=== PATIENT | male | born 1955 | race African-American/Black ===

== ENCOUNTER 2022-01-20 19:03 | Inpatient (IN) | payer MEDICARE, MEDICAID, SELFPAY ==
--- NOTE | 2022-01-20 19:07 | ED_ITS ---
HPI - Psych General Chief Complaint: Psychiatric Symptoms Stated Complaint: [id number] Time Seen by Provider: 01/20/22 19:06 Source: patient and EMS Mode of arrival: EMS History of Present Illness HPI Narrative: 66-year-old male with a past medical history of schizophrenia, HTN, presenting to ED via EMS on a Section 12 for inpatient bed search s/p community evaluation for visual hallucinations and delusions. Patient is noncompliant on m edications. Patient reports baptism delusions and visual hallucinations of horses. Patient reports occasional ETOH use, denies EtOH today. Denies illicit substance use, SI, HI, cough, abdominal pain, nausea/vomiting. History limited due to patient's acute mental status MD complaint: hallucinations Related Data Allergies Allergy/AdvReac Type Severity Reaction Status Date / Time No Known Allergies Allergy Unverified 01/15/20 16:15 [No Known Allergies*] Review of Systems Review of Systems: Constitutional: No Fever, No Chills, No Fatigue, No Malaise ENT/Mouth: No Ear Pain, No sore throat, No Swallowing Difficulty Eyes: No Eye Pain, No Swelling, No Redness Cardiovascular: No Chest Pain, No SOB, No Edema, No Palpitations Respiratory: No Cough, No Sputum, No Dyspnea Gastrointestinal: No Nausea, No Vomiting, No Abdominal pain Genitourinary: No Dysuria, No Urinary Flow Changes Musculoskeletal: No joint pain, No Myalgias, No Joint Swelling Skin: No Skin Lesions, No rash Neuro: No Weakness, No Numbness, No Dizziness, No Headache Psych: No Anxiety/Panic, No Depression, No SI/HI, +AH/VH, No Social Issues Yes all other systems are reviewed and are negative Constitutional: Constitutional: Reports as per HPI [facility] Past Medical History Attestation statement: The following information was validated with the patient. Physical Exam Vital Signs: Vital Signs: Last Vital Signs Temp 99.3 F 01/20/22 19:31 Pulse 73 01/20/22 19:31 Resp 18 01/20/22 19:31 BP 163/86 H 01/20/22 19:31 Pulse Ox 98 01/20/22 19:31 O2 Del Method 01/20/22 19:31 BMI result Body Mass Index 25.1 Const: General: cooperative and no acute distress Orientation/consciousness: patient oriented x3 Limitations: no limitations HEENT: Head: Yes normal to inspection and Yes atraumatic Ears: hearing grossly normal bilaterally General nose exam: Normal external nose present Face and sinus: Yes normal facial exam Eyes: General: appearance normal, both eyes and all related structures Pupils: Equal, round and reactive pupils present EOM: EOMs intact bilaterally Neck: Neck: Yes normal visual inspection and Yes no meningeal signs Resp: Effort & Inspection: normal respiratory effort and no respiratory distress Auscultation: clear to auscultation bilaterally, no crackles, no rales, no rhonchi and no wheezes Cardio: Rate: regular rate Heart sounds: S1 normal heart sound present and S2 normal heart sound present GI: Inspection: Yes normal to inspection Palpation (GI): Soft to palpation, nontender, no guarding and not rigid : General: Yes no CVA tenderness Back/Spine/Pelvis: Back: no CVA tenderness Skin: Rashes: no rashes Wounds: no wounds Neuro: General: patient oriented x3, tone normal, no meningeal signs and CN's II-XI intact bilaterally Cranial nerves: Yes Equal, round and reactive pupils present Gait exam (Neuro): Normal gait present Extrem: General: Yes normal to inspection Psych: Attitude: cooperative Thought process: Flight of ideas present Thought content: delusions and Hallucination(s) present visual Insight: Poor insight present (Psych) Judgement: Poor judgement present (Psych) Course Course Course Narrative: --no leukocytosis. H&H 9.9/31.2 (no available priors). Labs otherwise unremarkable. Valproic acid level WNL 2100--ED care transferred to Dr. Butler pending UA, urine drug screen and inpatient bed search MDM - Psych MDM Narrative Medical decision making narrative: 66-year-old male with a past medical history of schizophrenia, HTN, presenting to ED via EMS on a Section 12 for inpatient bed search s/p community evaluation for visual hallucinations and delusions. On exam vital signs stable, NAD, nontoxic appearing on the patient having active visual hallucinations/delusions during evaluation. Concern for organic causes/metabolic abnormalities or infectious etiology vs medication noncompliance/acute psychiatric illness Plan: EKG, labs, drug screen, tox, inpatient bed search Differential Diagnosis Differential diagnosis: Likely acute psychosis and drug-induced psychotic disorder Medical Records Attestation: I reviewed the patient's medical records. Lab Data Attestation: I reviewed the patient's lab results. Result diagrams: 01/20/22 19:31 01/20/22 19:32 Labs: Lab Results 01/20/22 01/20/22 01/20/22 Range/Units 19:31 19:31 19:31 WBC 5.2 (4.8-10.8) X10*3/uL RBC 3.54 L (4.60-5.80) X10*6/uL Hgb 9.9 L (14.0-18.0) g/dl Hct 31.2 L (42.0-52.0) % MCV 88.1 (80.0-98.0) fL MCH 28.0 (27.0-33.0) pg MCHC 31.7 (31.0-36.0) g/dl RDW 16.1 H (11.0-16.0) % Plt Count 184 (160-400) X10*3/uL MPV 7.9 L (9.4-12.4) fL Immature Gran % (Auto) 0.4 (0.0-0.4) % Neut % (Auto) 40.2 L (45-73) % Lymph % (Auto) 43.7 H (20-40) % [place] % (Auto) 13.4 H (2-11) % Eos % (Auto) 1.7 (0-4) % Baso % (Auto) 0.6 (0-2) % Lymph # (Auto) 2.3 (1.2-4.9) X10*3/uL [place] # (Auto) 0.7 (0.1-1.2) X10*3/uL Eos # (Auto) 0.1 (0.0-0.4) X10*3/uL Baso # (Auto) 0.0 (0.0-0.2) X10*3/uL Abs Immat Gran (auto) 0.02 (0.00-0.03) X10*3/uL Absolute Neuts (auto) 2.1 (2.0-8.3) x10*3/uL Absolute Nucleated RBC 0.000 (0.0-0.012) X10*3/uL Nucleated RBC % (auto) 0.0 (0.0-0.2) /100WBC Sodium (135-145) mmol/L Potassium (3.3-5.1) mmol/L Chloride (96-108) mmol/L Carbon Dioxide (22-29) mmol/L Anion Gap (12-20) BUN (9-16) mg/dL Creatinine (0.5-1.4) mg/dL Estim Creat Clear Calc Estimated GFR Random Glucose (60-115) mg/dL Calcium (8.4-10.2) mg/dL Total Bilirubin (0.0-1.0) mg/dL AST (5-37) U/L ALT (0-40) U/L Alkaline Phosphatase (39-117) U/L Total Protein (6.5-8.0) g/dL Albumin (3.5-5.0) g/dL TSH (0.32-4.0) uIU/mL Salicylates (15-30) mg/dL Acetaminophen (<30) mcg/mL Valproic Acid 72.6 (50.0-100.0) mcg/mL Ethyl Alcohol mg/dL COVID-19 ([facility]) Negative (Negative) COVID-19 Clin Com See Note 01/20/22 01/20/22 01/20/22 Range/Units 19:32 19:32 19:32 WBC (4.8-10.8) X10*3/uL RBC (4.60-5.80) X10*6/uL Hgb (14.0-18.0) g/dl Hct (42.0-52.0) % MCV (80.0-98.0) fL MCH (27.0-33.0) pg MCHC (31.0-36.0) g/dl RDW (11.0-16.0) % Plt Count (160-400) X10*3/uL MPV (9.4-12.4) fL Immature Gran % (Auto) (0.0-0.4) % Neut % (Auto) (45-73) % Lymph % (Auto) (20-40) % [place] % (Auto) (2-11) % Eos % (Auto) (0-4) % Baso % (Auto) (0-2) % Lymph # (Auto) (1.2-4.9) X10*3/uL [place] # (Auto) (0.1-1.2) X10*3/uL Eos # (Auto) (0.0-0.4) X10*3/uL Baso # (Auto) (0.0-0.2) X10*3/uL Abs Immat Gran (auto) (0.00-0.03) X10*3/uL Absolute Neuts (auto) (2.0-8.3) x10*3/uL Absolute Nucleated RBC (0.0-0.012) X10*3/uL Nucleated RBC % (auto) (0.0-0.2) /100WBC Sodium 145 (135-145) mmol/L Potassium 3.8 (3.3-5.1) mmol/L Chloride 105 (96-108) mmol/L Carbon Dioxide 28 (22-29) mmol/L Anion Gap 16 (12-20) BUN 13 (9-16) mg/dL Creatinine 0.90 (0.5-1.4) mg/dL Estim Creat Clear Calc 80.7 Estimated GFR > 60 Random Glucose 88 (60-115) mg/dL Calcium 9.1 (8.4-10.2) mg/dL Total Bilirubin 0.4 (0.0-1.0) mg/dL AST 12 (5-37) U/L ALT 7 (0-40) U/L Alkaline Phosphatase 49 (39-117) U/L Total Protein 7.5 (6.5-8.0) g/dL Albumin 4.0 (3.5-5.0) g/dL TSH 0.68 (0.32-4.0) uIU/mL Salicylates < 5.0 L (15-30) mg/dL Acetaminophen < 1 (<30) mcg/mL Valproic Acid (50.0-100.0) mcg/mL Ethyl Alcohol < 10 mg/dL COVID-19 ([facility]) (Negative) COVID-19 Clin Com Discharge Plan Discharge Clinical Impression: Acute psychosis, Hallucinations, Delusions Patient Disposition: Still a Patient
[2022-01-20 19:13] VITALS: BMI 25.1
[2022-01-20 19:31] VITALS: BP 163/86; PULSE 73; RESP 18; TEMP 37.4; O2SAT 98
[2022-01-20 19:38] LABS: MANUAL DIFF FLAG NO
[2022-01-20 19:40] LABS: Basophils Percent Auto 0.6 % (0-2); Eosinophils Absolute Auto 0.1 X10*3/uL (0.0-0.4); Eosinophils Percent Auto 1.7 % (0-4); Hematocrit 31.2 % (42.0-52.0); Hemoglobin 9.9 g/dl (14.0-18.0); Imm Gran Abs Auto 0.02 X10*3/uL (0.00-0.03); Imm Gran Pct Auto 0.4 % (0.0-0.4); Lymphocytes Absolute Auto 2.3 X10*3/uL (1.2-4.9); Lymphocytes Percent Auto 43.7 % (20-40); Mean Corpuscular HGB Conc 31.7 g/dl (31.0-36.0); Mean Corpuscular Volume 88.1 fL (80.0-98.0); Mean Platelet Volume 7.9 fL (9.4-12.4); Monocytes Absolute Auto 0.7 X10*3/uL (0.1-1.2); Monocytes Percent Auto 13.4 % (2-11); Neutrophils Absolute Auto 2.1 x10*3/uL (2.0-8.3); Neutrophils Percent Auto 40.2 % (45-73); Platelet Count 184 X10*3/uL (160-400); Red Blood Count 3.54 X10*6/uL (4.60-5.80); Red Cell Distribution Width 16.1 % (11.0-16.0); White Blood Count 5.2 X10*3/uL (4.8-10.8)
[2022-01-20 19:54] LABS: Ethanol < 10 mg/dL
[2022-01-20 19:54] LABS: COVID-19 Test Negative (Negative)
[2022-01-20 19:56] LABS: Acetaminophen LAB < 1 mcg/mL (<30); Salicylate < 5.0 mg/dL (15-30)
[2022-01-20 19:57] LABS: Alanine Aminotransferase 7 U/L (0-40); Alkaline Phosphatase 49 U/L (39-117); Anion Gap 16 (12-20); Aspartate Amino Transferase 12 U/L (5-37); Bilirubin Total 0.4 mg/dL (0.0-1.0); Blood Urea Nitrogen 13 mg/dL (9-16); Calcium 9.1 mg/dL (8.4-10.2); Carbon Dioxide 28 mmol/L (22-29); Chloride 105 mmol/L (96-108); Creatinine Clr Calc Pharmacy 80.7; Estimated Glomerular Filt Rate > 60; Glucose Random 88 mg/dL (60-115); Potassium 3.8 mmol/L (3.3-5.1); Sodium 145 mmol/L (135-145); Total Protein 7.5 g/dL (6.5-8.0)
[2022-01-20 20:14] LABS: Valproate 72.6 mcg/mL (50.0-100.0)
[2022-01-20 20:17] LABS: TSH reflex Free T4 0.68 uIU/mL (0.32-4.0)
[2022-01-21 06:26] VITALS: BP 150/81; PULSE 65; RESP 16; O2SAT 97
--- NOTE | 2022-01-21 06:26 | PC.NURSE ---
Patient slept through the night, no distress observed/reported, behavior non concerning, medication rec completed/MAR updated, disposition per [facility] is section 12 inpatient bed search, gait independent, elimination intact, refused to provide urine sample, VS unremarkable,, will continue to monitor.
--- NOTE | 2022-01-21 07:37 | PC.NURSE ---
patient appears to remain asleep at present respirations are even and unlabored patient appears in no distress
[2022-01-21] MEDS: OLANZapine 5 MG TABLET PO (08:01)
[2022-01-21] MEDS: Labetalol HCL 100 MG TABLET 300 MG PO ×2 (08:02→21:00)
--- NOTE | 2022-01-21 12:16 | PC.NURSE ---
gave client personal bible per his request. searched for safety
[2022-01-21] MEDS: Divalproex Sodium 500 MG TABLET.DR 1000 MG PO (21:00)
[2022-01-21] MEDS: lisinopriL 20 MG TABLET PO (21:00)
[2022-01-21] MEDS: OLANZapine 7.5 MG TABLET 15 MG PO (21:00)
[2022-01-21] MEDS: Tamsulosin HCL 0.4 MG CAPSULE PO (21:00)
[2022-01-21 23:20] VITALS: BP 127/79; PULSE 76; RESP 16; O2SAT 95
--- NOTE | 2022-01-22 06:36 | PC.NURSE ---
Patient slept through the night, no distress observed/reported, behavior non concerning, medication compliant, disposition per [facility] is section 12 inpatient bed search, no update on bed search, gait independent, elimination intact, continue refusing to provide urine sample, VS unremarkable,,will continue to monitor.
[2022-01-22] MEDS: Acetaminophen 325 MG TABLET 650 MG PO (08:45)
[2022-01-22] MEDS: Labetalol HCL 100 MG TABLET 300 MG PO (08:45)
[2022-01-22] MEDS: OLANZapine 5 MG TABLET PO (08:45)
--- NOTE | 2022-01-22 18:12 | PC.NURSE ---
clt politely declined ekg a second time i do not like the stickers on my body
[2022-01-22 20:36] VITALS: BP 134/74; PULSE 79; RESP 16; TEMP 35.7; O2SAT 97
--- NOTE | 2022-01-22 22:08 | PC.ADMIT ---
Pt is a 66years old -Bul[place] male admitted on 12B for paranoid, delusion and disorganized thoughts. Pt was found to be severely delusional, accusatory, increased hallucination, medication non-compliant, ignoring his ADL's. Pt is alert and oriented X3, paranoid, VSS, Covid negative, Tox screen is negative. Pt presents as disheveled, speech is hard to understand owing to pt loosing some of his teeth. Eye contact is intense, Pt refuses to comply with assessment, and also refused to sign legals. Pt denies taking drugs and smoking. Pt neither refuses/denies drinking. Pt denies SI/HI/depression/anxiety. Pt was paranoid about loosing his 's ID card and kept asking staff for it. Admission orders obtained.
[2022-01-23 06:00] VITALS: BP 138/82; PULSE 75; RESP 16; TEMP 35.9; O2SAT 98
[2022-01-23] MEDS: Labetalol HCL 100 MG TABLET 300 MG PO (08:00)
[2022-01-23] MEDS: OLANZapine 5 MG TABLET PO (08:00)
[2022-01-23 08:25] LABS: Estimated Average Glucose 103 mg/dL; Hemoglobin A1c % 5.2 %
[2022-01-23 08:28] LABS: Cholesterol 146 mg/dL; HDL Cholesterol 39 mg/dL; LDL Cholesterol Calculated 86 mg/dl; Triglycerides 108 mg/dL
[2022-01-23 08:57] LABS: Vitamin B12 546 pg/mL (200-900)
--- NOTE | 2022-01-23 13:10 | PC.NURSE ---
Pt refused to provide urine for toxicology screen
--- NOTE | 2022-01-23 13:37 | PC.NURSE ---
pt requested a three day notice however he is on a sect. 12.
--- NOTE | 2022-01-23 16:08 | ECG_ITS ---
Test Reason : qtc check Blood Pressure : / mmHG Vent. Rate : 061 BPM Atrial Rate : 061 BPM P-R Int : 164 ms QRS Dur : 106 ms QT Int : 414 ms P-R-T Axes : 078 049 058 degrees QTc Int : 416 ms Normal sinus rhythm Minimal voltage criteria for LVH, may be normal variant ( Sokolow-Andersen ) Borderline ECG When compared with ECG of 18-AUG-2013 12:33, No significant change was found Referred By: Joey Green Electronically Signed By:JF PATTERSON
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
[2022-01-23 18:00] VITALS: BP 139/67; PULSE 88; O2SAT 98
[2022-01-24 06:00] VITALS: BP 154/71; PULSE 68; RESP 16; O2SAT 97
[2022-01-24] MEDS: Labetalol HCL 100 MG TABLET 300 MG PO ×2 (08:56→21:26)
[2022-01-24] MEDS: OLANZapine 5 MG TABLET PO (08:57)
[2022-01-24 09:28] LABS: Iron 90 mcg/dL (45-160); Percent Iron Saturation 36 % (15-50); Total Iron Binding Capacity 250 mcg/dL (228-428); Unsaturated Iron Binding 160 ug/dL
--- NOTE | 2022-01-24 16:50 | P.PNPSI_ITS ---
Subjective Subjective Date of Service: 01/24/22 Reason For Visit: disorganized/psychotic Subjective Notes: Section 12B Healthcare Proxy: No Guardianship: Yes Medical Problems Affecting Mental Status: No Interim History: Zeke remains isolative, spending much time in his room, in bed. Today, he is reading the bible. He appears calmer than 01/23. Speech is slower, still difficult to understand at times, with a normal volume and with more clarity, less pressure. He reports he is well. Denies pain, sleep, appetite disturbance. Acknowledges voices, but denies fear or concern for his safety. Reports he is comfortable. Brief discussion of Section 12B and pt reports no, that is not needed . Began discussion of Section 7/8 and signing himself in for voluntary care-asked pt to consider this before 01/25. Some spontaneous laughter when asked about safety, stating this place is nice, I am not afraid, thank you. Refusing meds (Valproate, Olanzapine), discussed that we are getting a copy of Mono's guardianship to review with him. Medication Compliance: No Side effects from medications: No Attending Groups: No Review of Systems Acute medical concerns: No Medical Review of Systems: unchanged Mental Status Exam Mental Status Exam Patient Appearance: Fatigued Patient Orientation: Person and Place Level of Consciousness: Alert Patient Behavior: Talkative, Cooperative, Fatigued, Distractible, Isolative, Good Eye Contact and Impulsive Mood Description: Flat Affect Description: Flat Patient Cognition Impaired: Yes Ability to Follow Directions: Fair Speech Pattern: Garbled, Spontaneous Speech, Rambling, Soft-Spoken and Poor Articulation Memory Description: Remote Impaired and Episodic Impaired Hallucinations: Auditory and Visual Delusions: Paranoid Ideation and Present Thought Process: Distracted Thought Content: positive for Circumstantial, positive for Loose Associations, positive for Thought Blocking, positive for Tangential, positive for Disorganized, positive for Suicidal Ideation (denies) and positive for Homicidal Ideation (denies) Depressive Symptoms: Diff. Making Decisions, Increased Fatigue and Difficulty Concentrating Abnormal Motor Activity Signs and Symptoms: Restlessness Judgement: Poor Diagnostics Vital Signs (24Hr): Vital Signs - 24 hr 01/23/22 18:00 01/24/22 06:00 Pulse Rate 88 68 Respiratory Rate 16 Blood Pressure 139/67 154/71 H Pulse Oximetry 98 97 Oxygen Delivery Method Room Air BMI result Body Mass Index 25.1 Labs Results: 01/20/22 19:31 01/20/22 19:32 Labs: Laboratory Results - last 48 hr 01/23/22 01/23/22 01/23/22 07:57 07:57 07:57 Estimat Average Glucose 103 Hemoglobin A1c % 5.2 Iron TIBC % Saturation Unsat Iron Binding Triglycerides 108 Cholesterol 146 LDL Cholesterol, Calc 86 HDL Cholesterol 39 Vitamin B12 546 01/24/22 08:22 Estimat Average Glucose Hemoglobin A1c % Iron 90 TIBC 250 % Saturation 36 Unsat Iron Binding 160 Triglycerides Cholesterol LDL Cholesterol, Calc HDL Cholesterol Vitamin B12 Medications Medications Current Medications Acetaminophen (Acetaminophen 325 Mg Tablet) 650 mg PO Q6H PRN PRN Reason: Headache/Pain Mild Scale (1-3) Al Hydroxide/Mg Hydroxide (Magnesium Hydrox/Alum Hydrox 30 Ml Oral.Susp) 30 ml PO Q6H PRN PRN Reason: Heartburn/Nausea Diphenhydramine HCl (Diphenhydramine Hcl 25 Mg Tablet) 50 mg PO Q4H PRN PRN Reason: agitation Divalproex Sodium (Divalproex Sodium 500 Mg Tablet.Dr) 1,000 mg PO BEDTIME [facility] Last Admin: 01/23/22 20:57 Dose: Not Given Haloperidol (Haloperidol 5 Mg Tablet) 5 mg PO Q4H PRN PRN Reason: agitation Hydroxyzine HCl (Hydroxyzine Hcl 25 Mg Tablet) 25 mg PO Q6H PRN PRN Reason: Anxiety Labetalol HCl (Labetalol Hcl 100 Mg Tablet) 300 mg PO BID [facility] Last Admin: 01/24/22 08:56 Dose: 300 mg Lisinopril (Lisinopril 20 Mg Tablet) 20 mg PO BEDTIME [facility]; Protocol Last Admin: 01/23/22 20:57 Dose: Not Given Lorazepam (Lorazepam 1 Mg Tablet) 2 mg PO Q4H PRN PRN Reason: agitation Magnesium Hydroxide (Milk Of Magnesia 30 Ml Oral.Susp) 30 ml PO DAILY PRN PRN Reason: Constipation Nicotine Polacrilex (Nicotine Polacrilex 2 Mg Gum) 4 mg BUCCAL Q2H PRN PRN Reason: Nicotine Cravings Olanzapine (Olanzapine 5 Mg Tablet) 5 mg PO DAILY [facility] Last Admin: 01/24/22 08:57 Dose: 5 mg Olanzapine (Olanzapine 7.5 Mg Tablet) 15 mg PO BEDTIME JOHN Last Admin: 01/23/22 20:58 Dose: Not Given Tamsulosin HCl (Tamsulosin Hcl 0.4 Mg Capsule) 0.4 mg PO BEDTIME JOHN Last Admin: 01/23/22 20:58 Dose: Not Given Trazodone HCl (Trazodone Hcl 50 Mg Tablet) 50 mg PO BEDTIME PRN PRN Reason: Insomnia Allergies Allergies Allergy/AdvReac Type Severity Reaction Status Date / Time No Known Allergies Allergy Unverified 01/15/20 16:15 [No Known Allergies*] Assessment & Plan Assessment & Plan (1) Schizophrenia: Status: Acute Code(s): F20.9 - Schizophrenia, unspecified Assessment and Plan: 66 yo male, hx of schizophrenia, living in an [facility] senior living presents with medication noncompliance and decompensation as evidenced by eloping from his senior living, inability of provide self-care, aggressive sx, visual and auditory perceptual alterations, mental status alterations, shinto preoccupation. Plan: Re-establish regime Collateral contacts Diagnostics to rule out medical etiology. 01/24/22-Pt refusing medications. Will obtain copy of Mono's order to review with pt. I spent minutes with the patient and/or on the patient floor today, greater than?50% of which was spent counseling/coordinating care. Patient educated on: therapeutic strategies Informed Consent: does not understand and further education needed Reason for contiued inpatient stay Substantial Risk for: harm to self, harm to others, inability to function and rapid decompensation
[2022-01-24 21:20] VITALS: BP 181/88; PULSE 70
[2022-01-24] MEDS: lisinopriL 20 MG TABLET PO (21:27)
[2022-01-25 06:00] VITALS: BP 150/70; PULSE 61; RESP 18; TEMP 36.7; O2SAT 97
[2022-01-25] MEDS: Labetalol HCL 100 MG TABLET 300 MG PO ×2 (08:20→19:15)
[2022-01-25] MEDS: OLANZapine 5 MG TABLET PO (08:20)
--- NOTE | 2022-01-25 16:16 | P.PNPSI_ITS ---
Subjective Subjective Date of Service: 01/25/22 Reason For Visit: disorganized/psychotic Subjective Notes: Section 7 Guardianship: Yes Interim History: Section VII filed with the court. Court 01/31/22. Pt remains isolative, however, more visable in milieu this evening-did begin to attend a group. Asks for discharge, explained Section VII-unclear if he understood this as he is still active with symptoms. Medication Compliance: Yes Side effects from medications: No Attending Groups: Intermittent Review of Systems Acute medical concerns: No Medical Review of Systems: unchanged Mental Status Exam Mental Status Exam Patient Appearance: Fatigued Patient Orientation: Person and Place Level of Consciousness: Alert Patient Behavior: Talkative, Cooperative, Fatigued, Distractible, Isolative, Good Eye Contact and Impulsive Mood Description: Flat Affect Description: Flat Patient Cognition Impaired: Yes Ability to Follow Directions: Fair Speech Pattern: Garbled, Spontaneous Speech, Rambling, Soft-Spoken and Poor Art iculation Memory Description: Remote Impaired and Episodic Impaired Hallucinations: Auditory and Visual Delusions: Paranoid Ideation and Present Thought Process: Distracted Thought Content: positive for Circumstantial, positive for Loose Associations, positive for Thought Blocking, positive for Tangential, positive for Disorganized, positive for Suicidal Ideation (denies) and positive for Homicidal Ideation (denies) Depressive Symptoms: Diff. Making Decisions, Increased Fatigue and Difficulty Concentrating Abnormal Motor Activity Signs and Symptoms: Restlessness Judgement: Poor Diagnostics Vital Signs (24Hr): Vital Signs - 24 hr 01/24/22 21:20 01/25/22 06:00 Temperature 98.0 F Pulse Rate 70 61 Respiratory Rate 18 Blood Pressure 181/88 H 150/70 H Pulse Oximetry 97 Oxygen Delivery Method Room Air BMI result Body Mass Index 25.1 Labs Results: 01/20/22 19:31 01/20/22 19:32 Labs: Laboratory Results - last 48 hr 01/24/22 08:22 Iron 90 TIBC 250 % Saturation 36 Unsat Iron Binding 160 Medications Medications Current Medications Acetaminophen (Acetaminophen 325 Mg Tablet) 650 mg PO Q6H PRN PRN Reason: Headache/Pain Mild Scale (1-3) Al Hydroxide/Mg Hydroxide (Magnesium Hydrox/Alum Hydrox 30 Ml Oral.Susp) 30 ml PO Q6H PRN PRN Reason: Heartburn/Nausea Diphenhydramine HCl (Diphenhydramine Hcl 25 Mg Tablet) 50 mg PO Q4H PRN PRN Reason: agitation Divalproex Sodium (Divalproex Sodium 500 Mg Tablet.) 1,000 mg PO BEDTIME [facility] Last Admin: 01/24/22 21:30 Dose: Not Given Haloperidol (Haloperidol 5 Mg Tablet) 5 mg PO Q4H PRN PRN Reason: agitation Hydroxyzine HCl (Hydroxyzine Hcl 25 Mg Tablet) 25 mg PO Q6H PRN PRN Reason: Anxiety Labetalol HCl (Labetalol Hcl 100 Mg Tablet) 300 mg PO BID [facility] Last Admin: 01/25/22 08:20 Dose: 300 mg Lisinopril (Lisinopril 20 Mg Tablet) 20 mg PO BEDTIME [facility]; Protocol Last Admin: 01/24/22 21:27 Dose: 20 mg Lorazepam (Lorazepam 1 Mg Tablet) 2 mg PO Q4H PRN PRN Reason: agitation Magnesium Hydroxide (Milk Of Magnesia 30 Ml Oral.Susp) 30 ml PO DAILY PRN PRN Reason: Constipation Nicotine Polacrilex (Nicotine Polacrilex 2 Mg Gum) 4 mg BUCCAL Q2H PRN PRN Reason: Nicotine Cravings Olanzapine (Olanzapine 5 Mg Tablet) 5 mg PO DAILY [facility] Last Admin: 01/25/22 08:20 Dose: 5 mg Olanzapine (Olanzapine 7.5 Mg Tablet) 15 mg PO BEDTIME [facility] Last Admin: 01/24/22 21:31 Dose: Not Given Tamsulosin HCl (Tamsulosin Hcl 0.4 Mg Capsule) 0.4 mg PO BEDTIME [facility] Last Admin: 01/24/22 21:31 Dose: Not Given Trazodone HCl (Trazodone Hcl 50 Mg Tablet) 50 mg PO BEDTIME PRN PRN Reason: Insomnia Allergies Allergies Allergy/AdvReac Type Severity Reaction Status Date / Time No Known Allergies Allergy Unverified 01/15/20 16:15 [No Known Allergies*] Assessment & Plan Assessment & Plan (1) Schizophrenia: Status: Acute Code(s): F20.9 - Schizophrenia, unspecified Assessment and Plan: 66 yo male, hx of schizophrenia, living in an [facility] prison presents with medication noncompliance and decompensation as evidenced by eloping from his prison, inability of provide self-care, aggressive sx, visual and auditory perceptual alterations, mental status alterations, roman catholic preoccupation. Plan: Re-establish regime Collateral contacts Diagnostics to rule out medical etiology. 01/24/22-Pt refusing medications. Will obtain copy of Mono's order to review with pt. 01/25/22- Section VII filed. I spent minutes with the patient and/or on the patient floor today, greater than?50% of which was spent counseling/coordinating care. Informed Consent: further education needed Reason for contiued inpatient stay Substantial Risk for: harm to self, harm to others, inability to function and rapid decompensation
[2022-01-25 17:18] VITALS: BP 136/69; PULSE 75; RESP 16; TEMP 37.2; O2SAT 99
[2022-01-25 18:00] VITALS: BP 122/68; PULSE 86; RESP 16; TEMP 36.5; O2SAT 98
[2022-01-25] MEDS: Divalproex Sodium 500 MG TABLET.DR 1000 MG PO (19:16)
[2022-01-25] MEDS: lisinopriL 20 MG TABLET PO (19:16)
[2022-01-25] MEDS: OLANZapine 7.5 MG TABLET 15 MG PO (19:16)
[2022-01-25] MEDS: Tamsulosin HCL 0.4 MG CAPSULE PO (19:17)
[2022-01-26 06:00] VITALS: BP 154/75; PULSE 61; RESP 14; TEMP 36.7; O2SAT 96
[2022-01-26] MEDS: Labetalol HCL 100 MG TABLET 300 MG PO ×2 (08:58→19:02)
[2022-01-26] MEDS: OLANZapine 5 MG TABLET PO (08:59)
--- NOTE | 2022-01-26 09:30 | P.PNPSI_ITS ---
Subjective Subjective Date of Service: 01/26/22 Reason For Visit: disorganized/psychotic Subjective Notes: Section 7 Healthcare Proxy: No Guardianship: Yes Medical Problems Affecting Mental Status: No Interim History: Zeke asks to return home to his shelter. Discussed concerns about medications, compliance, safety, thus the Section 7. Pt states he does not need to attend court, he understands what needs to be done. He reports feeling well, physically, mentally, emotionally, spiritually. He presents with difficulty in organization, appears to respond to internal stimuli, paranoia along with anergia and amotivation. He spends much time in bed during the day, is up and about more in the evening with some group attendance. He reports he prefers nights to days when at home Medication Compliance: Yes Side effects from medications: No Attending Groups: Intermittent Review of Systems Acute medical concerns: No Medical Review of Systems: unchanged Mental Status Exam Mental Status Exam Patient Appearance: Fatigued Patient Orientation: Person and Place Level of Consciousness: Alert Patient Behavior: Talkative, Cooperative, Fatigued, Distractible, Isolative, Good Eye Contact and Impulsive Mood Description: Flat Affect Description: Flat Patient Cognition Impaired: Yes Ability to Follow Directions: Fair Speech Pattern: Garbled, Spontaneous Speech, Rambling, Soft-Spoken and Poor Articulation Memory Description: Remote Impaired and Episodic Impaired Hallucinations: Auditory and Visual Delusions: Paranoid Ideation and Present Thought Process: Distracted Thought Content: positive for Circumstantial, positive for Loose Associations, positive for Thought Blocking, positive for Tangential, positive for Disorganized, positive for Suicidal Ideation (denies) and positive for Homicidal Ideation (denies) Depressive Symptoms: Diff. Making Decisions, Increased Fatigue and Difficulty Concentrating Abnormal Motor Activity Signs and Symptoms: Restlessness Judgement: Poor Diagnostics Vital Signs (24Hr): Vital Signs - 24 hr 01/25/22 17:18 01/25/22 18:00 01/26/22 06:00 Temperature 99 F 97.7 F 98.1 F Pulse Rate 75 86 61 Respiratory Rate 16 16 14 Blood Pressure 136/69 122/68 154/75 H Pulse Oximetry 99 98 96 Oxygen Delivery Method Room Air Room Air Room Air BMI result Body Mass Index 25.1 Labs Results: 01/20/22 19:31 01/20/22 19:32 Medications Medications Current Medications Acetaminophen (Acetaminophen 325 Mg Tablet) 650 mg PO Q6H PRN PRN Reason: Headache/Pain Mild Scale (1-3) Al Hydroxide/Mg Hydroxide (Magnesium Hydrox/Alum Hydrox 30 Ml Oral.Susp) 30 ml PO Q6H PRN PRN Reason: Heartburn/Nausea Diphenhydramine HCl (Diphenhydramine Hcl 25 Mg Tablet) 50 mg PO Q4H PRN PRN Reason: agitation Divalproex Sodium (Divalproex Sodium 500 Mg Tablet.Dr) 1,000 mg PO BEDTIME [facility] Last Admin: 01/25/22 19:16 Dose: 1,000 mg Haloperidol (Haloperidol 5 Mg Tablet) 5 mg PO Q4H PRN PRN Reason: agitation Hydroxyzine HCl (Hydroxyzine Hcl 25 Mg Tablet) 25 mg PO Q6H PRN PRN Reason: Anxiety Labetalol HCl (Labetalol Hcl 100 Mg Tablet) 300 mg PO BID [facility] Last Admin: 01/26/22 08:58 Dose: 300 mg Lisinopril (Lisinopril 20 Mg Tablet) 20 mg PO BEDTIME [facility]; Protocol Last Admin: 01/25/22 19:16 Dose: 20 mg Lorazepam (Lorazepam 1 Mg Tablet) 2 mg PO Q4H PRN PRN Reason: agitation Magnesium Hydroxide (Milk Of Magnesia 30 Ml Oral.Susp) 30 ml PO DAILY PRN PRN Reason: Constipation Nicotine Polacrilex (Nicotine Polacrilex 2 Mg Gum) 4 mg BUCCAL Q2H PRN PRN Reason: Nicotine Cravings Olanzapine (Olanzapine 5 Mg Tablet) 5 mg PO DAILY [facility] Last Admin: 01/26/22 08:59 Dose: 5 mg Olanzapine (Olanzapine 7.5 Mg Tablet) 15 mg PO BEDTIME [facility] Last Admin: 01/25/22 19:16 Dose: 15 mg Olanzapine (Olanzapine 10 Mg Vial) 5 mg IM DAILY PRN PRN Reason: if pt refuses PO per Alexi Olanzapine (Olanzapine 10 Mg Vial) 15 mg IM BEDTIME PRN PRN Reason: if pt refuses po per Alexi Tamsulosin HCl (Tamsulosin Hcl 0.4 Mg Capsule) 0.4 mg PO BEDTIME [facility] Last Admin: 01/25/22 19:17 Dose: 0.4 mg Trazodone HCl (Trazodone Hcl 50 Mg Tablet) 50 mg PO BEDTIME PRN PRN Reason: Insomnia Allergies Allergies Allergy/AdvReac Type Severity Reaction Status Date / Time No Known Allergies Allergy Unverified 01/15/20 16:15 [No Known Allergies*] Assessment & Plan Assessment & Plan (1) Schizophrenia: Status: Acute Code(s): F20.9 - Schizophrenia, unspecified Assessment and Plan: 66 yo male, hx of schizophrenia, living in an [facility] shelter presents with medication noncompliance and decompensation as evidenced by eloping from his shelter, inability of provide self-care, aggressive sx, visual and auditory perceptual alterations, mental status alterations, faith preoccupation. Plan: Re-establish regime Collateral contacts Diagnostics to rule out medical etiology. 01/24/22-Pt refusing medications. Will obtain copy of Mono's order to review with pt. 01/26/22- Continue current regime. I spent minutes with the patient and/or on the patient floor today, greater than?50% of which was spent counseling/coordinating care. Patient educated on: medication risk/benefits and therapeutic strategies Informed Consent: does not understand Reason for contiued inpatient stay Substantial Risk for: harm to self, inability to function and rapid decompensation
[2022-01-26 16:30] VITALS: BP 144/68; PULSE 69
[2022-01-26] MEDS: OLANZapine 7.5 MG TABLET 15 MG PO (19:02)
[2022-01-26] MEDS: Divalproex Sodium 500 MG TABLET.DR 1000 MG PO (19:03)
[2022-01-27 06:00] VITALS: BP 131/68; PULSE 60; RESP 14; O2SAT 98
[2022-01-27] MEDS: Labetalol HCL 100 MG TABLET 300 MG PO ×2 (08:35→20:38)
[2022-01-27] MEDS: OLANZapine 5 MG TABLET PO (08:35)
--- NOTE | 2022-01-27 13:24 | P.PNPSI_ITS ---
Subjective Subjective Date of Service: 01/27/22 Reason For Visit: disorganized/psychotic Subjective Notes: Section 7 Healthcare Proxy: No Guardianship: Yes Medical Problems Affecting Mental Status: No Interim History: Zeke continues to request to return to his program. We discussed medication non compliance, his guardianship in community and the residential team's concerns for his safety. Pt reports he believes that he is not on the appropriate regime. He denies side effects, and is unable to give specific information regarding his concerns. We reviewed his regime and he agreed with all listed and had no specific issues with any medication. We discussed his improved clarity of speech with compliance with medications. He reports he does not feel overmedicated. Discussed low hemoglobin, hematocrit, RBC with normal iron profile and B12 levels. He agrees to allow us to work on this. Court date will be 02/14/22. Pt reports that his intake is adequate-he then asks for assist with his menu. Medication compliance on Mono's continues intermittent-Depakote is often refused. Pt unable to identify a specific reason, except to say once, at the residence he fell on the floor as he was overmedicated. Pt has had a visit 01/26 with his [facility] care team. He tells team people are tricking him-when asked he does not recall making that statement and states he does not believe that we are doing this. Medication Compliance: Yes Side effects from medications: No Attending Groups: Intermittent (mostly in the evening.) Review of Systems Acute medical concerns: No Medical Review of Systems: unchanged Mental Status Exam Mental Status Exam Patient Appearance: Fatigued Patient Orientation: Person and Place Level of Consciousness: Alert Patient Behavior: Talkative, Cooperative, Fatigued, Distractible, Isolative, Good Eye Contact and Impulsive Mood Description: Flat Affect Description: Flat Patient Cognition Impaired: Yes Ability to Follow Directions: Fair Speech Pattern: Garbled, Spontaneous Speech, Rambling, Soft-Spoken and Poor Articulation Memory Description: Remote Impaired and Episodic Impaired Hallucinations: Auditory and Visual Delusions: Paranoid Ideation and Present Thought Process: Distracted Thought Content: positive for Circumstantial, positive for Loose Associations, positive for Thought Blocking, positive for Tangential, positive for Disorganized, positive for Suicidal Ideation (denies) and positive for Homicidal Ideation (denies) Depressive Symptoms: Diff. Making Decisions, Increased Fatigue and Difficulty Concentrating Abnormal Motor Activity Signs and Symptoms: Restlessness Judgement: Poor Diagnostics Vital Signs (24Hr): Vital Signs - 24 hr 01/26/22 16:30 01/27/22 06:00 Pulse Rate 69 60 Respiratory Rate 14 Blood Pressure 144/68 H 131/68 Pulse Oximetry 98 Oxygen Delivery Method Room Air BMI result Body Mass Index 25.1 Labs Results: 01/20/22 19:31 01/20/22 19:32 Medications Medications Current Medications Acetaminophen (Acetaminophen 325 Mg Tablet) 650 mg PO Q6H PRN PRN Reason: Headache/Pain Mild Scale (1-3) Al Hydroxide/Mg Hydroxide (Magnesium Hydrox/Alum Hydrox 30 Ml Oral.Susp) 30 ml PO Q6H PRN PRN Reason: Heartburn/Nausea Diphenhydramine HCl (Diphenhydramine Hcl 25 Mg Tablet) 50 mg PO Q4H PRN PRN Reason: agitation Divalproex Sodium (Divalproex Sodium 500 Mg Tablet.) 1,000 mg PO BEDTIME [facility] Last Admin: 01/26/22 19:03 Dose: 1,000 mg Haloperidol (Haloperidol 5 Mg Tablet) 5 mg PO Q4H PRN PRN Reason: agitation Hydroxyzine HCl (Hydroxyzine Hcl 25 Mg Tablet) 25 mg PO Q6H PRN PRN Reason: Anxiety Labetalol HCl (Labetalol Hcl 100 Mg Tablet) 300 mg PO BID [facility] Last Admin: 01/27/22 08:35 Dose: 300 mg Lisinopril (Lisinopril 20 Mg Tablet) 20 mg PO BEDTIME [facility]; Protocol Last Admin: 01/26/22 19:10 Dose: Not Given Lorazepam (Lorazepam 1 Mg Tablet) 2 mg PO Q4H PRN PRN Reason: agitation Magnesium Hydroxide (Milk Of Magnesia 30 Ml Oral.Susp) 30 ml PO DAILY PRN PRN Reason: Constipation Nicotine Polacrilex (Nicotine Polacrilex 2 Mg Gum) 4 mg BUCCAL Q2H PRN PRN Reason: Nicotine Cravings Olanzapine (Olanzapine 5 Mg Tablet) 5 mg PO DAILY [facility] Last Admin: 01/27/22 08:35 Dose: 5 mg Olanzapine (Olanzapine 7.5 Mg Tablet) 15 mg PO BEDTIME [facility] Last Admin: 01/26/22 19:02 Dose: 15 mg Olanzapine (Olanzapine 10 Mg Vial) 5 mg IM DAILY PRN PRN Reason: if pt refuses PO per Alexi Olanzapine (Olanzapine 10 Mg Vial) 15 mg IM BEDTIME PRN PRN Reason: if pt refuses po per Alexi Tamsulosin HCl (Tamsulosin Hcl 0.4 Mg Capsule) 0.4 mg PO BEDTIME [facility] Last Admin: 01/26/22 19:09 Dose: Not Given Trazodone HCl (Trazodone Hcl 50 Mg Tablet) 50 mg PO BEDTIME PRN PRN Reason: Insomnia Allergies Allergies Allergy/AdvReac Type Severity Reaction Status Date / Time No Known Allergies Allergy Unverified 01/15/20 16:15 [No Known Allergies*] Assessment & Plan Assessment & Plan (1) Schizophrenia: Status: Acute Code(s): F20.9 - Schizophrenia, unspecified Assessment and Plan: 66 yo male, hx of schizophrenia, living in an [facility] assisted presents with medication noncompliance and decompensation as evidenced by eloping from his assisted, inability of provide self-care, aggressive sx, visual and auditory perceptual alterations, mental status alterations, gnosticist preoccupation. Plan: Re-establish regime Collateral contacts Diagnostics to rule out medical etiology. 01/24/22-Pt refusing medications. Will obtain copy of Mono's order to review with pt. 01/25/22- Section VII filed. 01/27/22- Court 02/14 for Section VII hearing I spent minutes with the patient and/or on the patient floor today, greater than?50% of which was spent counseling/coordinating care. Patient educated on: medication risk/benefits and therapeutic strategies Informed Consent: further education needed Reason for contiued inpatient stay Substantial Risk for: harm to self, inability to function and rapid decompensation
[2022-01-27 18:00] VITALS: BP 161/88; PULSE 80; TEMP 36.4
[2022-01-27] MEDS: OLANZapine 7.5 MG TABLET 15 MG PO (20:40)
[2022-01-28 06:00] VITALS: BP 143/68; PULSE 76; RESP 16; O2SAT 97
[2022-01-28] MEDS: Labetalol HCL 100 MG TABLET 300 MG PO ×2 (08:09→20:02)
[2022-01-28] MEDS: OLANZapine 5 MG TABLET PO (08:09)
--- NOTE | 2022-01-28 15:51 | HO.PSYCHPN ---
Subjective Subjective Date of Service: 01/28/22 Reason For Visit: disorganized/psychotic Subjective Notes: Section 7 Healthcare Proxy: No Guardianship: No Medical Problems Affecting Mental Status: No Interim History: Pt says he is fine and wants to be dced- reading bible- denies problems from medication some thought blocking not answering some questions clearly has TD movements of mouth and hand- pt doesn't notice when asked Medication Compliance: Yes Side effects from medications: Yes (TD mouth movements ) Attending Groups: No Review of Systems Acute medical concerns: No Mental Status Exam Mental Status Exam Patient Appearance: Disheveled and Unkempt Patient Orientation: Person, Place and Situation Level of Consciousness: Awake Patient Behavior: Guarded Mood Description: Calm Affect Description: Apathetic and Flat Ability to Follow Directions: Fair Speech Pattern: Mumbled and Delayed Hallucinations: Auditory Delusions: Paranoid Ideation Thought Process: Distracted Thought Content: positive for [place] and positive for Poverty of Content (or just keeps to himself , ? oriental orthodox preoccupation) Judgement: Poor Diagnostics Vital Signs (24Hr): Vital Signs - 24 hr 01/27/22 18:00 01/28/22 06:00 Temperature 97.6 F Pulse Rate 80 76 Respiratory Rate 16 Blood Pressure 161/88 H 143/68 H Pulse Oximetry 97 Oxygen Delivery Method Room Air BMI result Body Mass Index 25.1 Labs Results: 01/20/22 19:31 01/20/22 19:32 Medications Medications Current Medications Acetaminophen (Acetaminophen 325 Mg Tablet) 650 mg PO Q6H PRN PRN Reason: Headache/Pain Mild Scale (1-3) Al Hydroxide/Mg Hydroxide (Magnesium Hydrox/Alum Hydrox 30 Ml Oral.Susp) 30 ml PO Q6H PRN PRN Reason: Heartburn/Nausea Diphenhydramine HCl (Diphenhydramine Hcl 25 Mg Tablet) 50 mg PO Q4H PRN PRN Reason: agitation Divalproex Sodium (Divalproex Sodium 500 Mg Tablet.Dr) 1,000 mg PO BEDTIME [facility] Last Admin: 01/27/22 20:43 Dose: Not Given Haloperidol (Haloperidol 5 Mg Tablet) 5 mg PO Q4H PRN PRN Reason: agitation Hydroxyzine HCl (Hydroxyzine Hcl 25 Mg Tablet) 25 mg PO Q6H PRN PRN Reason: Anxiety Labetalol HCl (Labetalol Hcl 100 Mg Tablet) 300 mg PO BID [facility] Last Admin: 01/28/22 08:09 Dose: 300 mg Lisinopril (Lisinopril 20 Mg Tablet) 20 mg PO BEDTIME [facility]; Protocol Last Admin: 01/27/22 20:44 Dose: Not Given Magnesium Hydroxide (Milk Of Magnesia 30 Ml Oral.Susp) 30 ml PO DAILY PRN PRN Reason: Constipation Nicotine Polacrilex (Nicotine Polacrilex 2 Mg Gum) 4 mg BUCCAL Q2H PRN PRN Reason: Nicotine Cravings Olanzapine (Olanzapine 5 Mg Tablet) 5 mg PO DAILY [facility] Last Admin: 01/28/22 08:09 Dose: 5 mg Olanzapine (Olanzapine 7.5 Mg Tablet) 15 mg PO BEDTIME [facility] Last Admin: 01/27/22 20:40 Dose: 15 mg Olanzapine (Olanzapine 10 Mg Vial) 5 mg IM DAILY PRN PRN Reason: if pt refuses PO per Alexi Olanzapine (Olanzapine 10 Mg Vial) 15 mg IM BEDTIME PRN PRN Reason: if pt refuses po per Alexi Tamsulosin HCl (Tamsulosin Hcl 0.4 Mg Capsule) 0.4 mg PO BEDTIME [facility] Last Admin: 01/27/22 20:44 Dose: Not Given Trazodone HCl (Trazodone Hcl 50 Mg Tablet) 50 mg PO BEDTIME PRN PRN Reason: Insomnia Allergies Allergies Allergy/AdvReac Type Severity Reaction Status Date / Time No Known Allergies Allergy Unverified 01/15/20 16:15 [No Known Allergies*] Assessment & Plan Assessment & Plan (1) Schizophrenia: Status: Acute Code(s): F20.9 - Schizophrenia, unspecified Assessment and Plan: 66 yo male, hx of schizophrenia, living in an [facility] presents with medication noncompliance and decompensation as evidenced by eloping from his fpc, inability of provide self-care, aggressive sx, visual and auditory perceptual alterations, mental status alterations, oriental orthodox preoccupation. Plan: Re-establish regime Collateral contacts Diagnostics to rule out medical etiology. 01/24/22-Pt refusing medications. Will obtain copy of Mono's order to review with pt. 01/25/22- Section VII filed. 01/27/22- Court 02/14 for Section VII hearing Plan Pt started taking medications still fairly preoccupied with no insight I spent minutes with the patient and/or on the patient floor today, greater than?50% of which was spent counseling/coordinating care. Patient educated on: medication risk/benefits Informed Consent: further education needed Reason for contiued inpatient stay Substantial Risk for: harm to self, harm to others, inability to function and med/psych decompensation
[2022-01-28 18:22] VITALS: BP 144/76; PULSE 80; RESP 18; TEMP 37; O2SAT 98
[2022-01-28 20:00] VITALS: BP 165/92
[2022-01-28] MEDS: Tamsulosin HCL 0.4 MG CAPSULE PO (20:02)
[2022-01-28] MEDS: lisinopriL 20 MG TABLET PO (20:02)
[2022-01-28] MEDS: OLANZapine 7.5 MG TABLET 15 MG PO (20:02)
[2022-01-29 06:00] VITALS: BP 125/70; PULSE 65; RESP 14; TEMP 36.6; O2SAT 97
[2022-01-29] MEDS: OLANZapine 5 MG TABLET PO (08:40)
[2022-01-29] MEDS: Labetalol HCL 100 MG TABLET 300 MG PO ×2 (08:40→20:06)
--- NOTE | 2022-01-29 11:56 | HO.PSYCHPN ---
Subjective Subjective Date of Service: 01/29/22 Reason For Visit: disorganized/psychotic Subjective Notes: Section 8 Medical Problems Affecting Mental Status: No Interim History: Patient asked provider to repeat God Moniey I give you my soul Was difficult to understand what patient was saying to repeat-He seemed to feel he had saved provider in someway- was not aggressive, though mildly intrussive- clearly religiously preoccupied. Told me earlier he didn't need any medication- there was nothing wrong with him, he had not mental illness. Nursing reports pt staying in bed and refusing showers Medication Compliance: Yes Side effects from medications: Yes (TD- pt not complaining) Attending Groups: No (though was out of room and eating with people in kitchen,) Review of Systems Acute medical concerns: No Mental Status Exam Mental Status Exam Narrative: more attempt at grooming, wore clothing and combed hair Patient Orientation: Person and Place Level of Consciousness: Awake and Alert Patient Behavior: Guarded, Suspicious and Invasion - Personal Space Behavior Comments: preaching to provider Mood Description: Calm Affect Description: Flat Ability to Follow Directions: Fair Speech Pattern: Mumbled Delusions: Grandiose (hyperreligious) Thought Process: Rumination Thought Content: positive for Preoccupation Abnormal Motor Activity Signs and Symptoms: Tic (mouth and arm) Judgement: Poor Judgement and Insight: has not insight said not mental illness, no need for medications Diagnostics Vital Signs (24Hr): Vital Signs - 24 hr 01/28/22 18:22 01/28/22 20:00 01/29/22 06:00 Temperature 98.6 F 97.9 F Pulse Rate 80 65 Respiratory Rate 18 14 Blood Pressure 144/76 H 165/92 H 125/70 Pulse Oximetry 98 97 Oxygen Delivery Method Room Air Room Air BMI result Body Mass Index 25.1 Labs Results: 01/20/22 19:31 01/20/22 19:32 Medications Medications Current Medications Acetaminophen (Acetaminophen 325 Mg Tablet) 650 mg PO Q6H PRN PRN Reason: Headache/Pain Mild Scale (1-3) Al Hydroxide/Mg Hydroxide (Magnesium Hydrox/Alum Hydrox 30 Ml Oral.Susp) 30 ml PO Q6H PRN PRN Reason: Heartburn/Nausea Diphenhydramine HCl (Diphenhydramine Hcl 25 Mg Tablet) 50 mg PO Q4H PRN PRN Reason: agitation Divalproex Sodium (Divalproex Sodium 500 Mg Tablet.) 1,000 mg PO BEDTIME [facility] Last Admin: 01/28/22 20:18 Dose: Not Given Haloperidol (Haloperidol 5 Mg Tablet) 5 mg PO Q4H PRN PRN Reason: agitation Hydroxyzine HCl (Hydroxyzine Hcl 25 Mg Tablet) 25 mg PO Q6H PRN PRN Reason: Anxiety Labetalol HCl (Labetalol Hcl 100 Mg Tablet) 300 mg PO BID [facility] Last Admin: 01/29/22 08:40 Dose: 300 mg Lisinopril (Lisinopril 20 Mg Tablet) 20 mg PO BEDTIME [facility]; Protocol Last Admin: 01/28/22 20:02 Dose: 20 mg Magnesium Hydroxide (Milk Of Magnesia 30 Ml Oral.Susp) 30 ml PO DAILY PRN PRN Reason: Constipation Nicotine Polacrilex (Nicotine Polacrilex 2 Mg Gum) 4 mg BUCCAL Q2H PRN PRN Reason: Nicotine Cravings Olanzapine (Olanzapine 5 Mg Tablet) 5 mg PO DAILY [facility] Last Admin: 01/29/22 08:40 Dose: 5 mg Olanzapine (Olanzapine 7.5 Mg Tablet) 15 mg PO BEDTIME [facility] Last Admin: 01/28/22 20:02 Dose: 15 mg Olanzapine (Olanzapine 10 Mg Vial) 5 mg IM DAILY PRN PRN Reason: if pt refuses PO per Alexi Olanzapine (Olanzapine 10 Mg Vial) 15 mg IM BEDTIME PRN PRN Reason: if pt refuses po per Alexi Tamsulosin HCl (Tamsulosin Hcl 0.4 Mg Capsule) 0.4 mg PO BEDTIME [facility] Last Admin: 01/28/22 20:02 Dose: 0.4 mg Trazodone HCl (Trazodone Hcl 50 Mg Tablet) 50 mg PO BEDTIME PRN PRN Reason: Insomnia Allergies Allergies Allergy/AdvReac Type Severity Reaction Status Date / Time No Known Allergies Allergy Unverified 01/15/20 16:15 [No Known Allergies*] Assessment & Plan Assessment & Plan (1) Schizophrenia: Status: Acute Code(s): F20.9 - Schizophrenia, unspecified Assessment and Plan: 66 yo male, hx of schizophrenia, living in an A/[facility] prison presents with medication noncompliance and decompensation as evidenced by eloping from his prison, inability of provide self-care, aggressive sx, visual and auditory perceptual alterations, mental status alterations, faith preoccupation. Plan: Re-establish regime Collateral contacts Diagnostics to rule out medical etiology. 01/24/22-Pt refusing medications. Will obtain copy of Mono's order to review with pt. 01/25/22- Section VII filed. 01/27/22- Court 02/14 for Section VII hearing Plan Pt started taking medications still fairly preoccupied with no insight I spent minutes with the patient and/or on the patient floor today, greater than?50% of which was spent counseling/coordinating care. Patient educated on: diagnosis and medication risk/benefits Informed Consent: further education needed Reason for contiued inpatient stay Substantial Risk for: inability to function and rapid decompensation
[2022-01-29 20:03] VITALS: BP 183/94; PULSE 80; RESP 16; TEMP 36.9
[2022-01-29] MEDS: lisinopriL 20 MG TABLET PO (20:05)
--- NOTE | 2022-01-29 21:32 | PC.NURSE ---
PT hypertensive @ 183/95 bedtime VS check. Labatelol given, pt refused recheck of vitals, laying in bed in no apparent distress, respirations even and unlabored.
[2022-01-30 06:00] VITALS: BP 150/81; PULSE 65; RESP 16; O2SAT 100
[2022-01-30] MEDS: OLANZapine 5 MG TABLET PO (08:20)
[2022-01-30] MEDS: Labetalol HCL 100 MG TABLET 300 MG PO ×2 (08:20→19:22)
[2022-01-30 16:25] VITALS: BP 119/77; PULSE 89; RESP 16; TEMP 37.1; O2SAT 100
--- NOTE | 2022-01-30 16:50 | P.PNPSI_ITS ---
Subjective Subjective Date of Service: 01/30/22 Reason For Visit: disorganized/psychotic Subjective Notes: Section 7 Healthcare Proxy: No Guardianship: No Medical Problems Affecting Mental Status: No Interim History: More visable in milieu, interactive with peers. Quiet, pleasant. Continues to deny having illness, need for medication, just needing to go home. Thought content, process, speech difficult to understand at times Denies any TD sx, denies need for treatment, attempted to discuss [place], [place] as we have before, however pt declines citing no need for this treatment. Team reports scientology preoccupation over the weekend. Refusing ADL care/showering. Team questions MCI/Dementia sx. Court 02/14. Medication Compliance: Intermittent (Refuses Depakote most of the time) Side effects from medications: No Attending Groups: Intermittent Review of Systems Acute medical concerns: No Medical Review of Systems: unchanged Mental Status Exam Mental Status Exam Patient Appearance: Appropriate Patient Orientation: Person, Place and Situation Level of Consciousness: Alert Patient Behavior: Guarded, Talkative, Cooperative, Suspicious, Anxious, Fearful, Avoidant, Distractible, Isolative and Good Eye Contact Mood Description: Constricted Affect Description: Constricted Patient Cognition Impaired: Yes Ability to Follow Directions: Good Speech Pattern: Garbled, Spontaneous Speech, Rambling, Soft-Spoken and Mumbled Memory Description: Remote Impaired and Episodic Impaired Hallucinations: Auditory Delusions: Paranoid Ideation and Present Perceptual Disturbances: Derealization and Hallucinations Thought Process: Illogical, Distracted and Evasive Thought Content: positive for [place], positive for Preoccupation (focused on scientology content), positive for Tangential, positive for Evasive and positive for Suicidal Ideation (denies) Depressive Symptoms: Hopelessness, Unhappiness, Thoughts of /Suicide (denies) and Difficulty Concentrating Judgement: Poor Diagnostics Vital Signs (24Hr): Vital Signs - 24 hr 01/29/22 20:03 01/30/22 06:00 01/30/22 16:25 Temperature 98.4 F 98.7 F Pulse Rate 80 65 89 Respiratory Rate 16 16 16 Blood Pressure 183/94 H 150/81 H 119/77 Pulse Oximetry 100 100 Oxygen Delivery Method Room Air Room Air BMI result Body Mass Index 25.1 Labs Results: 01/20/22 19:31 01/20/22 19:32 Medications Medications Current Medications Acetaminophen (Acetaminophen 325 Mg Tablet) 650 mg PO Q6H PRN PRN Reason: Headache/Pain Mild Scale (1-3) Al Hydroxide/Mg Hydroxide (Magnesium Hydrox/Alum Hydrox 30 Ml Oral.Susp) 30 ml PO Q6H PRN PRN Reason: Heartburn/Nausea Diphenhydramine HCl (Diphenhydramine Hcl 25 Mg Tablet) 50 mg PO Q4H PRN PRN Reason: agitation Divalproex Sodium (Divalproex Sodium 500 Mg Tablet.Dr) 1,000 mg PO BEDTIME [facility] Last Admin: 01/29/22 20:10 Dose: Not Given Haloperidol (Haloperidol 5 Mg Tablet) 5 mg PO Q4H PRN PRN Reason: agitation Hydroxyzine HCl (Hydroxyzine Hcl 25 Mg Tablet) 25 mg PO Q6H PRN PRN Reason: Anxiety Labetalol HCl (Labetalol Hcl 100 Mg Tablet) 300 mg PO BID [facility] Last Admin: 01/30/22 08:20 Dose: 300 mg Lisinopril (Lisinopril 20 Mg Tablet) 20 mg PO BEDTIME [facility]; Protocol Last Admin: 01/29/22 20:05 Dose: 20 mg Magnesium Hydroxide (Milk Of Magnesia 30 Ml Oral.Susp) 30 ml PO DAILY PRN PRN Reason: Constipation Nicotine Polacrilex (Nicotine Polacrilex 2 Mg Gum) 4 mg BUCCAL Q2H PRN PRN Reason: Nicotine Cravings Olanzapine (Olanzapine 5 Mg Tablet) 5 mg PO DAILY [facility] Last Admin: 01/30/22 08:20 Dose: 5 mg Olanzapine (Olanzapine 7.5 Mg Tablet) 15 mg PO BEDTIME [facility] Last Admin: 01/29/22 20:11 Dose: Not Given Olanzapine (Olanzapine 10 Mg Vial) 5 mg IM DAILY PRN PRN Reason: if pt refuses PO per Alexi Olanzapine (Olanzapine 10 Mg Vial) 15 mg IM BEDTIME PRN PRN Reason: if pt refuses po per Alexi Tamsulosin HCl (Tamsulosin Hcl 0.4 Mg Capsule) 0.4 mg PO BEDTIME [facility] Last Admin: 01/29/22 20:10 Dose: Not Given Trazodone HCl (Trazodone Hcl 50 Mg Tablet) 50 mg PO BEDTIME PRN PRN Reason: Insomnia Allergies Allergies Allergy/AdvReac Type Severity Reaction Status Date / Time No Known Allergies Allergy Unverified 01/15/20 16:15 [No Known Allergies*] Assessment & Plan Assessment & Plan (1) Schizophrenia: Status: Acute Code(s): F20.9 - Schizophrenia, unspecified Assessment and Plan: 66 yo male, hx of schizophrenia, living in an [facility] long-term presents with medication noncompliance and decompensation as evidenced by eloping from his long-term, inability of provide self-care, aggressive sx, visual and auditory perceptual alterations, mental status alterations, scientology preoccupation. Plan: Re-establish regime Collateral contacts Diagnostics to rule out medical etiology. 01/24/22-Pt refusing medications. Will obtain copy of Mono's order to review with pt. 01/25/22- Section VII filed. 01/27/22- Court 02/14 for Section VII hearing 01/30/33- Pt focusing on scientology content. Less isolative in milieu, with increased interaction with peers. Folate, ESR, CRP, RPR, HIV Team talking with pt about their observations of TD. Pt denies, declines Rx. Medication compliance except for Depakote. Plan Pt started taking medications still fairly preoccupied with no insight I spent minutes with the patient and/or on the patient floor today, greater than?50% of which was spent counseling/coordinating care. Patient educated on: medication risk/benefits and therapeutic strategies Informed Consent: does not understand Reason for contiued inpatient stay Substantial Risk for: rapid decompensation
[2022-01-30] MEDS: lisinopriL 20 MG TABLET PO (19:21)
[2022-01-30] MEDS: Divalproex Sodium 500 MG TABLET.DR 1000 MG PO (19:21)
[2022-01-30] MEDS: Tamsulosin HCL 0.4 MG CAPSULE PO (19:21)
[2022-01-30] MEDS: OLANZapine 7.5 MG TABLET 15 MG PO (19:22)
[2022-01-31 06:00] VITALS: BP 131/70; PULSE 84; RESP 16; TEMP 36.2; O2SAT 100
[2022-01-31] MEDS: OLANZapine 5 MG TABLET PO (08:41)
[2022-01-31] MEDS: Labetalol HCL 100 MG TABLET 300 MG PO ×2 (08:41→19:45)
[2022-01-31 09:58] LABS: C Reactive Protein 0.57 mg/dL (< or = 0.50)
[2022-01-31 10:20] LABS: HIV AB/AG Nonreactive (Nonreactive); HIV Num 1 0.07 S/CO (0.00-0.99)
[2022-01-31 10:36] LABS: Erythrocyte Sedimentation Rate 29 MM/HR (0-15)
--- NOTE | 2022-01-31 15:08 | P.PNPSI_ITS ---
Subjective Subjective Date of Service: 01/31/22 Reason For Visit: disorganized/psychotic Subjective Notes: Section 7 Healthcare Proxy: No Guardianship: No Medical Problems Affecting Mental Status: No Interim History: Gurarded, irritable, refused MOCA, refused ADL care, isolative. I want to go home . Discussed rationale for MOCA. You will use it against me . Discussed in team. Will arrange a meeting with pt's residence and out pt providers to discuss return to his home. Medication Compliance: Intermittent Side effects from medications: Yes (chronic TD, pt refuses treatment and denies this as a sx) Attending Groups: Intermittent Review of Systems Acute medical concerns: No Medical Review of Systems: unchanged Mental Status Exam Mental Status Exam Patient Appearance: Appropriate Patient Orientation: Person, Place and Situation Level of Consciousness: Alert Patient Behavior: Guarded, Talkative, Cooperative, Suspicious, Anxious, Fearful, Avoidant, Distractible, Isolative and Good Eye Contact Mood Description: Constricted Affect Description: Constricted Patient Cognition Impaired: Yes Ability to Follow Directions: Good Speech Pattern: Garbled, Spontaneous Speech, Rambling, Soft-Spoken and Mumbled Memory Description: Remote Impaired and Episodic Impaired Hallucinations: Auditory Delusions: Paranoid Ideation and Present Perceptual Disturbances: Derealization and Hallucinations Thought Process: Illogical, Distracted and Evasive Thought Content: positive for [place], positive for Preoccupation (focused on r eligious content), positive for Tangential, positive for Evasive and positive for Suicidal Ideation (denies) Depressive Symptoms: Hopelessness, Unhappiness, Thoughts of /Suicide (denies) and Difficulty Concentrating Judgement: Poor Diagnostics Vital Signs (24Hr): Vital Signs - 24 hr 01/30/22 16:25 01/31/22 06:00 Temperature 98.7 F 97.1 F Pulse Rate 89 84 Respiratory Rate 16 16 Blood Pressure 119/77 131/70 Pulse Oximetry 100 100 Oxygen Delivery Method Room Air Room Air BMI result Body Mass Index 25.1 Labs Results: 01/20/22 19:31 01/20/22 19:32 Labs: Laboratory Results - last 48 hr 01/31/22 01/31/22 01/31/22 09:35 09:35 09:35 ESR 29 H C-Reactive Protein 0.57 H Folate 12.0 HIV 1&2 Ab/P24 Ag 4thGn 01/31/22 09:35 ESR C-Reactive Protein Folate HIV 1&2 Ab/P24 Ag 4thGn Nonreactive Medications Medications Current Medications Acetaminophen (Acetaminophen 325 Mg Tablet) 650 mg PO Q6H PRN PRN Reason: Headache/Pain Mild Scale (1-3) Al Hydroxide/Mg Hydroxide (Magnesium Hydrox/Alum Hydrox 30 Ml Oral.Susp) 30 ml PO Q6H PRN PRN Reason: Heartburn/Nausea Diphenhydramine HCl (Diphenhydramine Hcl 25 Mg Tablet) 50 mg PO Q4H PRN PRN Reason: agitation Divalproex Sodium (Divalproex Sodium 500 Mg Tablet.Dr) 1,000 mg PO BEDTIME [facility] Last Admin: 01/30/22 19:21 Dose: 1,000 mg Haloperidol (Haloperidol 5 Mg Tablet) 5 mg PO Q4H PRN PRN Reason: agitation Hydroxyzine HCl (Hydroxyzine Hcl 25 Mg Tablet) 25 mg PO Q6H PRN PRN Reason: Anxiety Labetalol HCl (Labetalol Hcl 100 Mg Tablet) 300 mg PO BID [facility] Last Admin: 01/31/22 08:41 Dose: 300 mg Lisinopril (Lisinopril 20 Mg Tablet) 20 mg PO BEDTIME [facility]; Protocol Last Admin: 01/30/22 19:21 Dose: 20 mg Magnesium Hydroxide (Milk Of Magnesia 30 Ml Oral.Susp) 30 ml PO DAILY PRN PRN Reason: Constipation Nicotine Polacrilex (Nicotine Polacrilex 2 Mg Gum) 4 mg BUCCAL Q2H PRN PRN Reason: Nicotine Cravings Olanzapine (Olanzapine 5 Mg Tablet) 5 mg PO DAILY [facility] Last Admin: 01/31/22 08:41 Dose: 5 mg Olanzapine (Olanzapine 7.5 Mg Tablet) 15 mg PO BEDTIME [facility] Last Admin: 01/30/22 19:22 Dose: 15 mg Olanzapine (Olanzapine 10 Mg Vial) 5 mg IM DAILY PRN PRN Reason: if pt refuses PO per Alexi Olanzapine (Olanzapine 10 Mg Vial) 15 mg IM BEDTIME PRN PRN Reason: if pt refuses po per Alexi Tamsulosin HCl (Tamsulosin Hcl 0.4 Mg Capsule) 0.4 mg PO BEDTIME [facility] Last Admin: 01/30/22 19:21 Dose: 0.4 mg Trazodone HCl (Trazodone Hcl 50 Mg Tablet) 50 mg PO BEDTIME PRN PRN Reason: Insomnia Allergies Allergies Allergy/AdvReac Type Severity Reaction Status Date / Time No Known Allergies Allergy Unverified 01/15/20 16:15 [No Known Allergies*] Assessment & Plan Assessment & Plan (1) Schizophrenia: Status: Acute Code(s): F20.9 - Schizophrenia, unspecified Assessment and Plan: 66 yo male, hx of schizophrenia, living in an [facility] retirement presents with medication noncompliance and decompensation as evidenced by eloping from his retirement, inability of provide self-care, aggressive sx, visual and auditory perceptual alterations, mental status alterations, protestant preoccupation. Plan: Re-establish regime Collateral contacts Diagnostics to rule out medical etiology. 01/24/22-Pt refusing medications. Will obtain copy of Mono's order to review with pt. 01/25/22- Section VII filed. 01/27/22- Court 02/14 for Section VII hearing 01/30/22- Pt focusing on protestant content. Less isolative in milieu, with increased interaction with peers. Folate, ESR, CRP, RPR, HIV Team talking with pt about their observations of TD. Pt denies, declines Rx. Medication compliance except for Depakote. 01/31/22- Meeting with OP team to discuss discharge planning. I spent minutes with the patient and/or on the patient floor today, greater than?50% of which was spent counseling/coordinating care. Patient educated on: therapeutic strategies Informed Consent: does not understand Reason for contiued inpatient stay Substantial Risk for: rapid decompensation
--- NOTE | 2022-01-31 16:02 | PC.NURSE ---
Pt declined to participate in [facility] screen on this date x 3. Nurse and REJECTOR aware
[2022-01-31 18:00] VITALS: BP 143/70; PULSE 78; RESP 16; TEMP 36.8; O2SAT 99
--- NOTE | 2022-01-31 18:48 | P.PNPSI_ITS ---
Subjective Subjective Reason For Visit: disorganized/psychotic Diagnostics Vital Signs (24Hr): Vital Signs - 24 hr 01/31/22 06:00 Temperature 97.1 F Pulse Rate 84 Respiratory Rate 16 Blood Pressure 131/70 Pulse Oximetry 100 Oxygen Delivery Method Room Air BMI result Body Mass Index 25.1 Labs Results: 01/20/22 19:31 01/20/22 19:32 Labs: Laboratory Results - last 48 hr 01/31/22 01/31/22 01/31/22 09:35 09:35 09:35 ESR 29 H C-Reactive Protein 0.57 H Folate 12.0 HIV 1&2 Ab/P24 Ag 4thGn 01/31/22 09:35 ESR C-Reactive Protein Folate HIV 1&2 Ab/P24 Ag 4thGn Nonreactive Medications Medications Current Medications Acetaminophen (Acetaminophen 325 Mg Tablet) 650 mg PO Q6H PRN PRN Reason: Headache/Pain Mild Scale (1-3) Al Hydroxide/Mg Hydroxide (Magnesium Hydrox/Alum Hydrox 30 Ml Oral.Susp) 30 ml PO Q6H PRN PRN Reason: Heartburn/Nausea Diphenhydramine HCl (Diphenhydramine Hcl 25 Mg Tablet) 50 mg PO Q4H PRN PRN Reason: agitation Divalproex Sodium (Divalproex Sodium 500 Mg Tablet.Dr) 1,000 mg PO BEDTIME [facility] Last Admin: 01/30/22 19:21 Dose: 1,000 mg Haloperidol (Haloperidol 5 Mg Tablet) 5 mg PO Q4H PRN PRN Reason: agitation Hydroxyzine HCl (Hydroxyzine Hcl 25 Mg Tablet) 25 mg PO Q6H PRN PRN Reason: Anxiety Labetalol HCl (Labetalol Hcl 100 Mg Tablet) 300 mg PO BID [facility] Last Admin: 01/31/22 08:41 Dose: 300 mg Lisinopril (Lisinopril 20 Mg Tablet) 20 mg PO BEDTIME [facility]; Protocol Last Admin: 01/30/22 19:21 Dose: 20 mg Magnesium Hydroxide (Milk Of Magnesia 30 Ml Oral.Susp) 30 ml PO DAILY PRN PRN Reason: Constipation Nicotine Polacrilex (Nicotine Polacrilex 2 Mg Gum) 4 mg BUCCAL Q2H PRN PRN Reason: Nicotine Cravings Olanzapine (Olanzapine 5 Mg Tablet) 5 mg PO DAILY [facility] Last Admin: 01/31/22 08:41 Dose: 5 mg Olanzapine (Olanzapine 7.5 Mg Tablet) 15 mg PO BEDTIME [facility] Last Admin: 01/30/22 19:22 Dose: 15 mg Olanzapine (Olanzapine 10 Mg Vial) 5 mg IM DAILY PRN PRN Reason: if pt refuses PO per Alexi Olanzapine (Olanzapine 10 Mg Vial) 15 mg IM BEDTIME PRN PRN Reason: if pt refuses po per Alexi Tamsulosin HCl (Tamsulosin Hcl 0.4 Mg Capsule) 0.4 mg PO BEDTIME [facility] Last Admin: 01/30/22 19:21 Dose: 0.4 mg Trazodone HCl (Trazodone Hcl 50 Mg Tablet) 50 mg PO BEDTIME PRN PRN Reason: Insomnia Allergies Allergies Allergy/AdvReac Type Severity Reaction Status Date / Time No Known Allergies Allergy Unverified 01/15/20 16:15 [No Known Allergies*] Assessment & Plan Assessment & Plan (1) Schizophrenia: Status: Acute Code(s): F20.9 - Schizophrenia, unspecified Assessment and Plan: 66 yo male, hx of schizophrenia, living in an A/[facility] penitentiary presents with medication noncompliance and decompensation as evidenced by eloping from his penitentiary, inability of provide self-care, aggressive sx, visual and auditory perceptual alterations, mental status alterations, yazidi preoccupation. Plan: Re-establish regime Collateral contacts Diagnostics to rule out medical etiology. 01/24/22-Pt refusing medications. Will obtain copy of Mono's order to review with pt. 01/25/22- Section VII filed. 01/27/22- Court 02/14 for Section VII hearing 01/30/33- Pt focusing on yazidi content. Less isolative in milieu, with increased interaction with peers. Folate, ESR, CRP, RPR, HIV Team talking with pt about their observations of TD. Pt denies, declines Rx. Medication compliance except for Depakote. Plan Pt started taking medications still fairly preoccupied with no insight I spent minutes with the patient and/or on the patient floor today, greater than?50% of which was spent counseling/coordinating care.
[2022-01-31] MEDS: Divalproex Sodium 500 MG TABLET.DR 1000 MG PO (19:44)
[2022-01-31] MEDS: OLANZapine 7.5 MG TABLET 15 MG PO (19:44)
[2022-01-31] MEDS: Tamsulosin HCL 0.4 MG CAPSULE PO (19:44)
[2022-01-31] MEDS: lisinopriL 20 MG TABLET PO (19:45)
[2022-02-01 06:00] VITALS: BP 131/63; PULSE 64; RESP 16; TEMP 36.6; O2SAT 95
[2022-02-01 07:26] LABS: Syphilis Screen Nonreactive (Nonreactive)
[2022-02-01] MEDS: OLANZapine 5 MG TABLET PO (08:49)
[2022-02-01] MEDS: Labetalol HCL 100 MG TABLET 300 MG PO ×2 (08:49→21:57)
[2022-02-01 16:28] VITALS: BP 144/71; PULSE 97; RESP 14; TEMP 36.7; O2SAT 94
--- NOTE | 2022-02-01 18:37 | HO.PSYCHPN ---
Subjective Subjective Date of Service: 02/01/22 Reason For Visit: disorganized/psychotic Subjective Notes: Section 7 Healthcare Proxy: No Guardianship: No Medical Problems Affecting Mental Status: No Interim History: Pt reports he would prefer his own apartment to a correction. Discussed what help he would need, he replied full staffing , just living by myself with full staffing. Reports feeling well, aware of meeting scheduled for 02/03 and you can tell me about it after, I don't have anything to say. Interactive with team and peers, more time spent in the common area with others and observed interacting with peers. This seems to be more in the afternoon and evening times. Haldol Dec and Invega Sustenna confirmed with [facility] for dosage and timing. Both were given 01/05/22 Medication Compliance: Yes Side effects from medications: No Attending Groups: Intermittent Review of Systems Acute medical concerns: No Medical Review of Systems: unchanged Mental Status Exam Mental Status Exam Patient Appearance: Appropriate Patient Orientation: Person, Place and Situation Level of Consciousness: Alert Patient Behavior: Guarded, Talkative, Cooperative, Suspicious, Anxious, Fearful, Distractible, Isolative and Good Eye Contact Mood Description: Constricted Affect Description: Constricted Patient Cognition Impaired: Yes Ability to Follow Directions: Good Speech Pattern: Spontaneous Speech, Soft-Spoken and Mumbled (at times) Memory Description: Remote Impaired and Episodic Impaired Hallucinations: Auditory Delusions: Paranoid Ideation and Present Perceptual Disturbances: Derealization and Hallucinations Thought Process: Illogical, Distracted and Evasive Thought Content: positive for [place], positive for Tangential and positive for Suicidal Ideation (denies) Depressive Symptoms: Thoughts of /Suicide (denies) Judgement: Fair Diagnostics Vital Signs (24Hr): Vital Signs - 24 hr 02/01/22 06:00 02/01/22 16:28 Temperature 97.9 F 98.0 F Pulse Rate 64 97 Respiratory Rate 16 14 Blood Pressure 131/63 144/71 H Pulse Oximetry 95 94 Oxygen Delivery Method Room Air Room Air BMI result Body Mass Index 25.1 Labs Results: 01/20/22 19:31 01/20/22 19:32 Labs: Laboratory Results - last 48 hr 01/31/22 01/31/22 01/31/22 09:35 09:35 09:35 ESR 29 H C-Reactive Protein 0.57 H Folate 12.0 T.pallidum Ab (EIA) HIV 1&2 Ab/P24 Ag 4thGn 01/31/22 01/31/22 09:35 09:35 ESR C-Reactive Protein Folate T.pallidum Ab (EIA) Nonreactive HIV 1&2 Ab/P24 Ag 4thGn Nonreactive Medications Medications Current Medications Acetaminophen (Acetaminophen 325 Mg Tablet) 650 mg PO Q6H PRN PRN Reason: Headache/Pain Mild Scale (1-3) Al Hydroxide/Mg Hydroxide (Magnesium Hydrox/Alum Hydrox 30 Ml Oral.Susp) 30 ml PO Q6H PRN PRN Reason: Heartburn/Nausea Diphenhydramine HCl (Diphenhydramine Hcl 25 Mg Tablet) 50 mg PO Q4H PRN PRN Reason: agitation Divalproex Sodium (Divalproex Sodium 500 Mg Tablet.Dr) 1,000 mg PO BEDTIME JOHN Last Admin: 01/31/22 19:44 Dose: 1,000 mg Haloperidol (Haloperidol 5 Mg Tablet) 5 mg PO Q4H PRN PRN Reason: agitation Hydroxyzine HCl (Hydroxyzine Hcl 25 Mg Tablet) 25 mg PO Q6H PRN PRN Reason: Anxiety Labetalol HCl (Labetalol Hcl 100 Mg Tablet) 300 mg PO BID [facility] Last Admin: 02/01/22 08:49 Dose: 300 mg Lisinopril (Lisinopril 20 Mg Tablet) 20 mg PO BEDTIME JOHN; Protocol Last Admin: 01/31/22 19:45 Dose: 20 mg Magnesium Hydroxide (Milk Of Magnesia 30 Ml Oral.Susp) 30 ml PO DAILY PRN PRN Reason: Constipation Nicotine Polacrilex (Nicotine Polacrilex 2 Mg Gum) 4 mg BUCCAL Q2H PRN PRN Reason: Nicotine Cravings Olanzapine (Olanzapine 5 Mg Tablet) 5 mg PO DAILY JOHN Last Admin: 02/01/22 08:49 Dose: 5 mg Olanzapine (Olanzapine 7.5 Mg Tablet) 15 mg PO BEDTIME JOHN Last Admin: 01/31/22 19:44 Dose: 15 mg Olanzapine (Olanzapine 10 Mg Vial) 5 mg IM DAILY PRN PRN Reason: if pt refuses PO per Alexi Olanzapine (Olanzapine 10 Mg Vial) 15 mg IM BEDTIME PRN PRN Reason: if pt refuses po per Alexi Tamsulosin HCl (Tamsulosin Hcl 0.4 Mg Capsule) 0.4 mg PO BEDTIME JOHN Last Admin: 01/31/22 19:44 Dose: 0.4 mg Trazodone HCl (Trazodone Hcl 50 Mg Tablet) 50 mg PO BEDTIME PRN PRN Reason: Insomnia Allergies Allergies Allergy/AdvReac Type Severity Reaction Status Date / Time No Known Allergies Allergy Unverified 01/15/20 16:15 [No Known Allergies*] Assessment & Plan Assessment & Plan (1) Schizophrenia: Status: Acute Code(s): F20.9 - Schizophrenia, unspecified Assessment and Plan: 66 yo male, hx of schizophrenia, living in an [facility] correction presents with medication noncompliance and decompensation as evidenced by eloping from his correction, inability of provide self-care, aggressive sx, visual and auditory perceptual alterations, mental status alterations, sabianism preoccupation. Plan: Re-establish regime Collateral contacts Diagnostics to rule out medical etiology. 01/24/22-Pt refusing medications. Will obtain copy of Mono's order to review with pt. 01/25/22- Section VII filed. 01/27/22- Court 02/14 for Section VII hearing 01/30/22- Pt focusing on sabianism content. Less isolative in milieu, with increased interaction with peers. Folate, ESR, CRP, RPR, HIV Team talking with pt about their observations of TD. Pt denies, declines Rx. Medication compliance except for Depakote. 01/31/22- Meeting with OP team to discuss discharge planning. 02/01/22- Continue current regime. Haldol/Invega injections due this week. I spent minutes with the patient and/or on the patient floor today, greater than?50% of which was spent counseling/coordinating care. Patient educated on: therapeutic strategies Informed Consent: further education needed Reason for contiued inpatient stay Substantial Risk for: rapid decompensation
[2022-02-01] MEDS: Divalproex Sodium 500 MG TABLET.DR 1000 MG PO (21:57)
[2022-02-01] MEDS: Tamsulosin HCL 0.4 MG CAPSULE PO (21:57)
[2022-02-01] MEDS: OLANZapine 7.5 MG TABLET 15 MG PO (21:57)
[2022-02-01] MEDS: lisinopriL 20 MG TABLET PO (21:58)
[2022-02-02 06:00] VITALS: BP 131/66; PULSE 67; RESP 16; TEMP 36.2; O2SAT 95
[2022-02-02] MEDS: Labetalol HCL 100 MG TABLET 300 MG PO (08:46)
[2022-02-02] MEDS: OLANZapine 5 MG TABLET PO (08:46)
--- NOTE | 2022-02-02 16:33 | P.PNPSI_ITS ---
Subjective Subjective Date of Service: 02/02/22 Reason For Visit: disorganized/psychotic Subjective Notes: Section 7 Interim History: Pt approached technical publications writer to talk today. Engaged, states he recalls we will meet with his team on 02/03 and I hope they will take me home. Interactive in milieu but less talkative today it appears with peers. ADL's are poor, declines wanting to shower, change. Court 02/14. Meeting with [facility] and Jail team 02/03. Pt is due for Haldol Dec and Invega Sustenna 02/04. He is aware and aware that this is a court order. Medication Compliance: Yes Side effects from medications: No Attending Groups: Intermittent Review of Systems Acute medical concerns: No Medical Review of Systems: unchanged Mental Status Exam Mental Status Exam Patient Appearance: Unkempt Patient Orientation: Person, Place and Situation Level of Consciousness: Alert Patient Behavior: Guarded, Talkative, Cooperative, Suspicious, Anxious, Fearful, Distractible, Isolative and Good Eye Contact Mood Description: Constricted Affect Description: Constricted Patient Cognition Impaired: Yes Ability to Follow Directions: Good Speech Pattern: Spontaneous Speech, Soft-Spoken and Mumbled (at times) Memory Description: Remote Impaired and Episodic Impaired Hallucinations: Auditory Delusions: Paranoid Ideation and Present Perceptual Disturbances: Derealization and Hallucinations Thought Process: Illogical, Distracted and Evasive Thought Content: positive for [place], positive for Tangential and positive for Suicidal Ideation (denies) Depressive Symptoms: Thoughts of /Suicide (denies) Judgement: Fair Diagnostics Vital Signs (24Hr): Vital Signs - 24 hr 02/02/22 06:00 Temperature 97.1 F Pulse Rate 67 Respiratory Rate 16 Blood Pressure 131/66 Pulse Oximetry 95 Oxygen Delivery Method Room Air BMI result Body Mass Index 25.1 Labs Results: 01/20/22 19:31 01/20/22 19:32 Labs: Laboratory Results - last 48 hr 01/31/22 09:35 T.pallidum Ab (EIA) Nonreactive Medications Medications Current Medications Acetaminophen (Acetaminophen 325 Mg Tablet) 650 mg PO Q6H PRN PRN Reason: Headache/Pain Mild Scale (1-3) Al Hydroxide/Mg Hydroxide (Magnesium Hydrox/Alum Hydrox 30 Ml Oral.Susp) 30 ml PO Q6H PRN PRN Reason: Heartburn/Nausea Diphenhydramine HCl (Diphenhydramine Hcl 25 Mg Tablet) 50 mg PO Q4H PRN PRN Reason: agitation Divalproex Sodium (Divalproex Sodium 500 Mg Tablet.Dr) 1,000 mg PO BEDTIME REPLACED [facility] Last Admin: 02/01/22 21:57 Dose: 1,000 mg Haloperidol (Haloperidol 5 Mg Tablet) 5 mg PO Q4H PRN PRN Reason: agitation Haloperidol Decanoate (Haloperidol Decanoate 50 Mg/Ml Ampul) 300 mg IM Q30D REPLACED BY [facility] Hydroxyzine HCl (Hydroxyzine Hcl 25 Mg Tablet) 25 mg PO Q6H PRN PRN Reason: Anxiety Labetalol HCl (Labetalol Hcl 100 Mg Tablet) 300 mg PO BID REPLACED [facility] Last Admin: 02/02/22 08:46 Dose: 300 mg Lisinopril (Lisinopril 20 Mg Tablet) 20 mg PO BEDTIME [facility]PLAC[facility]; Protocol Last Admin: 02/01/22 21:58 Dose: 20 mg Magnesium Hydroxide (Milk Of Magnesia 30 Ml Oral.Susp) 30 ml PO DAILY PRN PRN Reason: Constipation Nicotine Polacrilex (Nicotine Polacrilex 2 Mg Gum) 4 mg BUCCAL Q2H PRN PRN Reason: Nicotine Cravings Olanzapine (Olanzapine 5 Mg Tablet) 5 mg PO DAILY [facility] Last Admin: 02/02/22 08:46 Dose: 5 mg Olanzapine (Olanzapine 7.5 Mg Tablet) 15 mg PO BEDTIME [facility] Last Admin: 02/01/22 21:57 Dose: 15 mg Olanzapine (Olanzapine 10 Mg Vial) 5 mg IM DAILY PRN PRN Reason: if pt refuses PO per Alexi Olanzapine (Olanzapine 10 Mg Vial) 15 mg IM BEDTIME PRN PRN Reason: if pt refuses po per Alexi Paliperidone Palmitate (Paliperidone Palmitate 234 Mg/1.5 Ml Syringe) 234 mg IM Q30D REPLACED BY [facility] Tamsulosin HCl (Tamsulosin Hcl 0.4 Mg Capsule) 0.4 mg PO BEDTIME REPLACED BY [facility] Last Admin: 02/01/22 21:57 Dose: 0.4 mg Trazodone HCl (Trazodone Hcl 50 Mg Tablet) 50 mg PO BEDTIME PRN PRN Reason: Insomnia Allergies Allergies Allergy/AdvReac Type Severity Reaction Status Date / Time No Known Allergies Allergy Unverified 01/15/20 16:15 [No Known Allergies*] Assessment & Plan Assessment & Plan (1) Schizophrenia: Status: Acute Code(s): F20.9 - Schizophrenia, unspecified Assessment and Plan: 66 yo male, hx of schizophrenia, living in an [facility] presents with medication noncompliance and decompensation as evidenced by eloping from his fci, inability of provide self-care, aggressive sx, visual and auditory perceptual alterations, mental status alterations, hinduism preoccupation. Plan: Re-establish regime Collateral contacts Diagnostics to rule out medical etiology. 01/24/22-Pt refusing medications. Will obtain copy of Mono's order to review with pt. 01/25/22- Section VII filed. 01/27/22- Court 02/14 for Section VII hearing 01/30/22- Pt focusing on hinduism content. Less isolative in milieu, with inc reased interaction with peers. Folate, ESR, CRP, RPR, HIV Team talking with pt about their observations of TD. Pt denies, declines Rx. Medication compliance except for Depakote. 01/31/22- Meeting with OP team to discuss discharge planning. 02/02/22- Court 02/14, Meeting with OP team 02/03 I spent minutes with the patient and/or on the patient floor today, greater than?50% of which was spent counseling/coordinating care. Patient educated on: therapeutic strategies Informed Consent: does not understand Reason for contiued inpatient stay Substantial Risk for: rapid decompensation
[2022-02-02] MEDS: diphenhydrAMINE HCL 25 MG TABLET 50 MG PO (16:42)
[2022-02-02 18:00] VITALS: BP 152/84; PULSE 86; RESP 16; TEMP 36.6; O2SAT 99
[2022-02-03 06:00] VITALS: BP 143/87; PULSE 97; RESP 16; O2SAT 97
[2022-02-03] MEDS: Labetalol HCL 100 MG TABLET 300 MG PO ×2 (08:17→20:13)
[2022-02-03] MEDS: OLANZapine 5 MG TABLET PO (08:17)
--- NOTE | 2022-02-03 16:48 | HO.PSYCHPN ---
Subjective Subjective Date of Service: 02/03/22 Reason For Visit: disorganized/psychotic Subjective Notes: Section 7 Interim History: Pt in milieu today. Increase in verbalization, singing holiday songs, approached junior copywriter several times with questions, mostly about a return to home, having his own apartment and his own group of staff and his reports of feeling well enough to discharge. Continues with some delusional content, tangential presentation and appears to be responding to internal stimuli at times. Talking with peers as well and spending time in the common areas with peers and team. Medication Compliance: Yes Side effects from medications: Yes (TD) Attending Groups: Intermittent Review of Systems Acute medical concerns: No Medical Review of Systems: unchanged Mental Status Exam Mental Status Exam Patient Appearance: Disheveled Patient Orientation: Person, Place and Situation Level of Consciousness: Alert Patient Behavior: Talkative, Cooperative, Distractible and Good Eye Contact Mood Description: Constricted and Expansive Affect Description: Constricted and Expansive Patient Cognition Impaired: Yes Ability to Follow Directions: Good Speech Pattern: Spontaneous Speech and Loud (singing holiday songs) Memory Description: Remote Impaired and Episodic Impaired Hallucinations: Auditory Delusions: Present Perceptual Disturbances: Derealization and Hallucinations Thought Process: Distracted Thought Content: positive for [place], positive for Tangential and positive for Suicidal Ideation (denies) Depressive Symptoms: Thoughts of /Suicide (denies) Abnormal Motor Activity Signs and Symptoms: Restlessness Judgement: Fair Diagnostics Vital Signs (24Hr): Vital Signs - 24 hr 02/02/22 18:00 02/03/22 06:00 Temperature 98 F Pulse Rate 86 97 Respiratory Rate 16 16 Blood Pressure 152/84 H 143/87 H Pulse Oximetry 99 97 Oxygen Delivery Method Room Air Room Air BMI result Body Mass Index 25.1 Labs Results: 01/20/22 19:31 01/20/22 19:32 Medications Medications Current Medications Acetaminophen (Acetaminophen 325 Mg Tablet) 650 mg PO Q6H PRN PRN Reason: Headache/Pain Mild Scale (1-3) Al Hydroxide/Mg Hydroxide (Magnesium Hydrox/Alum Hydrox 30 Ml Oral.Susp) 30 ml PO Q6H PRN PRN Reason: Heartburn/Nausea Diphenhydramine HCl (Diphenhydramine Hcl 25 Mg Tablet) 50 mg PO Q4H PRN PRN Reason: agitation Last Admin: 02/02/22 16:42 Dose: 50 mg Divalproex Sodium (Divalproex Sodium 500 Mg Tablet.Dr) 1,000 mg PO BEDTIME [facility] Last Admin: 02/02/22 20:29 Dose: Not Given Haloperidol (Haloperidol 5 Mg Tablet) 5 mg PO Q4H PRN PRN Reason: agitation Haloperidol Decanoate (Haloperidol Decanoate 50 Mg/Ml Ampul) 300 mg IM Q30D [facility] Last Admin: 02/02/22 19:24 Dose: 300 mg Hydroxyzine HCl (Hydroxyzine Hcl 25 Mg Tablet) 25 mg PO Q6H PRN PRN Reason: Anxiety Labetalol HCl (Labetalol Hcl 100 Mg Tablet) 300 mg PO BID [facility] Last Admin: 02/03/22 08:17 Dose: 300 mg Lisinopril (Lisinopril 20 Mg Tablet) 20 mg PO BEDTIME [facility]; Protocol Last Admin: 02/02/22 20:29 Dose: Not Given Magnesium Hydroxide (Milk Of Magnesia 30 Ml Oral.Susp) 30 ml PO DAILY PRN PRN Reason: Constipation Nicotine Polacrilex (Nicotine Polacrilex 2 Mg Gum) 4 mg BUCCAL Q2H PRN PRN Reason: Nicotine Cravings Olanzapine (Olanzapine 5 Mg Tablet) 5 mg PO DAILY [facility] Last Admin: 02/03/22 08:17 Dose: 5 mg Olanzapine (Olanzapine 7.5 Mg Tablet) 15 mg PO BEDTIME [facility] Last Admin: 02/02/22 20:29 Dose: Not Given Olanzapine (Olanzapine 10 Mg Vial) 5 mg IM DAILY PRN PRN Reason: if pt refuses PO per Alexi Olanzapine (Olanzapine 10 Mg Vial) 15 mg IM BEDTIME PRN PRN Reason: if pt refuses po per Alexi Paliperidone Palmitate (Paliperidone Palmitate 234 Mg/1.5 Ml Syringe) 234 mg IM Q30D [facility] Tamsulosin HCl (Tamsulosin Hcl 0.4 Mg Capsule) 0.4 mg PO BEDTIME [facility] Last Admin: 02/02/22 20:29 Dose: Not Given Trazodone HCl (Trazodone Hcl 50 Mg Tablet) 50 mg PO BEDTIME PRN PRN Reason: Insomnia Allergies Allergies Allergy/AdvReac Type Severity Reaction Status Date / Time No Known Allergies Allergy Unverified 01/15/20 16:15 [No Known Allergies*] Assessment & Plan Assessment & Plan (1) Schizophrenia: Status: Acute Code(s): F20.9 - Schizophrenia, unspecified Assessment and Plan: 66 yo male, hx of schizophrenia, living in an [facility] presents with medication noncompliance and decompensation as evidenced by eloping from his usp, inability of provide self-care, aggressive sx, visual and auditory perceptual alterations, mental status alterations, moravian preoccupation. Plan: Re-establish regime Collateral contacts Diagnostics to rule out medical etiology. 01/24/22-Pt refusing medications. Will obtain copy of Mono's order to review with pt. 01/25/22- Section VII filed. 01/27/22- Court 02/14 for Section VII hearing 01/30/22- Pt focusing on moravian content. Less isolative in milieu, with increased interaction with peers. Folate, ESR, CRP, RPR, HIV Team talking with pt about their observations of TD. Pt denies, declines Rx. Medication compliance except for Depakote. 01/31/22- Meeting with OP team to discuss discharge planning. 02/02/22- Court 02/14, Meeting with OP team 02/0302/03/22- Pt reports a good day. Team meeting with OP care providers completed with our team I spent minutes with the patient and/or on the patient floor today, greater than?50% of which was spent counseling/coordinating care. Patient educated on: therapeutic strategies Informed Consent: further education needed Reason for contiued inpatient stay Substantial Risk for: rapid decompensation
[2022-02-03 19:45] VITALS: BP 158/72; PULSE 83; TEMP 36.6
[2022-02-03] MEDS: lisinopriL 20 MG TABLET PO (20:13)
[2022-02-03] MEDS: OLANZapine 7.5 MG TABLET 15 MG PO (20:13)
[2022-02-03] MEDS: Tamsulosin HCL 0.4 MG CAPSULE PO (20:14)
[2022-02-03] MEDS: Divalproex Sodium 500 MG TABLET.DR 1000 MG PO (20:14)
[2022-02-04] MEDS: Labetalol HCL 100 MG TABLET 300 MG PO ×2 (08:29→20:03)
[2022-02-04] MEDS: OLANZapine 5 MG TABLET PO (08:29)
[2022-02-04 08:31] VITALS: BP 140/80; PULSE 75; RESP 16; TEMP 36; O2SAT 98
[2022-02-04] MEDS: Paliperidone Palmitate 234 MG/1.5 ML SYRINGE IM (13:46)
[2022-02-04 18:00] VITALS: BP 153/84; PULSE 104; RESP 16; TEMP 36.6; O2SAT 98
[2022-02-04] MEDS: lisinopriL 20 MG TABLET PO (20:00)
[2022-02-04] MEDS: Tamsulosin HCL 0.4 MG CAPSULE PO (20:03)
[2022-02-04] MEDS: Divalproex Sodium 500 MG TABLET.DR 1000 MG PO (20:03)
[2022-02-04] MEDS: OLANZapine 7.5 MG TABLET 15 MG PO (20:03)
[2022-02-05 08:29] VITALS: BP 144/83; PULSE 80; RESP 18; O2SAT 100
[2022-02-05] MEDS: OLANZapine 5 MG TABLET PO (08:30)
[2022-02-05] MEDS: Labetalol HCL 100 MG TABLET 300 MG PO ×2 (08:30→19:10)
--- NOTE | 2022-02-05 15:23 | HO.PSYCHPN ---
Subjective Subjective Date of Service: 02/04/22 Reason For Visit: disorganized/psychotic Subjective Notes: Section 7 Healthcare Proxy: No Guardianship: Yes Medical Problems Affecting Mental Status: No Interim History: Accepted court ordered Invarlyn Armenta. Initially had refused, then agreed. Continues to discuss wanting to go home. Discussed concerns that were conveyed-medication refusal (as he has done here with meds that are not on the Mono's) and leaving the program for long periods placing himself at risk. He acknowledges both, stating that he would agree to make changes if he could go home. States he enjoys going out on his own and has different places he enjoys going to visit certain areas and others. Medication Compliance: Yes Side effects from medications: Yes (TD) Attending Groups: Intermittent Review of Systems Acute medical concerns: No Medical Review of Systems: unchanged Mental Status Exam Mental Status Exam Patient Appearance: Disheveled Patient Orientation: Person, Place and Situation Level of Consciousness: Alert Patient Behavior: Talkative, Cooperative, Distractible and Good Eye Contact Mood Description: Constricted and Expansive Affect Description: Constricted and Expansive Patient Cognition Impaired: Yes Ability to Follow Directions: Good Speech Pattern: Spontaneous Speech and Loud (singing holiday songs) Memory Description: Remote Impaired and Episodic Impaired Hallucinations: Auditory Delusions: Present Perceptual Disturbances: Derealization and Hallucinations Thought Process: Distracted Thought Content: positive for [place], positive for Tangential and positive for Suicidal Ideation (denies) Depressive Symptoms: Thoughts of /Suicide (denies) Abnormal Motor Activity Signs and Symptoms: Restlessness Judgement: Fair Diagnostics Vital Signs (24Hr): Vital Signs - 24 hr 02/04/22 18:00 02/05/22 08:29 Temperature 98 F Pulse Rate 104 H 80 Respiratory Rate 16 18 Blood Pressure 153/84 H 144/83 H Pulse Oximetry 98 100 Oxygen Delivery Method Room Air Room Air BMI result Body Mass Index 25.1 Labs Results: 01/20/22 19:31 01/20/22 19:32 Medications Medications Current Medications Acetaminophen (Acetaminophen 325 Mg Tablet) 650 mg PO Q6H PRN PRN Reason: Headache/Pain Mild Scale (1-3) Al Hydroxide/Mg Hydroxide (Magnesium Hydrox/Alum Hydrox 30 Ml Oral.Susp) 30 ml PO Q6H PRN PRN Reason: Heartburn/Nausea Diphenhydramine HCl (Diphenhydramine Hcl 25 Mg Tablet) 50 mg PO Q4H PRN PRN Reason: agitation Last Admin: 02/02/22 16:42 Dose: 50 mg Divalproex Sodium (Divalproex Sodium 500 Mg Tablet.Dr) 1,000 mg PO BEDTIME [facility] Last Admin: 02/04/22 20:03 Dose: 1,000 mg Haloperidol (Haloperidol 5 Mg Tablet) 5 mg PO Q4H PRN PRN Reason: agitation Haloperidol Decanoate (Haloperidol Decanoate 50 Mg/Ml Ampul) 300 mg IM Q30D [facility] Last Admin: 02/02/22 19:24 Dose: 300 mg Hydroxyzine HCl (Hydroxyzine Hcl 25 Mg Tablet) 25 mg PO Q6H PRN PRN Reason: Anxiety Labetalol HCl (Labetalol Hcl 100 Mg Tablet) 300 mg PO BID [facility] Last Admin: 02/05/22 08:30 Dose: 300 mg Lisinopril (Lisinopril 20 Mg Tablet) 20 mg PO BEDTIME [facility]; Protocol Last Admin: 02/04/22 20:00 Dose: 20 mg Magnesium Hydroxide (Milk Of Magnesia 30 Ml Oral.Susp) 30 ml PO DAILY PRN PRN Reason: Constipation Nicotine Polacrilex (Nicotine Polacrilex 2 Mg Gum) 4 mg BUCCAL Q2H PRN PRN Reason: Nicotine Cravings Olanzapine (Olanzapine 5 Mg Tablet) 5 mg PO DAILY [facility] Last Admin: 02/05/22 08:30 Dose: 5 mg Olanzapine (Olanzapine 7.5 Mg Tablet) 15 mg PO BEDTIME [facility] Last Admin: 02/04/22 20:03 Dose: 15 mg Olanzapine (Olanzapine 10 Mg Vial) 5 mg IM DAILY PRN PRN Reason: if pt refuses PO per Alexi Olanzapine (Olanzapine 10 Mg Vial) 15 mg IM BEDTIME PRN PRN Reason: if pt refuses po per Alexi Paliperidone Palmitate (Paliperidone Palmitate 234 Mg/1.5 Ml Syringe) 234 mg IM Q30D [facility] Last Admin: 02/04/22 13:46 Dose: 234 mg Tamsulosin HCl (Tamsulosin Hcl 0.4 Mg Capsule) 0.4 mg PO BEDTIME [facility] Last Admin: 02/04/22 20:03 Dose: 0.4 mg Trazodone HCl (Trazodone Hcl 50 Mg Tablet) 50 mg PO BEDTIME PRN PRN Reason: Insomnia Allergies Allergies Allergy/AdvReac Type Severity Reaction Status Date / Time No Known Allergies Allergy Unverified 01/15/20 16:15 [No Known Allergies*] Assessment & Plan Assessment & Plan (1) Schizophrenia: Status: Acute Code(s): F20.9 - Schizophrenia, unspecified Assessment and Plan: 66 yo male, hx of schizophrenia, living in an [facility] presents with medication noncompliance and decompensation as evidenced by eloping from his usp, inability of provide self-care, aggressive sx, visual and auditory perceptual alterations, mental status alterations, pentecostal preoccupation. Plan: Re-establish regime Collateral contacts Diagnostics to rule out medical etiology. 01/24/22-Pt refusing medications. Will obtain copy of Mono's order to review with pt. 01/25/22- Section VII filed. 01/27/22- Court 02/14 for Section VII hearing 01/30/22- Pt focusing on pentecostal content. Less isolative in milieu, with increased interaction with peers. Folate, ESR, CRP, RPR, HIV Team talking with pt about their observations of TD. Pt denies, declines Rx. Medication compliance except for Depakote. 01/31/22- Meeting with OP team to discuss discharge planning. 02/02/22- Court 02/14, Meeting with OP team 02/0302/03/22- Pt reports a good day. Team meeting with OP care providers completed with our team 02/04/22- Continue current regime I spent minutes with the patient and/or on the patient floor today, greater than?50% of which was spent counseling/coordinating care. Patient educated on: therapeutic strategies and other Informed Consent: further education needed Reason for contiued inpatient stay Substantial Risk for: rapid decompensation
--- NOTE | 2022-02-05 16:43 | HO.PSYCHPN ---
Subjective Subjective Date of Service: 02/05/22 Reason For Visit: disorganized/psychotic Subjective Notes: Section 7 Interim History: Discussed with Zeke the concerns his residential program has in his returning. Pt does not want to return to [facility]. Answered questions, encouraged pt to talk with his team as they have a long relationship. Medication Compliance: Intermittent Side effects from medications: Yes (TD. Pt is considering allowing treatment with one of the newer medications) Attending Groups: Intermittent Review of Systems Acute medical concerns: No Medical Review of Systems: unchanged Mental Status Exam Mental Status Exam Patient Appearance: Disheveled Patient Orientation: Person, Place and Situation Level of Consciousness: Alert Patient Behavior: Talkative, Cooperative, Distractible and Good Eye Contact Mood Description: Constricted and Expansive Affect Description: Constricted and Expansive Patient Cognition Impaired: Yes Ability to Follow Directions: Good Speech Pattern: Spontaneous Speech and Loud (singing holiday songs) Memory Description: Remote Impaired and Episodic Impaired Hallucinations: Auditory Delusions: Present Perceptual Disturbances: Derealization and Hallucinations Thought Process: Distracted Thought Content: positive for [place], positive for Tangential and positive for Suicidal Ideation (denies) Depressive Symptoms: Thoughts of /Suicide (denies) Abnormal Motor Activity Signs and Symptoms: Restlessness Judgement: Fair Diagnostics Vital Signs (24Hr): Vital Signs - 24 hr 02/04/22 18:00 02/05/22 08:29 Temperature 98 F Pulse Rate 104 H 80 Respiratory Rate 16 18 Blood Pressure 153/84 H 144/83 H Pulse Oximetry 98 100 Oxygen Delivery Method Room Air Room Air BMI result Body Mass Index 25.1 Labs Results: 01/20/22 19:31 01/20/22 19:32 Medications Medications Current Medications Acetaminophen (Acetaminophen 325 Mg Tablet) 650 mg PO Q6H PRN PRN Reason: Headache/Pain Mild Scale (1-3) Al Hydroxide/Mg Hydroxide (Magnesium Hydrox/Alum Hydrox 30 Ml Oral.Susp) 30 ml PO Q6H PRN PRN Reason: Heartburn/Nausea Diphenhydramine HCl (Diphenhydramine Hcl 25 Mg Tablet) 50 mg PO Q4H PRN PRN Reason: agitation Last Admin: 02/02/22 16:42 Dose: 50 mg Divalproex Sodium (Divalproex Sodium 500 Mg Tablet.Dr) 1,000 mg PO BEDTIME JOHN Last Admin: 02/04/22 20:03 Dose: 1,000 mg Haloperidol (Haloperidol 5 Mg Tablet) 5 mg PO Q4H PRN PRN Reason: agitation Haloperidol Decanoate (Haloperidol Decanoate 50 Mg/Ml Ampul) 300 mg IM Q30D [facility] Last Admin: 02/02/22 19:24 Dose: 300 mg Hydroxyzine HCl (Hydroxyzine Hcl 25 Mg Tablet) 25 mg PO Q6H PRN PRN Reason: Anxiety Labetalol HCl (Labetalol Hcl 100 Mg Tablet) 300 mg PO BID [facility] Last Admin: 02/05/22 08:30 Dose: 300 mg Lisinopril (Lisinopril 20 Mg Tablet) 20 mg PO BEDTIME [facility]; Protocol Last Admin: 02/04/22 20:00 Dose: 20 mg Magnesium Hydroxide (Milk Of Magnesia 30 Ml Oral.Susp) 30 ml PO DAILY PRN PRN Reason: Constipation Nicotine Polacrilex (Nicotine Polacrilex 2 Mg Gum) 4 mg BUCCAL Q2H PRN PRN Reason: Nicotine Cravings Olanzapine (Olanzapine 5 Mg Tablet) 5 mg PO DAILY [facility] Last Admin: 02/05/22 08:30 Dose: 5 mg Olanzapine (Olanzapine 7.5 Mg Tablet) 15 mg PO BEDTIME [facility] Last Admin: 02/04/22 20:03 Dose: 15 mg Olanzapine (Olanzapine 10 Mg Vial) 5 mg IM DAILY PRN PRN Reason: if pt refuses PO per Alexi Olanzapine (Olanzapine 10 Mg Vial) 15 mg IM BEDTIME PRN PRN Reason: if pt refuses po per Alexi Paliperidone Palmitate (Paliperidone Palmitate 234 Mg/1.5 Ml Syringe) 234 mg IM Q30D [facility] Last Admin: 02/04/22 13:46 Dose: 234 mg Tamsulosin HCl (Tamsulosin Hcl 0.4 Mg Capsule) 0.4 mg PO BEDTIME [facility] Last Admin: 02/04/22 20:03 Dose: 0.4 mg Trazodone HCl (Trazodone Hcl 50 Mg Tablet) 50 mg PO BEDTIME PRN PRN Reason: Insomnia Allergies Allergies Allergy/AdvReac Type Severity Reaction Status Date / Time No Known Allergies Allergy Unverified 01/15/20 16:15 [No Known Allergies*] Assessment & Plan Assessment & Plan (1) Schizophrenia: Status: Acute Code(s): F20.9 - Schizophrenia, unspecified Assessment and Plan: 66 yo male, hx of schizophrenia, living in an [facility] [place] [facility] presents with medication noncompliance and decompensation as evidenced [place], inability of provide self-care, aggressive sx, visual and auditory perceptual alterations, mental status alterations, rastafarian preoccupation. Plan: Re-establish regime Collateral contacts Diagnostics to rule out medical etiology. 01/24/22-Pt refusing medications. Will obtain copy of Mono's order to review with pt. 01/25/22- Section VII filed. 01/27/22- Court 02/14 for Section VII hearing 01/30/22- Pt focusing on rastafarian content. Less isolative in milieu, with increased interaction with peers. Folate, ESR, CRP, RPR, HIV Team talking with pt about their observations of TD. Pt denies, declines Rx. Medication compliance except for Depakote. 01/31/22- Meeting with OP team to discuss discharge planning. 02/02/22- Court 02/14, Meeting with OP team 02/0302/03/22- Pt reports a good day. Team meeting with OP care providers completed with our team 02/04/22- Continue current regime 02/05/22-Considering TD treatment I spent minutes with the patient and/or on the patient floor today, greater than?50% of which was spent counseling/coordinating care. Reason for contiued inpatient stay Substantial Risk for: inability to function and rapid decompensation
[2022-02-05 16:58] VITALS: BP 167/68; PULSE 77; RESP 16; TEMP 36.5; O2SAT 96
[2022-02-05] MEDS: Tamsulosin HCL 0.4 MG CAPSULE PO (19:09)
[2022-02-05] MEDS: Divalproex Sodium 500 MG TABLET.DR 1000 MG PO (19:09)
[2022-02-05] MEDS: OLANZapine 7.5 MG TABLET 15 MG PO (19:10)
[2022-02-05] MEDS: lisinopriL 20 MG TABLET PO (19:12)
[2022-02-06 06:00] VITALS: BP 157/81; PULSE 71; RESP 16; TEMP 36.4; O2SAT 94
[2022-02-06] MEDS: OLANZapine 5 MG TABLET PO (09:15)
[2022-02-06] MEDS: Labetalol HCL 100 MG TABLET 300 MG PO ×2 (09:15→19:28)
[2022-02-06 18:00] VITALS: BP 183/81; PULSE 108; RESP 20; TEMP 36.6; O2SAT 100
--- NOTE | 2022-02-06 18:52 | P.PNPSI_ITS ---
Subjective Subjective Date of Service: 02/06/22 Reason For Visit: disorganized/psychotic Subjective Notes: Section 7 Healthcare Proxy: No Guardianship: Yes Medical Problems Affecting Mental Status: Yes (HTN) Interim History: Zeke with no questions or concerns today in our meeting. In bed, alert, calm. Maybe I will just stay here. Medication Compliance: Intermittent Side effects from medications: Yes (TD) Attending Groups: Intermittent Review of Systems HTN Mental Status Exam Mental Status Exam Patient Appearance: Disheveled Patient Orientation: Person, Place and Situation Level of Consciousness: Alert Patient Behavior: Talkative, Cooperative, Distractible and Good Eye Contact Mood Description: Constricted and Expansive Affect Description: Constricted and Expansive Patient Cognition Impaired: Yes Ability to Follow Directions: Good Speech Pattern: Spontaneous Speech and Loud (singing holiday songs) Memory Description: Remote Impaired and Episodic Impaired Hallucinations: Auditory Delusions: Present Perceptual Disturbances: Derealization and Hallucinations Thought Process: Distracted Thought Content: positive for [place], positive for Tangential and positive for Suicidal Ideation (denies) Depressive Symptoms: Thoughts of /Suicide (denies) Abnormal Motor Activity Signs and Symptoms: Restlessness Judgement: Fair Diagnostics Vital Signs (24Hr): Vital Signs - 24 hr 02/06/22 06:00 02/06/22 18:00 Temperature 97.6 F 98 F Pulse Rate 71 108 H Respiratory Rate 16 20 Blood Pressure 157/81 H 183/81 H Pulse Oximetry 94 100 Oxygen Delivery Method Room Air Mechanical Ventilation Room Air BMI result Body Mass Index 25.1 Labs Results: 01/20/22 19:31 01/20/22 19:32 Medications Medications Current Medications Acetaminophen (Acetaminophen 325 Mg Tablet) 650 mg PO Q6H PRN PRN Reason: Headache/Pain Mild Scale (1-3) Al Hydroxide/Mg Hydroxide (Magnesium Hydrox/Alum Hydrox 30 Ml Oral.Susp) 30 ml PO Q6H PRN PRN Reason: Heartburn/Nausea Diphenhydramine HCl (Diphenhydramine Hcl 25 Mg Tablet) 50 mg PO Q4H PRN PRN Reason: agitation Last Admin: 02/02/22 16:42 Dose: 50 mg Divalproex Sodium (Divalproex Sodium 500 Mg Tablet.Dr) 1,000 mg PO BEDTIME JOHN Last Admin: 02/05/22 19:09 Dose: 1,000 mg Haloperidol (Haloperidol 5 Mg Tablet) 5 mg PO Q4H PRN PRN Reason: agitation Haloperidol Decanoate (Haloperidol Decanoate 50 Mg/Ml Ampul) 300 mg IM Q30D [facility]S INCLUDE 234 BEDS AT THE [facility] Last Admin: 02/02/22 19:24 Dose: 300 mg Hydroxyzine HCl (Hydroxyzine Hcl 25 Mg Tablet) 25 mg PO Q6H PRN PRN Reason: Anxiety Labetalol HCl (Labetalol Hcl 100 Mg Tablet) 300 mg PO BID [facility]S [facility]CLUDE 234 BEDS AT [facility] Last Admin: 02/06/22 09:15 Dose: 300 mg Lisinopril (Lisinopril 20 Mg Tablet) 20 mg PO BEDTIME COUNTS INCLUDE 234 BEDS AT THE [facility]; Protocol Last Admin: 02/05/22 19:12 Dose: 20 mg Magnesium Hydroxide (Milk Of Magnesia 30 Ml Oral.Susp) 30 ml PO DAILY PRN PRN Reason: Constipation Nicotine Polacrilex (Nicotine Polacrilex 2 Mg Gum) 4 mg BUCCAL Q2H PRN PRN Reason: Nicotine Cravings Olanzapine (Olanzapine 5 Mg Tablet) 5 mg PO DAILY COUNTS INCLUDE 234 BEDS AT [facility] Last Admin: 02/06/22 09:15 Dose: 5 mg Olanzapine (Olanzapine 7.5 Mg Tablet) 15 mg PO BEDTIME COUNTS INCLUDE 234 BEDS AT [facility] Last Admin: 02/05/22 19:10 Dose: 15 mg Olanzapine (Olanzapine 10 Mg Vial) 5 mg IM DAILY PRN PRN Reason: if pt refuses PO per Alexi Olanzapine (Olanzapine 10 Mg Vial) 15 mg IM BEDTIME PRN PRN Reason: if pt refuses po per Alexi Paliperidone Palmitate (Paliperidone Palmitate 234 Mg/1.5 Ml Syringe) 234 mg IM Q30D COUNTS INCLUDE 234 BEDS AT [facility] Last Admin: 02/04/22 13:46 Dose: 234 mg Tamsulosin HCl (Tamsulosin Hcl 0.4 Mg Capsule) 0.4 mg PO BEDTIME COUNTS INCLUDE 234 BEDS AT [facility] Last Admin: 02/05/22 19:09 Dose: 0.4 mg Trazodone HCl (Trazodone Hcl 50 Mg Tablet) 50 mg PO BEDTIME PRN PRN Reason: Insomnia Allergies Allergies Allergy/AdvReac Type Severity Reaction Status Date / Time No Known Allergies Allergy Unverified 01/15/20 16:15 [No Known Allergies*] Assessment & Plan Assessment & Plan (1) Schizophrenia: Status: Acute Code(s): F20.9 - Schizophrenia, unspecified Assessment and Plan: 66 yo male, hx of schizophrenia, living in an [facility] long term presents with medication noncompliance and decompensation as evidenced by eloping from his long term, inability of provide self-care, aggressive sx, visual and auditory perceptual alterations, mental status alterations, hindu preoccupation. Plan: Re-establish regime Collateral contacts Diagnostics to rule out medical etiology. 01/24/22-Pt refusing medications. Will obtain copy of Mono's order to review with pt. 01/25/22- Section VII filed. 01/27/22- Court 02/14 for Section VII hearing 01/30/22- Pt focusing on hindu content. Less isolative in milieu, with increased interaction with peers. Folate, ESR, CRP, RPR, HIV Team talking with pt about their observations of TD. Pt denies, declines Rx. Medication compliance except for Depakote. 01/31/22- Meeting with OP team to discuss discharge planning. 02/02/22- Court 02/14, Meeting with OP team 02/0302/03/22- Pt reports a good day. Team meeting with OP care providers completed with our team 02/04/22- Continue current regime 02/06/22-Continue current plan. I spent minutes with the patient and/or on the patient floor today, greater than?50% of which was spent counseling/coordinating care. Reason for contiued inpatient stay Substantial Risk for: harm to self, inability to function and rapid decompensation
[2022-02-06] MEDS: Tamsulosin HCL 0.4 MG CAPSULE PO (19:27)
[2022-02-06] MEDS: OLANZapine 7.5 MG TABLET 15 MG PO (19:27)
[2022-02-06] MEDS: lisinopriL 20 MG TABLET PO (19:28)
[2022-02-06] MEDS: Divalproex Sodium 500 MG TABLET.DR 1000 MG PO (19:28)
[2022-02-07 06:00] VITALS: BP 136/81; PULSE 73; RESP 14; O2SAT 98
[2022-02-07] MEDS: Labetalol HCL 100 MG TABLET 300 MG PO ×2 (08:43→19:39)
[2022-02-07] MEDS: OLANZapine 5 MG TABLET PO (08:43)
--- NOTE | 2022-02-07 18:00 | P.PNPSI_ITS ---
Subjective Subjective Date of Service: 02/07/22 Reason For Visit: disorganized/psychotic Interim History: Lying in bed, awake and alert on approach. Patient smiles and his friendly. Fat Purification Worker inquires and patient says he is fine but then says he has a lot of problems. Fat Purification Worker inquired further and patient just repeated he has a lot of problems. Fat Purification Worker shared that he is not alone, other people have problems too and patient said really and that he thought he was only one. However further engagement was difficult. Mental Status Exam Mental Status Exam Patient Appearance: Disheveled Patient Orientation: Person, Place and Situation Level of Consciousness: Alert Patient Behavior: Cooperative, Distractible and Good Eye Contact Mood Description: Anxious Affect Description: Constricted and Expansive Patient Cognition Impaired: Yes Ability to Follow Directions: Good Speech Pattern: Spontaneous Speech and Loud (singing holiday songs) Memory Description: Remote Impaired and Episodic Impaired Hallucinations: Auditory Delusions: Present Perceptual Disturbances: Derealization and Hallucinations Thought Process: Distracted Thought Content: positive for [place], positive for Tangential, positive for Suicidal Ideation (denies) and positive for Homicidal Ideation Depressive Symptoms: Thoughts of /Suicide (denies) Abnormal Motor Activity Signs and Symptoms: Restlessness Judgement: Fair Diagnostics Vital Signs (24Hr): Vital Signs - 24 hr 02/07/22 06:00 Pulse Rate 73 Respiratory Rate 14 Blood Pressure 136/81 Pulse Oximetry 98 Oxygen Delivery Method Room Air BMI result Body Mass Index 25.1 Labs Results: 01/20/22 19:31 01/20/22 19:32 Medications Medications Current Medications Acetaminophen (Acetaminophen 325 Mg Tablet) 650 mg PO Q6H PRN PRN Reason: Headache/Pain Mild Scale (1-3) Al Hydroxide/Mg Hydroxide (Magnesium Hydrox/Alum Hydrox 30 Ml Oral.Susp) 30 ml PO Q6H PRN PRN Reason: Heartburn/Nausea Diphenhydramine HCl (Diphenhydramine Hcl 25 Mg Tablet) 50 mg PO Q4H PRN PRN Reason: agitation Last Admin: 02/02/22 16:42 Dose: 50 mg Divalproex Sodium (Divalproex Sodium 500 Mg Tablet.Dr) 1,000 mg PO BEDTIME JOHN Last Admin: 02/06/22 19:28 Dose: 1,000 mg Haloperidol (Haloperidol 5 Mg Tablet) 5 mg PO Q4H PRN PRN Reason: agitation Haloperidol Decanoate (Haloperidol Decanoate 50 Mg/Ml Ampul) 300 mg IM Q30D [facility] Last Admin: 02/02/22 19:24 Dose: 300 mg Hydroxyzine HCl (Hydroxyzine Hcl 25 Mg Tablet) 25 mg PO Q6H PRN PRN Reason: Anxiety Labetalol HCl (Labetalol Hcl 100 Mg Tablet) 300 mg PO BID [facility] Last Admin: 02/07/22 08:43 Dose: 300 mg Lisinopril (Lisinopril 20 Mg Tablet) 20 mg PO BEDTIME [facility]; Protocol Last Admin: 02/06/22 19:28 Dose: 20 mg Magnesium Hydroxide (Milk Of Magnesia 30 Ml Oral.Susp) 30 ml PO DAILY PRN PRN Reason: Constipation Nicotine Polacrilex (Nicotine Polacrilex 2 Mg Gum) 4 mg BUCCAL Q2H PRN PRN Reason: Nicotine Cravings Olanzapine (Olanzapine 5 Mg Tablet) 5 mg PO DAILY [facility] Last Admin: 02/07/22 08:43 Dose: 5 mg Olanzapine (Olanzapine 7.5 Mg Tablet) 15 mg PO BEDTIME [facility] Last Admin: 02/06/22 19:27 Dose: 15 mg Olanzapine (Olanzapine 10 Mg Vial) 5 mg IM DAILY PRN PRN Reason: if pt refuses PO per Alexi Olanzapine (Olanzapine 10 Mg Vial) 15 mg IM BEDTIME PRN PRN Reason: if pt refuses po per Alexi Paliperidone Palmitate (Paliperidone Palmitate 234 Mg/1.5 Ml Syringe) 234 mg IM Q30D [facility] Last Admin: 02/04/22 13:46 Dose: 234 mg Tamsulosin HCl (Tamsulosin Hcl 0.4 Mg Capsule) 0.4 mg PO BEDTIME [facility] Last Admin: 02/06/22 19:27 Dose: 0.4 mg Trazodone HCl (Trazodone Hcl 50 Mg Tablet) 50 mg PO BEDTIME PRN PRN Reason: Insomnia Allergies Allergies Allergy/AdvReac Type Severity Reaction Status Date / Time No Known Allergies Allergy Unverified 01/15/20 16:15 [No Known Allergies*] Assessment & Plan Assessment & Plan (1) Schizophrenia: Status: Acute Code(s): F20.9 - Schizophrenia, unspecified Assessment and Plan: 66 yo male, hx of schizophrenia, living in an [facility] presents with medication noncompliance and decompensation as evidenced by eloping from his [place], inability of provide self-care, aggressive sx, visual and auditory perceptual alterations, mental status alterations, oriental orthodox preoccupation. Plan: Re-establish regime Collateral contacts Diagnostics to rule out medical etiology. 01/24/22-Pt refusing medications. Will obtain copy of Mono's order to review with pt. 01/25/22- Section VII filed. 01/27/22- Court 02/14 for Section VII hearing 01/30/22- Pt focusing on oriental orthodox content. Less isolative in milieu, with increased interaction with peers. Folate, ESR, CRP, RPR, HIV Team talking with pt about their observations of TD. Pt denies, declines Rx. Medication compliance except for Depakote. 01/31/22- Meeting with OP team to discuss discharge planning. 02/02/22- Court 02/14, Meeting with OP team 02/0302/03/22- Pt reports a good day. Team meeting with OP care providers completed with our team 02/04/22- Continue current regime 02/06/22-Continue current plan. 02/07 continue current treatment plan I spent minutes with the patient and/or on the patient floor today, greater than?50% of which was spent counseling/coordinating care. Patient educated on: diagnosis Informed Consent: further education needed Reason for contiued inpatient stay Substantial Risk for: inability to function
[2022-02-07] MEDS: lisinopriL 20 MG TABLET PO (19:39)
[2022-02-07] MEDS: Divalproex Sodium 500 MG TABLET.DR 1000 MG PO (19:39)
[2022-02-07] MEDS: OLANZapine 7.5 MG TABLET 15 MG PO (19:39)
[2022-02-07] MEDS: Tamsulosin HCL 0.4 MG CAPSULE PO (19:39)
[2022-02-08] MEDS: Labetalol HCL 100 MG TABLET 300 MG PO ×2 (08:19→21:39)
[2022-02-08] MEDS: OLANZapine 5 MG TABLET PO (08:19)
[2022-02-08 08:51] VITALS: BP 135/82; PULSE 73; RESP 17; O2SAT 97
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
[2022-02-08 18:00] VITALS: BP 184/94; PULSE 81; RESP 18; TEMP 36.6; O2SAT 96
[2022-02-08] MEDS: Divalproex Sodium 500 MG TABLET.DR 1000 MG PO (21:38)
[2022-02-08] MEDS: Tamsulosin HCL 0.4 MG CAPSULE PO (21:38)
[2022-02-08] MEDS: OLANZapine 7.5 MG TABLET 15 MG PO (21:38)
[2022-02-08] MEDS: lisinopriL 20 MG TABLET PO (21:39)
[2022-02-09 06:00] VITALS: BP 128/73; PULSE 78; RESP 14; O2SAT 99
[2022-02-09] MEDS: Labetalol HCL 100 MG TABLET 300 MG PO ×2 (08:29→19:01)
[2022-02-09] MEDS: OLANZapine 5 MG TABLET PO (08:29)
--- NOTE | 2022-02-09 13:53 | P.PNPSI_ITS ---
Subjective Subjective Date of Service: 02/09/22 Reason For Visit: disorganized/psychotic Subjective Notes: Section 7 Healthcare Proxy: No Guardianship: No Medical Problems Affecting Mental Status: No Interim History: I know my house worries about me, but I want to go home. Recalls the two main concerns expressed by residential team in having pt return to his home. No suggestions from pt on a plan to resolve these, however encouraged him to continue to give this thought and make suggestions about changes in his behaviors which could have a positive outcome. Discussed with pt a more active, participatory role in his care and problem solving. Medication Compliance: Yes Side effects from medications: No Attending Groups: Intermittent Review of Systems Acute medical concerns: No Medical Review of Systems: unchanged Mental Status Exam Mental Status Exam Patient Appearance: Appropriate Patient Orientation: Person, Place, Time and Situation Level of Consciousness: Alert Patient Behavior: Cooperative, Distractible and Good Eye Contact Mood Description: Anxious Affect Description: Constricted and Expansive Patient Cognition Impaired: Yes Ability to Follow Directions: Good Speech Pattern: Spontaneous Speech and Soft-Spoken Memory Description: Remote Impaired and Episodic Impaired Hallucinations: Auditory Delusions: Present Perceptual Disturbances: Derealization and Hallucinations Thought Process: Distracted Thought Content: positive for [place], positive for Tangential, positive for Suicidal Ideation (denies) and positive for Homicidal Ideation Depressive Symptoms: Thoughts of /Suicide (denies) Judgement: Fair Diagnostics Vital Signs (24Hr): Vital Signs - 24 hr 02/08/22 18:00 02/09/22 06:00 Temperature 98 F Pulse Rate 81 78 Respiratory Rate 18 14 Blood Pressure 184/94 H 128/73 Pulse Oximetry 96 99 Oxygen Delivery Method Room Air Room Air BMI result Body Mass Index 25.1 Labs Results: 01/20/22 19:31 01/20/22 19:32 Medications Medications Current Medications Acetaminophen (Acetaminophen 325 Mg Tablet) 650 mg PO Q6H PRN PRN Reason: Headache/Pain Mild Scale (1-3) Al Hydroxide/Mg Hydroxide (Magnesium Hydrox/Alum Hydrox 30 Ml Oral.Susp) 30 ml PO Q6H PRN PRN Reason: Heartburn/Nausea Diphenhydramine HCl (Diphenhydramine Hcl 25 Mg Tablet) 50 mg PO Q4H PRN PRN Reason: agitation Last Admin: 02/02/22 16:42 Dose: 50 mg Divalproex Sodium (Divalproex Sodium 500 Mg Tablet.) 1,000 mg PO BEDTIME [facility] Last Admin: 02/08/22 21:38 Dose: 1,000 mg Haloperidol (Haloperidol 5 Mg Tablet) 5 mg PO Q4H PRN PRN Reason: agitation Haloperidol Decanoate (Haloperidol Decanoate 50 Mg/Ml Ampul) 300 mg IM Q30D [facility] Last Admin: 02/02/22 19:24 Dose: 300 mg Hydroxyzine HCl (Hydroxyzine Hcl 25 Mg Tablet) 25 mg PO Q6H PRN PRN Reason: Anxiety Labetalol HCl (Labetalol Hcl 100 Mg Tablet) 300 mg PO BID [facility] Last Admin: 02/09/22 08:29 Dose: 300 mg Lisinopril (Lisinopril 20 Mg Tablet) 20 mg PO BEDTIME [facility]; Protocol Last Admin: 02/08/22 21:39 Dose: 20 mg Magnesium Hydroxide (Milk Of Magnesia 30 Ml Oral.Susp) 30 ml PO DAILY PRN PRN Reason: Constipation Nicotine Polacrilex (Nicotine Polacrilex 2 Mg Gum) 4 mg BUCCAL Q2H PRN PRN Reason: Nicotine Cravings Olanzapine (Olanzapine 5 Mg Tablet) 5 mg PO DAILY [facility] Last Admin: 02/09/22 08:29 Dose: 5 mg Olanzapine (Olanzapine 7.5 Mg Tablet) 15 mg PO BEDTIME [facility] Last Admin: 02/08/22 21:38 Dose: 15 mg Olanzapine (Olanzapine 10 Mg Vial) 5 mg IM DAILY PRN PRN Reason: if pt refuses PO per Alexi Olanzapine (Olanzapine 10 Mg Vial) 15 mg IM BEDTIME PRN PRN Reason: if pt refuses po per Alexi Paliperidone Palmitate (Paliperidone Palmitate 234 Mg/1.5 Ml Syringe) 234 mg IM Q30D [facility] Last Admin: 02/04/22 13:46 Dose: 234 mg Tamsulosin HCl (Tamsulosin Hcl 0.4 Mg Capsule) 0.4 mg PO BEDTIME [facility] Last Admin: 02/08/22 21:38 Dose: 0.4 mg Trazodone HCl (Trazodone Hcl 50 Mg Tablet) 50 mg PO BEDTIME PRN PRN Reason: Insomnia Allergies Allergies Allergy/AdvReac Type Severity Reaction Status Date / Time No Known Allergies Allergy Unverified 01/15/20 16:15 [No Known Allergies*] Assessment & Plan Assessment & Plan (1) Schizophrenia: Status: Acute Code(s): F20.9 - Schizophrenia, unspecified Assessment and Plan: 66 yo male, hx of schizophrenia, living in an [facility] halfway presents with medication noncompliance and decompensation as evidenced by eloping from his halfway, inability of provide self-care, aggressive sx, visual and auditory perceptual alterations, mental status alterations, denominational preoccupation. Plan: Re-establish regime Collateral contacts Diagnostics to rule out medical etiology. 01/24/22-Pt refusing medications. Will obtain copy of Mono's order to review with pt. 01/25/22- Section VII filed. 01/27/22- Court 02/14 for Section VII hearing 01/30/22- Pt focusing on denominational content. Less isolative in milieu, with increased interaction with peers. Folate, ESR, CRP, RPR, HIV Team talking with pt about their observations of TD. Pt denies, declines Rx. Medication compliance except for Depakote. 01/31/22- Meeting with OP team to discuss discharge planning. 02/02/22- Court 02/14, Meeting with OP team 02/0302/03/22- Pt reports a good day. Team meeting with OP care providers completed with our team 02/04/22- Continue current regime 02/06/22-Continue current plan. 02/07 continue current treatment plan 02/08/22- Pt thinking about where a safe place to live would be. Continue current regime. 02/09/22- Team is working with pt's residence on a plan to address medicine noncompliance and pt wandering from the home and placing himself at risk. These issues are presented to pt for his input in resolution. He recalls them and is considering some possible solutions. I spent minutes with the patient and/or on the patient floor today, [address] than?50% of which was spent counseling/coordinating care. Patient educated on: therapeutic strategies Informed Consent: does not understand Reason for contiued inpatient stay Substantial Risk for: harm to self, inability to function and rapid decompensation
[2022-02-09 18:00] VITALS: BP 148/72; PULSE 85
[2022-02-09] MEDS: OLANZapine 7.5 MG TABLET 15 MG PO (19:00)
[2022-02-09] MEDS: Divalproex Sodium 500 MG TABLET.DR 1000 MG PO (19:01)
[2022-02-09] MEDS: lisinopriL 20 MG TABLET PO (19:01)
[2022-02-09] MEDS: Tamsulosin HCL 0.4 MG CAPSULE PO (19:01)
[2022-02-10] MEDS: OLANZapine 5 MG TABLET PO (08:42)
[2022-02-10] MEDS: Labetalol HCL 100 MG TABLET 300 MG PO ×2 (08:42→18:53)
[2022-02-10 08:56] VITALS: BP 154/76; PULSE 74; RESP 16; TEMP 36.5; O2SAT 96
--- NOTE | 2022-02-10 14:40 | P.PNPSI_ITS ---
Subjective Subjective Date of Service: 02/10/22 Reason For Visit: disorganized/psychotic Subjective Notes: Section 7 Healthcare Proxy: No Guardianship: Yes Medical Problems Affecting Mental Status: No Interim History: Quieter today, resting in bed-awake alert. Denies questions or concerns- just to go home, I know I would need to take medicines and not leave for a long time. Medication Compliance: Yes Side effects from medications: No Attending Groups: Intermittent Review of Systems Acute medical concerns: No Medical Review of Systems: unchanged Mental Status Exam Mental Status Exam Patient Appearance: Appropriate Patient Orientation: Person, Place, Time and Situation Level of Consciousness: Alert Patient Behavior: Cooperative, Distractible and Good Eye Contact Mood Description: Anxious Affect Description: Constricted and Expansive Patient Cognition Impaired: Yes Ability to Follow Directions: Good Speech Pattern: Spontaneous Speech and Soft-Spoken Memory Description: Remote Impaired and Episodic Impaired Hallucinations: Auditory Delusions: Present Perceptual Disturbances: Derealization and Hallucinations Thought Process: Distracted Thought Content: positive for [place], positive for Tangential, positive for Suicidal Ideation (denies) and positive for Homicidal Ideation Depressive Symptoms: Thoughts of /Suicide (denies) Judgement: Fair Diagnostics Vital Signs (24Hr): Vital Signs - 24 hr 02/09/22 18:00 02/10/22 08:56 Temperature 97.7 F Pulse Rate 85 74 Respiratory Rate 16 Blood Pressure 148/72 H 154/76 H Pulse Oximetry 96 Oxygen Delivery Method Room Air BMI result Body Mass Index 25.1 Labs Results: 01/20/22 19:31 01/20/22 19:32 Medications Medications Current Medications Acetaminophen (Acetaminophen 325 Mg Tablet) 650 mg PO Q6H PRN PRN Reason: Headache/Pain Mild Scale (1-3) Al Hydroxide/Mg Hydroxide (Magnesium Hydrox/Alum Hydrox 30 Ml Oral.Susp) 30 ml PO Q6H PRN PRN Reason: Heartburn/Nausea Diphenhydramine HCl (Diphenhydramine Hcl 25 Mg Tablet) 50 mg PO Q4H PRN PRN Reason: agitation Last Admin: 02/02/22 16:42 Dose: 50 mg Divalproex Sodium (Divalproex Sodium 500 Mg Tablet.) 1,000 mg PO BEDTIME [facility] Last Admin: 02/09/22 19:01 Dose: 1,000 mg Haloperidol (Haloperidol 5 Mg Tablet) 5 mg PO Q4H PRN PRN Reason: agitation Haloperidol Decanoate (Haloperidol Decanoate 50 Mg/Ml Ampul) 300 mg IM Q30D [facility] Last Admin: 02/02/22 19:24 Dose: 300 mg Hydroxyzine HCl (Hydroxyzine Hcl 25 Mg Tablet) 25 mg PO Q6H PRN PRN Reason: Anxiety Labetalol HCl (Labetalol Hcl 100 Mg Tablet) 300 mg PO BID [facility] Last Admin: 02/10/22 08:42 Dose: 300 mg Lisinopril (Lisinopril 20 Mg Tablet) 20 mg PO BEDTIME [facility]; Protocol Last Admin: 02/09/22 19:01 Dose: 20 mg Magnesium Hydroxide (Milk Of Magnesia 30 Ml Oral.Susp) 30 ml PO DAILY PRN PRN Reason: Constipation Nicotine Polacrilex (Nicotine Polacrilex 2 Mg Gum) 4 mg BUCCAL Q2H PRN PRN Reason: Nicotine Cravings Olanzapine (Olanzapine 5 Mg Tablet) 5 mg PO DAILY [facility] Last Admin: 02/10/22 08:42 Dose: 5 mg Olanzapine (Olanzapine 7.5 Mg Tablet) 15 mg PO BEDTIME [facility] Last Admin: 02/09/22 19:00 Dose: 15 mg Olanzapine (Olanzapine 10 Mg Vial) 5 mg IM DAILY PRN PRN Reason: if pt refuses PO per Alexi Olanzapine (Olanzapine 10 Mg Vial) 15 mg IM BEDTIME PRN PRN Reason: if pt refuses po per Alexi Paliperidone Palmitate (Paliperidone Palmitate 234 Mg/1.5 Ml Syringe) 234 mg IM Q30D [facility] Last Admin: 02/04/22 13:46 Dose: 234 mg Tamsulosin HCl (Tamsulosin Hcl 0.4 Mg Capsule) 0.4 mg PO BEDTIME [facility] Last Admin: 02/09/22 19:01 Dose: 0.4 mg Trazodone HCl (Trazodone Hcl 50 Mg Tablet) 50 mg PO BEDTIME PRN PRN Reason: Insomnia Allergies Allergies Allergy/AdvReac Type Severity Reaction Status Date / Time No Known Allergies Allergy Unverified 01/15/20 16:15 [No Known Allergies*] Assessment & Plan Assessment & Plan (1) Schizophrenia: Status: Acute Code(s): F20.9 - Schizophrenia, unspecified Assessment and Plan: 66 yo male, hx of schizophrenia, living in an [facility] presents with medication noncompliance and decompensation as evidenced by eloping from his [facility], inability of provide self-care, aggressive sx, visual and auditory perceptual alterations, mental status alterations, roman catholic preoccupation. Plan: Re-establish regime Collateral contacts Diagnostics to rule out medical etiology. 01/24/22-Pt refusing medications. Will obtain copy of Mono's order to review with pt. 01/25/22- Section VII filed. 01/27/22- Court 02/14 for Section VII hearing 01/30/22- Pt focusing on roman catholic content. Less isolative in milieu, with increased interaction with peers. Folate, ESR, CRP, RPR, HIV Team talking with pt about their observations of TD. Pt denies, declines Rx. Medication compliance except for Depakote. 01/31/22- Meeting with OP team to discuss discharge planning. 02/02/22- Court 02/14, Meeting with OP team 02/0302/03/22- Pt reports a good day. Team meeting with OP care providers completed with our team 02/04/22- Continue current regime 02/06/22-Continue current plan. 02/07 continue current treatment plan 02/08/22- Pt thinking about where a safe place to live would be. Continue current regime. 02/10/22- Continue current plan. I spent minutes with the patient and/or on the patient floor today, greater than?50% of which was spent counseling/coordinating care. Informed Consent: further education needed Reason for contiued inpatient stay Substantial Risk for: harm to self, inability to function, rapid decompensation and med/psych decompensation
[2022-02-10 18:00] VITALS: BP 172/82; PULSE 77
[2022-02-10] MEDS: Tamsulosin HCL 0.4 MG CAPSULE PO (18:53)
[2022-02-10] MEDS: OLANZapine 7.5 MG TABLET 15 MG PO (18:53)
[2022-02-10] MEDS: lisinopriL 20 MG TABLET PO (18:53)
[2022-02-10] MEDS: Divalproex Sodium 500 MG TABLET.DR 1000 MG PO (18:53)
[2022-02-11] MEDS: Labetalol HCL 100 MG TABLET 300 MG PO ×2 (08:35→19:07)
[2022-02-11] MEDS: OLANZapine 5 MG TABLET PO (08:35)
[2022-02-11 09:11] VITALS: BP 140/73; PULSE 66; RESP 18; TEMP 37.1; O2SAT 96
--- NOTE | 2022-02-11 15:24 | HO.PSYCHPN ---
Subjective Subjective Date of Service: 02/11/22 Reason For Visit: disorganized/psychotic Subjective Notes: Section 7 Interim History: Record reviewed. Discussed with Nursing. Overall no acute issues. Adherent as per Truong medications. Largely isolative in room. Reports being eager for discharge and wanting to go about his business. Is pleasant. Denies feeling depressed or paranoid. Denies medication concerns. Medication Compliance: Yes Side effects from medications: No Attending Groups: No Review of Systems Acute medical concerns: No Review of Systems Review of Systems Unremarkable Mental Status Exam Mental Status Exam Narrative: Pleasant. In room. Appropriately dressed. Self-care is limited however. TD evident. Affect restricted. Denies depression SI HI. Denied overt psychosis. Insight and judgment limited Diagnostics Vital Signs (24Hr): Vital Signs - 24 hr 02/10/22 18:00 02/11/22 09:11 Temperature 98.8 F Pulse Rate 77 66 Respiratory Rate 18 Blood Pressure 172/82 H 140/73 H Pulse Oximetry 96 Oxygen Delivery Method Room Air BMI result Body Mass Index 25.1 Labs Results: 01/20/22 19:31 01/20/22 19:32 Medications Medications Current Medications Acetaminophen (Acetaminophen 325 Mg Tablet) 650 mg PO Q6H PRN PRN Reason: Headache/Pain Mild Scale (1-3) Al Hydroxide/Mg Hydroxide (Magnesium Hydrox/Alum Hydrox 30 Ml Oral.Susp) 30 ml PO Q6H PRN PRN Reason: Heartburn/Nausea Diphenhydramine HCl (Diphenhydramine Hcl 25 Mg Tablet) 50 mg PO Q4H PRN PRN Reason: agitation Last Admin: 02/02/22 16:42 Dose: 50 mg Divalproex Sodium (Divalproex Sodium 500 Mg Tablet.) 1,000 mg PO BEDTIME [facility] Last Admin: 02/10/22 18:53 Dose: 1,000 mg Haloperidol (Haloperidol 5 Mg Tablet) 5 mg PO Q4H PRN PRN Reason: agitation Haloperidol Decanoate (Haloperidol Decanoate 50 Mg/Ml Ampul) 300 mg IM Q30D [facility] Last Admin: 02/02/22 19:24 Dose: 300 mg Hydroxyzine HCl (Hydroxyzine Hcl 25 Mg Tablet) 25 mg PO Q6H PRN PRN Reason: Anxiety Labetalol HCl (Labetalol Hcl 100 Mg Tablet) 300 mg PO BID [facility] Last Admin: 02/11/22 08:35 Dose: 300 mg Lisinopril (Lisinopril 20 Mg Tablet) 20 mg PO BEDTIME [facility]; Protocol Last Admin: 02/10/22 18:53 Dose: 20 mg Magnesium Hydroxide (Milk Of Magnesia 30 Ml Oral.Susp) 30 ml PO DAILY PRN PRN Reason: Constipation Nicotine Polacrilex (Nicotine Polacrilex 2 Mg Gum) 4 mg BUCCAL Q2H PRN PRN Reason: Nicotine Cravings Olanzapine (Olanzapine 5 Mg Tablet) 5 mg PO DAILY [facility] Last Admin: 02/11/22 08:35 Dose: 5 mg Olanzapine (Olanzapine 7.5 Mg Tablet) 15 mg PO BEDTIME [facility] Last Admin: 02/10/22 18:53 Dose: 15 mg Olanzapine (Olanzapine 10 Mg Vial) 5 mg IM DAILY PRN PRN Reason: if pt refuses PO per Alexi Olanzapine (Olanzapine 10 Mg Vial) 15 mg IM BEDTIME PRN PRN Reason: if pt refuses po per Alexi Paliperidone Palmitate (Paliperidone Palmitate 234 Mg/1.5 Ml Syringe) 234 mg IM Q30D [facility] Last Admin: 02/04/22 13:46 Dose: 234 mg Tamsulosin HCl (Tamsulosin Hcl 0.4 Mg Capsule) 0.4 mg PO BEDTIME [facility] Last Admin: 02/10/22 18:53 Dose: 0.4 mg Trazodone HCl (Trazodone Hcl 50 Mg Tablet) 50 mg PO BEDTIME PRN PRN Reason: Insomnia Allergies Allergies Allergy/AdvReac Type Severity Reaction Status Date / Time No Known Allergies Allergy Unverified 01/15/20 16:15 [No Known Allergies*] Assessment & Plan Assessment & Plan (1) Schizophrenia: Status: Acute Code(s): F20.9 - Schizophrenia, unspecified Assessment and Plan: 66 yo male, hx of schizophrenia, living in an [facility] senior living presents with medication noncompliance and decompensation as evidenced by eloping from his senior living, inability of provide self-care, aggressive sx, visual and auditory perceptual alterations, mental status alterations, amish preoccupation. Plan: Re-establish regime Collateral contacts Diagnostics to rule out medical etiology. 01/24/22-Pt refusing medications. Will obtain copy of Mono's order to review with pt. 01/25/22- Section VII filed. 01/27/22- Court 02/14 for Section VII hearing 01/30/22- Pt focusing on amish content. Less isolative in milieu, with increased interaction with peers. Folate, ESR, CRP, RPR, HIV Team talking with pt about their observations of TD. Pt denies, declines Rx. Medication compliance except for Depakote. 01/31/22- Meeting with OP team to discuss discharge planning. 02/02/22- Court 02/14, Meeting with OP team 02/0302/03/22- Pt reports a good day. Team meeting with OP care providers completed with our team 02/04/22- Continue current regime 02/06/22-Continue current plan. 02/07 continue current treatment plan 02/08/22- Pt thinking about where a safe place to live would be. Continue current regime. 02/10/22- Continue current plan. 02/11/2022: No changes I spent minutes with the patient and/or on the patient floor today, greater than?50% of which was spent counseling/coordinating care. Reason for contiued inpatient stay Substantial Risk for: inability to function
[2022-02-11 18:00] VITALS: BP 178/82; PULSE 83
[2022-02-11] MEDS: lisinopriL 20 MG TABLET PO (19:06)
[2022-02-11] MEDS: OLANZapine 7.5 MG TABLET 15 MG PO (19:06)
[2022-02-11] MEDS: Divalproex Sodium 500 MG TABLET.DR 1000 MG PO (19:06)
[2022-02-11] MEDS: Tamsulosin HCL 0.4 MG CAPSULE PO (19:07)
[2022-02-12 06:00] VITALS: BP 149/72; PULSE 77; RESP 16; TEMP 36.7; O2SAT 95
[2022-02-12] MEDS: Labetalol HCL 100 MG TABLET 300 MG PO ×2 (08:25→19:58)
[2022-02-12] MEDS: OLANZapine 5 MG TABLET PO (08:25)
--- NOTE | 2022-02-12 12:18 | HO.PSYCHPN ---
Subjective Subjective Date of Service: 02/12/22 Reason For Visit: disorganized/psychotic Subjective Notes: Section 7 Interim History: Discussed with Nursing. Overall no acute issues. Adherent as per Truong medications. Largely isolative in room. Remains eager for discharge am I leaving tomorrow? . Appears a little guarded. Denies feeling depressed. Denies medication concerns. Medication Compliance: Yes Side effects from medications: No Attending Groups: No Review of Systems Acute medical concerns: No Review of Systems Review of Systems Unremarkable Mental Status Exam Mental Status Exam Narrative: Guarded. In room. Appropriately dressed. Self-care is limited however. TD evident. Affect restricted. Denies depression SI HI. Denied overt psychosis. Insight and judgment limited Diagnostics Vital Signs (24Hr): Vital Signs - 24 hr 02/11/22 18:00 02/12/22 06:00 Temperature 98.1 F Pulse Rate 83 77 Respiratory Rate 16 Blood Pressure 178/82 H 149/72 H Pulse Oximetry 95 Oxygen Delivery Method Room Air BMI result Body Mass Index 25.1 Labs Results: 01/20/22 19:31 01/20/22 19:32 Medications Medications Current Medications Acetaminophen (Acetaminophen 325 Mg Tablet) 650 mg PO Q6H PRN PRN Reason: Headache/Pain Mild Scale (1-3) Al Hydroxide/Mg Hydroxide (Magnesium Hydrox/Alum Hydrox 30 Ml Oral.Susp) 30 ml PO Q6H PRN PRN Reason: Heartburn/Nausea Diphenhydramine HCl (Diphenhydramine Hcl 25 Mg Tablet) 50 mg PO Q4H PRN PRN Reason: agitation Last Admin: 02/02/22 16:42 Dose: 50 mg Divalproex Sodium (Divalproex Sodium 500 Mg Tablet.) 1,000 mg PO BEDTIME [facility] Last Admin: 02/11/22 19:06 Dose: 1,000 mg Haloperidol (Haloperidol 5 Mg Tablet) 5 mg PO Q4H PRN PRN Reason: agitation Haloperidol Decanoate (Haloperidol Decanoate 50 Mg/Ml Ampul) 300 mg IM Q30D [facility] Last Admin: 02/02/22 19:24 Dose: 300 mg Hydroxyzine HCl (Hydroxyzine Hcl 25 Mg Tablet) 25 mg PO Q6H PRN PRN Reason: Anxiety Labetalol HCl (Labetalol Hcl 100 Mg Tablet) 300 mg PO BID [facility] Last Admin: 10/16/22 08:25 Dose: 300 mg Lisinopril (Lisinopril 20 Mg Tablet) 20 mg PO BEDTIME [facility]; Protocol Last Admin: 02/11/22 19:06 Dose: 20 mg Magnesium Hydroxide (Milk Of Magnesia 30 Ml Oral.Susp) 30 ml PO DAILY PRN PRN Reason: Constipation Nicotine Polacrilex (Nicotine Polacrilex 2 Mg Gum) 4 mg BUCCAL Q2H PRN PRN Reason: Nicotine Cravings Olanzapine (Olanzapine 5 Mg Tablet) 5 mg PO DAILY [facility] Last Admin: 02/12/22 08:25 Dose: 5 mg Olanzapine (Olanzapine 7.5 Mg Tablet) 15 mg PO BEDTIME [facility] Last Admin: 02/11/22 19:06 Dose: 15 mg Olanzapine (Olanzapine 10 Mg Vial) 5 mg IM DAILY PRN PRN Reason: if pt refuses PO per Alexi Olanzapine (Olanzapine 10 Mg Vial) 15 mg IM BEDTIME PRN PRN Reason: if pt refuses po per Alexi Paliperidone Palmitate (Paliperidone Palmitate 234 Mg/1.5 Ml Syringe) 234 mg IM Q30D [facility] Last Admin: 02/04/22 13:46 Dose: 234 mg Tamsulosin HCl (Tamsulosin Hcl 0.4 Mg Capsule) 0.4 mg PO BEDTIME [facility] Last Admin: 02/11/22 19:07 Dose: 0.4 mg Trazodone HCl (Trazodone Hcl 50 Mg Tablet) 50 mg PO BEDTIME PRN PRN Reason: Insomnia Allergies Allergies Allergy/AdvReac Type Severity Reaction Status Date / Time No Known Allergies Allergy Unverified 01/15/20 16:15 [No Known Allergies*] Assessment & Plan Assessment & Plan (1) Schizophrenia: Status: Acute Code(s): F20.9 - Schizophrenia, unspecified Assessment and Plan: 66 yo male, hx of schizophrenia, living in an [facility] retirement presents with medication noncompliance and decompensation as evidenced by eloping from his retirement, inability of provide self-care, aggressive sx, visual and auditory perceptual alterations, mental status alterations, caodaism preoccupation. Plan: Re-establish regime Collateral contacts Diagnostics to rule out medical etiology. 01/24/22-Pt refusing medications. Will obtain copy of Mono's order to review with pt. 01/25/22- Section VII filed. 01/27/22- Court 02/14 for Section VII hearing 01/30/22- Pt focusing on caodaism content. Less isolative in milieu, with increased interaction with peers. Folate, ESR, CRP, RPR, HIV Team talking with pt about their observations of TD. Pt denies, declines Rx. Medication compliance except for Depakote. 01/31/22- Meeting with OP team to discuss discharge planning. 02/02/22- Court 02/14, Meeting with OP team 02/0302/03/22- Pt reports a good day. Team meeting with OP care providers completed with our team 02/04/22- Continue current regime 02/06/22-Continue current plan. 02/07 continue current treatment plan 02/08/22- Pt thinking about where a safe place to live would be. Continue current regime. 02/10/22- Continue current plan. 02/12/2022: No changes I spent minutes with the patient and/or on the patient floor today, greater than?50% of which was spent counseling/coordinating care. Reason for contiued inpatient stay Substantial Risk for: harm to others and inability to function
[2022-02-12 16:02] VITALS: BP 152/67; PULSE 87
[2022-02-12 19:51] VITALS: BP 154/77; PULSE 77
[2022-02-12] MEDS: Tamsulosin HCL 0.4 MG CAPSULE PO (19:58)
[2022-02-12] MEDS: Divalproex Sodium 500 MG TABLET.DR 1000 MG PO (19:58)
[2022-02-12] MEDS: OLANZapine 7.5 MG TABLET 15 MG PO (19:59)
[2022-02-12] MEDS: lisinopriL 20 MG TABLET PO (20:01)
[2022-02-13 06:00] VITALS: BP 157/78; PULSE 77; RESP 14; O2SAT 97
[2022-02-13] MEDS: Labetalol HCL 100 MG TABLET 300 MG PO ×2 (08:14→18:43)
[2022-02-13] MEDS: OLANZapine 5 MG TABLET PO (08:14)
--- NOTE | 2022-02-13 12:57 | HO.PSYCHPN ---
Subjective Subjective Date of Service: 02/13/22 Reason For Visit: disorganized/psychotic Subjective Notes: Section 7 Healthcare Proxy: No Guardianship: Yes Medical Problems Affecting Mental Status: No Interim History: Zeke reports feeling well. Consistently asks about going home. I don't belong in the hospital. Quoting scripture and requesting others read scripture he has chosen. Repeat after me, God loves all. Visable this afternoon, voice is positive, loud, with some singing. OP/Residential team will come to see pt this week. We are encouraging them to allow pt to return to his residence as he has spent so much time in hospital over the past months. Pt is aware that two main issues of concern are his medication compliance and his leaving the residence and placing himself at risk. We talk of this daily. He is challenged to talk of these concerns with team and offer some resolutions to decrease the problematic issues they create. I can try . Medication Compliance: Yes Side effects from medications: No Attending Groups: Intermittent Review of Systems Acute medical concerns: No Medical Review of Systems: unchanged Mental Status Exam Mental Status Exam Patient Appearance: Appropriate Patient Orientation: Person, Place, Time and Situation Level of Consciousness: Alert Patient Behavior: Talkative, Cooperative and Good Eye Contact Mood Description: Happy Affect Description: Apprehensive Patient Cognition Impaired: Yes Ability to Follow Directions: Good Speech Pattern: Garbled (at times), Spontaneous Speech, Loud and Poor Articulation (at times) Memory Description: Remote Impaired Hallucinations: None (denies) Delusions: Present Thought Process: Distracted Thought Content: positive for Tangential, positive for Suicidal Ideation (denies) and positive for Homicidal Ideation (denies) Depressive Symptoms: Increased Anxiety Abnormal Motor Activity Signs and Symptoms: Restlessness Judgement: Poor Diagnostics Vital Signs (24Hr): Vital Signs - 24 hr 02/12/22 16:02 02/12/22 19:51 02/12/22 19:51 Pulse Rate 87 77 77 Respiratory Rate Blood Pressure 152/67 H 154/77 H 154/77 H Pulse Oximetry Oxygen Delivery Method 02/13/22 06:00 Pulse Rate 77 Respiratory Rate 14 Blood Pressure 157/78 H Pulse Oximetry 97 Oxygen Delivery Method Room Air BMI result Body Mass Index 25.1 Labs Results: 01/20/22 19:31 01/20/22 19:32 Medications Medications Current Medications Acetaminophen (Acetaminophen 325 Mg Tablet) 650 mg PO Q6H PRN PRN Reason: Headache/Pain Mild Scale (1-3) Al Hydroxide/Mg Hydroxide (Magnesium Hydrox/Alum Hydrox 30 Ml Oral.Susp) 30 ml PO Q6H PRN PRN Reason: Heartburn/Nausea Diphenhydramine HCl (Diphenhydramine Hcl 25 Mg Capsule) 50 mg PO Q4H PRN PRN Reason: agitation Divalproex Sodium (Divalproex Sodium 500 Mg Tablet.Dr) 1,000 mg PO BEDTIME [facility] Last Admin: 02/12/22 19:58 Dose: 1,000 mg Haloperidol (Haloperidol 5 Mg Tablet) 5 mg PO Q4H PRN PRN Reason: agitation Haloperidol Decanoate (Haloperidol Decanoate 50 Mg/Ml Ampul) 300 mg IM Q30D [facility] [place] Last Admin: 02/02/22 19:24 Dose: 300 mg Hydroxyzine HCl (Hydroxyzine Hcl 25 Mg Tablet) 25 mg PO Q6H PRN PRN Reason: Anxiety Labetalol HCl (Labetalol Hcl 100 Mg Tablet) 300 mg PO BID [facility] [place] Last Admin: 02/13/22 08:14 Dose: 300 mg Lisinopril (Lisinopril 20 Mg Tablet) 20 mg PO BEDTIME [facility]; Protocol Last Admin: 02/12/22 20:01 Dose: 20 mg Magnesium Hydroxide (Milk Of Magnesia 30 Ml Oral.Susp) 30 ml PO DAILY PRN PRN Reason: Constipation Nicotine Polacrilex (Nicotine Polacrilex 2 Mg Gum) 4 mg BUCCAL Q2H PRN PRN Reason: Nicotine Cravings Olanzapine (Olanzapine 5 Mg Tablet) 5 mg PO DAILY [facility] Last Admin: 02/13/22 08:14 Dose: 5 mg Olanzapine (Olanzapine 7.5 Mg Tablet) 15 mg PO BEDTIME [facility] [place] Last Admin: 02/12/22 19:59 Dose: 15 mg Olanzapine (Olanzapine 10 Mg Vial) 5 mg IM DAILY PRN PRN Reason: if pt refuses PO per Alexi Olanzapine (Olanzapine 10 Mg Vial) 15 mg IM BEDTIME PRN PRN Reason: if pt refuses po per Alexi Paliperidone Palmitate (Paliperidone Palmitate 234 Mg/1.5 Ml Syringe) 234 mg IM Q30D [facility] [place] Last Admin: 02/04/22 13:46 Dose: 234 mg Tamsulosin HCl (Tamsulosin Hcl 0.4 Mg Capsule) 0.4 mg PO BEDTIME [facility] [place] Last Admin: 02/12/22 19:58 Dose: 0.4 mg Trazodone HCl (Trazodone Hcl 50 Mg Tablet) 50 mg PO BEDTIME PRN PRN Reason: Insomnia Allergies Allergies Allergy/AdvReac Type Severity Reaction Status Date / Time No Known Allergies Allergy Unverified 01/15/20 16:15 [No Known Allergies*] Assessment & Plan Assessment & Plan (1) Schizophrenia: Status: Acute Code(s): F20.9 - Schizophrenia, unspecified Assessment and Plan: 02/14/22- Continue current plan. OP/Residential team will meet with pt this week to review for return to his residence. I spent minutes with the patient and/or on the patient floor today, greater than?50% of which was spent counseling/coordinating care. Patient educated on: therapeutic strategies Informed Consent: further education needed Reason for contiued inpatient stay Substantial Risk for: harm to self, inability to function and rapid decompensation
[2022-02-13 18:42] VITALS: BP 198/90; PULSE 100
[2022-02-13] MEDS: lisinopriL 20 MG TABLET PO (18:43)
[2022-02-13 19:19] VITALS: BP 168/92; PULSE 80
[2022-02-13] MEDS: Divalproex Sodium 500 MG TABLET.DR 1000 MG PO (19:33)
[2022-02-13] MEDS: OLANZapine 7.5 MG TABLET 15 MG PO (19:33)
[2022-02-13] MEDS: Tamsulosin HCL 0.4 MG CAPSULE PO (19:33)
[2022-02-14 06:00] VITALS: BP 146/70; PULSE 67; RESP 16; TEMP 36.7; O2SAT 97
[2022-02-14] MEDS: Labetalol HCL 100 MG TABLET 300 MG PO ×2 (08:57→20:13)
[2022-02-14] MEDS: OLANZapine 5 MG TABLET PO (08:57)
--- NOTE | 2022-02-14 14:53 | HO.PSYCHPN ---
Subjective Subjective Date of Service: 02/14/22 Reason For Visit: disorganized/psychotic Subjective Notes: Section 7 Healthcare Proxy: No Guardianship: No Medical Problems Affecting Mental Status: No Interim History: Reports feeling well, and another good day. Visable, spontaneous smile. Avoidant of ADL's however. Asking about leaving. Medication Compliance: Yes Side effects from medications: No Attending Groups: Intermittent Review of Systems Acute medical concerns: No Medical Review of Systems: unchanged Mental Status Exam Mental Status Exam Patient Appearance: Appropriate Patient Orientation: Person, Place, Time and Situation Level of Consciousness: Alert Patient Behavior: Talkative, Cooperative and Good Eye Contact Mood Description: Happy Affect Description: Apprehensive Patient Cognition Impaired: Yes Ability to Follow Directions: Good Speech Pattern: Garbled (at times), Spontaneous Speech, Loud and Poor Articulation (at times) Memory Description: Remote Impaired Hallucinations: None (denies) Delusions: Present Thought Process: Distracted Thought Content: positive for Tangential, positive for Suicidal Ideation (denies) and positive for Homicidal Ideation (denies) Depressive Symptoms: Increased Anxiety Abnormal Motor Activity Signs and Symptoms: Restlessness Judgement: Poor Diagnostics Vital Signs (24Hr): Vital Signs - 24 hr 02/13/22 18:42 02/13/22 19:19 02/14/22 06:00 Temperature 98.1 F Pulse Rate 100 80 67 Respiratory Rate 16 Blood Pressure 198/90 H 168/92 H 146/70 H Pulse Oximetry 97 Oxygen Delivery Method Room Air Room Air BMI result Body Mass Index 25.1 Labs Results: 01/20/22 19:31 01/20/22 19:32 Medications Medications Current Medications Acetaminophen (Acetaminophen 325 Mg Tablet) 650 mg PO Q6H PRN PRN Reason: Headache/Pain Mild Scale (1-3) Al Hydroxide/Mg Hydroxide (Magnesium Hydrox/Alum Hydrox 30 Ml Oral.Susp) 30 ml PO Q6H PRN PRN Reason: Heartburn/Nausea Diphenhydramine HCl (Diphenhydramine Hcl 25 Mg Capsule) 50 mg PO Q4H PRN PRN Reason: agitation Divalproex Sodium (Divalproex Sodium 500 Mg Tablet.Dr) 1,000 mg PO BEDTIME [facility] Last Admin: 02/13/22 19:33 Dose: 1,000 mg Haloperidol (Haloperidol 5 Mg Tablet) 5 mg PO Q4H PRN PRN Reason: agitation Haloperidol Decanoate (Haloperidol Decanoate 50 Mg/Ml Ampul) 300 mg IM Q30D [facility] Last Admin: 02/02/22 19:24 Dose: 300 mg Hydroxyzine HCl (Hydroxyzine Hcl 25 Mg Tablet) 25 mg PO Q6H PRN PRN Reason: Anxiety Labetalol HCl (Labetalol Hcl 100 Mg Tablet) 300 mg PO BID [facility] Last Admin: 02/14/22 08:57 Dose: 300 mg Lisinopril (Lisinopril 20 Mg Tablet) 20 mg PO BEDTIME [facility]; Protocol Last Admin: 02/13/22 18:43 Dose: 20 mg Magnesium Hydroxide (Milk Of Magnesia 30 Ml Oral.Susp) 30 ml PO DAILY PRN PRN Reason: Constipation Nicotine Polacrilex (Nicotine Polacrilex 2 Mg Gum) 4 mg BUCCAL Q2H PRN PRN Reason: Nicotine Cravings Olanzapine (Olanzapine 5 Mg Tablet) 5 mg PO DAILY [facility] Last Admin: 02/14/22 08:57 Dose: 5 mg Olanzapine (Olanzapine 7.5 Mg Tablet) 15 mg PO BEDTIME [facility] Last Admin: 02/13/22 19:33 Dose: 15 mg Olanzapine (Olanzapine 10 Mg Vial) 5 mg IM DAILY PRN PRN Reason: if pt refuses PO per Truong Olanzapine (Olanzapine 10 Mg Vial) 15 mg IM BEDTIME PRN PRN Reason: if pt refuses po per [place]ong Paliperidone Palmitate (Paliperidone Palmitate 234 Mg/1.5 Ml Syringe) 234 mg IM Q30D [facility] Last Admin: 02/04/22 13:46 Dose: 234 mg Tamsulosin HCl (Tamsulosin Hcl 0.4 Mg Capsule) 0.4 mg PO BEDTIME [facility] Last Admin: 02/13/22 19:33 Dose: 0.4 mg Trazodone HCl (Trazodone Hcl 50 Mg Tablet) 50 mg PO BEDTIME PRN PRN Reason: Insomnia Allergies Allergies Allergy/AdvReac Type Severity Reaction Status Date / Time No Known Allergies Allergy Unverified 01/15/20 16:15 [No Known Allergies*] Assessment & Plan Assessment & Plan (1) Schizophrenia: Status: Acute Code(s): F20.9 - Schizophrenia, unspecified Plan 02/14/22- Continue current regime. Pt will have eval by OP/Residential team this week. Will then prepare for discharge. I spent minutes with the patient and/or on the patient floor today, greater than?50% of which was spent counseling/coordinating care. Informed Consent: does not understand Reason for contiued inpatient stay Substantial Risk for: harm to self, inability to function and rapid decompensation
[2022-02-14] MEDS: Acetaminophen 325 MG TABLET 650 MG PO (16:48)
[2022-02-14 18:00] VITALS: BP 165/82; PULSE 82; RESP 16; TEMP 36.6; O2SAT 97
[2022-02-14] MEDS: lisinopriL 20 MG TABLET PO (20:13)
[2022-02-14] MEDS: Tamsulosin HCL 0.4 MG CAPSULE PO (20:13)
[2022-02-14] MEDS: Divalproex Sodium 500 MG TABLET.DR 1000 MG PO (20:13)
[2022-02-14] MEDS: OLANZapine 7.5 MG TABLET 15 MG PO (20:13)
[2022-02-15 09:07] VITALS: BP 150/71; PULSE 75; RESP 19; O2SAT 95
[2022-02-15] MEDS: OLANZapine 5 MG TABLET PO (09:11)
[2022-02-15] MEDS: Labetalol HCL 100 MG TABLET 300 MG PO ×2 (09:11→20:10)
--- NOTE | 2022-02-15 15:06 | HO.PSYCHPN ---
Subjective Subjective Date of Service: 02/15/22 Reason For Visit: disorganized/psychotic Subjective Notes: Section 7 Healthcare Proxy: No Guardianship: Yes Medical Problems Affecting Mental Status: No Interim History: Team reports pt has taken a shower. [facility] scheduled to visit today. Met with pt. He reports he hopes to leave today. Discussed this will most likely not be the plan. Asked pt to prepare to discuss his residential teams concerns about his medication compliance and his leaving the [place] [facility] and being away for long periods of time. Medication Compliance: Yes Side effects from medications: No Attending Groups: Intermittent Review of Systems Acute medical concerns: No Medical Review of Systems: unchanged Mental Status Exam Mental Status Exam Patient Appearance: Appropriate Patient Orientation: Person, Place, Time and Situation Level of Consciousness: Alert Patient Behavior: Talkative, Cooperative and Good Eye Contact Mood Description: Happy Affect Description: Apprehensive Patient Cognition Impaired: Yes Ability to Follow Directions: Good Speech Pattern: Garbled (at times), Spontaneous Speech, Loud and Poor Articulation (at times) Memory Description: Remote Impaired Hallucinations: None (denies) Delusions: Present Thought Process: Distracted Thought Content: positive for Tangential, positive for Suicidal Ideation (denies) and positive for Homicidal Ideation (denies) Depressive Symptoms: Increased Anxiety Abnormal Motor Activity Signs and Symptoms: Restlessness Judgement: Poor Diagnostics Vital Signs (24Hr): Vital Signs - 24 hr 02/14/22 18:00 02/15/22 09:07 Temperature 97.8 F Pulse Rate 82 75 Respiratory Rate 16 19 Blood Pressure 165/82 H 150/71 H Pulse Oximetry 97 95 Oxygen Delivery Method Room Air Room Air BMI result Body Mass Index 25.1 Labs Results: 01/20/22 19:31 01/20/22 19:32 Medications Medications Current Medications Acetaminophen (Acetaminophen 325 Mg Tablet) 650 mg PO Q6H PRN PRN Reason: Headache/Pain Mild Scale (1-3) Last Admin: 02/14/22 16:48 Dose: 650 mg Al Hydroxide/Mg Hydroxide (Magnesium Hydrox/Alum Hydrox 30 Ml Oral.Susp) 30 ml PO Q6H PRN PRN Reason: Heartburn/Nausea Diphenhydramine HCl (Diphenhydramine Hcl 25 Mg Capsule) 50 mg PO Q4H PRN PRN Reason: agitation Divalproex Sodium (Divalproex Sodium 500 Mg Tablet.) 1,000 mg PO BEDTIME [facility] Last Admin: 02/14/22 20:13 Dose: 1,000 mg Haloperidol (Haloperidol 5 Mg Tablet) 5 mg PO Q4H PRN PRN Reason: agitation Haloperidol Decanoate (Haloperidol Decanoate 50 Mg/Ml Ampul) 300 mg IM Q30D [facility] Last Admin: 02/02/22 19:24 Dose: 300 mg Hydroxyzine HCl (Hydroxyzine Hcl 25 Mg Tablet) 25 mg PO Q6H PRN PRN Reason: Anxiety Labetalol HCl (Labetalol Hcl 100 Mg Tablet) 300 mg PO BID [facility] Last Admin: 02/15/22 09:11 Dose: 300 mg Lisinopril (Lisinopril 20 Mg Tablet) 20 mg PO BEDTIME [facility]; Protocol Last Admin: 02/14/22 20:13 Dose: 20 mg Magnesium Hydroxide (Milk Of Magnesia 30 Ml Oral.Susp) 30 ml PO DAILY PRN PRN Reason: Constipation Nicotine Polacrilex (Nicotine Polacrilex 2 Mg Gum) 4 mg BUCCAL Q2H PRN PRN Reason: Nicotine Cravings Olanzapine (Olanzapine 5 Mg Tablet) 5 mg PO DAILY [facility] Last Admin: 02/15/22 09:11 Dose: 5 mg Olanzapine (Olanzapine 7.5 Mg Tablet) 15 mg PO BEDTIME [facility] Last Admin: 02/14/22 20:13 Dose: 15 mg Olanzapine (Olanzapine 10 Mg Vial) 5 mg IM DAILY PRN PRN Reason: if pt refuses PO per Alexi Olanzapine (Olanzapine 10 Mg Vial) 15 mg IM BEDTIME PRN PRN Reason: if pt refuses po per Alexi Paliperidone Palmitate (Paliperidone Palmitate 234 Mg/1.5 Ml Syringe) 234 mg IM Q30D [facility] Last Admin: 02/04/22 13:46 Dose: 234 mg Tamsulosin HCl (Tamsulosin Hcl 0.4 Mg Capsule) 0.4 mg PO BEDTIME [facility] Last Admin: 02/14/22 20:13 Dose: 0.4 mg Trazodone HCl (Trazodone Hcl 50 Mg Tablet) 50 mg PO BEDTIME PRN PRN Reason: Insomnia Allergies Allergies Allergy/AdvReac Type Severity Reaction Status Date / Time No Known Allergies Allergy Unverified 01/15/20 16:15 [No Known Allergies*] Assessment & Plan Assessment & Plan (1) Schizophrenia: Status: Acute Code(s): F20.9 - Schizophrenia, unspecified Plan 02/14/22- Continue current regime. Pt will have eval by OP/Residential team this week. Will then prepare for discharge. 02/15/22- Continue current regime. Await residential team's assessment of pt status to provide for further planning. I spent minutes with the patient and/or on the patient floor today, greater than?50% of which was spent counseling/coordinating care. Patient educated on: therapeutic strategies Informed Consent: further education needed Reason for contiued inpatient stay Substantial Risk for: harm to self and rapid decompensation
[2022-02-15 17:57] VITALS: BP 148/82; PULSE 80; RESP 18; O2SAT 95
[2022-02-15] MEDS: Divalproex Sodium 500 MG TABLET.DR 1000 MG PO (20:10)
[2022-02-15] MEDS: lisinopriL 20 MG TABLET PO (20:11)
[2022-02-15] MEDS: Tamsulosin HCL 0.4 MG CAPSULE PO (20:11)
[2022-02-15] MEDS: OLANZapine 7.5 MG TABLET 15 MG PO (20:11)
[2022-02-16 06:00] VITALS: BP 162/77; PULSE 107; RESP 16; O2SAT 98
[2022-02-16] MEDS: Labetalol HCL 100 MG TABLET 300 MG PO ×2 (08:55→20:01)
[2022-02-16] MEDS: OLANZapine 5 MG TABLET PO (08:55)
[2022-02-16] MEDS: LORazepam 1 MG TABLET PO (13:59)
[2022-02-16] MEDS: HaloperidoL 5 MG TABLET PO (13:59)
[2022-02-16] MEDS: Acetaminophen 325 MG TABLET 650 MG PO (14:57)
[2022-02-16 17:16] VITALS: BP 147/70; PULSE 83; RESP 16; TEMP 36.6; O2SAT 98
[2022-02-16] MEDS: Divalproex Sodium 500 MG TABLET.DR 1000 MG PO (19:59)
[2022-02-16] MEDS: Tamsulosin HCL 0.4 MG CAPSULE PO (20:00)
[2022-02-16] MEDS: OLANZapine 7.5 MG TABLET 15 MG PO (20:00)
[2022-02-16] MEDS: lisinopriL 20 MG TABLET PO (20:01)
[2022-02-17 06:00] VITALS: BP 165/78; PULSE 80; RESP 16; O2SAT 97
[2022-02-17] MEDS: Labetalol HCL 100 MG TABLET 300 MG PO ×2 (09:36→19:21)
[2022-02-17] MEDS: OLANZapine 5 MG TABLET PO (09:36)
[2022-02-17 10:32] LABS: COVID-19 Test Negative (Negative); IDNOW Serial# 16C4AD1C
--- NOTE | 2022-02-17 15:00 | HO.PSYCHPN ---
Subjective Subjective Date of Service: 02/16/22 Reason For Visit: disorganized/psychotic Subjective Notes: Section 7 Healthcare Proxy: No Guardianship: Yes Medical Problems Affecting Mental Status: No Interim History: Residential team reports pt is not at baseline. Pt is reported to have been agitated in the meeting with significant delusional content. Team questions dementia sx and asks for intermediate placement. Pt, later in the afternoon was loud, agitated, requiring prn medication which he responded to along with team support, art work and music intervention. He talked about owning the intermediate with tw and wanting to collect the money owed to him (millions) by [facility] and other agencies. Interventions to help to decrease agitation and delusions were a success. Pt observing a peer card game and enjoying this earlier in the evening. Medication Compliance: Yes Side effects from medications: No (TD has decreased) Attending Groups: Intermittent Review of Systems Acute medical concerns: No Medical Review of Systems: unchanged Mental Status Exam Mental Status Exam Patient Appearance: Appropriate Patient Orientation: Person, Place, Time and Situation Level of Consciousness: Alert Patient Behavior: Talkative, Cooperative and Good Eye Contact Mood Description: Happy Affect Description: Apprehensive Patient Cognition Impaired: Yes Ability to Follow Directions: Good Speech Pattern: Garbled (at times), Spontaneous Speech, Loud and Poor Articulation (at times) Memory Description: Remote Impaired Hallucinations: None (denies) Delusions: Present Thought Process: Distracted Thought Content: positive for Tangential, positive for Suicidal Ideation (denies) and positive for Homicidal Ideation (denies) Depressive Symptoms: Increased Anxiety Abnormal Motor Activity Signs and Symptoms: Restlessness Judgement: Poor Diagnostics Vital Signs (24Hr): Vital Signs - 24 hr 02/16/22 17:16 02/17/22 06:00 Temperature 97.8 F Pulse Rate 83 80 Respiratory Rate 16 16 Blood Pressure 147/70 H 165/78 H Pulse Oximetry 98 97 Oxygen Delivery Method Room Air Room Air BMI result Body Mass Index 25.1 Labs Results: 01/20/22 19:31 01/20/22 19:32 Labs: Laboratory Results - last 48 hr 02/17/22 10:05 COVID-19 ([facility]) Negative COVID-19 Clin Com See Note Medications Medications Current Medications Acetaminophen (Acetaminophen 325 Mg Tablet) 650 mg PO Q6H PRN PRN Reason: Headache/Pain Mild Scale (1-3) Last Admin: 02/16/22 14:57 Dose: 650 mg Al Hydroxide/Mg Hydroxide (Magnesium Hydrox/Alum Hydrox 30 Ml Oral.Susp) 30 ml PO Q6H PRN PRN Reason: Heartburn/Nausea Divalproex Sodium (Divalproex Sodium 500 Mg Tablet.Dr) 1,000 mg PO BEDTIME [facility] Last Admin: 02/16/22 19:59 Dose: 1,000 mg Haloperidol (Haloperidol 5 Mg Tablet) 5 mg PO Q4H PRN PRN Reason: agitation Last Admin: 02/16/22 13:59 Dose: 5 mg Haloperidol Decanoate (Haloperidol Decanoate 50 Mg/Ml Ampul) 300 mg IM Q30D [facility] Last Admin: 02/02/22 19:24 Dose: 300 mg Hydroxyzine HCl (Hydroxyzine Hcl 25 Mg Tablet) 25 mg PO Q6H PRN PRN Reason: Anxiety Labetalol HCl (Labetalol Hcl 100 Mg Tablet) 300 mg PO BID [facility] Last Admin: 02/17/22 09:36 Dose: 300 mg Lisinopril (Lisinopril 20 Mg Tablet) 20 mg PO BEDTIME [facility]; Protocol Last Admin: 02/16/22 20:01 Dose: 20 mg Lorazepam (Lorazepam 1 Mg Tablet) 1 mg PO Q4H PRN PRN Reason: agitation, anxiety Last Admin: 02/16/22 13:59 Dose: 1 mg Magnesium Hydroxide (Milk Of Magnesia 30 Ml Oral.Susp) 30 ml PO DAILY PRN PRN Reason: Constipation Nicotine Polacrilex (Nicotine Polacrilex 2 Mg Gum) 4 mg BUCCAL Q2H PRN PRN Reason: Nicotine Cravings Olanzapine (Olanzapine 5 Mg Tablet) 5 mg PO DAILY [facility] Last Admin: 02/17/22 09:36 Dose: 5 mg Olanzapine (Olanzapine 7.5 Mg Tablet) 15 mg PO BEDTIME [facility] Last Admin: 02/16/22 20:00 Dose: 15 mg Olanzapine (Olanzapine 10 Mg Vial) 5 mg IM DAILY PRN PRN Reason: if pt refuses PO per Alexi Olanzapine (Olanzapine 10 Mg Vial) 15 mg IM BEDTIME PRN PRN Reason: if pt refuses po per Alexi Paliperidone Palmitate (Paliperidone Palmitate 234 Mg/1.5 Ml Syringe) 234 mg IM Q30D [facility] Last Admin: 02/04/22 13:46 Dose: 234 mg Tamsulosin HCl (Tamsulosin Hcl 0.4 Mg Capsule) 0.4 mg PO BEDTIME [facility] Last Admin: 02/16/22 20:00 Dose: 0.4 mg Trazodone HCl (Trazodone Hcl 50 Mg Tablet) 50 mg PO BEDTIME PRN PRN Reason: Insomnia Allergies Allergies Allergy/AdvReac Type Severity Reaction Status Date / Time No Known Allergies Allergy Unverified 01/15/20 16:15 [No Known Allergies*] Assessment & Plan Assessment & Plan (1) Schizophrenia: Status: Acute Code(s): F20.9 - Schizophrenia, unspecified Plan 02/16/22: Episode of agitation with good response to support and prn medication. Residential team believes this to be dementia and would like a intermediate placement. Will discuss with team. Continue current regime. I spent minutes with the patient and/or on the patient floor today, greater than?50% of which was spent counseling/coordinating care. Patient educated on: other Informed Consent: does not understand Reason for contiued inpatient stay Substantial Risk for: harm to self and rapid decompensation
--- NOTE | 2022-02-17 15:00 | HO.PSYCHPN ---
Subjective Subjective Date of Service: 02/17/22 Reason For Visit: disorganized/psychotic Subjective Notes: Section 7 Healthcare Proxy: No Guardianship: Yes Medical Problems Affecting Mental Status: No Interim History: Delusional, paranoid, telling team that a man wants to harm him. Denies this when we met. Discussed further testing per residential recommendation for dementia evaluation. I am wiser than they are, God has given me this gift. Reviewed anatomy of the brain handout he asked for yesterday. Will begin to order demential eval testing for next week with plan to hopefully discharge. Pt declines EEG and MRI, will do labs he states Medication Compliance: Yes Side effects from medications: No Attending Groups: Intermittent Review of Systems Acute medical concerns: No Medical Review of Systems: unchanged Mental Status Exam Mental Status Exam Patient Appearance: Appropriate Patient Orientation: Person, Place, Time and Situation Level of Consciousness: Alert Patient Behavior: Talkative, Cooperative and Good Eye Contact Mood Description: Happy Affect Description: Apprehensive Patient Cognition Impaired: Yes Ability to Follow Directions: Good Speech Pattern: Garbled (at times), Spontaneous Speech, Loud and Poor Articulation (at times) Memory Description: Remote Impaired Hallucinations: None (denies) Delusions: Present Thought Process: Distracted Thought Content: positive for Tangential, positive for Suicidal Ideation (denies) and positive for Homicidal Ideation (denies) Depressive Symptoms: Increased Anxiety Abnormal Motor Activity Signs and Symptoms: Restlessness Judgement: Poor Diagnostics Vital Signs (24Hr): Vital Signs - 24 hr 02/16/22 17:16 02/17/22 06:00 Temperature 97.8 F Pulse Rate 83 80 Respiratory Rate 16 16 Blood Pressure 147/70 H 165/78 H Pulse Oximetry 98 97 Oxygen Delivery Method Room Air Room Air BMI result Body Mass Index 25.1 Labs Results: 01/20/22 19:31 01/20/22 19:32 Labs: Laboratory Results - last 48 hr 02/17/22 10:05 COVID-19 ([facility]) Negative COVID-19 Clin Com See Note Medications Medications Current Medications Acetaminophen (Acetaminophen 325 Mg Tablet) 650 mg PO Q6H PRN PRN Reason: Headache/Pain Mild Scale (1-3) Last Admin: 02/16/22 14:57 Dose: 650 mg Al Hydroxide/Mg Hydroxide (Magnesium Hydrox/Alum Hydrox 30 Ml Oral.Susp) 30 ml PO Q6H PRN PRN Reason: Heartburn/Nausea Divalproex Sodium (Divalproex Sodium 500 Mg Tablet.Dr) 1,000 mg PO BEDTIME [facility] Last Admin: 02/16/22 19:59 Dose: 1,000 mg Haloperidol (Haloperidol 5 Mg Tablet) 5 mg PO Q4H PRN PRN Reason: agitation Last Admin: 02/16/22 13:59 Dose: 5 mg Haloperidol Decanoate (Haloperidol Decanoate 50 Mg/Ml Ampul) 300 mg IM Q30D [facility] Last Admin: 02/02/22 19:24 Dose: 300 mg Hydroxyzine HCl (Hydroxyzine Hcl 25 Mg Tablet) 25 mg PO Q6H PRN PRN Reason: Anxiety Labetalol HCl (Labetalol Hcl 100 Mg Tablet) 300 mg PO BID [facility] Last Admin: 02/17/22 09:36 Dose: 300 mg Lisinopril (Lisinopril 20 Mg Tablet) 20 mg PO BEDTIME [facility]; Protocol Last Admin: 02/16/22 20:01 Dose: 20 mg Lorazepam (Lorazepam 1 Mg Tablet) 1 mg PO Q4H PRN PRN Reason: agitation, anxiety Last Admin: 02/16/22 13:59 Dose: 1 mg Magnesium Hydroxide (Milk Of Magnesia 30 Ml Oral.Susp) 30 ml PO DAILY PRN PRN Reason: Constipation Nicotine Polacrilex (Nicotine Polacrilex 2 Mg Gum) 4 mg BUCCAL Q2H PRN PRN Reason: Nicotine Cravings Olanzapine (Olanzapine 5 Mg Tablet) 5 mg PO DAILY [facility] Last Admin: 02/17/22 09:36 Dose: 5 mg Olanzapine (Olanzapine 7.5 Mg Tablet) 15 mg PO BEDTIME [facility] Last Admin: 02/16/22 20:00 Dose: 15 mg Olanzapine (Olanzapine 10 Mg Vial) 5 mg IM DAILY PRN PRN Reason: if pt refuses PO per Alexi Olanzapine (Olanzapine 10 Mg Vial) 15 mg IM BEDTIME PRN PRN Reason: if pt refuses po per Alexi Paliperidone Palmitate (Paliperidone Palmitate 234 Mg/1.5 Ml Syringe) 234 mg IM Q30D [facility] Last Admin: 02/04/22 13:46 Dose: 234 mg Tamsulosin HCl (Tamsulosin Hcl 0.4 Mg Capsule) 0.4 mg PO BEDTIME [facility] Last Admin: 02/16/22 20:00 Dose: 0.4 mg Trazodone HCl (Trazodone Hcl 50 Mg Tablet) 50 mg PO BEDTIME PRN PRN Reason: Insomnia Allergies Allergies Allergy/AdvReac Type Severity Reaction Status Date / Time No Known Allergies Allergy Unverified 01/15/20 16:15 [No Known Allergies*] Assessment & Plan Assessment & Plan (1) Schizophrenia: Status: Acute Code(s): F20.9 - Schizophrenia, unspecified Plan 02/07/22: Dementia eval. Pt declines MRI, EEG, EKG at this time. Agrees to labs. CBCD, CMP, Mg, B12,Folate, ESR, TSH, HIV, Rheumatoid Factor, Lipid Panel, RPR, UA, Heavy Metal Screen, Valproate- Last results 01/20. I spent minutes with the patient and/or on the patient floor today, greater than?50% of which was spent counseling/coordinating care. Patient educated on: other Informed Consent: further education needed Reason for contiued inpatient stay Substantial Risk for: harm to self and rapid decompensation
[2022-02-17 18:00] VITALS: BP 180/70; PULSE 90
[2022-02-17] MEDS: OLANZapine 7.5 MG TABLET 15 MG PO (19:20)
[2022-02-17] MEDS: Divalproex Sodium 500 MG TABLET.DR 1000 MG PO (19:20)
[2022-02-17] MEDS: Tamsulosin HCL 0.4 MG CAPSULE PO (19:21)
[2022-02-17] MEDS: lisinopriL 20 MG TABLET PO (19:21)
[2022-02-18 06:00] VITALS: BP 128/60; PULSE 73; RESP 18; O2SAT 97
[2022-02-18] MEDS: Labetalol HCL 100 MG TABLET 300 MG PO ×2 (09:05→19:47)
[2022-02-18] MEDS: OLANZapine 5 MG TABLET PO (09:05)
--- NOTE | 2022-02-18 09:45 | P.PNPSI_ITS ---
Subjective Subjective Date of Service: 02/17/22 Reason For Visit: disorganized/psychotic Subjective Notes: Pedersen Warning and Conditional Voluntary Healthcare Proxy: No Guardianship: No Medical Problems Affecting Mental Status: No Interim History: I spoke with pt's team. No updates. Met with pt. He reports he is fine. Sitting down in his bed, calm. Sleep is okay. When asked about questions or concerns, pt says I wanna leave this place and I dont like all the drugs they're giving me. Denies AH. Affect is flat, internally preoccupied. Medication Compliance: Yes Side effects from medications: No Attending Groups: No Review of Systems Acute medical concerns: No Medical Review of Systems: unchanged Mental Status Exam Mental Status Exam Narrative: Patient Appearance: Appropriate Patient Orientation: Person, Place, Time and Situation Level of Consciousness: Alert Patient Behavior: Talkative, Cooperative and Good Eye Contact Mood Description: Happy Affect Description: Apprehensive Patient Cognition Impaired: Yes Ability to Follow Directions: Good Speech Pattern: Garbled (at times), Spontaneous Speech, Loud and Poor Articulation (at times) Memory Description: Remote Impaired Hallucinations: None (denies) Delusions: Present Thought Process: Distracted Thought Content: positive for Tangential, positive for Suicidal Ideation (denies ) and positive for Homicidal Ideation (denies) Depressive Symptoms: Increased Anxiety Abnormal Motor Activity Signs and Symptoms: Restlessness Judgement: Poor Diagnostics Vital Signs (24Hr): Vital Signs - 24 hr 02/17/22 18:00 02/18/22 06:00 Pulse Rate 90 73 Respiratory Rate 18 Blood Pressure 180/70 H 128/60 Pulse Oximetry 97 Oxygen Delivery Method Room Air BMI result Body Mass Index 25.1 Labs Results: 01/20/22 19:31 01/20/22 19:32 Labs: Laboratory Results - last 48 hr 02/17/22 10:05 COVID-19 ([facility]) Negative COVID-19 Clin Com See Note Medications Medications Current Medications Acetaminophen (Acetaminophen 325 Mg Tablet) 650 mg PO Q6H PRN PRN Reason: Headache/Pain Mild Scale (1-3) Last Admin: 02/16/22 14:57 Dose: 650 mg Al Hydroxide/Mg Hydroxide (Magnesium Hydrox/Alum Hydrox 30 Ml Oral.Susp) 30 ml PO Q6H PRN PRN Reason: Heartburn/Nausea Divalproex Sodium (Divalproex Sodium 500 Mg Tablet.Dr) 1,000 mg PO BEDTIME [facility] Last Admin: 02/17/22 19:20 Dose: 1,000 mg Haloperidol (Haloperidol 5 Mg Tablet) 5 mg PO Q4H PRN PRN Reason: agitation Last Admin: 02/16/22 13:59 Dose: 5 mg Haloperidol Decanoate (Haloperidol Decanoate 50 Mg/Ml Ampul) 300 mg IM Q30D [facility] Last Admin: 02/02/22 19:24 Dose: 300 mg Hydroxyzine HCl (Hydroxyzine Hcl 25 Mg Tablet) 25 mg PO Q6H PRN PRN Reason: Anxiety Labetalol HCl (Labetalol Hcl 100 Mg Tablet) 300 mg PO BID [facility] Last Admin: 02/18/22 09:05 Dose: 300 mg Lisinopril (Lisinopril 20 Mg Tablet) 20 mg PO BEDTIME [facility]; Protocol Last Admin: 02/17/22 19:21 Dose: 20 mg Lorazepam (Lorazepam 1 Mg Tablet) 1 mg PO Q4H PRN PRN Reason: agitation, anxiety Last Admin: 02/16/22 13:59 Dose: 1 mg Magnesium Hydroxide (Milk Of Magnesia 30 Ml Oral.Susp) 30 ml PO DAILY PRN PRN Reason: Constipation Nicotine Polacrilex (Nicotine Polacrilex 2 Mg Gum) 4 mg BUCCAL Q2H PRN PRN Reason: Nicotine Cravings Olanzapine (Olanzapine 5 Mg Tablet) 5 mg PO DAILY [facility] Last Admin: 02/18/22 09:05 Dose: 5 mg Olanzapine (Olanzapine 7.5 Mg Tablet) 15 mg PO BEDTIME [facility] Last Admin: 02/17/22 19:20 Dose: 15 mg Olanzapine (Olanzapine 10 Mg Vial) 5 mg IM DAILY PRN PRN Reason: if pt refuses PO per Alexi Olanzapine (Olanzapine 10 Mg Vial) 15 mg IM BEDTIME PRN PRN Reason: if pt refuses po per Alexi Paliperidone Palmitate (Paliperidone Palmitate 234 Mg/1.5 Ml Syringe) 234 mg IM Q30D [facility] Last Admin: 02/04/22 13:46 Dose: 234 mg Tamsulosin HCl (Tamsulosin Hcl 0.4 Mg Capsule) 0.4 mg PO BEDTIME [facility] Last Admin: 02/17/22 19:21 Dose: 0.4 mg Trazodone HCl (Trazodone Hcl 50 Mg Tablet) 50 mg PO BEDTIME PRN PRN Reason: Insomnia Allergies Allergies Allergy/AdvReac Type Severity Reaction Status Date / Time No Known Allergies Allergy Unverified 01/15/20 16:15 [No Known Allergies*] Assessment & Plan Assessment & Plan (1) Schizophrenia: Status: Acute Code(s): F20.9 - Schizophrenia, unspecified Plan 02/14/22- Continue current regime. Pt will have eval by OP/Residential team this week. Will then prepare for discharge. 02/18/22- No medication changes, pt is calm, no behavioral issues I spent minutes with the patient and/or on the patient floor today, greater than?50% of which was spent counseling/coordinating care. Patient educated on: medication risk/benefits Reason for contiued inpatient stay Substantial Risk for: inability to function, rapid decompensation and med/psych decompensation
[2022-02-18 17:35] VITALS: BP 143/67; PULSE 83; RESP 16; TEMP 36.4; O2SAT 98
[2022-02-18] MEDS: Tamsulosin HCL 0.4 MG CAPSULE PO (19:47)
[2022-02-18] MEDS: OLANZapine 7.5 MG TABLET 15 MG PO (19:47)
[2022-02-18] MEDS: Divalproex Sodium 500 MG TABLET.DR 1000 MG PO (19:47)
[2022-02-18] MEDS: lisinopriL 20 MG TABLET PO (19:47)
[2022-02-19 06:00] VITALS: BP 131/65; PULSE 69; RESP 18; O2SAT 97
[2022-02-19] MEDS: Labetalol HCL 100 MG TABLET 300 MG PO ×2 (08:59→20:12)
[2022-02-19] MEDS: OLANZapine 5 MG TABLET PO (08:59)
--- NOTE | 2022-02-19 12:59 | HO.PSYCHPN ---
Subjective Subjective Date of Service: 02/19/22 Reason For Visit: disorganized/psychotic Subjective Notes: Pedersen Warning Interim History: Met with pt's team. Spoke with pt. Says his sleep is okay and his mood is okay. When asked about questions or concerns, pt says I just want to leave. Denies AH. Denies anxiety. Asks Am i a real gabby? Medication Compliance: Yes Side effects from medications: No Attending Groups: No Review of Systems Acute medical concerns: No Medical Review of Systems: unchanged Mental Status Exam Mental Status Exam Narrative: Patient Appearance: Appropriate Patient Orientation: Person, Place, Time and Situation Level of Consciousness: Alert Patient Behavior: Talkative, Cooperative and Good Eye Contact Mood Description: Happy Affect Description: Apprehensive Patient Cognition Impaired: Yes Ability to Follow Directions: Good Speech Pattern: Garbled (at times), Spontaneous Speech, Loud and Poor Articulation (at times) Memory Description: Remote Impaired Hallucinations: None (denies) Delusions: Present Thought Process: Distracted Thought Content: positive for Tangential, positive for Suicidal Ideation (denies) and positive for Homicidal Ideation (denies) Depressive Symptoms: Increased Anxiety Abnormal Motor Activity Signs and Symptoms: Restlessness Judgement: Poor Diagnostics Vital Signs (24Hr): Vital Signs - 24 hr 02/18/22 17:35 02/19/22 06:00 Temperature 97.6 F Pulse Rate 83 69 Respiratory Rate 16 18 Blood Pressure 143/67 H 131/65 Pulse Oximetry 98 97 Oxygen Delivery Method Room Air Room Air BMI result Body Mass Index 25.1 Labs Results: 01/20/22 19:31 01/20/22 19:32 Medications Medications Current Medications Acetaminophen (Acetaminophen 325 Mg Tablet) 650 mg PO Q6H PRN PRN Reason: Headache/Pain Mild Scale (1-3) Last Admin: 02/16/22 14:57 Dose: 650 mg Al Hydroxide/Mg Hydroxide (Magnesium Hydrox/Alum Hydrox 30 Ml Oral.Susp) 30 ml PO Q6H PRN PRN Reason: Heartburn/Nausea Divalproex Sodium (Divalproex Sodium 500 Mg Tablet.Dr) 1,000 mg PO BEDTIME [facility] Last Admin: 02/18/22 19:47 Dose: 1,000 mg Haloperidol (Haloperidol 5 Mg Tablet) 5 mg PO Q4H PRN PRN Reason: agitation Last Admin: 02/16/22 13:59 Dose: 5 mg Haloperidol Decanoate (Haloperidol Decanoate 50 Mg/Ml Ampul) 300 mg IM Q30D [facility] [place] Last Admin: 02/02/22 19:24 Dose: 300 mg Hydroxyzine HCl (Hydroxyzine Hcl 25 Mg Tablet) 25 mg PO Q6H PRN PRN Reason: Anxiety Labetalol HCl (Labetalol Hcl 100 Mg Tablet) 300 mg PO BID [facility] [place] Last Admin: 02/19/22 08:59 Dose: 300 mg Lisinopril (Lisinopril 20 Mg Tablet) 20 mg PO BEDTIME [facility]; Protocol Last Admin: 02/18/22 19:47 Dose: 20 mg Lorazepam (Lorazepam 1 Mg Tablet) 1 mg PO Q4H PRN PRN Reason: agitation, anxiety Last Admin: 02/16/22 13:59 Dose: 1 mg Magnesium Hydroxide (Milk Of Magnesia 30 Ml Oral.Susp) 30 ml PO DAILY PRN PRN Reason: Constipation Nicotine Polacrilex (Nicotine Polacrilex 2 Mg Gum) 4 mg BUCCAL Q2H PRN PRN Reason: Nicotine Cravings Olanzapine (Olanzapine 5 Mg Tablet) 5 mg PO DAILY [facility] [place] Last Admin: 02/19/22 08:59 Dose: 5 mg Olanzapine (Olanzapine 7.5 Mg Tablet) 15 mg PO BEDTIME [facility] Last Admin: 02/18/22 19:47 Dose: 15 mg Olanzapine (Olanzapine 10 Mg Vial) 5 mg IM DAILY PRN PRN Reason: if pt refuses PO per Alexi Olanzapine (Olanzapine 10 Mg Vial) 15 mg IM BEDTIME PRN PRN Reason: if pt refuses po per Alexi Paliperidone Palmitate (Paliperidone Palmitate 234 Mg/1.5 Ml Syringe) 234 mg IM Q30D [facility] Last Admin: 02/04/22 13:46 Dose: 234 mg Tamsulosin HCl (Tamsulosin Hcl 0.4 Mg Capsule) 0.4 mg PO BEDTIME [facility] Last Admin: 02/18/22 19:47 Dose: 0.4 mg Trazodone HCl (Trazodone Hcl 50 Mg Tablet) 50 mg PO BEDTIME PRN PRN Reason: Insomnia Allergies Allergies Allergy/AdvReac Type Severity Reaction Status Date / Time No Known Allergies Allergy Unverified 01/15/20 16:15 [No Known Allergies*] Assessment & Plan Assessment & Plan (1) Schizophrenia: Status: Acute Code(s): F20.9 - Schizophrenia, unspecified Plan 02/14/22- Continue current regime. Pt will have eval by OP/Residential team this week. Will then prepare for discharge. 02/18/22- No medication changes, pt is calm, no behavioral issues 02/19/22- No medication changes at this time I spent minutes with the patient and/or on the patient floor today, greater than?50% of which was spent counseling/coordinating care. Patient educated on: other Reason for contiued inpatient stay Substantial Risk for: inability to function, rapid decompensation and med/psych decompensation
[2022-02-19 18:00] VITALS: BP 153/83; PULSE 75; RESP 16; TEMP 36.5; O2SAT 98
[2022-02-19] MEDS: Divalproex Sodium 500 MG TABLET.DR 1000 MG PO (20:12)
[2022-02-19] MEDS: Tamsulosin HCL 0.4 MG CAPSULE PO (20:12)
[2022-02-19] MEDS: lisinopriL 20 MG TABLET PO (20:12)
[2022-02-19] MEDS: OLANZapine 7.5 MG TABLET 15 MG PO (20:13)
--- NOTE | 2022-02-20 06:51 | PM.EVENT ---
Event Note Date of Service: 02/20/22 Event Note: Patient complaining of bilateral ear blocked. Reports that he is unable to hear to well from his ears and the sounds are muffled. Of the scope revealed and the ear canal that is blocked by wax. Recommended starting Debrox ear drops, I also attempted to rinse out the wax with normal saline, which was somewhat effective on the left ear but not significantly effective on the right. Continue Debrox ear drops
[2022-02-20 08:43] VITALS: BP 139/70; PULSE 74; RESP 16; O2SAT 96
[2022-02-20] MEDS: Labetalol HCL 100 MG TABLET 300 MG PO ×2 (09:18→20:16)
[2022-02-20] MEDS: OLANZapine 5 MG TABLET PO (09:18)
--- NOTE | 2022-02-20 09:54 | P.PNPSI_ITS ---
Subjective Subjective Date of Service: 02/20/22 Reason For Visit: disorganized/psychotic Interim History: No change. 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 Says he wants discharge. Mental Status Exam Mental Status Exam Narrative: Patient Appearance: Appropriate Patient Orientation: Person, Place, Time Level of Consciousness: Alert Patient Behavior: calm, friendly, Cooperative and Good Eye Contact Mood Description: I'll survive Affect Description: Apprehensive Patient Cognition Impaired: Yes Ability to Follow Directions: Good Speech Pattern: Garbled (at times), Spontaneous Speech, Loud and Poor Articulation (at times) Memory Description: Remote Impaired Hallucinations: denies Delusions: Present Thought Process: can be goal oriented; also Distracted, tangential Thought Content: no SI/HI; wants discharge Abnormal Motor Activity Signs and Symptoms: intermittent Restlessness Judgment/insight: impaired Diagnostics Vital Signs (24Hr): Vital Signs - 24 hr 02/19/22 18:00 02/20/22 08:43 Temperature 97.7 F Pulse Rate 75 74 Respiratory Rate 16 16 Blood Pressure 153/83 H 139/70 Pulse Oximetry 98 96 Oxygen Delivery Method Room Air Room Air BMI result Body Mass Index 25.1 Labs Results: 02/20/22 09:43 02/20/22 09:43 Medications Medications Current Medications Acetaminophen (Acetaminophen 325 Mg Tablet) 650 mg PO Q6H PRN PRN Reason: Headache/Pain Mild Scale (1-3) Last Admin: 02/16/22 14:57 Dose: 650 mg Al Hydroxide/Mg Hydroxide (Magnesium Hydrox/Alum Hydrox 30 Ml Oral.Susp) 30 ml PO Q6H PRN PRN Reason: Heartburn/Nausea Divalproex Sodium (Divalproex Sodium 500 Mg Tablet.Dr) 1,000 mg PO BEDTIME [facility] Last Admin: 02/19/22 20:12 Dose: 1,000 mg Haloperidol (Haloperidol 5 Mg Tablet) 5 mg PO Q4H PRN PRN Reason: agitation Last Admin: 02/16/22 13:59 Dose: 5 mg Haloperidol Decanoate (Haloperidol Decanoate 50 Mg/Ml Ampul) 300 mg IM Q30D [facility] Last Admin: 02/02/22 19:24 Dose: 300 mg Hydroxyzine HCl (Hydroxyzine Hcl 25 Mg Tablet) 25 mg PO Q6H PRN PRN Reason: Anxiety Labetalol HCl (Labetalol Hcl 100 Mg Tablet) 300 mg PO BID [facility] Last Admin: 02/20/22 09:18 Dose: 300 mg Lisinopril (Lisinopril 20 Mg Tablet) 20 mg PO BEDTIME [facility]; Protocol Last Admin: 02/19/22 20:12 Dose: 20 mg Lorazepam (Lorazepam 1 Mg Tablet) 1 mg PO Q4H PRN PRN Reason: agitation, anxiety Last Admin: 02/16/22 13:59 Dose: 1 mg Magnesium Hydroxide (Milk Of Magnesia 30 Ml Oral.Susp) 30 ml PO DAILY PRN PRN Reason: Constipation Nicotine Polacrilex (Nicotine Polacrilex 2 Mg Gum) 4 mg BUCCAL Q2H PRN PRN Reason: Nicotine Cravings Olanzapine (Olanzapine 5 Mg Tablet) 5 mg PO DAILY [facility] Last Admin: 02/20/22 09:18 Dose: 5 mg Olanzapine (Olanzapine 7.5 Mg Tablet) 15 mg PO BEDTIME [facility] Last Admin: 02/19/22 20:13 Dose: 15 mg Olanzapine (Olanzapine 10 Mg Vial) 5 mg IM DAILY PRN PRN Reason: if pt refuses PO per Alexi Olanzapine (Olanzapine 10 Mg Vial) 15 mg IM BEDTIME PRN PRN Reason: if pt refuses po per Alexi Paliperidone Palmitate (Paliperidone Palmitate 234 Mg/1.5 Ml Syringe) 234 mg IM Q30D [facility] Last Admin: 02/04/22 13:46 Dose: 234 mg Tamsulosin HCl (Tamsulosin Hcl 0.4 Mg Capsule) 0.4 mg PO BEDTIME [facility] Last Admin: 02/19/22 20:12 Dose: 0.4 mg Trazodone HCl (Trazodone Hcl 50 Mg Tablet) 50 mg PO BEDTIME PRN PRN Reason: Insomnia Allergies Allergies Allergy/AdvReac Type Severity Reaction Status Date / Time No Known Allergies Allergy Unverified 01/15/20 16:15 [No Known Allergies*] Assessment & Plan Assessment & Plan (1) Schizophrenia: Status: Acute Code(s): F20.9 - Schizophrenia, unspecified Plan 02/14/22- Continue current regime. Pt will have eval by OP/Residential team this week. Will then prepare for discharge. 02/18/22- No medication changes, pt is calm, no behavioral issues 02/19/22- No medication changes at this time 02/20 no change in presentation; continue current treatment plan I spent minutes with the patient and/or on the patient floor today, greater than?50% of which was spent counseling/coordinating care. Patient educated on: diagnosis Informed Consent: further education needed Reason for contiued inpatient stay Substantial Risk for: med/psych decompensation
[2022-02-20 09:56] LABS: MANUAL DIFF FLAG NO
[2022-02-20 09:58] LABS: Basophils Percent Auto 0.6 % (0-2); Eosinophils Absolute Auto 0.2 X10*3/uL (0.0-0.4); Eosinophils Percent Auto 2.9 % (0-4); Hematocrit 36.8 % (42.0-52.0); Hemoglobin 12.1 g/dl (14.0-18.0); Imm Gran Abs Auto 0.05 X10*3/uL (0.00-0.03); Lymphocytes Absolute Auto 2.2 X10*3/uL (1.2-4.9); Lymphocytes Percent Auto 42.3 % (20-40); Mean Corpuscular HGB Conc 32.9 g/dl (31.0-36.0); Mean Corpuscular Hemoglobin 29.4 pg (27.0-33.0); Mean Corpuscular Volume 89.3 fL (80.0-98.0); Mean Platelet Volume 8.6 fL (9.4-12.4); Monocytes Absolute Auto 0.4 X10*3/uL (0.1-1.2); Monocytes Percent Auto 8.5 % (2-11); Neutrophils Absolute Auto 2.3 x10*3/uL (2.0-8.3); Neutrophils Percent Auto 44.7 % (45-73); Platelet Count 225 X10*3/uL (160-400); Red Blood Count 4.12 X10*6/uL (4.60-5.80); Red Cell Distribution Width 14.3 % (11.0-16.0); White Blood Count 5.2 X10*3/uL (4.8-10.8)
[2022-02-20 10:18] LABS: Alanine Aminotransferase 6 U/L (0-40); Alkaline Phosphatase 56 U/L (39-117); Anion Gap 17 (12-20); Aspartate Amino Transferase 10 U/L (5-37); Bilirubin Total 0.5 mg/dL (0.0-1.0); Blood Urea Nitrogen 9 mg/dL (9-16); Calcium 9.6 mg/dL (8.4-10.2); Carbon Dioxide 30 mmol/L (22-29); Chloride 103 mmol/L (96-108); Cholesterol 207 mg/dL; Creatinine Clr Calc Pharmacy 87.5; Estimated Glomerular Filt Rate > 60; Glucose Random 109 mg/dL (60-115); HDL Cholesterol 49 mg/dL; LDL Cholesterol Calculated 134 mg/dl; Magnesium 1.7 mg/dL (1.6-2.6); Potassium 3.5 mmol/L (3.3-5.1); Rheumatoid Factor < 15.0 IU/mL (<15.0); Sodium 146 mmol/L (135-145); Total Protein 7.7 g/dL (6.5-8.0); Triglycerides 124 mg/dL
[2022-02-20 10:36] LABS: HIV AB/AG Nonreactive (Nonreactive); HIV Num 1 0.14 S/CO (0.00-0.99)
[2022-02-20 10:43] LABS: Erythrocyte Sedimentation Rate 38 MM/HR (0-15)
[2022-02-20 11:09] LABS: Valproate 63.3 mcg/mL (50.0-100.0)
[2022-02-20 11:15] LABS: Syphilis Screen Nonreactive (Nonreactive)
[2022-02-20 11:27] LABS: Folate 14.8 ng/mL (> or = 4.0); Vitamin B12 413 pg/mL (200-900)
[2022-02-20 18:00] VITALS: BP 192/100; PULSE 85; O2SAT 94
[2022-02-20] MEDS: Tamsulosin HCL 0.4 MG CAPSULE PO (20:16)
[2022-02-20] MEDS: Divalproex Sodium 500 MG TABLET.DR 1000 MG PO (20:16)
[2022-02-20] MEDS: OLANZapine 7.5 MG TABLET 15 MG PO (20:16)
[2022-02-20] MEDS: lisinopriL 20 MG TABLET PO (20:16)
[2022-02-21 08:01] VITALS: BP 165/77; PULSE 79; RESP 16; O2SAT 94
[2022-02-21] MEDS: OLANZapine 5 MG TABLET PO (08:38)
[2022-02-21] MEDS: Labetalol HCL 100 MG TABLET 300 MG PO ×2 (08:39→19:00)
--- NOTE | 2022-02-21 16:08 | HO.PSYCHPN ---
Subjective Subjective Date of Service: 02/21/22 Reason For Visit: disorganized/psychotic Interim History: No change. Patient lying in bed says i'll survive. No other complaints or requests other than he wants to discharge Mental Status Exam Mental Status Exam Narrative: Patient Appearance: Appropriate Patient Orientation: Person, Place, Time Level of Consciousness: Alert Patient Behavior: calm, friendly, Cooperative and Good Eye Contact Mood Description: I'll survive Affect Description: Apprehensive Patient Cognition Impaired: Yes Ability to Follow Directions: Good Speech Pattern: Garbled (at times), Spontaneous Speech, Loud and Poor Articulation (at times) Memory Description: Remote Impaired Hallucinations: denies Delusions: Present Thought Process: can be goal oriented; also Distracted, tangential Thought Content: no SI/HI; wants discharge Abnormal Motor Activity Signs and Symptoms: intermittent Restlessness Judgment/insight: impaired Diagnostics Vital Signs (24Hr): Vital Signs - 24 hr 02/20/22 18:00 02/21/22 08:01 Pulse Rate 85 79 Respiratory Rate 16 Blood Pressure 192/100 H 165/77 H Pulse Oximetry 94 94 Oxygen Delivery Method Room Air Room Air BMI result Body Mass Index 25.1 Labs Results: 02/20/22 09:43 02/20/22 09:43 Labs: Laboratory Results - last 48 hr 02/20/22 02/20/22 02/20/22 09:43 09:43 09:43 WBC 5.2 RBC 4.12 L Hgb 12.1 L D Hct 36.8 L MCV 89.3 MCH 29.4 MCHC 32.9 RDW 14.3 Plt Count 225 MPV 8.6 L Immature Gran % (Auto) 1.0 H Neut % (Auto) 44.7 L Lymph % (Auto) 42.3 H [place] % (Auto) 8.5 Eos % (Auto) 2.9 Baso % (Auto) 0.6 Lymph # (Auto) 2.2 [place] # (Auto) 0.4 Eos # (Auto) 0.2 Baso # (Auto) 0.0 Abs Immat Gran (auto) 0.05 H Absolute Neuts (auto) 2.3 Absolute Nucleated RBC 0.000 Nucleated RBC % (auto) 0.0 ESR 38 H Sodium 146 H Potassium 3.5 Chloride 103 Carbon Dioxide 30 H Anion Gap 17 BUN 9 Creatinine 0.83 Estim Creat Clear Calc 87.5 Estimated GFR > 60 Random Glucose 109 Calcium 9.6 Magnesium 1.7 Total Bilirubin 0.5 AST 10 ALT 6 Alkaline Phosphatase 56 Total Protein 7.7 Albumin 4.0 Triglycerides 124 Cholesterol 207 D LDL Cholesterol, Calc 134 HDL Cholesterol 49 D Vitamin B12 Folate TSH 0.70 Valproic Acid 63.3 Rheumatoid Factor < 15.0 T.pallidum Ab (EIA) HIV 1&2 Ab/P24 Ag 4thGn 02/20/22 02/20/22 02/20/22 09:43 09:43 09:43 WBC RBC Hgb Hct MCV MCH MCHC RDW Plt Count MPV Immature Gran % (Auto) Neut % (Auto) Lymph % (Auto) [place] % (Auto) Eos % (Auto) Baso % (Auto) Lymph # (Auto) [place] # (Auto) Eos # (Auto) Baso # (Auto) Abs Immat Gran (auto) Absolute Neuts (auto) Absolute Nucleated RBC Nucleated RBC % (auto) ESR Sodium Potassium Chloride Carbon Dioxide Anion Gap BUN Creatinine Estim Creat Clear Calc Estimated GFR Random Glucose Calcium Magnesium Total Bilirubin AST ALT Alkaline Phosphatase Total Protein Albumin Triglycerides Cholesterol LDL Cholesterol, Calc HDL Cholesterol Vitamin B12 413 Folate 14.8 TSH Valproic Acid Rheumatoid Factor T.pallidum Ab (EIA) Nonreactive HIV 1&2 Ab/P24 Ag 4thGn Nonreactive Medications Medications Current Medications Acetaminophen (Acetaminophen 325 Mg Tablet) 650 mg PO Q6H PRN PRN Reason: Headache/Pain Mild Scale (1-3) Last Admin: 02/16/22 14:57 Dose: 650 mg Al Hydroxide/Mg Hydroxide (Magnesium Hydrox/Alum Hydrox 30 Ml Oral.Susp) 30 ml PO Q6H PRN PRN Reason: Heartburn/Nausea Divalproex Sodium (Divalproex Sodium 500 Mg Tablet.Dr) 1,000 mg PO BEDTIME [facility] Last Admin: 02/20/22 20:16 Dose: 1,000 mg Haloperidol (Haloperidol 5 Mg Tablet) 5 mg PO Q4H PRN PRN Reason: agitation Last Admin: 02/16/22 13:59 Dose: 5 mg Haloperidol Decanoate (Haloperidol Decanoate 50 Mg/Ml Ampul) 300 mg IM Q30D [facility] Last Admin: 02/02/22 19:24 Dose: 300 mg Hydroxyzine HCl (Hydroxyzine Hcl 25 Mg Tablet) 25 mg PO Q6H PRN PRN Reason: Anxiety Labetalol HCl (Labetalol Hcl 100 Mg Tablet) 300 mg PO BID [facility] Last Admin: 02/21/22 08:39 Dose: 300 mg Lisinopril (Lisinopril 20 Mg Tablet) 20 mg PO BEDTIME [facility]; Protocol Last Admin: 02/20/22 20:16 Dose: 20 mg Magnesium Hydroxide (Milk Of Magnesia 30 Ml Oral.Susp) 30 ml PO DAILY PRN PRN Reason: Constipation Nicotine Polacrilex (Nicotine Polacrilex 2 Mg Gum) 4 mg BUCCAL Q2H PRN PRN Reason: Nicotine Cravings Olanzapine (Olanzapine 5 Mg Tablet) 5 mg PO DAILY [facility] Last Admin: 02/21/22 08:38 Dose: 5 mg Olanzapine (Olanzapine 7.5 Mg Tablet) 15 mg PO BEDTIME [facility] Last Admin: 02/20/22 20:16 Dose: 15 mg Olanzapine (Olanzapine 10 Mg Vial) 5 mg IM DAILY PRN PRN Reason: if pt refuses PO per Alexi Olanzapine (Olanzapine 10 Mg Vial) 15 mg IM BEDTIME PRN PRN Reason: if pt refuses po per Alexi Paliperidone Palmitate (Paliperidone Palmitate 234 Mg/1.5 Ml Syringe) 234 mg IM Q30D [facility] Last Admin: 02/04/22 13:46 Dose: 234 mg Tamsulosin HCl (Tamsulosin Hcl 0.4 Mg Capsule) 0.4 mg PO BEDTIME [facility] Last Admin: 02/20/22 20:16 Dose: 0.4 mg Trazodone HCl (Trazodone Hcl 50 Mg Tablet) 50 mg PO BEDTIME PRN PRN Reason: Insomnia Allergies Allergies Allergy/AdvReac Type Severity Reaction Status Date / Time No Known Allergies Allergy Unverified 01/15/20 16:15 [No Known Allergies*] Assessment & Plan Assessment & Plan (1) Schizophrenia: Status: Acute Code(s): F20.9 - Schizophrenia, unspecified Plan 02/14/22- Continue current regime. Pt will have eval by OP/Residential team this week. Will then prepare for discharge. 02/18/22- No medication changes, pt is calm, no behavioral issues 02/19/22- No medication changes at this time 02/20 no change in presentation; continue current treatment plan 02/21 no change in presentation; continue current treatment plan I spent minutes with the patient and/or on the patient floor today, greater than?50% of which was spent counseling/coordinating care. Patient educated on: diagnosis Informed Consent: further education needed Reason for contiued inpatient stay Substantial Risk for: med/psych decompensation
[2022-02-21 18:54] VITALS: BP 138/84; PULSE 82
[2022-02-21] MEDS: OLANZapine 7.5 MG TABLET 15 MG PO (18:59)
[2022-02-21] MEDS: lisinopriL 20 MG TABLET PO (18:59)
[2022-02-21] MEDS: Divalproex Sodium 500 MG TABLET.DR 1000 MG PO (19:00)
[2022-02-21] MEDS: Tamsulosin HCL 0.4 MG CAPSULE PO (19:00)
[2022-02-22 08:01] VITALS: BP 163/72; PULSE 81; RESP 16; O2SAT 95
[2022-02-22] MEDS: Labetalol HCL 100 MG TABLET 300 MG PO ×2 (08:47→19:27)
[2022-02-22] MEDS: OLANZapine 5 MG TABLET PO (08:47)
--- NOTE | 2022-02-22 16:58 | HO.PSYCHPN ---
Subjective Subjective Date of Service: 02/22/22 Reason For Visit: disorganized/psychotic Subjective Notes: Section 7 Healthcare Proxy: No Guardianship: Yes Medical Problems Affecting Mental Status: No Interim History: Review of labs with Zeke. Continues to decline MRI, EEG, EKG. Asks about discharge on Sunday, 02/24 as if his results will interfere with this plan. Looking forward to going to his home. I own the home, I have lived there all of my adult life. I love my home. Medication Compliance: Yes Side effects from medications: No (TD improved) Attending Groups: Intermittent Review of Systems Acute medical concerns: No Medical Review of Systems: unchanged Mental Status Exam Mental Status Exam Patient Appearance: Appropriate Patient Orientation: Person, Place and Situation Level of Consciousness: Alert Patient Behavior: Talkative, Cooperative, Anxious, Distractible and Good Eye Contact Mood Description: Apprehensive Affect Description: Apprehensive Patient Cognition Impaired: Yes Ability to Follow Directions: Good Speech Pattern: Spontaneous Speech, Soft-Spoken, Mumbled, Loud and Poor Articulation Memory Description: Episodic Impaired Hallucinations: None (denies) Perceptual Disturbances: Derealization Thought Process: Distracted Thought Content: positive for Circumstantial and positive for Tangential Depressive Symptoms: Increased Anxiety Abnormal Motor Activity Signs and Symptoms: Restlessness Judgement: Fair Diagnostics Vital Signs (24Hr): Vital Signs - 24 hr 02/21/22 18:54 02/22/22 08:01 Pulse Rate 82 81 Respiratory Rate 16 Blood Pressure 138/84 163/72 H Pulse Oximetry 95 Oxygen Delivery Method Room Air BMI result Body Mass Index 25.1 Labs Results: 02/20/22 09:43 02/20/22 09:43 Medications Medications Current Medications Acetaminophen (Acetaminophen 325 Mg Tablet) 650 mg PO Q6H PRN PRN Reason: Headache/Pain Mild Scale (1-3) Last Admin: 02/16/22 14:57 Dose: 650 mg Al Hydroxide/Mg Hydroxide (Magnesium Hydrox/Alum Hydrox 30 Ml Oral.Susp) 30 ml PO Q6H PRN PRN Reason: Heartburn/Nausea Divalproex Sodium (Divalproex Sodium 500 Mg Tablet.Dr) 1,000 mg PO BEDTIME [facility] Last Admin: 02/21/22 19:00 Dose: 1,000 mg Haloperidol (Haloperidol 5 Mg Tablet) 5 mg PO Q4H PRN PRN Reason: agitation Last Admin: 02/16/22 13:59 Dose: 5 mg Haloperidol Decanoate (Haloperidol Decanoate 50 Mg/Ml Ampul) 300 mg IM Q30D [facility] Last Admin: 02/02/22 19:24 Dose: 300 mg Hydroxyzine HCl (Hydroxyzine Hcl 25 Mg Tablet) 25 mg PO Q6H PRN PRN Reason: Anxiety Labetalol HCl (Labetalol Hcl 100 Mg Tablet) 300 mg PO BID [facility] Last Admin: 02/22/22 08:47 Dose: 300 mg Lisinopril (Lisinopril 20 Mg Tablet) 20 mg PO BEDTIME [facility]; Protocol Last Admin: 02/21/22 18:59 Dose: 20 mg Magnesium Hydroxide (Milk Of Magnesia 30 Ml Oral.Susp) 30 ml PO DAILY PRN PRN Reason: Constipation Nicotine Polacrilex (Nicotine Polacrilex 2 Mg Gum) 4 mg BUCCAL Q2H PRN PRN Reason: Nicotine Cravings Olanzapine (Olanzapine 5 Mg Tablet) 5 mg PO DAILY [facility] Last Admin: 02/22/22 08:47 Dose: 5 mg Olanzapine (Olanzapine 7.5 Mg Tablet) 15 mg PO BEDTIME [facility] Last Admin: 02/21/22 18:59 Dose: 15 mg Olanzapine (Olanzapine 10 Mg Vial) 5 mg IM DAILY PRN PRN Reason: if pt refuses PO per Alexi Olanzapine (Olanzapine 10 Mg Vial) 15 mg IM BEDTIME PRN PRN Reason: if pt refuses po per Truong Paliperidone Palmitate (Paliperidone Palmitate 234 Mg/1.5 Ml Syringe) 234 mg IM Q30D [facility] Last Admin: 02/04/22 13:46 Dose: 234 mg Tamsulosin HCl (Tamsulosin Hcl 0.4 Mg Capsule) 0.4 mg PO BEDTIME [facility] Last Admin: 02/21/22 19:00 Dose: 0.4 mg Trazodone HCl (Trazodone Hcl 50 Mg Tablet) 50 mg PO BEDTIME PRN PRN Reason: Insomnia Allergies Allergies Allergy/AdvReac Type Severity Reaction Status Date / Time No Known Allergies Allergy Unverified 01/15/20 16:15 [No Known Allergies*] Assessment & Plan Assessment & Plan (1) Schizophrenia: Status: Acute Code(s): F20.9 - Schizophrenia, unspecified Plan 02/14/22- Continue current regime. Pt will have eval by OP/Residential team this week. Will then prepare for discharge. 02/18/22- No medication changes, pt is calm, no behavioral issues 02/19/22- No medication changes at this time 02/20 no change in presentation; continue current treatment plan 02/21 no change in presentation; continue current treatment plan 02/22/22- Discharge 02/24/22. I spent minutes with the patient and/or on the patient floor today, greater than?50% of which was spent counseling/coordinating care. Informed Consent: does not understand Reason for contiued inpatient stay Substantial Risk for: stable for discharge
[2022-02-22 17:12] VITALS: BP 156/81; PULSE 94; RESP 16; TEMP 36.1; O2SAT 95
[2022-02-22] MEDS: OLANZapine 7.5 MG TABLET 15 MG PO (19:26)
[2022-02-22] MEDS: Tamsulosin HCL 0.4 MG CAPSULE PO (19:26)
[2022-02-22] MEDS: Divalproex Sodium 500 MG TABLET.DR 1000 MG PO (19:26)
[2022-02-22] MEDS: lisinopriL 20 MG TABLET PO (19:27)
[2022-02-23] MEDS: OLANZapine 5 MG TABLET PO (08:53)
[2022-02-23] MEDS: Labetalol HCL 100 MG TABLET 300 MG PO ×2 (08:53→18:57)
[2022-02-23 08:54] VITALS: BP 116/60; PULSE 68; RESP 16; O2SAT 96
--- NOTE | 2022-02-23 16:21 | HO.PSYCHPN ---
Subjective Subjective Date of Service: 02/23/22 Reason For Visit: disorganized/psychotic Subjective Notes: Section 7 Healthcare Proxy: No Guardianship: Yes Medical Problems Affecting Mental Status: No Interim History: Expresses ambivalence about leaving. Wanting to remain with his team, but wanting to leave. Terminating with team. Medication Compliance: Yes Side effects from medications: No Attending Groups: Intermittent Review of Systems Acute medical concerns: No Medical Review of Systems: unchanged Mental Status Exam Mental Status Exam Patient Appearance: Appropriate Patient Orientation: Person, Place and Situation Level of Consciousness: Alert Patient Behavior: Talkative, Cooperative, Anxious, Distractible and Good Eye Contact Mood Description: Apprehensive Affect Description: Apprehensive Patient Cognition Impaired: Yes Ability to Follow Directions: Good Speech Pattern: Spontaneous Speech, Soft-Spoken, Mumbled, Loud and Poor Articulation Memory Description: Episodic Impaired Hallucinations: None (denies) Perceptual Disturbances: Derealization Thought Process: Distracted Thought Content: positive for Circumstantial and positive for Tangential Depressive Symptoms: Increased Anxiety Abnormal Motor Activity Signs and Symptoms: Restlessness Judgement: Fair Diagnostics Vital Signs (24Hr): Vital Signs - 24 hr 02/22/22 17:12 02/23/22 08:54 Temperature 97 F Pulse Rate 94 68 Respiratory Rate 16 16 Blood Pressure 156/81 H 116/60 Pulse Oximetry 95 96 Oxygen Delivery Method Room Air Room Air BMI result Body Mass Index 25.1 Labs Results: 02/20/22 09:43 02/20/22 09:43 Medications Medications Current Medications Acetaminophen (Acetaminophen 325 Mg Tablet) 650 mg PO Q6H PRN PRN Reason: Headache/Pain Mild Scale (1-3) Last Admin: 02/16/22 14:57 Dose: 650 mg Al Hydroxide/Mg Hydroxide (Magnesium Hydrox/Alum Hydrox 30 Ml Oral.Susp) 30 ml PO Q6H PRN PRN Reason: Heartburn/Nausea Divalproex Sodium (Divalproex Sodium 500 Mg Tablet.Dr) 1,000 mg PO BEDTIME [facility] Last Admin: 02/22/22 19:26 Dose: 1,000 mg Haloperidol (Haloperidol 5 Mg Tablet) 5 mg PO Q4H PRN PRN Reason: agitation Last Admin: 02/16/22 13:59 Dose: 5 mg Haloperidol Decanoate (Haloperidol Decanoate 50 Mg/Ml Ampul) 300 mg IM Q21D [facility] Last Admin: 02/23/22 12:47 Dose: 300 mg Hydroxyzine HCl (Hydroxyzine Hcl 25 Mg Tablet) 25 mg PO Q6H PRN PRN Reason: Anxiety Labetalol HCl (Labetalol Hcl 100 Mg Tablet) 300 mg PO BID [facility] Last Admin: 02/23/22 08:53 Dose: 300 mg Lisinopril (Lisinopril 20 Mg Tablet) 20 mg PO BEDTIME [facility]; Protocol Last Admin: 02/22/22 19:27 Dose: 20 mg Magnesium Hydroxide (Milk Of Magnesia 30 Ml Oral.Susp) 30 ml PO DAILY PRN PRN Reason: Constipation Nicotine Polacrilex (Nicotine Polacrilex 2 Mg Gum) 4 mg BUCCAL Q2H PRN PRN Reason: Nicotine Cravings Olanzapine (Olanzapine 5 Mg Tablet) 5 mg PO DAILY [facility] Last Admin: 02/23/22 08:53 Dose: 5 mg Olanzapine (Olanzapine 7.5 Mg Tablet) 15 mg PO BEDTIME [facility] Last Admin: 02/22/22 19:26 Dose: 15 mg Olanzapine (Olanzapine 10 Mg Vial) 5 mg IM DAILY PRN PRN Reason: if pt refuses PO per Alexi Olanzapine (Olanzapine 10 Mg Vial) 15 mg IM BEDTIME PRN PRN Reason: if pt refuses po per Alexi Paliperidone Palmitate (Paliperidone Palmitate 234 Mg/1.5 Ml Syringe) 234 mg IM Q30D [facility] Last Admin: 02/04/22 13:46 Dose: 234 mg Tamsulosin HCl (Tamsulosin Hcl 0.4 Mg Capsule) 0.4 mg PO BEDTIME [facility] Last Admin: 02/22/22 19:26 Dose: 0.4 mg Trazodone HCl (Trazodone Hcl 50 Mg Tablet) 50 mg PO BEDTIME PRN PRN Reason: Insomnia Allergies Allergies Allergy/AdvReac Type Severity Reaction Status Date / Time No Known Allergies Allergy Unverified 01/15/20 16:15 [No Known Allergies*] Assessment & Plan Assessment & Plan (1) Schizophrenia: Status: Acute Code(s): F20.9 - Schizophrenia, unspecified Plan 02/14/22- Continue current regime. Pt will have eval by OP/Residential team this week. Will then prepare for discharge. 02/18/22- No medication changes, pt is calm, no behavioral issues 02/19/22- No medication changes at this time 02/20 no change in presentation; continue current treatment plan 02/21 no change in presentation; continue current treatment plan 02/23/22 Discharge to pt;s [facility] 02/24. I spent minutes with the patient and/or on the patient floor today, greater than?50% of which was spent counseling/coordinating care. Patient educated on: therapeutic strategies Informed Consent: does not understand and further education needed Reason for contiued inpatient stay Substantial Risk for: stable for discharge
[2022-02-23 18:56] VITALS: BP 163/76; PULSE 87
[2022-02-23] MEDS: OLANZapine 7.5 MG TABLET 15 MG PO (18:57)
[2022-02-23] MEDS: Divalproex Sodium 500 MG TABLET.DR 1000 MG PO (18:57)
[2022-02-23] MEDS: Tamsulosin HCL 0.4 MG CAPSULE PO (18:58)
[2022-02-23] MEDS: lisinopriL 20 MG TABLET PO (18:58)
[2022-02-24] MEDS: OLANZapine 5 MG TABLET PO (09:04)
[2022-02-24] MEDS: Labetalol HCL 100 MG TABLET 300 MG PO (09:04)
[2022-02-24 09:07] VITALS: BP 131/61; PULSE 68; RESP 14; O2SAT 94
--- NOTE | 2022-02-24 14:51 | PM.PSYDC ---
DS: Providers Provider Date of Service: 02/24/22 Date of admission: 01/22/22 15:16 Date of discharge: 02/24/22 Primary care physician: Unknown Physician Admitting clinician: Macey Santana Attending physician on admission: Joseph Denise Attending physician on discharge: Joseph Denise Discharging clinician: Mcaey Santana DS: Diagnosis Discharge Diagnosis (1) Schizophrenia: Status: Acute DS: Medications Discharge Medications Home Medications: Previous Rx's Medication Instructions Recorded divalproex 500 mg tablet,delayed 1,000 mg PO BEDTIME #60 tabs 02/24/22 release (Depakote) haloperidol decanoate 50 mg/mL 300 mg (6 mL) IM Q21D #0 mL 02/24/22 intramuscular solution labetalol 300 mg tablet 300 mg PO BID #60 tabs 02/24/22 lisinopril 20 mg tablet 20 mg PO BEDTIME #30 tabs 02/24/22 olanzapine 15 mg tablet 15 mg PO QPM #30 tabs 02/24/22 olanzapine 5 mg tablet 5 mg PO QAM #30 tabs 02/24/22 paliperidone palmitate 234 mg/1.5 234 mg (1.5 mL) IM Q30D #0 mL 02/24/22 mL intramuscular syringe (Invega Sustenna) tamsulosin 0.4 mg capsule 0.4 mg PO BEDTIME #30 caps 02/24/22 Mental Status Exam Mental Status Exam Patient Appearance: Appropriate Patient Orientation: Person, Place and Situation Level of Consciousness: Alert Patient Behavior: Talkative, Cooperative, Anxious, Distractible and Good Eye Contact Mood Description: Apprehensive Affect Description: Apprehensive Patient Cognition Impaired: Yes Ability to Follow Directions: Good Speech Pattern: Spontaneous Speech, Soft-Spoken, Mumbled, Loud and Poor Articulation Memory Description: Episodic Impaired Hallucinations: None (denies) Perceptual Disturbances: Derealization Thought Process: Distracted Thought Content: positive for Circumstantial and positive for Tangential Depressive Symptoms: Increased Anxiety Abnormal Motor Activity Signs and Symptoms: Restlessness Judgement: Fair Data Data Completed and Pending Completed studies during hospitalization [Text1]: 02/20/22 02/20/22 02/20/22 09:43 09:43 09:43 WBC 5.2 RBC 4.12 L Hgb 12.1 L D Hct 36.8 L MCV 89.3 MCH 29.4 MCHC 32.9 RDW 14.3 Plt Count 225 MPV 8.6 L Immature Gran % (Auto) 1.0 H Neut % (Auto) 44.7 L Lymph % (Auto) 42.3 H [place] % (Auto) 8.5 Eos % (Auto) 2.9 Baso % (Auto) 0.6 Lymph # (Auto) 2.2 [place] # (Auto) 0.4 Eos # (Auto) 0.2 Baso # (Auto) 0.0 Abs Immat Gran (auto) 0.05 H Absolute Neuts (auto) 2.3 Absolute Nucleated RBC 0.000 Nucleated RBC % (auto) 0.0 ESR 38 H Sodium 146 H Potassium 3.5 Chloride 103 Carbon Dioxide 30 H Anion Gap 17 BUN 9 Creatinine 0.83 Estim Creat Clear Calc 87.5 Estimated GFR > 60 Random Glucose 109 Calcium 9.6 Magnesium 1.7 Total Bilirubin 0.5 AST 10 ALT 6 Alkaline Phosphatase 56 Total Protein 7.7 Albumin 4.0 Triglycerides 124 Cholesterol 207 D LDL Cholesterol, Calc 134 HDL Cholesterol 49 D Vitamin B12 Folate TSH 0.70 Valproic Acid 63.3 Whole Blood Arsenic Whole Blood Lead Mercury Rheumatoid Factor < 15.0 T.pallidum Ab (EIA) HIV 1&2 Ab/P24 Ag 4thGn 02/20/22 02/20/22 02/20/22 09:43 09:43 09:43 WBC RBC Hgb Hct MCV MCH MCHC RDW Plt Count MPV Immature Gran % (Auto) Neut % (Auto) Lymph % (Auto) [place] % (Auto) Eos % (Auto) Baso % (Auto) Lymph # (Auto) [place] # (Auto) Eos # (Auto) Baso # (Auto) Abs Immat Gran (auto) Absolute Neuts (auto) Absolute Nucleated RBC Nucleated RBC % (auto) ESR Sodium Potassium Chloride Carbon Dioxide Anion Gap BUN Creatinine Estim Creat Clear Calc Estimated GFR Random Glucose Calcium Magnesium Total Bilirubin AST ALT Alkaline Phosphatase Total Protein Albumin Triglycerides Cholesterol LDL Cholesterol, Calc HDL Cholesterol Vitamin B12 413 Folate 14.8 TSH Valproic Acid Whole Blood Arsenic Whole Blood Lead Mercury Rheumatoid Factor T.pallidum Ab (EIA) Nonreactive HIV 1&2 Ab/P24 Ag 4thGn Nonreactive 02/22/22 11:25 WBC RBC Hgb Hct MCV MCH MCHC RDW Plt Count MPV Immature Gran % (Auto) Neut % (Auto) Lymph % (Auto) [place] % (Auto) Eos % (Auto) Baso % (Auto) Lymph # (Auto) [place] # (Auto) Eos # (Auto) Baso # (Auto) Abs Immat Gran (auto) Absolute Neuts (auto) Absolute Nucleated RBC Nucleated RBC % (auto) ESR Sodium Potassium Chloride Carbon Dioxide Anion Gap BUN Creatinine Estim Creat Clear Calc Estimated GFR Random Glucose Calcium Magnesium Total Bilirubin AST ALT Alkaline Phosphatase Total Protein Albumin Triglycerides Cholesterol LDL Cholesterol, Calc HDL Cholesterol Vitamin B12 Folate TSH Valproic Acid Whole Blood Arsenic Pending Whole Blood Lead Pending Mercury Pending Rheumatoid Factor T.pallidum Ab (EIA) HIV 1&2 Ab/P24 Ag 4thGn DS: Summary Hospital Course Hospital Course: Admission to adult psychiatry for exacerbation of symptoms of schizophrenia. Pt had been refusing medications at the residence per his team report and leaving the residence for long periods of time placing himself at risk. Pt has community [facility] Guardianship in place. Section 7 was requested.Section [address] Pt was re-titrated on his community regime and stabilized over several weeks. He will return to his residence where he has lived for several years. Time spent discussing smoking cessation with patient: 3 to 10 minutes Status at Discharge Functional status at discharge: independent ambulation Overall status at discharge: patient is back to baseline Time Spent with Patient Time attestation: Total time spent providing and/or coordinating discharge services: 40 Time spent: Greater than 30 minutes Discharge Plan Discharge Anticipated Discharge Date/Time: 02/24/22 12:54 Patient Disposition: Home, Self-Care Discharge Diagnosis: Schizophrenia Referrals: Psych Prescriber:Jaylen Sahu ([facility]) [Other] - 03/24/22 9:00 am (Telehealth ) [facility] [Other] - 1 Week (A referral has been made; once reviewed they will reach out to schedule. I would advise calling next Sunday, 03/03, if you haven't heard back. ) Discharge Medications: New haloperidol decanoate 50 mg/mL Solution 300 mg IM Q21D Qty: 0 0RF Invega Sustenna 234 mg/1.5 mL Syringe 234 mg IM Q30D Qty: 0 0RF Continued lisinopril 20 mg Tablet 20 mg PO BEDTIME Qty: 30 0RF olanzapine 5 mg Tablet 5 mg PO QAM Qty: 30 0RF divalproex [Depakote] 500 mg Tablet,Delayed Release (Dr/Ec) 1,000 mg PO BEDTIME Qty: 60 0RF tamsulosin 0.4 mg Capsule 0.4 mg PO BEDTIME Qty: 30 0RF olanzapine 15 mg Tablet 15 mg PO QPM Qty: 30 0RF labetalol 300 mg Tablet 300 mg PO BID Qty: 60 0RF Discharge Orders: Discharge Order (Routine); Ordered 02/24/22 Ordered By: Macey Santana Diet: Advance to usual diet Activity on Discharge: As tolerated Stand Alone Forms: Patient Portal Discharge page, Community Support Care Plan Goals: Maintain mood and safe behaviors Take medications as directed Practice coping skills Continue with out patient providers and reach out as needed Health Concerns: Mood and behavioral stabilization Plan of Treatment: Follow up with out patient providers as scheduled and as needed Take medications as directed. Assessment: non suicidal, non homicidal Pt is at baseline to return to his residential program Discharge Date/Time: 02/24/22 11:55
[2022-02-27 01:37] LABS: Arsenic, Blood <3 mcg/L (<23); Lead, Blood 1.3 mcg/dL (<3.5); Mercury, Blood <4 mcg/L (<=10)
== END 2022-02-24 11:55 | disposition home or self-care (01) | DRG 885 ==
LOC: HO.ED 01-22 14:39 → HO.PM5 01-22 15:29
PROVIDERS: Physician Assistant; Admitting Provider Psychiatry & Neurology Psychiatry; Emergency Provider Student in an Organized Health Care Education/Training Program; Visit Provider Clinical Nurse Specialist Psychiatric/Mental Health, Adult
DX: F20.9 Schizophrenia, unspecified (principal); Z20.822 Contact with and (suspected) exposure to COVID-19; Z91.14 Patient's other noncompliance with medication regimen; Z79.899 Other long term (current) drug therapy
CPT/HCPCS: 36415; 80053; 80061; 80143; 80164; 80179; 82077; 82175; 82607; 82746; 83036; 83540; 83655; 83735; 83825; 84443; 85025; 85652; 86140; 86431; 86780; 87389; 87635; 90792; 93005; 99285; J2426; Q0163

== ENCOUNTER 2022-04-24 18:02 | Emergency (ER) | payer MEDICARE, SELFPAY ==
--- NOTE | 2022-04-24 18:05 | ED.PSYCH ---
HPI - Psych General Chief Complaint: Psychiatric Symptoms Stated Complaint: CRISIS Time Seen by Provider: 04/24/22 18:05 Source: patient and EMS Mode of arrival: EMS Limitations: no limitations History of Present Illness HPI Narrative: 66-year-old male presents via EMS for voluntary crisis evaluation. States that he is homeless and is depressed. MD complaint: feels depressed Onset (ago): year(s) Duration: constant History of same: Yes Relieving factors: none Associated psychiatric symptoms: depression Associated symptoms: denies other symptoms Treatments prior to arrival: none Related Data Previous Rx's Medication Instructions Recorded divalproex 500 mg tablet,delayed 1,000 mg PO BEDTIME #60 tabs 02/24/22 release (Depakote) haloperidol decanoate 50 mg/mL 300 mg (6 mL) IM Q21D #0 mL 02/24/22 intramuscular solution labetalol 300 mg tablet 300 mg PO BID #60 tabs 02/24/22 lisinopril 20 mg tablet 20 mg PO BEDTIME #30 tabs 02/24/22 olanzapine 15 mg tablet 15 mg PO QPM #30 tabs 02/24/22 olanzapine 5 mg tablet 5 mg PO QAM #30 tabs 02/24/22 paliperidone palmitate 234 mg/1.5 234 mg (1.5 mL) IM Q30D #0 mL 02/24/22 mL intramuscular syringe (Invega Sustenna) tamsulosin 0.4 mg capsule 0.4 mg PO BEDTIME #30 caps 02/24/22 Allergies Allergy/AdvReac Type Severity Reaction Status Date / Time No Known Allergies Allergy Unverified 01/15/20 16:15 [No Known Allergies*] Review of Systems Review of Systems: Yes Other (Patient is noncompliant with review of systems) [facility] Past Medical History Attestation statement: The following information was validated with the patient. Source: old records reviewed Medical History Schizophrenia Social History Social History Household Members: None Housing: Assisted Living Facility Do you presently have visiting nurse or other home services: No Unable to assess alcohol history related to: Unknown Patient Tobacco Use Status: Never used Tobacco service: Yes ([employer]) Sexual orientation: Straight/Heterosexual Physical Exam Vital Signs: Appearance: Alert. Oriented X3. Eyes: Pupils equal, round and reactive to light. ENT: Pharynx normal. Neck: Normal inspection. Neck supple. Respiratory: No respiratory distress. Skin: Skin warm and dry. Normal skin color. Normal skin turgor. Extremities: Gait well balanced well coordinated. Neuro: No motor deficit. No sensory deficit. Cranial nerves 2-12 intact. Course Course Course Narrative: 66-year-old male presents via EMS for voluntary crisis evaluation. States that he is homelessness. Patient is unwilling to change his clothes, verbally aggressive towards all staff. Does not report suicidal or homicidal ideation. 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 Considering that this patient is not here for medical or true psychiatric emergency, patient is not suicidal or homicidal, and patient is not compliant care, is not on a Section 12 from the community, I do not feel that this patient requires physical or medication restraint for compliance. He does have prior history of admission for psychosis was diagnosed with schizophrenia. On prior admission he was compliant with care, unlike today. Alert oriented x3. Patient was discharged from this facility. Medical Decision Making Differential Diagnosis Differential Diagnoses: The differential diagnosis associated with the presentation includes Schizophrenia, homelessness Discharge Plan Discharge Clinical Impression: Schizophrenia Patient Disposition: Home, Self-Care Instructions: Schizophrenia (ED) Additional Instructions: Follow-up with outpatient psychiatry. Thank you for choosing this emergency department for evaluation. Please follow-up with primary care physician as needed. Return to the emergency department for any new, concerning, or worsening symptoms. Prescriptions: No Action haloperidol decanoate 50 mg/mL Solution 300 mg IM Q21D Qty: 0 0RF Invega Sustenna 234 mg/1.5 mL Syringe 234 mg IM Q30D Qty: 0 0RF lisinopril 20 mg Tablet 20 mg PO BEDTIME Qty: 30 0RF olanzapine 5 mg Tablet 5 mg PO QAM Qty: 30 0RF divalproex [Depakote] 500 mg Tablet,Delayed Release (Dr/Ec) 1,000 mg PO BEDTIME Qty: 60 0RF tamsulosin 0.4 mg Capsule 0.4 mg PO BEDTIME Qty: 30 0RF olanzapine 15 mg Tablet 15 mg PO QPM Qty: 30 0RF labetalol 300 mg Tablet 300 mg PO BID Qty: 60 0RF
[2022-04-24 18:22] VITALS: PULSE 90; O2SAT 97
--- OUTSIDE RECORDS SUMMARY | 2022-04-24 18:36 | XMS_ITS | Continuity of Care Document ---
:1955 Author Organization [facility] Address [address] [place] [id number]- Care Team Providers Name Role Phone Karthik MCCAULEY, Jordyn Primary Care Physician Encounter [facility] Date(s): 02/24/21 - 03/26/21 [facility] [address] [place] [id number]- Allergies, Adverse Reactions, Alerts Substance Reaction Severity Status NKA Active
--- OUTSIDE RECORDS SUMMARY | 2022-04-24 18:36 | XMS_ITS | Continuity of Care Document ---
:1955 Demographics Address [address] [place] [address] Mobile Preferred Language Croatian
--- NOTE | 2022-04-24 18:37 | PC.NURSE ---
patient brought in by [facility]. per EMS patient was voluntary and they did not present the section 12 to the RN or the nurse practitioner. [employer] OFF[employer]ARER asked EMS if he was voluntary and if he could leave they said yes, he is not sectioned.
== END 2022-04-24 18:40 | disposition home or self-care (01) ==
LOC: HO.ED 18:34
PROVIDERS: Emergency Provider Internal Medicine
DX: F20.9 Schizophrenia, unspecified (principal); I10 Essential (primary) hypertension; Z79.899 Other long term (current) drug therapy
CPT/HCPCS: 99282

== ENCOUNTER 2022-04-24 19:13 | Inpatient (IN) | payer MEDICARE, SELFPAY ==
--- NOTE | ~2022-04-24 | US_ITS ---
EXAMINATION: US RETROPERITONEAL LIMITED (RENAL ONLY) CLINICAL INFORMATION: Resistant hypertension. COMPARISON: None TECHNIQUE: Routine grayscale and Doppler imaging of kidneys was performed. FINDINGS: RIGHT KIDNEY: 11.2 x 5.3 x 4.5 cm (SAG x AP x TRV). The kidney is normal in size, contour, and echogenicity. Renal cortical thickness is normal. There is no echogenic calculi or hydronephrosis. There is an anechoic cyst in lower pole measuring 0.7 x 0.5 x 0.8 cm. No caliectasis or hydronephrosis seen. LEFT KIDNEY: 10.2 x 7.7 x 4.3 cm (SAG x AP x TRV). The kidney is normal in size, contour, and echogenicity. Renal cortical thickness is normal. There are anechoic cysts in midpole measuring 2.0 x 1.4 x 1.5 cm and 0.9 x 0.7 x 0.7 cm. On Doppler Imaging: RIGHT KIDNEY: The renal artery velocity proximal segment measures 103 cm/second, midsegment measures 96.0 cm/second and the distal segment measures 137.0 cm/second. Renal aortic ratio measures 1.5 and average resistive index is less than 0.7. There is no suggestion for renal artery stenosis. LEFT KIDNEY: The renal artery velocity proximal segment measures 142.0 cm/second, midsegment measures 152.0 cm/second and distal segment measures 89.5 cm/second. Renal aortic ratio is 1.7. Average resistive index is 0.71. There is no suggestion for renal artery stenosis. Mid aorta velocity measures 90.6 cm/second. US/US renal BI IMPRESSION: 1. Bilateral renal cysts. No echogenic renal calculi. 2. There is no suggestion for renal artery stenosis in either kidney on renal Doppler exam.
--- NOTE | ~2022-04-24 | US_ITS ---
EXAMINATION: US RETROPERITONEAL LIMITED (RENAL ONLY) CLINICAL INFORMATION: Resistant hypertension. COMPARISON: None TECHNIQUE: Routine grayscale and Doppler imaging of kidneys was performed. FINDINGS: RIGHT KIDNEY: 11.2 x 5.3 x 4.5 cm (SAG x AP x TRV). The kidney is normal in size, contour, and echogenicity. Renal cortical thickness is normal. There is no echogenic calculi or hydronephrosis. There is an anechoic cyst in lower pole measuring 0.7 x 0.5 x 0.8 cm. No caliectasis or hydronephrosis seen. LEFT KIDNEY: 10.2 x 7.7 x 4.3 cm (SAG x AP x TRV). The kidney is normal in size, contour, and echogenicity. Renal cortical thickness is normal. There are anechoic cysts in midpole measuring 2.0 x 1.4 x 1.5 cm and 0.9 x 0.7 x 0.7 cm. On Doppler Imaging: RIGHT KIDNEY: The renal artery velocity proximal segment measures 103 cm/second, midsegment measures 96.0 cm/second and the distal segment measures 137.0 cm/second. Renal aortic ratio measures 1.5 and average resistive index is less than 0.7. There is no suggestion for renal artery stenosis. LEFT KIDNEY: The renal artery velocity proximal segment measures 142.0 cm/second, midsegment measures 152.0 cm/second and distal segment measures 89.5 cm/second. Renal aortic ratio is 1.7. Average resistive index is 0.71. There is no suggestion for renal artery stenosis. Mid aorta velocity measures 90.6 cm/second. US/US renal doppler IMPRESSION: 1. Bilateral renal cysts. No echogenic renal calculi. 2. There is no suggestion for renal artery stenosis in either kidney on renal Doppler exam.
--- NOTE | 2022-04-24 19:20 | ED_ITS ---
HPI - Psych General Chief Complaint: Psychiatric Symptoms <Zara Golden NP - Last Filed: 04/25/22 03:54> Stated Complaint: ams <Zara Golden NP - Last Filed: 04/25/22 03:54> Time Seen by Provider: 04/24/22 19:20 <Zara Golden NP - Last Filed: 04/25/22 03:54> Source: patient <Zara Golden NP - Last Filed: 04/25/22 03:54> Mode of arrival: ambulatory <Zara Golden NP - Last Filed: 04/25/22 03:54> Limitations: no limitations <Zara Golden NP - Last Filed: 04/25/22 03:54> History of Present Illness HPI Narrative: 66-year-old male presents for disorganized thought process, has been noncompliant with his medications on a Truong order. Patient presented via EMS <Zara Golden NP - Last Filed: 04/25/22 03:54> MD complaint: other (Psychosis) <Zara Golden NP - Last Filed: 04/25/22 03:54> Duration: constant <Zara Golden NP - Last Filed: 04/25/22 03:54> History of same: Yes <Zara Golden NP - Last Filed: 04/25/22 03:54> Relieving factors: none <Zara Golden NP - Last Filed: 04/25/22 03:54> Context: not taking psychiatric medications <Zara Golden NP - Last Filed: 04/25/22 03:54> Associated psychiatric symptoms: delusions <Zara Golden NP - Last Filed: 04/25/22 03:54> Associated symptoms: denies other symptoms <Zara Golden NP - Last Filed: 04/25/22 03:54> Treatments prior to arrival: placed on mental health hold <Zara Golden NP - Last Filed: 04/25/22 03:54> Related Data Home Medications: Previous Rx's Medication Instructions Recorded divalproex 500 mg tablet,delayed 1,000 mg PO BEDTIME #60 tabs 02/24/22 release (Depakote) haloperidol decanoate 50 mg/mL 300 mg (6 mL) IM Q21D #0 mL 02/24/22 intramuscular solution labetalol 300 mg tablet 300 mg PO BID #60 tabs 02/24/22 lisinopril 20 mg tablet 20 mg PO BEDTIME #30 tabs 02/24/22 olanzapine 15 mg tablet 15 mg PO QPM #30 tabs 02/24/22 olanzapine 5 mg tablet 5 mg PO QAM #30 tabs 02/24/22 paliperidone palmitate 234 mg/1.5 234 mg (1.5 mL) IM Q30D #0 mL 02/24/22 mL intramuscular syringe (Invega Sustenna) tamsulosin 0.4 mg capsule 0.4 mg PO BEDTIME #30 caps 02/24/22 <Zara Golden NP - Last Filed: 04/25/22 03:54> Allergies/Adverse Reactions: Allergies Allergy/AdvReac Type Severity Reaction Status Date / Time No Known Allergies Allergy Unverified 01/15/20 16:15 [No Known Allergies*] <Zara Golden NP - Last Filed: 04/25/22 03:54> Review of Systems Review of Systems: Yes Unobtainable due to mental status <Zara Golden NP - Last Filed: 04/25/22 03:54> [facility] Past Medical History Attestation statement: The following information was validated with the patient. <Zara Golden NP - Last Filed: 04/25/22 03:54> Source: old records reviewed <Zara Golden NP - Last Filed: 04/25/22 03:54> Medical History: Medical History Schizophrenia <Zara Golden NP - Last Filed: 04/25/22 03:54> Social History Social History: Social History Household Members: None Housing: Assisted Living Facility Do you presently have visiting nurse or other home services: No Unable to assess alcohol history related to: Unknown Patient Tobacco Use Status: Never used Tobacco Advance Directives: No Advance Directives Information Provided: No service: Yes ([employer]) Sexual orientation: Straight/Heterosexual <Zara Golden NP - Last Filed: 04/25/22 03:54> Physical Exam Vital Signs: Vital Signs: Last Vital Signs Temp 98.4 F 04/25/22 05:53 Pulse 89 04/25/22 05:53 Resp 17 04/25/22 05:53 BP 157/87 H 04/25/22 05:53 Pulse Ox 98 04/25/22 05:53 O2 Del Method 04/25/22 05:53 BMI result Body Mass Index 23.3 <Zara Golden NP - Last Filed: 04/25/22 03:54> Vital Signs: Last Vital Signs Temp 98.4 F 04/25/22 05:53 Pulse 89 04/25/22 05:53 Resp 17 04/25/22 05:53 BP 157/87 H 04/25/22 05:53 Pulse Ox 98 04/25/22 05:53 O2 Del Method 04/25/22 05:53 BMI result Body Mass Index 23.3 <Cheyenne Henry MD - Last Filed: 04/25/22 07:07> Appearance: Alert. Belligerent. Eyes: Pupils equal, round and reactive to light. ENT: Pharynx normal. Neck: Normal inspection. Neck supple. CVS: Normal heart rate and rhythm. Pulses normal. Respiratory: No respiratory distress. Breath sounds normal. Abdomen: Soft and nontender. Skin: Skin warm and dry. Normal skin color. Normal skin turgor. Extremities: No lower extremity edema. Gait well-balanced well coordinated. Neuro: No motor deficit. No sensory deficit. Cranial nerves 2-12 intact. <Zara Golden NP - Last Filed: 04/25/22 03:54> Course Course Course Narrative: 66-year-old male presents via EMS for crisis evaluation. Patient was here at this facility less than 30 minutes ago, brought in by [facility], and was reported as a voluntary crisis evaluation because [place], and is homeless. At that time, patient did not want to stay at this facility, considering that he was reported to be voluntary, he was discharged. It was then reported that this patient was a Section 12 bed search after this patient was discharged. Patient presented again, to the emergency department, is alert and oriented, able to answer questions about who he is and where he is, and is yelling about his belongings, his clothing, and threatening to assault people. It is suspected that this patient did not leave the emergency department waiting room. Care team consult and with N in the community, patient has been refusing his medications, he is on a Mono's order, and has been religiously focused. Patient needed multiple redirections to be compliant with care, voluntarily changed his clothing over, and is a Section 12 bed search. 21:40 valproic acid level is low, will give his evening dose as scheduled. Patient medically cleared. Section 12 bed search. Physician observation. <Zara Golden NP - Last Filed: 04/25/22 03:54> Reevaluation(s) Reevaluation #1: Continue physician observation, patient [place] [facility] [place] and has been noted to have disorganized thoughts and it appears that his medications are at appropriate blood levels, he has an active Truong in place, medication reconciliation has been completed in he is in inpatient bed search and Section 12 from the community. <Cheyenne Henry MD - Last Filed: 04/25/22 07:07> Time: 07:06 <Cheyenne Henry MD - Last Filed: 04/25/22 07:07> Medications Administered Generic Name Dose Route Start Last Admin Trade Name Freq PRN Reason Stop Dose Admin Divalproex Sodium 1,000 mg 04/24/22 22:45 04/24/22 22:54 Divalproex Sodium 500 Mg Tablet.Dr VEGA 1,000 mg BEDTIME JOHN Administration Lisinopril 20 mg 04/24/22 23:00 04/24/22 22:54 Lisinopril 20 Mg Tablet PO 20 mg BEDTIME JOHN Administration Protocol Olanzapine 15 mg 04/24/22 22:45 04/24/22 22:54 Olanzapine 7.5 Mg Tablet PO 15 mg BEDTIME JOHN Administration Tamsulosin HCl 0.4 mg 04/24/22 22:45 04/24/22 22:54 Tamsulosin Hcl 0.4 Mg Capsule PO 0.4 mg BEDTIME JOHN Administration <Zara Golden NP - Last Filed: 04/25/22 03:54> Medications Administered Generic Name Dose Route Start Last Admin Trade Name Freq PRN Reason Stop Dose Admin Divalproex Sodium 1,000 mg 04/24/22 22:45 04/24/22 22:54 Divalproex Sodium 500 Mg Tablet.Dr PO 1,000 mg BEDTIME JOHN Administration Lisinopril 20 mg 04/24/22 23:00 04/24/22 22:54 Lisinopril 20 Mg Tablet PO 20 mg BEDTIME JOHN Administration Protocol Olanzapine 15 mg 04/24/22 22:45 04/24/22 22:54 Olanzapine 7.5 Mg Tablet PO 15 mg BEDTIME JHON Administration Tamsulosin HCl 0.4 mg 04/24/22 22:45 04/24/22 22:54 Tamsulosin Hcl 0.4 Mg Capsule PO 0.4 mg BEDTIME JOHN Administration <Cheyenne Henry MD - Last Filed: 04/25/22 07:07> Medical Decision Making Differential Diagnosis Differential Diagnoses: The differential diagnosis associated with the presentation includes <Zara Golden NP - Last Filed: 04/25/22 03:54> Psychosis, delusions, medication noncompliance <Zara Golden NP - Last Filed: 04/25/22 03:54> Admission/Observation Consideration of admission/observation: Escalation of care including admission/observation considered <Zara Golden NP - Last Filed: 04/25/22 03:54> Section 12 bed search <Zara Golden NP - Last Filed: 04/25/22 03:54> Consult Healthcare Provider Management of the patient was discussed with: Behavioral Health Provider <Zara Golden NP - Last Filed: 04/25/22 03:54> Lab Data MDM Lab Attestation statement: I reviewed the patient's lab results. <Zara Golden NP - Last Filed: 04/25/22 03:54> Result Diagrams: : 04/24/22 20:41 04/24/22 20:41 <Zara Golden NP - Last Filed: 04/25/22 03:54> Labs: Lab Results 04/24/22 04/24/22 04/24/22 Range/Units 19:39 20:27 20:27 WBC (4.8-10.8) X10*3/uL RBC (4.60-5.80) X10*6/uL Hgb (14.0-18.0) g/dl Hct (42.0-52.0) % MCV (80.0-98.0) fL MCH (27.0-33.0) pg MCHC (31.0-36.0) g/dl RDW (11.0-16.0) % Plt Count (160-400) X10*3/uL MPV (9.4-12.4) fL Immature Gran % (Auto) (0.0-0.4) % Neut % (Auto) (45-73) % Lymph % (Auto) (20-40) % [place] % (Auto) (2-11) % Eos % (Auto) (0-4) % Baso % (Auto) (0-2) % Lymph # (Auto) (1.2-4.9) X10*3/uL [place] # (Auto) (0.1-1.2) X10*3/uL Eos # (Auto) (0.0-0.4) X10*3/uL Baso # (Auto) (0.0-0.2) X10*3/uL Abs Immat Gran (auto) (0.00-0.03) X10*3/uL Absolute Neuts (auto) (2.0-8.3) x10*3/uL Absolute Nucleated RBC (0.0-0.012) X10*3/uL Nucleated RBC % (auto) (0.0-0.2) /100WBC Sodium (135-145) mmol/L Potassium (3.3-5.1) mmol/L Chloride (96-108) mmol/L Carbon Dioxide (22-29) mmol/L Anion Gap (12-20) BUN (9-16) mg/dL Creatinine (0.5-1.4) mg/dL Estim Creat Clear Calc Estimated GFR Random Glucose (60-115) mg/dL Calcium (8.4-10.2) mg/dL Total Bilirubin (0.0-1.0) mg/dL AST (5-37) U/L ALT (0-40) U/L Alkaline Phosphatase (39-117) U/L Total Protein (6.5-8.0) g/dL Albumin (3.5-5.0) g/dL TSH (0.32-4.0) uIU/mL Urine Color Yellow Urine Appearance Clear Urine pH 6.5 (5.0-9.0) Ur Specific [place] <= 1.005 (1.005-1.025) Urine Protein Negative (Neg-Trace) mg/dL Urine Glucose (UA) Negative (Negative) mg/dL Urine Ketones Negative (Negative) mg/dL Urine Blood Trace H (Negative) Urine Nitrite Negative (Negative) Ur Leukocyte Esterase Negative (Negative) Urine RBC 0-2 (0-2) /HPF Urine WBC 0-5 (0-5) /HPF Ur Squamous Epith Cells 0-2 (0-2) /HPF Urine Bacteria None Seen (None Seen) Hyaline Casts 0-2 (0-2) /LPF Urine Opiates Screen Not Detected (Not Detect) Urine Fentanyl Screen POSITIVE H (Not Detect) Ur Barbiturates Screen Not Detected (Not Detect) Valproic Acid (50.0-100.0) mcg/mL Ur Phencyclidine Scrn Not Detected (Not Detect) Ur Amphetamines Screen Not Detected (Not Detect) U Benzodiazepines Scrn Not Detected (Not Detect) Urine Cocaine Screen Not Detected (Not Detect) U Marijuana (THC) Screen Not Detected (Not Detect) COVID-19 ([place]) Negative (Negative) COVID-19 Clin Com See Note 04/24/22 04/24/22 04/24/22 Range/Units 20:41 20:41 20:41 WBC 5.6 (4.8-10.8) X10*3/uL RBC 3.96 L (4.60-5.80) X10*6/uL Hgb 11.5 L (14.0-18.0) g/dl Hct 35.3 L (42.0-52.0) % MCV 89.1 (80.0-98.0) fL MCH 29.0 (27.0-33.0) pg MCHC 32.6 (31.0-36.0) g/dl RDW 13.2 (11.0-16.0) % Plt Count 247 (160-400) X10*3/uL MPV 8.9 L (9.4-12.4) fL Immature Gran % (Auto) 0.4 (0.0-0.4) % Neut % (Auto) 44.1 L (45-73) % Lymph % (Auto) 38.7 (20-40) % [place] % (Auto) 12.9 H (2-11) % Eos % (Auto) 3.4 (0-4) % Baso % (Auto) 0.5 (0-2) % Lymph # (Auto) 2.2 (1.2-4.9) X10*3/uL [place] # (Auto) 0.7 (0.1-1.2) X10*3/uL Eos # (Auto) 0.2 (0.0-0.4) X10*3/uL Baso # (Auto) 0.0 (0.0-0.2) X10*3/uL Abs Immat Gran (auto) 0.02 (0.00-0.03) X10*3/uL Absolute Neuts (auto) 2.5 (2.0-8.3) x10*3/uL Absolute Nucleated RBC 0.000 (0.0-0.012) X10*3/uL Nucleated RBC % (auto) 0.0 (0.0-0.2) /100WBC Sodium 142 (135-145) mmol/L Potassium 3.9 (3.3-5.1) mmol/L Chloride 104 (96-108) mmol/L Carbon Dioxide 29 (22-29) mmol/L Anion Gap 13 (12-20) BUN 11 (9-16) mg/dL Creatinine 0.86 (0.5-1.4) mg/dL Estim Creat Clear Calc 73.4 Estimated GFR > 60 Random Glucose 110 (60-115) mg/dL Calcium 9.5 (8.4-10.2) mg/dL Total Bilirubin 0.5 (0.0-1.0) mg/dL AST 28 (5-37) U/L ALT 16 (0-40) U/L Alkaline Phosphatase 61 (39-117) U/L Total Protein 7.4 (6.5-8.0) g/dL Albumin 4.2 (3.5-5.0) g/dL TSH 0.55 (0.32-4.0) uIU/mL Urine Color Urine Appearance Urine pH (5.0-9.0) Ur Specific [place] (1.005-1.025) Urine Protein (Neg-Trace) mg/dL Urine Glucose (UA) (Negative) mg/dL Urine Ketones (Negative) mg/dL Urine Blood (Negative) Urine Nitrite (Negative) Ur Leukocyte Esterase (Negative) Urine RBC (0-2) /HPF Urine WBC (0-5) /HPF Ur Squamous Epith Cells (0-2) /HPF Urine Bacteria (None Seen) Hyaline Casts (0-2) /LPF Urine Opiates Screen (Not Detect) Urine Fentanyl Screen (Not Detect) Ur Barbiturates Screen (Not Detect) Valproic Acid 40.1 L (50.0-100.0) mcg/mL Ur Phencyclidine Scrn (Not Detect) Ur Amphetamines Screen (Not Detect) U Benzodiazepines Scrn (Not Detect) Urine Cocaine Screen (Not Detect) U Marijuana (THC) Screen (Not Detect) COVID-19 ([facility]) (Negative) COVID-19 Clin Com <Zara Golden NP - Last Filed: 04/25/22 03:54> Lab Results 04/24/22 04/24/22 04/24/22 Range/Units 19:39 20:27 20:27 WBC (4.8-10.8) X10*3/uL RBC (4.60-5.80) X10*6/uL Hgb (14.0-18.0) g/dl Hct (42.0-52.0) % MCV (80.0-98.0) fL MCH (27.0-33.0) pg MCHC (31.0-36.0) g/dl RDW (11.0-16.0) % Plt Count (160-400) X10*3/uL MPV (9.4-12.4) fL Immature Gran % (Auto) (0.0-0.4) % Neut % (Auto) (45-73) % Lymph % (Auto) (20-40) % [place] % (Auto) (2-11) % Eos % (Auto) (0-4) % Baso % (Auto) (0-2) % Lymph # (Auto) (1.2-4.9) X10*3/uL [place] # (Auto) (0.1-1.2) X10*3/uL Eos # (Auto) (0.0-0.4) X10*3/uL Baso # (Auto) (0.0-0.2) X10*3/uL Abs Immat Gran (auto) (0.00-0.03) X10*3/uL Absolute Neuts (auto) (2.0-8.3) x10*3/uL Absolute Nucleated RBC (0.0-0.012) X10*3/uL Nucleated RBC % (auto) (0.0-0.2) /100WBC Sodium (135-145) mmol/L Potassium (3.3-5.1) mmol/L Chloride (96-108) mmol/L Carbon Dioxide (22-29) mmol/L Anion Gap (12-20) BUN (9-16) mg/dL Creatinine (0.5-1.4) mg/dL Estim Creat Clear Calc Estimated GFR Random Glucose (60-115) mg/dL Calcium (8.4-10.2) mg/dL Total Bilirubin (0.0-1.0) mg/dL AST (5-37) U/L ALT (0-40) U/L Alkaline Phosphatase (39-117) U/L Total Protein (6.5-8.0) g/dL Albumin (3.5-5.0) g/dL TSH (0.32-4.0) uIU/mL Urine Color Yellow Urine Appearance Clear Urine pH 6.5 (5.0-9.0) Ur Specific [place] <= 1.005 (1.005-1.025) Urine Protein Negative (Neg-Trace) mg/dL Urine Glucose (UA) Negative (Negative) mg/dL Urine Ketones Negative (Negative) mg/dL Urine Blood Trace H (Negative) Urine Nitrite Negative (Negative) Ur Leukocyte Esterase Negative (Negative) Urine RBC 0-2 (0-2) /HPF Urine WBC 0-5 (0-5) /HPF Ur Squamous Epith Cells 0-2 (0-2) /HPF Urine Bacteria None Seen (None Seen) Hyaline Casts 0-2 (0-2) /LPF Urine Opiates Screen Not Detected (Not Detect) Urine Fentanyl Screen POSITIVE H (Not Detect) Ur Barbiturates Screen Not Detected (Not Detect) Valproic Acid (50.0-100.0) mcg/mL Ur Phencyclidine Scrn Not Detected (Not Detect) Ur Amphetamines Screen Not Detected (Not Detect) U Benzodiazepines Scrn Not Detected (Not Detect) Urine Cocaine Screen Not Detected (Not Detect) U Marijuana (THC) Screen Not Detected (Not Detect) COVID-19 ([facility]) Negative (Negative) COVID-19 Clin Com See Note 04/24/22 04/24/22 04/24/22 Range/Units 20:41 20:41 20:41 WBC 5.6 (4.8-10.8) X10*3/uL RBC 3.96 L (4.60-5.80) X10*6/uL Hgb 11.5 L (14.0-18.0) g/dl Hct 35.3 L (42.0-52.0) % MCV 89.1 (80.0-98.0) fL MCH 29.0 (27.0-33.0) pg MCHC 32.6 (31.0-36.0) g/dl RDW 13.2 (11.0-16.0) % Plt Count 247 (160-400) X10*3/uL MPV 8.9 L (9.4-12.4) fL Immature Gran % (Auto) 0.4 (0.0-0.4) % Neut % (Auto) 44.1 L (45-73) % Lymph % (Auto) 38.7 (20-40) % [place] % (Auto) 12.9 H (2-11) % Eos % (Auto) 3.4 (0-4) % Baso % (Auto) 0.5 (0-2) % Lymph # (Auto) 2.2 (1.2-4.9) X10*3/uL [place] # (Auto) 0.7 (0.1-1.2) X10*3/uL Eos # (Auto) 0.2 (0.0-0.4) X10*3/uL Baso # (Auto) 0.0 (0.0-0.2) X10*3/uL Abs Immat Gran (auto) 0.02 (0.00-0.03) X10*3/uL Absolute Neuts (auto) 2.5 (2.0-8.3) x10*3/uL Absolute Nucleated RBC 0.000 (0.0-0.012) X10*3/uL Nucleated RBC % (auto) 0.0 (0.0-0.2) /100WBC Sodium 142 (135-145) mmol/L Potassium 3.9 (3.3-5.1) mmol/L Chloride 104 (96-108) mmol/L Carbon Dioxide 29 (22-29) mmol/L Anion Gap 13 (12-20) BUN 11 (9-16) mg/dL Creatinine 0.86 (0.5-1.4) mg/dL Estim Creat Clear Calc 73.4 Estimated GFR > 60 Random Glucose 110 (60-115) mg/dL Calcium 9.5 (8.4-10.2) mg/dL Total Bilirubin 0.5 (0.0-1.0) mg/dL AST 28 (5-37) U/L ALT 16 (0-40) U/L Alkaline Phosphatase 61 (39-117) U/L Total Protein 7.4 (6.5-8.0) g/dL Albumin 4.2 (3.5-5.0) g/dL TSH 0.55 (0.32-4.0) uIU/mL Urine Color Urine Appearance Urine pH (5.0-9.0) Ur Specific [place] (1.005-1.025) Urine Protein (Neg-Trace) mg/dL Urine Glucose (UA) (Negative) mg/dL Urine Ketones (Negative) mg/dL Urine Blood (Negative) Urine Nitrite (Negative) Ur Leukocyte Esterase (Negative) Urine RBC (0-2) /HPF Urine WBC (0-5) /HPF Ur Squamous Epith Cells (0-2) /HPF Urine Bacteria (None Seen) Hyaline Casts (0-2) /LPF Urine Opiates Screen (Not Detect) Urine Fentanyl Screen (Not Detect) Ur Barbiturates Screen (Not Detect) Valproic Acid 40.1 L (50.0-100.0) mcg/mL Ur Phencyclidine Scrn (Not Detect) Ur Amphetamines Screen (Not Detect) U Benzodiazepines Scrn (Not Detect) Urine Cocaine Screen (Not Detect) U Marijuana (THC) Screen (Not Detect) COVID-19 ([facility]) (Negative) COVID-19 Clin Com <Cheyenne Henry MD - Last Filed: 04/25/22 07:07> External Record Review External record reviewed: Inpatient record and Outpatient record <Zara Golden NP - Last Filed: 04/25/22 03:54> Discharge Plan Discharge Clinical Impression: Schizophrenia, Acute psychosis <Zara Golden NP - Last Filed: 04/25/22 03:54> Patient Disposition: Still a Patient <Zara Golden NP - Last Filed: 04/25/22 03:54> Prescriptions: No Action haloperidol decanoate 50 mg/mL Solution 300 mg IM Q21D Qty: 0 0RF Invega Sustenna 234 mg/1.5 mL Syringe 234 mg IM Q30D Qty: 0 0RF lisinopril 20 mg Tablet 20 mg PO BEDTIME Qty: 30 0RF olanzapine 5 mg Tablet 5 mg PO QAM Qty: 30 0RF divalproex [Depakote] 500 mg Tablet,Delayed Release (Dr/Ec) 1,000 mg PO BEDTIME Qty: 60 0RF tamsulosin 0.4 mg Capsule 0.4 mg PO BEDTIME Qty: 30 0RF olanzapine 15 mg Tablet 15 mg PO QPM Qty: 30 0RF labetalol 300 mg Tablet 300 mg PO BID Qty: 60 0RF <Zara Golden NP - Last Filed: 04/25/22 03:54> Interventions: [place]-Suicide Risk Severity Scale Last Done: 04/25/22 05:11 <Zara Golden NP - Last Filed: 04/25/22 03:54>
[2022-04-24 19:31] VITALS: BMI 23.3
[2022-04-24 20:01] LABS: COVID-19 Test Negative (Negative); IDNOW Serial# 16C4AD1C
[2022-04-24 20:16] VITALS: BP 180/81; PULSE 74; RESP 20; TEMP 37.3; O2SAT 99
[2022-04-24 20:35] LABS: Appearance Urine Clear; Color Urine Yellow; Glucose Urine UA Negative (Negative); Leukocyte Esterase Urine Negative (Negative); Nitrite Urine Negative (Negative); PH 6.5 (5.0-9.0); Specific Gravity - Urine <= 1.005 (1.005-1.025); UMIC TRIGGER UA YES; Urine Blood Trace (Negative); Urine Ketones Negative (Negative); Urine Protein Negative (Neg-Trace)
[2022-04-24 20:40] LABS: Bacteria Urine None Seen (None Seen); Hyaline Casts Urine 0-2 /LPF (0-2); RBC Urine 0-2 /HPF (0-2); Squamous Epithelial Cell Urine 0-2 /HPF (0-2); WBC Urine 0-5 /HPF (0-5)
[2022-04-24 20:47] LABS: Amphetamine Screen Urine Not Detected (Not Detect); Barbiturates, Urine Not Detected (Not Detect); Benzodiazepines Screen Urine Not Detected (Not Detect); Cannabinoid Screen Urine Not Detected (Not Detect); Cocaine Screen Urine Not Detected (Not Detect); Fentanyl, urine POSITIVE (Not Detect); Opiate Screen Urine Not Detected (Not Detect); Phencyclidine Screen Urine Not Detected (Not Detect)
[2022-04-24 20:47] LABS: MANUAL DIFF FLAG NO
[2022-04-24 20:48] LABS: Basophils Percent Auto 0.5 % (0-2); Eosinophils Absolute Auto 0.2 X10*3/uL (0.0-0.4); Eosinophils Percent Auto 3.4 % (0-4); Hematocrit 35.3 % (42.0-52.0); Hemoglobin 11.5 g/dl (14.0-18.0); Imm Gran Abs Auto 0.02 X10*3/uL (0.00-0.03); Imm Gran Pct Auto 0.4 % (0.0-0.4); Lymphocytes Absolute Auto 2.2 X10*3/uL (1.2-4.9); Lymphocytes Percent Auto 38.7 % (20-40); Mean Corpuscular HGB Conc 32.6 g/dl (31.0-36.0); Mean Corpuscular Volume 89.1 fL (80.0-98.0); Mean Platelet Volume 8.9 fL (9.4-12.4); Monocytes Absolute Auto 0.7 X10*3/uL (0.1-1.2); Monocytes Percent Auto 12.9 % (2-11); Neutrophils Absolute Auto 2.5 x10*3/uL (2.0-8.3); Neutrophils Percent Auto 44.1 % (45-73); Platelet Count 247 X10*3/uL (160-400); Red Blood Count 3.96 X10*6/uL (4.60-5.80); Red Cell Distribution Width 13.2 % (11.0-16.0); White Blood Count 5.6 X10*3/uL (4.8-10.8)
[2022-04-24 21:22] LABS: Valproate 40.1 mcg/mL (50.0-100.0)
[2022-04-24 21:36] LABS: Alanine Aminotransferase 16 U/L (0-40); Albumin Level 4.2 g/dL (3.5-5.0); Alkaline Phosphatase 61 U/L (39-117); Anion Gap 13 (12-20); Aspartate Amino Transferase 28 U/L (5-37); Bilirubin Total 0.5 mg/dL (0.0-1.0); Blood Urea Nitrogen 11 mg/dL (9-16); Calcium 9.5 mg/dL (8.4-10.2); Carbon Dioxide 29 mmol/L (22-29); Chloride 104 mmol/L (96-108); Creatinine Clr Calc Pharmacy 73.4; Estimated Glomerular Filt Rate > 60; Glucose Random 110 mg/dL (60-115); Potassium 3.9 mmol/L (3.3-5.1); Sodium 142 mmol/L (135-145); TSH reflex Free T4 0.55 uIU/mL (0.32-4.0); Total Protein 7.4 g/dL (6.5-8.0)
[2022-04-24] MEDS: Divalproex Sodium 500 MG TABLET.DR 1000 MG PO (22:54)
[2022-04-24] MEDS: Tamsulosin HCL 0.4 MG CAPSULE PO (22:54)
[2022-04-24] MEDS: lisinopriL 20 MG TABLET PO (22:54)
[2022-04-24] MEDS: OLANZapine 7.5 MG TABLET 15 MG PO (22:54)
--- NOTE | 2022-04-25 05:31 | PC.NURSE ---
Patient slept through the night, no distress observed/reported, behavior loud at time disruptive, thought content religiously preoccupied but coherent, medication compliant, elimination intact, disposition per N from the community is section 12 inpatient bed search, VS unremarkable, will continue to monitor.
[2022-04-25 05:53] VITALS: BP 157/87; PULSE 89; RESP 17; TEMP 36.9; O2SAT 98
[2022-04-25] MEDS: Labetalol HCL 100 MG TABLET 300 MG PO ×2 (07:57→21:11)
[2022-04-25] MEDS: OLANZapine 5 MG TABLET PO (07:57)
[2022-04-25 07:58] VITALS: BP 184/92
--- NOTE | 2022-04-25 11:01 | PC.NURSE ---
Pt requires multiple redirections to reduce screaming in milieu area. Endorses delusions of religiosity and grandure. Pt verbally hypersexual asking staff about their erections. Pt educated regarding volume and obtrusive behavior. Redirected to room.
[2022-04-25 14:00] VITALS: RESP 18
--- NOTE | 2022-04-25 14:51 | ECG_ITS ---
Test Reason : antipsychotics Blood Pressure : / mmHG Vent. Rate : 074 BPM Atrial Rate : 074 BPM P-R Int : 162 ms QRS Dur : 088 ms QT Int : 376 ms P-R-T Axes : 075 053 070 degrees QTc Int : 417 ms Normal sinus rhythm Possible Left atrial enlargement Left ventricular hypertrophy ( Sokolow-Andersen , [employer]-Merchant ) Abnormal ECG When compared with ECG of 23-JAN-2022 10:29, No significant change was found Referred By: Zara Golden Electronically Signed By:SERENA CAMARA MD
--- OUTSIDE RECORDS SUMMARY | 2022-04-25 16:17 | XMS_ITS | Continuity of Care Document ---
:1955 Author Organization [facility] Care Team Providers Name Role Phone [facility] Unavailable Unavailable Problems Combined list of problems from Department of Defense and Veterans Affairs facilities. It does not include entries that were removed or entered in error. Problem Status Onset Problem Type Date of Comments Source Date Resolution HTN - Hypertension Active Condition V [facility] (SNOMED [place] TS [id number]) H[facility] HX OF PAST Active Condition [facility] [place] [facility] Hyperglycemia Active Condition [facility] Hyperlipidemia Active Condition [place] Hypertension Active Condition [facility] Impaired Fasting Active Condition [facility] Glucose [place] [facility] LACK OF HOUSING Active Condition [facility] [place] [facility] PARANOID [facility] Paranoid Active Condition [facility] D schizophrenia (SNOMED CT [id number]) SCHIZOAFFECT-CHR/E Active Condition [facility] [place] [facility] Schizophrenia, Active Condition [facility] paranoid [facility] Diagnosis: Active Diagnosis [facility] ICD-10-CM Z71.89 [place] Other specified HCS counselingwith Provider Comments: Counseling,Oth Specified Diagnosis: Active Diagnosis [facility] ICD-10-CM Z71.89 [place] Other specified HCS counselingwith Provider Comments: Other specified counseling Medications Combined list of outpatient medications from Department of Defense and Veterans Affairs facilities. Medications provided include 1) outpatient medications from the last 15 months, and 2) patient-reported medications. Medication Details Route Status Patient Prescription Prescription Last Ordering Order Source Instructions Expires Number Dispense Provider Date Date DIPHENHYDRA TAKE 1 ORAL ACTIVE COLLEEN, A MINE HCL CAPSULE APOLINARI 2018 CNTR[facility] 50MG CAP BY MOUTH O [facility] TWICE [place] [facility] NEEDED [facility] DIVALPROEX TAKE ONE ORAL ACTIVE COLLEEN, NA 500MG TABLET APOLINARI 2019 CNTR[facility] TAB,SA BY MOUTH O [facility] TWICE [place] [facility] LABETALOL TAKE ONE ORAL ACTIVE COLLEEN, A HCL 300MG TABLET APOLINARI 2018 CNTR[facility] TAB BY MOUTH O [facility] TWICE [place] [facility] LISINOPRIL TAKE ONE ORAL ACTIVE COLLEEN, 20MG TAB TABLET APOLINARI 2018 CN[facility] BY MOUTH O [facility] ONCE [place] [facility] LITHIUM TAKE ONE ORAL ACTIVE COLLEEN, CARBONATE TABLET APOLINARI 2018 CNTRL 300MG BY MOUTH O [facility] TAB,SA TWICE [place] [facility] OLANZAPINE TAKE 7 ORAL ACTIVE COLLEEN, 2.5MG TAB TABLETS APOLINARI 2018 CNTR L BY MOUTH O [facility] AT [place] BEDTIME [facility] OLANZAPINE TAKE ONE ORAL ACTIVE COLLEEN, 5MG TAB TABLET APOLINARI 2018 CNTRL BY MOUTH O [facility] EVERY [place] MORNING [facility] OTHER FOUR ACTIVE LEWIS,D CAP/TAB KATI MARMOLEJO 2007 IELD T MEDS FOR SCHIZOPH YUE po TWICE DAILY Encounters Combined list of: 1) Encounters from Department of Veterans Affairs facilities going back up to the last 18 months. 2) Encounters from the Department of Defense facilities going back up to 280 months. Location Location Encounter Encounter Reason Attending ADM DC Stat Disposition Source Details Type Number For Provider Date Date Visit Outpatient 11/09 [id number] [facility] [place] [facility] [facility] [id number] [id number] [facility] [place] [facility] [place] [id number] Diagnos SOFYA,BLUMA 12/07 V A PHONE CALL [id number] is: C CNTR L 5-10 MIN ICD-10- WSTRN CM [place] Z71.89 [facility] Other HCS specifi ed classification counselor ing<br/ >with Provide r Comment s: Other specifi ed classification counselor ing Outpatient [id number] [facility] [id number] [facility] [place] [facility] [id number] 12/01 [facility] [id number] [facility] [place] [facility] [place] [id number] Diagnos HYNELevonKAYLA 03/29 V A PHONE CALL [id number] is: CNTR L 5-10 MIN ICD-10- WSTRN CM [place] Z71.89 [facility] Other HCS specifi ed classification counselor ing<br/ >with Provide r Comment s: Revolving Inventory Clerk ing,Oth Specifi ed HC PRO [id number] Diagnos HYMARTINEZKAYLA 03/29 V A PHONE CALL [id number] is: CNTR L 5-10 MIN ICD-10- WSTRN CM [place] Z71.89 [facility] Other HCS specifi ed classification counselor ing<br/ >with Provide r Comment s: Revolving Inventory Clerk ing,Oth Specifi ed HC PRO [id number] Diagnos HYNELevon,KAYLA 03/29 V A PHONE CALL [id number] is: CNTR L 5-10 MIN ICD-10- WSTRN CM [place] Z71.89 [facility] Other HCS specifi ed classification counselor ing<br/ >with Provide r Comment s: Revolving Inventory Clerk ing,Oth Specifi ed HC PRO [id number] Diagnos KAYLA NOLAND 04/03 V A PHONE CALL [id number] is: CNTR L 11-20 MIN ICD-10- WSTRN CM [place] Z71.89 [facility] Other HCS specifi ed classification counselor ing<br/ >with Provide r Comment s: Revolving Inventory Clerk ing,Oth Specifi ed HC PRO [id number] Diagnos KAYLA NOLAND 04/04 V A PHONE CALL [id number] is: CNTR L 11-20 MIN ICD-10- WSTRN CM [place] Z71.89 [place] Other HCS specifi ed classification counselor ing<br/ >with Provide r Comment s: Revolving Inventory Clerk ing,Oth Specifi ed HC PRO [id number] Diagnos HENRI NOLANDLL 04/05 V A PHONE CALL [id number] is: CNTR L 11-20 MIN ICD-10- WSTRN CM [place] Z71.89 [place] Other HCS specifi ed classification counselor ing<br/ >with Provide r Comment s: Revolving Inventory Clerk ing,Oth Specifi ed Outpatient [id number] 04/16 [facility] [id number] [facility] [place] [facility] [facility] [place] PRO [id number] Diagnos KAYLA NOLAND 04/20 V A PHONE CALL [id number] is: BLANCA CNTR L 21-30 MIN ICD-10- WSTRN CM [place] Z71.89 [facility] Other HCS specifi ed classification counselor ing<br/ >with Provide r Comment s: Revolving Inventory Clerk vikasOt Specifi ed [place] [id number] Diagnos EMMANULE HEAD D 04/21 V A PHONE CALL [id number] is: CNTR L 5-10 MIN ICD-10- WSTRN CM [place] Z71.89 [facility] Other HCS specifi ed classification counselor ing<br/ >with Provide r Comment s: Revolving Inventory Clerk Gus bean Specifi ed Social History Combined list of available smoking, tobacco, and other social history [facility]. Social History Type Response Date Comment Source Tobacco smoking PA-TOBACCO QUIT 5 TO 11/01/2018 [facility] status NHIS < 15 YRS History of tobacco PA-TOBACCO FORMER 11/01/2018 [facility] use USER History of tobacco LIFETIME NON-TOBACCO 05/11/2011 V A [facility] use USER [place] [facility] History of tobacco LIFETIME NON-USER OF 06/04/2008 B [facility] use TOBACCO History of tobacco QUIT TOBACCO USE 1-7 08/19/2007 2004 [facility] [place] use YEARS AGO Advance Directives List of completed, amended, or rescinded Advance Directives on record at Department of Veterans Affairs facilities. An actual copy of the Directive is not included. Date Advance Directive Provider Source 04/05/2011 ADVANCE DIRECTIVE DISCUSSION MEGHA BALDWIN PA [facility] [place] [facility]
[2022-04-25 16:20] VITALS: BP 154/68; PULSE 77; RESP 16; O2SAT 100
[2022-04-25 18:00] VITALS: BP 177/82; PULSE 77; RESP 18; TEMP 36.6; O2SAT 99
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
[2022-04-25] MEDS: lisinopriL 20 MG TABLET PO (20:01)
[2022-04-25] MEDS: Divalproex Sodium 500 MG TABLET.DR 1000 MG PO (20:01)
[2022-04-25] MEDS: OLANZapine 7.5 MG TABLET 15 MG PO (20:02)
[2022-04-26 08:25] VITALS: BP 158/71; PULSE 83; RESP 18; TEMP 36.6; O2SAT 98
[2022-04-26] MEDS: Labetalol HCL 100 MG TABLET 300 MG PO ×2 (08:27→19:57)
[2022-04-26] MEDS: OLANZapine 5 MG TABLET PO (08:27)
[2022-04-26 08:42] LABS: Alanine Aminotransferase 16 U/L (0-40); Albumin Level 4.2 g/dL (3.5-5.0); Alkaline Phosphatase 60 U/L (39-117); Anion Gap 12 (12-20); Aspartate Amino Transferase 23 U/L (5-37); Bilirubin Total 0.5 mg/dL (0.0-1.0); Blood Urea Nitrogen 9 mg/dL (9-16); Calcium 9.6 mg/dL (8.4-10.2); Carbon Dioxide 30 mmol/L (22-29); Chloride 105 mmol/L (96-108); Cholesterol 171 mg/dL; Creatinine Clr Calc Pharmacy 73.4; Estimated Glomerular Filt Rate > 60; Glucose Fasting 126 mg/dL (60-99); HDL Cholesterol 47 mg/dL; LDL Cholesterol Calculated 109 mg/dl; Potassium 4.2 mmol/L (3.3-5.1); Sodium 143 mmol/L (135-145); Total Protein 7.4 g/dL (6.5-8.0); Triglycerides 79 mg/dL
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
[2022-04-26 18:00] VITALS: BP 198/91; PULSE 71; RESP 18; TEMP 36.3; O2SAT 99
[2022-04-26] MEDS: OLANZapine 7.5 MG TABLET 15 MG PO (19:55)
[2022-04-26] MEDS: Divalproex Sodium 500 MG TABLET.DR 1000 MG PO (19:56)
[2022-04-26] MEDS: lisinopriL 20 MG TABLET PO (19:58)
[2022-04-26] MEDS: traZODone HCL 50 MG TABLET PO (19:58)
[2022-04-26 20:30] VITALS: BP 186/74; PULSE 67; RESP 16; O2SAT 99
[2022-04-26 21:59] VITALS: BP 158/70; PULSE 80; RESP 14; O2SAT 99
[2022-04-27] MEDS: Labetalol HCL 100 MG TABLET 300 MG PO ×2 (10:05→21:26)
[2022-04-27] MEDS: OLANZapine 5 MG TABLET PO (10:05)
[2022-04-27] MEDS: risperiDONE 2 MG TABLET PO ×2 (10:06→21:27)
--- NOTE | 2022-04-27 14:17 | PC.NURSE ---
Paperwork filed, pt a section [address] scheduled for 05/04/2022
--- NOTE | 2022-04-27 15:35 | P.PNPSI_ITS ---
Subjective Subjective Date of Service: 04/27/22 Reason For Visit: Psychosis Subjective Notes: Section 12B Interim History: The nursing staff reported the patient had being loud, intrusive, religiously preoccupied. On interview the patient refused to sign conditional voluntary because he wants to leave. The socially responsible investment adviser contact the nurse at the shelter and apparently his last Haldol take injection was done on March 06 up to 400 mg and Invega Sustenna w as last picked up from the pharmacy on January 05. He was discharged from this facility February 24 and did recommend to continue Haldol Decanoate 300 mg on March 16 with Invega Sustenna 234 but it was not done. Apparently on March 06 he was at [facility] on the emergency room and he could receive his Invega Sustenna injection.. Today I tried to presented him with conditional voluntary and he refused to sign. We are filing for sections 7. We got his [employer] order today. We will order the Haldol Decanoate and Invega Sustenna tomorrow but he stated that he refuses IM. The occupational therapist reported that he scored 14/30 on the Hickman test and his Vinicius test was tree 3.0. Mental Status Exam Mental Status Exam Patient Appearance: Disheveled and Inappropriate Patient Orientation: Person, Place and Situation Level of Consciousness: Appropriate and Restless Patient Behavior: Talkative and Passive Mood Description: Labile Affect Description: Expansive Patient Cognition Impaired: Yes Ability to Follow Directions: Poor Speech Pattern: Appropriate Hallucinations: None Delusions: Grandiose Thought Process: Illogical and Distracted Thought Content: positive for Poverty of Content and positive for Incoherent Judgement: Poor Diagnostics Vital Signs (24Hr): Vital Signs - 24 hr 04/26/22 21:59 04/26/22 20:30 04/26/22 18:00 Temperature 97.3 F Pulse Rate 80 67 71 Respiratory Rate 14 16 18 Blood Pressure 158/70 H 186/74 H 198/91 H Pulse Oximetry 99 99 99 Oxygen Delivery Method Room Air Room Air Room Air BMI result Body Mass Index 23.3 Labs Results: 04/24/22 20:41 04/26/22 08:12 Labs: Laboratory Results - last 48 hr 04/26/22 08:12 Sodium 143 Potassium 4.2 Chloride 105 Carbon Dioxide 30 H Anion Gap 12 BUN 9 Creatinine 0.86 Estim Creat Clear Calc 73.4 Estimated GFR > 60 Fasting Glucose 126 H Calcium 9.6 Total Bilirubin 0.5 AST 23 ALT 16 Alkaline Phosphatase 60 Total Protein 7.4 Albumin 4.2 Triglycerides 79 Cholesterol 171 LDL Cholesterol, Calc 109 HDL Cholesterol 47 Medications Medications Current Medications Acetaminophen (Acetaminophen 325 Mg Tablet) 650 mg PO Q6H PRN PRN Reason: Headache/Pain Mild Scale (1-3) Al Hydroxide/Mg Hydroxide (Magnesium Hydrox/Alum Hydrox 30 Ml Oral.Susp) 30 ml PO Q6H PRN PRN Reason: Heartburn/Nausea Divalproex Sodium (Divalproex Sodium 500 Mg Tablet.Dr) 1,000 mg PO BEDTIME JOHN Last Admin: 04/26/22 19:56 Dose: 1,000 mg Haloperidol Decanoate (Haloperidol Decanoate 50 Mg/Ml Ampul) 300 mg IM Q21D JOHN Hydroxyzine HCl (Hydroxyzine Hcl 25 Mg Tablet) 25 mg PO Q6H PRN PRN Reason: Anxiety Labetalol HCl (Labetalol Hcl 100 Mg Tablet) 300 mg PO BID [facility] Last Admin: 04/27/22 10:05 Dose: 300 mg Lisinopril (Lisinopril 20 Mg Tablet) 20 mg PO BEDTIME JOHN; Protocol Last Admin: 04/26/22 19:58 Dose: 20 mg Magnesium Hydroxide (Milk Of Magnesia 30 Ml Oral.Susp) 30 ml PO DAILY PRN PRN Reason: Constipation Olanzapine (Olanzapine 5 Mg Tablet) 5 mg PO DAILY [facility] Last Admin: 04/27/22 10:05 Dose: 5 mg Olanzapine (Olanzapine 7.5 Mg Tablet) 15 mg PO BEDTIME JOHN Last Admin: 04/26/22 19:55 Dose: 15 mg Paliperidone Palmitate (Paliperidone Palmitate 234 Mg/1.5 Ml Syringe) 234 mg IM Q30D JOHN Risperidone (Risperidone 2 Mg Tablet) 2 mg PO BID [facility] Last Admin: 04/27/22 10:06 Dose: 2 mg Tamsulosin HCl (Tamsulosin Hcl 0.4 Mg Capsule) 0.4 mg PO BEDTIME JOHN Last Admin: 04/26/22 20:03 Dose: Not Given Trazodone HCl (Trazodone Hcl 50 Mg Tablet) 50 mg PO BEDTIME PRN PRN Reason: Insomnia Last Admin: 04/26/22 19:58 Dose: 50 mg Allergies Allergies Allergy/AdvReac Type Severity Reaction Status Date / Time No Known Allergies Allergy Unverified 01/15/20 16:15 [No Known Allergies*] Assessment & Plan Assessment & Plan (1) Schizoaffective disorder, bipolar type: Status: Acute Code(s): F25.0 - Schizoaffective disorder, bipolar type Plan The patient is an elderly male from verbal does, with a long history of psychotic and mood symptoms, [facility] case managed and resident of group [facility] with her prior admissions into the hospital for psychotic decompensation with steve in the context of noncompliance. Historically had several admissions for the same reason. He has a guardian and the role years order. Plan 1. Gather collateral information. We will try to contact the staff of the shelter to get his medication reconciliation form. Apparently he has last Haldol deck was on February but it is unclear we will try to get a more detailed information. 2. Continue with the same medications that we have as per medication reconciliation. 3. Regular blood work as per protocol. 4. Regular observation. Reason for contiued inpatient stay Substantial Risk for: inability to function, rapid decompensation and med/psych decompensation Time Spent With Patient Time: Total time managing care of this patient today _20___ minutes.
[2022-04-27 19:15] VITALS: BP 196/97; PULSE 79; RESP 18; TEMP 36.2; O2SAT 99
[2022-04-27] MEDS: OLANZapine 7.5 MG TABLET 15 MG PO (21:26)
[2022-04-27] MEDS: Divalproex Sodium 500 MG TABLET.DR 1000 MG PO (21:27)
[2022-04-27] MEDS: lisinopriL 20 MG TABLET PO (21:27)
[2022-04-28 06:00] VITALS: BP 178/80; PULSE 81; RESP 18; TEMP 36.4; O2SAT 99
[2022-04-28] MEDS: Labetalol HCL 100 MG TABLET 300 MG PO ×2 (08:34→21:48)
[2022-04-28] MEDS: OLANZapine 5 MG TABLET PO (08:35)
[2022-04-28] MEDS: risperiDONE 2 MG TABLET PO ×2 (08:35→21:48)
--- NOTE | 2022-04-28 14:24 | P.PNPSI_ITS ---
Subjective Subjective Date of Service: 04/28/22 Reason For Visit: Psychosis Subjective Notes: Section 12B Guardianship: Yes Interim History: The nursing staff reported the patient had being hypomanic, with flight of ideas and singing. He slept only for 5 hours last night. On interview the patient refused to sign a conditional voluntary he wants to leave, explain him that he has Truong order and he needs to take IM. Eventually he agreed to have the injections today. Mental Status Exam Mental Status Exam Patient Appearance: Inappropriate Patient Orientation: Person, Place and Situation Level of Consciousness: Awake and Restless Patient Behavior: Guarded, Suspicious and Belligerent Mood Description: Labile Affect Description: Elated Patient Cognition Impaired: Yes Ability to Follow Directions: Good Speech Pattern: Clear Hallucinations: None Delusions: Paranoid Ideation and Grandiose Thought Process: Illogical and Distracted Thought Content: positive for Perseveration, positive for Loose Associations and positive for Thought Blocking Judgement: Poor Diagnostics Vital Signs (24Hr): Vital Signs - 24 hr 04/27/22 19:15 04/28/22 06:00 Temperature 97.2 F 97.5 F Pulse Rate 79 81 Respiratory Rate 18 18 Blood Pressure 196/97 H 178/80 H Pulse Oximetry 99 99 Oxygen Delivery Method Room Air Room Air BMI result Body Mass Index 23.3 Labs Results: 04/24/22 20:41 04/26/22 08:12 Medications Medications Current Medications Acetaminophen (Acetaminophen 325 Mg Tablet) 650 mg PO Q6H PRN PRN Reason: Headache/Pain Mild Scale (1-3) Al Hydroxide/Mg Hydroxide (Magnesium Hydrox/Alum Hydrox 30 Ml Oral.Susp) 30 ml PO Q6H PRN PRN Reason: Heartburn/Nausea Divalproex Sodium (Divalproex Sodium 500 Mg Tablet.Dr) 1,000 mg PO BEDTIME JOHN Last Admin: 04/27/22 21:27 Dose: 1,000 mg Hydroxyzine HCl (Hydroxyzine Hcl 25 Mg Tablet) 25 mg PO Q6H PRN PRN Reason: Anxiety Labetalol HCl (Labetalol Hcl 100 Mg Tablet) 300 mg PO BID [facility] Last Admin: 04/28/22 08:34 Dose: 300 mg Lisinopril (Lisinopril 20 Mg Tablet) 20 mg PO BEDTIME JOHN; Protocol Last Admin: 04/27/22 21:27 Dose: 20 mg Magnesium Hydroxide (Milk Of Magnesia 30 Ml Oral.Susp) 30 ml PO DAILY PRN PRN Reason: Constipation Olanzapine (Olanzapine 5 Mg Tablet) 5 mg PO DAILY [facility] Last Admin: 04/28/22 08:35 Dose: 5 mg Olanzapine (Olanzapine 7.5 Mg Tablet) 15 mg PO BEDTIME [facility] Last Admin: 04/27/22 21:26 Dose: 15 mg Risperidone (Risperidone 2 Mg Tablet) 2 mg PO BID [facility] Last Admin: 04/28/22 08:35 Dose: 2 mg Tamsulosin HCl (Tamsulosin Hcl 0.4 Mg Capsule) 0.4 mg PO BEDTIME [facility] Last Admin: 04/27/22 21:34 Dose: Not Given Trazodone HCl (Trazodone Hcl 50 Mg Tablet) 50 mg PO BEDTIME PRN PRN Reason: Insomnia Last Admin: 04/26/22 19:58 Dose: 50 mg Allergies Allergies Allergy/AdvReac Type Severity Reaction Status Date / Time No Known Allergies Allergy Unverified 01/15/20 16:15 [No Known Allergies*] Assessment & Plan Assessment & Plan (1) Schizoaffective disorder, bipolar type: Status: Acute Code(s): F25.0 - Schizoaffective disorder, bipolar type Plan The patient is an elderly male from [facility] does, with a long history of psychotic and mood symptoms, [facility] case managed and resident of [facility] with her prior admissions into the hospital for psychotic decompensation with steve in the context of noncompliance. Historically had several admissions for the same reason. He has a guardian and the role years order. Plan 1. Gather collateral information. We will try to contact the staff of the long term to get his medication reconciliation form. Apparently he has last Haldol deck was on February but it is unclear we will try to get a more detailed information. 2. Continue with the same medications that we have as per medication reconciliation. 3. Regular blood work as per protocol. 4. Regular observation. 5. Invega Sustenna and Haldol Decanoate IM today Reason for contiued inpatient stay Substantial Risk for: harm to self, harm to others, inability to function, rapid decompensation and med/psych decompensation Time Spent With Patient Time: Total time managing care of this patient today _20___ minutes.
[2022-04-28] MEDS: Paliperidone Palmitate 234 MG/1.5 ML SYRINGE IM (14:28)
[2022-04-28] MEDS: Acetaminophen 325 MG TABLET 650 MG PO (16:00)
[2022-04-28] MEDS: OLANZapine 7.5 MG TABLET 15 MG PO (21:48)
[2022-04-28] MEDS: Divalproex Sodium 500 MG TABLET.DR 1000 MG PO (21:48)
[2022-04-28] MEDS: lisinopriL 20 MG TABLET PO (21:49)
[2022-04-28 22:00] VITALS: BP 195/89; PULSE 100; RESP 20; TEMP 36.3; O2SAT 96
[2022-04-29 06:00] VITALS: BP 159/64; PULSE 85; RESP 14; TEMP 36.8; O2SAT 99
[2022-04-29] MEDS: Labetalol HCL 100 MG TABLET 300 MG PO ×2 (08:26→20:17)
[2022-04-29] MEDS: risperiDONE 2 MG TABLET PO ×2 (08:27→20:18)
[2022-04-29] MEDS: OLANZapine 5 MG TABLET PO (08:27)
--- NOTE | 2022-04-29 13:45 | P.PNPSI_ITS ---
Subjective Subjective Date of Service: 04/29/22 Reason For Visit: Psychosis Interim History: The nursing staff reported the patient continues to roam the unit, yelling and irritable at times. He was seen in the [place]. He was rambling and loud talking about people stealing his rings and paranoid. He was asking for his blanket. He stares intensely at this telegraphic typewriter installer and says I don't want the meds, you can take my brain.. I am a physician too, a real one... He has been med compliant PO per nursing. He was loud. Nonsensical. Review of Systems Review of Systems Yes all other systems are reviewed and are negative and Unobtainable due to mental status Mental Status Exam Mental Status Exam Patient Appearance: Disheveled and Inappropriate Patient Orientation: Person, Place and Situation Level of Consciousness: Awake and Restless Patient Behavior: Guarded, Suspicious, Belligerent, Invasion - Personal Space, Uncooperative and Pacing Mood Description: Hostile and Expansive Affect Description: Elated Patient Cognition Impaired: Yes Ability to Follow Directions: Good Speech Pattern: Perseverating, Rambling, Inappropriate, Excessive and Loud Hallucinations: Auditory (likely looks like he is responding to IS. ) Delusions: Paranoid Ideation, Grandiose and Present Thought Content: positive for Perseveration, positive for Loose Associations, positive for Incoherent and positive for Disorganized Judgement: Poor Diagnostics Vital Signs (24Hr): Vital Signs - 24 hr 04/28/22 22:00 04/29/22 06:00 Temperature 97.4 F 98.2 F Pulse Rate 100 85 Respiratory Rate 20 14 Blood Pressure 195/89 H 159/64 H Pulse Oximetry 96 99 Oxygen Delivery Method Room Air Room Air BMI result Body Mass Index 23.3 Labs Results: 04/24/22 20:41 04/26/22 08:12 Medications Medications Current Medications Acetaminophen (Acetaminophen 325 Mg Tablet) 650 mg PO Q6H PRN PRN Reason: Headache/Pain Mild Scale (1-3) Last Admin: 04/29/22 15:29 Dose: 650 mg Al Hydroxide/Mg Hydroxide (Magnesium Hydrox/Alum Hydrox 30 Ml Oral.Susp) 30 ml PO Q6H PRN PRN Reason: Heartburn/Nausea Divalproex Sodium (Divalproex Sodium 500 Mg Tablet.) 1,000 mg PO BEDTIME [facility] Last Admin: 04/28/22 21:48 Dose: 1,000 mg Hydroxyzine HCl (Hydroxyzine Hcl 25 Mg Tablet) 25 mg PO Q6H PRN PRN Reason: Anxiety Labetalol HCl (Labetalol Hcl 100 Mg Tablet) 300 mg PO BID JOHN Last Admin: 04/29/22 08:26 Dose: 300 mg Lisinopril (Lisinopril 20 Mg Tablet) 20 mg PO BEDTIME JOHN; Protocol Last Admin: 04/28/22 21:49 Dose: 20 mg Magnesium Hydroxide (Milk Of Magnesia 30 Ml Oral.Susp) 30 ml PO DAILY PRN PRN Reason: Constipation Olanzapine (Olanzapine 5 Mg Tablet) 5 mg PO DAILY JOHN Last Admin: 04/29/22 08:27 Dose: 5 mg Olanzapine (Olanzapine 7.5 Mg Tablet) 15 mg PO BEDTIME JOHN Last Admin: 04/28/22 21:48 Dose: 15 mg Olanzapine (Olanzapine Odt 10 Mg Tab.Rapdis) 5 mg TRANSLINGU BID PRN PRN Reason: Psychosis Last Admin: 04/29/22 13:51 Dose: 5 mg Risperidone (Risperidone 2 Mg Tablet) 2 mg PO BID JOHN Last Admin: 04/29/22 08:27 Dose: 2 mg Tamsulosin HCl (Tamsulosin Hcl 0.4 Mg Capsule) 0.4 mg PO BEDTIME JOHN Last Admin: 04/28/22 21:58 Dose: Not Given Trazodone HCl (Trazodone Hcl 50 Mg Tablet) 50 mg PO BEDTIME PRN PRN Reason: Insomnia Last Admin: 04/26/22 19:58 Dose: 50 mg Allergies Allergies Allergy/AdvReac Type Severity Reaction Status Date / Time No Known Allergies Allergy Unverified 01/15/20 16:15 [No Known Allergies*] Assessment & Plan Assessment & Plan (1) Schizoaffective disorder, bipolar type: Status: Acute Code(s): F25.0 - Schizoaffective disorder, bipolar type Plan The patient is an elderly male from verbal does, with a long history of psychotic and mood symptoms, [facility] case managed and resident of group [facility] with her prior admissions into the hospital for psychotic decompensation w ith steve in the context of noncompliance. Historically had several admissions for the same reason. He has a guardian and the role years order. Plan 1. Gather collateral information. We will try to contact the staff of the [facility] to get his medication reconciliation form. Apparently he has last Haldol deck was on February but it is unclear we will try to get a more detailed information. 2. Continue with the same medications that we have as per medication reconciliation. 3. Regular blood work as per protocol. 4. Regular observation. 5. Invega Sustenna and Haldol Decanoate IM today 04/29/22: Added Zyprexa Zydis 5 mg PRN irritability, agitation and psychosis. He has been loud and disruptive on the unit. Reason for contiued inpatient stay Substantial Risk for: inability to function and rapid decompensation Time Spent With Patient Time: Total time managing care of this patient today ____ minutes.
[2022-04-29] MEDS: OLANZapine ODT 10 MG TAB.RAPDIS 5 MG TRANSLINGU (13:51)
[2022-04-29] MEDS: Acetaminophen 325 MG TABLET 650 MG PO (15:29)
[2022-04-29 18:00] VITALS: BP 199/93; PULSE 78; RESP 16; TEMP 36.6; O2SAT 93
[2022-04-29] MEDS: Divalproex Sodium 500 MG TABLET.DR 1000 MG PO (20:16)
[2022-04-29] MEDS: lisinopriL 20 MG TABLET PO (20:17)
[2022-04-29] MEDS: OLANZapine 7.5 MG TABLET 15 MG PO (20:17)
[2022-04-29] MEDS: traZODone HCL 50 MG TABLET PO (20:18)
[2022-04-29] MEDS: hydrOXYzine HCL 25 MG TABLET PO (20:18)
[2022-04-29 21:41] VITALS: BP 181/79; PULSE 80; RESP 16; O2SAT 98
[2022-04-29 22:28] VITALS: BP 184/76; PULSE 78; RESP 18; O2SAT 100
[2022-04-30 00:05] VITALS: BP 168/80; PULSE 74; RESP 16; O2SAT 98
[2022-04-30 07:30] VITALS: BP 178/91; PULSE 81; RESP 16; TEMP 36.1; O2SAT 98
[2022-04-30] MEDS: Labetalol HCL 100 MG TABLET 300 MG PO ×2 (10:15→20:11)
[2022-04-30] MEDS: OLANZapine 5 MG TABLET PO (10:16)
[2022-04-30] MEDS: risperiDONE 2 MG TABLET PO ×2 (10:16→20:13)
--- NOTE | 2022-04-30 11:10 | P.PNPSI_ITS ---
Subjective Subjective Date of Service: 04/30/22 Reason For Visit: Psychosis Interim History: The nursing staff reported the patient continues to roam the unit. Less irritable and may be a little calmer. Zyprexa PRN helped. He continues disorganized and says I just want to leave. I hope Ron Talbert takes me with him. I want to drink his blood.. Nonsensical. He has been med compliant PO per nursing. Review of Systems Review of Systems Yes all other systems are reviewed and are negative and Unobtainable due to mental status Mental Status Exam Mental Status Exam Patient Appearance: Disheveled and Inappropriate Patient Orientation: Person, Place and Situation Level of Consciousness: Awake and Restless Patient Behavior: Guarded, Suspicious, Belligerent, Invasion - Personal Space, Uncooperative and Pacing Mood Description: Hostile and Expansive Affect Description: Elated Patient Cognition Impaired: Yes Ability to Follow Directions: Good Speech Pattern: Perseverating, Rambling, Inappropriate, Excessive and Loud Diagnostics Vital Signs (24Hr): Vital Signs - 24 hr 04/29/22 18:00 04/29/22 21:41 04/29/22 22:28 Temperature 97.8 F Pulse Rate 78 80 78 Respiratory Rate 16 16 18 Blood Pressure 199/93 H 181/79 H 184/76 H Pulse Oximetry 93 98 100 Oxygen Delivery Method Room Air Room Air Room Air 04/30/22 00:05 04/30/22 07:30 Temperature 97.0 F Pulse Rate 74 81 Respiratory Rate 16 16 Blood Pressure 168/80 H 178/91 H Pulse Oximetry 98 98 Oxygen Delivery Method Room Air Room Air BMI result Body Mass Index 23.3 Labs Results: 04/24/22 20:41 04/26/22 08:12 Medications Medications Current Medications Acetaminophen (Acetaminophen 325 Mg Tablet) 650 mg PO Q6H PRN PRN Reason: Headache/Pain Mild Scale (1-3) Last Admin: 04/29/22 15:29 Dose: 650 mg Al Hydroxide/Mg Hydroxide (Magnesium Hydrox/Alum Hydrox 30 Ml Oral.Susp) 30 ml PO Q6H PRN PRN Reason: Heartburn/Nausea Divalproex Sodium (Divalproex Sodium 500 Mg Tablet.Dr) 1,000 mg PO BEDTIME JOHN Last Admin: 04/29/22 20:16 Dose: 1,000 mg Hydroxyzine HCl (Hydroxyzine Hcl 25 Mg Tablet) 25 mg PO Q6H PRN PRN Reason: Anxiety Last Admin: 04/29/22 20:18 Dose: 25 mg Labetalol HCl (Labetalol Hcl 100 Mg Tablet) 300 mg PO BID [facility] Last Admin: 04/30/22 10:15 Dose: 300 mg Lisinopril (Lisinopril 20 Mg Tablet) 20 mg PO BEDTIME JOHN; Protocol Last Admin: 04/29/22 20:17 Dose: 20 mg Magnesium Hydroxide (Milk Of Magnesia 30 Ml Oral.Susp) 30 ml PO DAILY PRN PRN Reason: Constipation Olanzapine (Olanzapine 5 Mg Tablet) 5 mg PO DAILY [facility] Last Admin: 04/30/22 10:16 Dose: 5 mg Olanzapine (Olanzapine 7.5 Mg Tablet) 15 mg PO BEDTIME JOHN Last Admin: 04/29/22 20:17 Dose: 15 mg Olanzapine (Olanzapine Odt 10 Mg Tab.Rapdis) 5 mg TRANSLINGU BID PRN PRN Reason: Psychosis Last Admin: 04/29/22 13:51 Dose: 5 mg Risperidone (Risperidone 2 Mg Tablet) 2 mg PO BID [facility] Last Admin: 04/30/22 10:16 Dose: 2 mg Tamsulosin HCl (Tamsulosin Hcl 0.4 Mg Capsule) 0.4 mg PO BEDTIME JOHN Last Admin: 04/29/22 20:18 Dose: Not Given Trazodone HCl (Trazodone Hcl 50 Mg Tablet) 50 mg PO BEDTIME PRN PRN Reason: Insomnia Last Admin: 04/29/22 20:18 Dose: 50 mg Allergies Allergies Allergy/AdvReac Type Severity Reaction Status Date / Time No Known Allergies Allergy Unverified 01/15/20 16:15 [No Known Allergies*] Assessment & Plan Assessment & Plan (1) Schizoaffective disorder, bipolar type: Status: Acute Code(s): F25.0 - Schizoaffective disorder, bipolar type Plan The patient is an elderly male from verbal does, with a long history of psychotic and mood symptoms, [facility] case managed and resident of group [facility] with her prior admissions into the hospital for psychotic decompensation with steve in the context of noncompliance. Historically had several admissions for the same reason. He has a guardian and the role years order. Plan 1. Gather collateral information. We will try to contact the staff of the [facility] to get his medication reconciliation form. Apparently he has last Haldol deck was on February but it is unclear we will try to get a more detailed inform ation. 2. Continue with the same medications that we have as per medication reconciliation. 3. Regular blood work as per protocol. 4. Regular observation. 5. Invega Sustenna and Haldol Decanoate IM today 04/29/22: Added Zyprexa Zydis 5 mg PRN irritability, agitation and psychosis. He has been loud and disruptive on the unit. 04/30: Continue treatment plan. Reason for contiued inpatient stay Substantial Risk for: inability to function and rapid decompensation Time Spent With Patient Time: Total time managing care of this patient today ____ minutes.
[2022-04-30 19:54] VITALS: BP 205/108; BP 222/105; PULSE 98; RESP 18; TEMP 36.6; O2SAT 99
[2022-04-30 19:58] VITALS: BP 200/110
[2022-04-30] MEDS: Divalproex Sodium 500 MG TABLET.DR 1000 MG PO (20:12)
[2022-04-30] MEDS: OLANZapine 7.5 MG TABLET 15 MG PO (20:12)
[2022-04-30] MEDS: lisinopriL 20 MG TABLET PO (20:13)
[2022-04-30 22:00] VITALS: BP 217/103
--- NOTE | 2022-04-30 22:42 | PC.NURSE ---
At 19:45 automated bp taken at 205/108 and 222/105 with HR of 100. Manually assessed at 200/110. Billy Baez notified and advised to give HS lisinopril early. HS lisinopril administered at 20:13. BP reassessed at 2200 and was 217/103. Dr. Johnson notified and he contacted hospitalist Charles. 10 mg of IM hydralazine ordered
--- NOTE | 2022-04-30 22:59 | PC.NURSE ---
At this time patient is refusing IM hydralazine. BP now 162/70 w HR of 93.
[2022-04-30 23:00] VITALS: BP 162/70; PULSE 93
[2022-04-30 23:07] LABS: Anion Gap 13 (12-20); Blood Urea Nitrogen 13 mg/dL (9-16); Carbon Dioxide 29 mmol/L (22-29); Chloride 103 mmol/L (96-108); Estimated Glomerular Filt Rate > 60; Glucose Random 134 mg/dL (60-115); Potassium 3.6 mmol/L (3.3-5.1); Sodium 141 mmol/L (135-145); Troponin-I High Sensitivity 10.3 ng/L (<3.5-35.0)
--- NOTE | 2022-04-30 23:10 | PM.EVENT ---
Event Note Date of Service: 04/30/22 Event Note: Pt with hypertensive crisis, with SBP in 210. Pt reports no symptoms. Spoke with psychiatrist, recommended 10 mg of IM hydralazine and rechecking bp in 1 hr. pt refused injection. BP spontaneously improved to 160s/70s. Recommended pt be started on 5 mg omlodipine daily given his persistent HTN. an offocial consult to follow in am Time Spent With Patient Time: Total time managing care of this patient today ____ minutes.
[2022-05-01 08:00] VITALS: BP 140/70; PULSE 66; RESP 16; TEMP 36.1; O2SAT 100
[2022-05-01] MEDS: OLANZapine 5 MG TABLET PO (08:49)
[2022-05-01] MEDS: Labetalol HCL 100 MG TABLET 300 MG PO ×2 (08:49→19:58)
[2022-05-01] MEDS: risperiDONE 2 MG TABLET PO ×2 (08:49→19:59)
[2022-05-01] MEDS: OLANZapine ODT 10 MG TAB.RAPDIS 5 MG TRANSLINGU (10:19)
--- NOTE | 2022-05-01 12:56 | HO.PM.IMCN ---
History of Present Illness Data of Consult Service Date: 05/01/22 <AMANDA Grey - Last Filed: 05/01/22 13:41> Primary Care Provider: Unknown Physician <AMANDA Grey - Last Filed: 05/01/22 13:41> HPI Reason for consult: HTN <AMANDA Grey - Last Filed: 05/01/22 13:41> Patient is a 66-year-old male with a PMH significant for HTN and long history of psychotic and mood symptoms who had an episode of hypertensive urgency last night when his blood pressure spiked as high as 222/105. 10 mg of IM hydralazine was ordered but patient refused injection. Blood pressure spontaneously came down to 162/70 by 23:00. Patient seen and evaluated for hypertension. Blood pressure in the morning was 140/70. HPI difficult to obtain due to the patient's mentation, but patient does not have any acute complaints at the moment. No headache, changes to vision or hearing. Denies chest pain/pressure, palpitations. No shortness of breath. Of note patient also has chronic lower leg edema on compression stockings. <AMANDA Grey - Last Filed: 05/01/22 13:41> Review of Systems Review of Systems: Difficult to obtain due to patient's mentation Denies headache No vision changes Denies chest pain/pressure, palpitations No shortness of breath <AMANDA Grey - Last Filed: 05/01/22 13:41> Yes all other systems are reviewed and are negative <AMANDA Grey - Last Filed: 05/01/22 13:41> [facility] Medical History: Medical History Schizophrenia <AMANDA Grey - Last Filed: 05/01/22 13:41> Social History: Social History Household Members: Other Household Members Other:: Lives in senior care Housing: Other Housing Other:: senior care Do you presently have visiting nurse or other home services: Yes Unable to assess alcohol history related to: Unknown Alcohol intake: unknown Patient Tobacco Use Status: Former Tobacco user Tobacco use type: Cigarette Smoked in Last 30 Days: No e-Cigarette/Vaping Use: Never Used Patient Interested in Nicotine Replacement: No Patient Given Instructions on How to Stop Smoking: No Second Hand Smoke Exposure: No Use of substances other than those prescribed or required for medical reasons: No Currently Displaying Signs/Symptoms of Drug Intoxication Withdrawal: No Any prior treatment program specific to substance use: No Have you been hit, kicked, punched, or otherwise hurt by someone within the past year? If so, by whom?: No Do you feel safe in your current relationship?: Yes Is there a partner from a previous relationship who is making you feel unsafe now?: No Are you made to feel afraid or neglected: No Advance Directives: No Advance Directives Information Provided: No Do you have thoughts of harming others: None Do you have a plan to hurt others: No Plan Recently lost weight without trying: No Eating poorly because of decreased appetite: No Nutrition Risks: No Nutritional Risk Poor oral hygiene: No service: Yes Sexual orientation: Straight/Heterosexual <AMANDA Grey - Last Filed: 05/01/22 13:41> Meds Allergies/Adverse reactions: Allergies Allergy/AdvReac Type Severity Reaction Status Date / Time No Known Allergies Allergy Unverified 01/15/20 16:15 [No Known Allergies*] <AMANDA Grey - Last Filed: 05/01/22 13:41> Active Medications: Current Medications Acetaminophen (Acetaminophen 325 Mg Tablet) 650 mg PO Q6H PRN PRN Reason: Headache/Pain Mild Scale (1-3) Last Admin: 04/29/22 15:29 Dose: 650 mg Al Hydroxide/Mg Hydroxide (Magnesium Hydrox/Alum Hydrox 30 Ml Oral.Susp) 30 ml PO Q6H PRN PRN Reason: Heartburn/Nausea Divalproex Sodium (Divalproex Sodium 500 Mg Tablet.Dr) 1,000 mg PO BEDTIME JOHN Last Admin: 04/30/22 20:12 Dose: 1,000 mg Hydroxyzine HCl (Hydroxyzine Hcl 25 Mg Tablet) 25 mg PO Q6H PRN PRN Reason: Anxiety Last Admin: 04/29/22 20:18 Dose: 25 mg Labetalol HCl (Labetalol Hcl 100 Mg Tablet) 300 mg PO BID JOHN Last Admin: 05/01/22 08:49 Dose: 300 mg Lisinopril (Lisinopril 20 Mg Tablet) 20 mg PO BEDTIME JOHN; Protocol Last Admin: 04/30/22 20:13 Dose: 20 mg Magnesium Hydroxide (Milk Of Magnesia 30 Ml Oral.Susp) 30 ml PO DAILY PRN PRN Reason: Constipation Olanzapine (Olanzapine 5 Mg Tablet) 5 mg PO DAILY [facility] Last Admin: 05/01/22 08:49 Dose: 5 mg Olanzapine (Olanzapine 7.5 Mg Tablet) 15 mg PO BEDTIME JOHN Last Admin: 04/30/22 20:12 Dose: 15 mg Olanzapine (Olanzapine Odt 10 Mg Tab.Rapdis) 5 mg TRANSLINGU BID PRN PRN Reason: Psychosis Last Admin: 05/01/22 10:19 Dose: 5 mg Risperidone (Risperidone 2 Mg Tablet) 2 mg PO BID [facility] Last Admin: 05/01/22 08:49 Dose: 2 mg Tamsulosin HCl (Tamsulosin Hcl 0.4 Mg Capsule) 0.4 mg PO BEDTIME [facility] Last Admin: 04/30/22 20:16 Dose: Not Given Trazodone HCl (Trazodone Hcl 50 Mg Tablet) 50 mg PO BEDTIME PRN PRN Reason: Insomnia Last Admin: 04/29/22 20:18 Dose: 50 mg <AMANDA Grey - Last Filed: 05/01/22 13:41> Physical Exam Vital Signs and Narrative: Vital Signs: Last Vital Signs Temp 96.9 F 05/01/22 08:00 Pulse 66 05/01/22 08:00 Resp 16 05/01/22 08:00 BP 140/70 H 05/01/22 08:00 Pulse Ox 100 05/01/22 08:00 O2 Del Method 05/01/22 08:00 BMI result Body Mass Index 23.3 <AMANDA Gery Last Filed: 05/01/22 13:41> General: AOx3, no acute distress Resp: CTA bilaterally CVS: S1, S2, RRR GI: +BS, NT, no distention Skin: No rash Neuro: Motor grossly intact, cranial nerves II-XII grossly intact bilaterally Extremities: left leg edema above the knee, patient in full-length compression stockings <AMANDA Grey Last Filed: 05/01/22 13:41> Neuro: Cranial nerves: Yes CN's II-XII intact bilaterally <AMANDA Grey Last Filed: 05/01/22 13:41> Results Labs CBC and Chem 7: : 04/24/22 20:41 04/30/22 22:40 <AMANDA Grey - Last Filed: 05/01/22 13:41> Labs: Laboratory Results - last 24 hr 04/30/22 04/30/22 22:40 22:40 Anion Gap 13 Estim Creat Clear Calc 71.0 Estimated GFR > 60 Random Glucose 134 H Calcium 9.0 D Troponin I High Sens 10.3 <AMANDA Grey - Last Filed: 05/01/22 13:41> Assessment and Plan (1) Hypertension: Status: Acute <AMANDA Grey - Last Filed: 05/01/22 13:41> (2) Acute psychosis: Status: Acute <AMANDA Grey - Last Filed: 05/01/22 13:41> Patient is a 66-year-old male with a PMH significant for HTN and long history of psychotic and mood symptoms who had an episode of hypertensive urgency last night when his blood pressure spiked as high as 222/105. 10 mg of IM hydralazine was ordered but patient refused injection. Blood pressure spontaneously came down to 162/70 by 23:00. Patient seen and evaluated for hypertension. Blood pressure in the morning was 140/70. HPI difficult to obtain due to the patient's mentation, but patient does not have any acute complaints at the moment. No headache, changes to vision or hearing. Denies chest pain/pressure, palpitations. No shortness of breath. Of note patient also has chronic lower leg edema on compression stockings. We will increase his lisinopril to 40 mg daily, but hold off on adding another agent at this time. # HTN -- pt's moring BP 1470 -- chart review shows chronically elevated SBP >150 -- increase lisinopril to 40mg qd -- monitor BP and consider adding amlodipine 5mg if refractory # left-leg edema -- continue wearing compression stockings Thank you for allowing me to participate in the care of this patient. Sign off at this time. Please consult again if there are any questions or additional concerns. <AMANDA Grey - Last Filed: 05/01/22 13:41> Patient is a 66-year-old male with a PMH significant for HTN and long history of psychotic and mood symptoms who had an episode of hypertensive urgency last night when his blood pressure spiked as high as 222/105. 10 mg of IM hydralazine was ordered but patient refused injection. Blood pressure spontaneously came down to 162/70 by 23:00. Patient seen and evaluated for hypertension. Blood pressure in the morning was 140/70. HPI difficult to obtain due to the patient's mentation, but patient does not have any acute complaints at the moment. No headache, changes to vision or hearing. Denies chest pain/pressure, palpitations. No shortness of breath. Of note patient also has chronic lower leg edema on compression stockings. We will increase his lisinopril to 40 mg daily, but hold off on adding another agent at this time. # HTN -- pt's moring BP 14/70 -- chart review shows chronically elevated SBP >150 -- increase lisinopril to 40mg qd -- monitor BP and consider adding HCTZ 25 mg daily # left-leg edema -- continue wearing compression stockings Thank you for allowing me to participate in the care of this patient. Sign off at this time. Please consult again if there are any questions or additional concerns. <Devin Henry MD - Last Filed: 05/01/22 16:45> Time Spent With Patient Time: Total time managing care of this patient today ____ minutes. <AMANDA Grey - Last Filed: 05/01/22 13:41>
--- NOTE | 2022-05-01 14:30 | P.PNPSI_ITS ---
Subjective Subjective Date of Service: 05/01/22 Reason For Visit: Psychosis Interim History: The nursing staff reported the patient continues to roam the unit. He received PRN olanzapine which helped and he became less loud. He approaches this check writer salesperson and started talking about the bible, citing verses, asking for this check writer salesperson to interpret their meaning. He talked about Ron saving his soul. He continues disorganized and hyperreligious. Nonsensical. He has been med compliant PO per nursing. Had a HTN urgency last night. He is asymptomatic. (No CP, SOB, vision changes, headaches). He was seen by hospitalist and Lisinopril increased to 40 mg with a possibility of adding Amlodipine depending on response. Review of Systems Review of Systems Difficult to obtain due to patient's mentation Denies headache No vision changes Denies chest pain/pressure, palpitations No shortness of breath Yes all other systems are reviewed and are negative and Unobtainable due to mental status Mental Status Exam Mental Status Exam Patient Appearance: Disheveled and Inappropriate Patient Orientation: Person, Place and Situation Level of Consciousness: Awake and Restless Patient Behavior: Guarded, Suspicious, Belligerent, Invasion - Personal Space, Uncooperative and Pacing Mood Description: Hostile and Expansive Affect Description: Elated and Expansive Patient Cognition Impaired: Yes Ability to Follow Directions: Good Speech Pattern: Perseverating, Rambling, Inappropriate, Excessive and Loud Delusions: Grandiose and Bizarre Thought Process: Illogical Thought Content: positive for Perseveration, positive for Preoccupation, positive for Loose Associations and positive for Disorganized Judgement: Poor Diagnostics Vital Signs (24Hr): Vital Signs - 24 hr 04/30/22 19:54 04/30/22 19:54 04/30/22 19:58 Temperature 97.8 F Pulse Rate 98 Respiratory Rate 18 Blood Pressure 205/108 H 222/105 H 200/110 H Pulse Oximetry 99 Oxygen Delivery Method Room Air 04/30/22 22:00 04/30/22 23:00 05/01/22 08:00 Temperature 96.9 F Pulse Rate 93 66 Respiratory Rate 16 Blood Pressure 217/103 H 162/70 H 140/70 H Pulse Oximetry 100 Oxygen Delivery Method Room Air BMI result Body Mass Index 23.3 Labs Results: 04/24/22 20:41 01/01/23 22:40 Labs: Laboratory Results - last 48 hr 04/30/22 04/30/22 22:40 22:40 Sodium 141 Potassium 3.6 Chloride 103 Carbon Dioxide 29 Anion Gap 13 BUN 13 Creatinine 0.89 Estim Creat Clear Calc 71.0 Estimated GFR > 60 Random Glucose 134 H Calcium 9.0 D Troponin I High Sens 10.3 Medications Medications Current Medications Acetaminophen (Acetaminophen 325 Mg Tablet) 650 mg PO Q6H PRN PRN Reason: Headache/Pain Mild Scale (1-3) Last Admin: 04/29/22 15:29 Dose: 650 mg Al Hydroxide/Mg Hydroxide (Magnesium Hydrox/Alum Hydrox 30 Ml Oral.Susp) 30 ml PO Q6H PRN PRN Reason: Heartburn/Nausea Divalproex Sodium (Divalproex Sodium 500 Mg Tablet.Dr) 1,000 mg PO BEDTIME [facility] Last Admin: 04/30/22 20:12 Dose: 1,000 mg Hydrochlorothiazide (Hydrochlorothiazide 12.5 Mg Tablet) 12.5 mg PO DAILY JOHN; Protocol Hydroxyzine HCl (Hydroxyzine Hcl 25 Mg Tablet) 25 mg PO Q6H PRN PRN Reason: Anxiety Last Admin: 04/29/22 20:18 Dose: 25 mg Labetalol HCl (Labetalol Hcl 100 Mg Tablet) 300 mg PO BID [facility] Last Admin: 05/01/22 08:49 Dose: 300 mg Lisinopril (Lisinopril 40 Mg Tablet) 40 mg PO BEDTIME JOHN; Protocol Magnesium Hydroxide (Milk Of Magnesia 30 Ml Oral.Susp) 30 ml PO DAILY PRN PRN Reason: Constipation Olanzapine (Olanzapine 5 Mg Tablet) 5 mg PO DAILY [facility] Last Admin: 05/01/22 08:49 Dose: 5 mg Olanzapine (Olanzapine 7.5 Mg Tablet) 15 mg PO BEDTIME [facility] Last Admin: 04/30/22 20:12 Dose: 15 mg Olanzapine (Olanzapine Odt 10 Mg Tab.Rapdis) 5 mg TRANSLINGU BID PRN PRN Reason: Psychosis Last Admin: 05/01/22 10:19 Dose: 5 mg Risperidone (Risperidone 2 Mg Tablet) 2 mg PO BID [facility] Last Admin: 05/01/22 08:49 Dose: 2 mg Tamsulosin HCl (Tamsulosin Hcl 0.4 Mg Capsule) 0.4 mg PO BEDTIME [facility] Last Admin: 04/30/22 20:16 Dose: Not Given Trazodone HCl (Trazodone Hcl 50 Mg Tablet) 50 mg PO BEDTIME PRN PRN Reason: Insomnia Last Admin: 04/29/22 20:18 Dose: 50 mg Allergies Allergies Allergy/AdvReac Type Severity Reaction Status Date / Time No Known Allergies Allergy Unverified 01/15/20 16:15 [No Known Allergies*] Assessment & Plan Assessment & Plan (1) Hypertension: Status: Acute Code(s): I10 - Essential (primary) hypertension (2) Acute psychosis: Status: Acute Code(s): F23 - Brief psychotic disorder Assessment and Plan: The patient is an elderly male from [facility] does, with a long history of psychotic and mood symptoms, [facility] case managed and resident of [facility] with her prior admissions into the hospital for psychotic decompensation with steve in the context of noncompliance.? Historically had several admissions for the same reason.? He has a guardian and the role years order.? Plan 1. Gather collateral information.? We will try to contact the staff of the [facility] to get his medication reconciliation form.? Apparently he has last Haldol deck was on February but it is unclear we will try to get a more detailed information.? 2. Continue with the same medications that we have as per medication reconciliation.? 3. Regular blood work as per protocol.? 4. Regular observation. 5.? Invega Sustenna and Haldol Decanoate IM today 04/29/22: Added Zyprexa Zydis 5 mg PRN irritability, agitation and psychosis. He has been loud and disruptive on the unit. 04/30: Continue treatment plan. 05/01 Continue tx plan. Plan Patient is a 66-year-old male with a PMH significant for HTN and long history of psychotic and mood symptoms who had an episode of hypertensive urgency last h when his blood pressure spiked as high as 222/105. 10 mg of IM hydralazine was ordered but patient refused injection. Blood pressure spontaneously came down to 162/70 by 23:00. Patient seen and evaluated for hypertension. Blood pressure in the morning was 140/70. HPI difficult to obtain due to the patient's mentation, but patient does not have any acute complaints at the moment. No headache, changes to vision or hearing. Denies chest pain/pressure, palpitations. No shortness of breath. Of note patient also has chronic lower leg edema on compression stockings. We will increase his lisinopril to 40 mg daily, but hold off on adding another agent at this time. # HTN -- pt's moring BP -- chart review shows chronically elevated SBP >150 -- increase lisinopril to 40mg qd -- monitor BP and consider adding HCTZ 25 mg daily # left-leg edema -- continue wearing compression stockings Thank you for allowing me to participate in the care of this patient. Sign off at this time. Please consult again if there are any questions or additional concerns. Reason for contiued inpatient stay Substantial Risk for: inability to function and rapid decompensation Time Spent With Patient Time: Total time managing care of this patient today ____ minutes.
[2022-05-01 18:00] VITALS: BP 169/88; PULSE 80; RESP 16; TEMP 36.8; O2SAT 99
[2022-05-01] MEDS: OLANZapine 7.5 MG TABLET 15 MG PO (19:58)
[2022-05-01] MEDS: lisinopriL 40 MG TABLET PO (19:58)
[2022-05-01] MEDS: Divalproex Sodium 500 MG TABLET.DR 1000 MG PO (19:59)
[2022-05-02 06:00] VITALS: BP 170/74; TEMP 36.8
[2022-05-02] MEDS: risperiDONE 2 MG TABLET PO (08:18)
[2022-05-02] MEDS: Labetalol HCL 100 MG TABLET 300 MG PO ×2 (08:18→19:49)
[2022-05-02] MEDS: OLANZapine 5 MG TABLET PO (08:18)
[2022-05-02] MEDS: hydroCHLOROthiazide 12.5 MG TABLET PO (08:18)
--- NOTE | 2022-05-02 12:54 | P.PNPSI_ITS ---
Subjective Subjective Date of Service: 05/02/22 Reason For Visit: Psychosis Subjective Notes: Section 12B (Filed for Section 7 and 8) Interim History: The nursing staff reports the patient still hypomanic, hyperverbal intrusive at times. Last night he slept only 4 hours. The staff reported the patient received his IM Invega Sustenna Haldol Decanoate last Sunday but still he is manic. I approached today and explained him that in order to stay here legally he needs to be on a Section 7 or 8 or conditional voluntary. He refused to sign any papers and he was agitated at times. Still very manic. Mental Status Exam Mental Status Exam Patient Appearance: Disheveled and Unkempt Patient Orientation: Person and Situation Level of Consciousness: Awake and Appropriate Patient Behavior: Talkative, Restless and Wandering Mood Description: Elated Affect Description: Labile Patient Cognition Impaired: Yes Ability to Follow Directions: Fair Speech Pattern: Clear Hallucinations: None Delusions: Grandiose and Ideas of Reference Thought Process: Racing and Illogical Thought Content: positive for [place], positive for Poverty of Content and positive for Thought Blocking Judgement: Fair Diagnostics Vital Signs (24Hr): Vital Signs - 24 hr 05/01/22 18:00 05/02/22 06:00 Temperature 98.2 F 98.2 F Pulse Rate 80 Respiratory Rate 16 Blood Pressure 169/88 H 170/74 H Pulse Oximetry 99 Oxygen Delivery Method Room Air BMI result Body Mass Index 23.3 Labs Results: 04/24/22 20:41 04/30/22 22:40 Labs: Laboratory Results - last 48 hr 04/30/22 04/30/22 22:40 22:40 Sodium 141 Potassium 3.6 Chloride 103 Carbon Dioxide 29 Anion Gap 13 BUN 13 Creatinine 0.89 Estim Creat Clear Calc 71.0 Estimated GFR > 60 Random Glucose 134 H Calcium 9.0 D Troponin I High Sens 10.3 Medications Medications Current Medications Acetaminophen (Acetaminophen 325 Mg Tablet) 650 mg PO Q6H PRN PRN Reason: Headache/Pain Mild Scale (1-3) Last Admin: 04/29/22 15:29 Dose: 650 mg Al Hydroxide/Mg Hydroxide (Magnesium Hydrox/Alum Hydrox 30 Ml Oral.Susp) 30 ml PO Q6H PRN PRN Reason: Heartburn/Nausea Divalproex Sodium (Divalproex Sodium 500 Mg Tablet.Dr) 1,000 mg PO BEDTIME JOHN Last Admin: 05/01/22 19:59 Dose: 1,000 mg Hydrochlorothiazide (Hydrochlorothiazide 12.5 Mg Tablet) 12.5 mg PO DAILY JOHN; Protocol Last Admin: 05/02/22 08:18 Dose: 12.5 mg Hydroxyzine HCl (Hydroxyzine Hcl 25 Mg Tablet) 25 mg PO Q6H PRN PRN Reason: Anxiety Last Admin: 04/29/22 20:18 Dose: 25 mg Labetalol HCl (Labetalol Hcl 100 Mg Tablet) 300 mg PO BID JOHN Last Admin: 05/02/22 08:18 Dose: 300 mg Lisinopril (Lisinopril 40 Mg Tablet) 40 mg PO BEDTIME JOHN; Protocol Last Admin: 05/01/22 19:58 Dose: 40 mg Magnesium Hydroxide (Milk Of Magnesia 30 Ml Oral.Susp) 30 ml PO DAILY PRN PRN Reason: Constipation Olanzapine (Olanzapine 5 Mg Tablet) 5 mg PO DAILY JOHN Last Admin: 05/02/22 08:18 Dose: 5 mg Olanzapine (Olanzapine 7.5 Mg Tablet) 15 mg PO BEDTIME JOHN Last Admin: 05/01/22 19:58 Dose: 15 mg Olanzapine (Olanzapine Odt 10 Mg Tab.Rapdis) 5 mg TRANSLINGU BID PRN PRN Reason: Psychosis Last Admin: 05/01/22 10:19 Dose: 5 mg Tamsulosin HCl (Tamsulosin Hcl 0.4 Mg Capsule) 0.4 mg PO BEDTIME JOHN Last Admin: 05/01/22 20:07 Dose: Not Given Trazodone HCl (Trazodone Hcl 50 Mg Tablet) 50 mg PO BEDTIME PRN PRN Reason: Insomnia Last Admin: 04/29/22 20:18 Dose: 50 mg Allergies Allergies Allergy/AdvReac Type Severity Reaction Status Date / Time No Known Allergies Allergy Unverified 01/15/20 16:15 [No Known Allergies*] Assessment & Plan Assessment & Plan (1) Hypertension: Status: Acute Code(s): I10 - Essential (primary) hypertension (2) Acute psychosis: Status: Acute Code(s): F23 - Brief psychotic disorder Assessment and Plan: The patient is an elderly male from verbal does, with a long history of psychotic and mood symptoms, [facility] case managed and resident of group homes with her prior admissions into the hospital for psychotic decompensation with steve in the context of noncompliance.? Historically had several admissions for the same reason.? He has a guardian and the role years order.? Plan 1. Gather collateral information.? We will [facility] to contact [facility] staff of the [facility] to get his medication reconciliation form.? Apparently he has last Haldol deck was on February but it is unclear we will try to get a more detailed information.? 2. Continue with the same medications that we have as per medication reconciliation.? 3. Regular blood work as per protocol.? 4. Regular observation. 5.? Invega Sustenna and Haldol Decanoate IM on April 28 Plan Patient is a 66-year-old male with a PMH significant for HTN and long history of psychotic and mood symptoms who had an episode of hypertensive urgency last night when his blood pressure spiked as high as 222/105. 10 mg of IM hydralazine was ordered but patient refused injection. Blood pressure spontaneously came down to 162/70 by 23:00. Patient seen and evaluated for hypertension. Blood pressure in the morning was 140/70. HPI difficult to ob tain due to the patient's mentation, but patient does not have any acute complaints at the moment. No headache, changes to vision or hearing. Denies chest pain/pressure, palpitations. No shortness of breath. Of note patient also has chronic lower leg edema on compression stockings. We will increase his lisinopril to 40 mg daily, but hold off on adding another agent at this time. # HTN -- pt's moring BP 14/70 -- chart review shows chronically elevated SBP >150 -- increase lisinopril to 40mg qd -- monitor BP and consider adding HCTZ 25 mg daily # left-leg edema -- continue wearing compression stockings Thank you for allowing me to participate in the care of this patient. Sign off at this time. Please consult again if there are any questions or additional concerns. Informed Consent: further education needed Reason for contiued inpatient stay Substantial Risk for: inability to function, rapid decompensation and med/psych decompensation Time Spent With Patient Time: Total time managing care of this patient today _20___ minutes.
[2022-05-02 18:00] VITALS: BP 193/85; PULSE 90; RESP 18; TEMP 36.3; O2SAT 100
[2022-05-02] MEDS: traZODone HCL 50 MG TABLET PO (19:47)
[2022-05-02] MEDS: lisinopriL 40 MG TABLET PO (19:47)
[2022-05-02] MEDS: OLANZapine 7.5 MG TABLET 15 MG PO (19:49)
[2022-05-02] MEDS: Divalproex Sodium 500 MG TABLET.DR 1000 MG PO (19:49)
[2022-05-02] MEDS: OLANZapine ODT 10 MG TAB.RAPDIS 5 MG TRANSLINGU (20:55)
[2022-05-03 08:45] VITALS: BP 168/67; PULSE 92; RESP 16; O2SAT 99
[2022-05-03] MEDS: hydroCHLOROthiazide 12.5 MG TABLET PO (09:14)
[2022-05-03] MEDS: Labetalol HCL 100 MG TABLET 300 MG PO ×2 (09:14→20:07)
[2022-05-03] MEDS: OLANZapine 5 MG TABLET PO (09:14)
--- NOTE | 2022-05-03 13:30 | P.PNPSI_ITS ---
Subjective Subjective Date of Service: 05/03/22 Reason For Visit: Psychosis Subjective Notes: Conditional Voluntary Interim History: The patient remains manic and grandiose, last night he slept only 6 hours and he needed to use p.r.n. Zyprexa. The staff has requested increase the p.r.n. from 5-10 mg since the patient is still manic. On interview the patient was very loud he demanded to be discharged I explained that we filed for Section 7 and 8 and I need to call security to deescalate him. Still not responding to Invega IM and Haldol Decanoate. As per role years order, the patient is on 3 antipsychotics. Zyprexa p.o. 5 mg in the morning and 15 at night. Mental Status Exam Mental Status Exam Patient Appearance: Well Grooomed Patient Orientation: Person and Situation Level of Consciousness: Awake and Appropriate Patient Behavior: Guarded, Passive and Aggressive Mood Description: Hostile and Expansive Affect Description: Labile Patient Cognition Impaired: Yes Ability to Follow Directions: Good Speech Pattern: Clear Hallucinations: None Delusions: Grandiose Thought Process: Racing and Illogical Thought Content: positive for Obsessional Thoughts, positive for Perseveration and positive for Thought Blocking Judgement: Fair Diagnostics Vital Signs (24Hr): Vital Signs - 24 hr 05/02/22 18:00 05/03/22 08:45 Temperature 97.4 F Pulse Rate 90 92 Respiratory Rate 18 16 Blood Pressure 193/85 H 168/67 H Pulse Oximetry 100 99 Oxygen Delivery Method Room Air Room Air BMI result Body Mass Index 23.3 Labs Results: 04/24/22 20:41 04/30/22 22:40 Medications Medications Current Medications Acetaminophen (Acetaminophen 325 Mg Tablet) 650 mg PO Q6H PRN PRN Reason: Headache/Pain Mild Scale (1-3) Last Admin: 04/29/22 15:29 Dose: 650 mg Al Hydroxide/Mg Hydroxide (Magnesium Hydrox/Alum Hydrox 30 Ml Oral.Susp) 30 ml PO Q6H PRN PRN Reason: Heartburn/Nausea Divalproex Sodium (Divalproex Sodium 500 Mg Tablet.Dr) 1,000 mg PO BEDTIME JOHN Last Admin: 05/02/22 19:49 Dose: 1,000 mg Hydrochlorothiazide (Hydrochlorothiazide 12.5 Mg Tablet) 12.5 mg PO DAILY JOHN; Protocol Last Admin: 05/03/22 09:14 Dose: 12.5 mg Hydroxyzine HCl (Hydroxyzine Hcl 25 Mg Tablet) 25 mg PO Q6H PRN PRN Reason: Anxiety Last Admin: 04/29/22 20:18 Dose: 25 mg Labetalol HCl (Labetalol Hcl 100 Mg Tablet) 300 mg PO BID JOHN Last Admin: 05/03/22 09:14 Dose: 300 mg Lisinopril (Lisinopril 40 Mg Tablet) 40 mg PO BEDTIME JOHN; Protocol Last Admin: 05/02/22 19:47 Dose: 40 mg Magnesium Hydroxide (Milk Of Magnesia 30 Ml Oral.Susp) 30 ml PO DAILY PRN PRN Reason: Constipation Olanzapine (Olanzapine 5 Mg Tablet) 5 mg PO DAILY JOHN Last Admin: 05/03/22 09:14 Dose: 5 mg Olanzapine (Olanzapine 7.5 Mg Tablet) 15 mg PO BEDTIME JOHN Last Admin: 05/02/22 19:49 Dose: 15 mg Olanzapine (Olanzapine Odt 10 Mg Tab.Rapdis) 10 mg TRANSLINGU BID PRN PRN Reason: Psychosis Tamsulosin HCl (Tamsulosin Hcl 0.4 Mg Capsule) 0.4 mg PO BEDTIME JOHN Last Admin: 05/02/22 19:51 Dose: Not Given Trazodone HCl (Trazodone Hcl 50 Mg Tablet) 50 mg PO BEDTIME PRN PRN Reason: Insomnia Last Admin: 05/02/22 19:47 Dose: 50 mg Allergies Allergies Allergy/AdvReac Type Severity Reaction Status Date / Time No Known Allergies Allergy Unverified 01/15/20 16:15 [No Known Allergies*] Assessment & Plan Assessment & Plan (1) Hypertension: Status: Acute Code(s): I10 - Essential (primary) hypertension (2) Acute psychosis: Status: Acute Code(s): F23 - Brief psychotic disorder Assessment and Plan: The patient is an elderly male from verbal does, with a long history of psychotic and mood symptoms, [facility] case managed and resident of [facility] with her prior admissions into the hospital for psychotic decompensation with steve in the context of noncompliance.? Historically had several admissions for the same reason.? He has a guardian and the role years order.? Plan 1. Gather collateral information.? We will try to contact the staff of the [facility] to get his medication reconciliation form.? Apparently he has last Haldol deck was on February but it is unclear we will try to get a more detailed information.? 2. Continue with the same medications that we have as per medication reconciliation.? 3. Regular blood work as per protocol.? 4. Regular observation. 5.? Invega Sustenna and Haldol Decanoate IM on April 28. 6. Increased p.r.n. Zyprexa from 5-10 mg on May 03. Plan Patient is a 66-year-old male with a PMH significant for HTN and long history of psychotic and mood symptoms who had an episode of hypertensive urgency last nig ht when his blood pressure spiked as high as 222/105. 10 mg of IM hydralazine was ordered but patient refused injection. Blood pressure spontaneously came down to 162/70 by 23:00. Patient seen and evaluated for hypertension. Blood pressure in the morning was 140/70. HPI difficult to obtain due to the patient's mentation, but patient does not have any acute complaints at the moment. No headache, changes to vision or hearing. Denies chest pain/pressure, palpitations. No shortness of breath. Of note patient also has chronic lower leg edema on compression stockings. We will increase his lisinopril to 40 mg daily, but hold off on adding another agent at this time. # HTN -- pt's moring BP 14/70 -- chart review shows chronically elevated SBP >150 -- increase lisinopril to 40mg qd -- monitor BP and consider adding HCTZ 25 mg daily # left-leg edema -- continue wearing compression stockings Thank you for allowing me to participate in the care of this patient. Sign off at this time. Please consult again if there are any questions or additional concerns. Reason for contiued inpatient stay Substantial Risk for: inability to function, rapid decompensation and med/psych decompensation Time Spent With Patient Time: Total time managing care of this patient today __20__ minutes.
[2022-05-03] MEDS: Acetaminophen 325 MG TABLET 650 MG PO (16:11)
[2022-05-03] MEDS: hydrOXYzine HCL 25 MG TABLET PO (16:11)
[2022-05-03] MEDS: OLANZapine ODT 10 MG TAB.RAPDIS TRANSLINGU (16:12)
[2022-05-03 18:00] VITALS: BP 194/94; PULSE 86; RESP 18; TEMP 36.5; O2SAT 98
[2022-05-03] MEDS: Divalproex Sodium 500 MG TABLET.DR 1000 MG PO (20:07)
[2022-05-03] MEDS: OLANZapine 7.5 MG TABLET 15 MG PO (20:07)
[2022-05-03] MEDS: traZODone HCL 50 MG TABLET PO (20:08)
[2022-05-04] MEDS: lisinopriL 40 MG TABLET PO ×2 (04:30→20:05)
[2022-05-04 07:30] VITALS: BP 184/83; PULSE 89; RESP 12; TEMP 36.6; O2SAT 97
[2022-05-04] MEDS: Labetalol HCL 100 MG TABLET 300 MG PO ×2 (08:13→20:05)
[2022-05-04] MEDS: OLANZapine 5 MG TABLET PO (08:13)
[2022-05-04] MEDS: hydroCHLOROthiazide 12.5 MG TABLET PO (08:13)
[2022-05-04] MEDS: OLANZapine ODT 10 MG TAB.RAPDIS TRANSLINGU ×2 (14:54→23:59)
--- NOTE | 2022-05-04 15:56 | HO.PSYCHPN ---
Subjective Subjective Date of Service: 05/04/22 Reason For Visit: Psychosis Subjective Notes: Conditional Voluntary Interim History: The nursing staff reported the patient had been manic, intrusive, needed Zyprexa p.r.n. 10 mg at 16:00. He has been loud yelling to other patients and yelling who who ever was talking over the phone. The court date has been changed to May 18 and he had been very angry for that. He has been hyper really use. Today in the afternoon with so a mild improvement but still grossly manic. No response with 3 antipsychotics. On interview he remains religiously preoccupied confused and manic. Mental Status Exam Mental Status Exam Patient Appearance: Disheveled Patient Orientation: Person and Situation Level of Consciousness: Awake Patient Behavior: Guarded, Talkative and Restless Mood Description: Anxious and Expansive Affect Description: Labile Patient Cognition Impaired: Yes Ability to Follow Directions: Good Speech Pattern: Clear Hallucinations: None Delusions: Paranoid Ideation and Grandiose Thought Process: Racing Thought Content: positive for [place], positive for Poverty of Content, positive for Loose Associations and positive for Tangential Judgement: Poor Diagnostics Vital Signs (24Hr): Vital Signs - 24 hr 05/03/22 18:00 05/04/22 07:30 Temperature 97.7 F 97.8 F Pulse Rate 86 89 Respiratory Rate 18 12 Blood Pressure 194/94 H 184/83 H Pulse Oximetry 98 97 Oxygen Delivery Method Room Air Room Air BMI result Body Mass Index 23.3 Labs 04/24/22 20:41 04/30/22 22:40 Medications Medications Current Medications Acetaminophen (Acetaminophen 325 Mg Tablet) 650 mg PO Q6H PRN PRN Reason: Headache/Pain Mild Scale (1-3) Last Admin: 05/03/22 16:11 Dose: 650 mg Al Hydroxide/Mg Hydroxide (Magnesium Hydrox/Alum Hydrox 30 Ml Oral.Susp) 30 ml PO Q6H PRN PRN Reason: Heartburn/Nausea Divalproex Sodium (Divalproex Sodium 500 Mg Tablet.) 1,000 mg PO BEDTIME JOHN Last Admin: 05/03/22 20:07 Dose: 1,000 mg Hydrochlorothiazide (Hydrochlorothiazide 12.5 Mg Tablet) 12.5 mg PO DAILY JOHN; Protocol Last Admin: 05/04/22 08:13 Dose: 12.5 mg Hydroxyzine HCl (Hydroxyzine Hcl 25 Mg Tablet) 25 mg PO Q6H PRN PRN Reason: Anxiety Last Admin: 05/03/22 16:11 Dose: 25 mg Labetalol HCl (Labetalol Hcl 100 Mg Tablet) 300 mg PO BID JOHN Last Admin: 05/04/22 08:13 Dose: 300 mg Lisinopril (Lisinopril 40 Mg Tablet) 40 mg PO BEDTIME JOHN; Protocol Last Admin: 05/04/22 04:30 Dose: 40 mg Magnesium Hydroxide (Milk Of Magnesia 30 Ml Oral.Susp) 30 ml PO DAILY PRN PRN Reason: Constipation Olanzapine (Olanzapine 5 Mg Tablet) 5 mg PO DAILY JOHN Last Admin: 05/04/22 08:13 Dose: 5 mg Olanzapine (Olanzapine 7.5 Mg Tablet) 15 mg PO BEDTIME JOHN Last Admin: 05/03/22 20:07 Dose: 15 mg Olanzapine (Olanzapine Odt 10 Mg Tab.Rapdis) 10 mg TRANSLINGU BID PRN PRN Reason: Psychosis Last Admin: 05/04/22 14:54 Dose: 10 mg Tamsulosin HCl (Tamsulosin Hcl 0.4 Mg Capsule) 0.4 mg PO BEDTIME JOHN Last Admin: 05/03/22 20:10 Dose: Not Given Trazodone HCl (Trazodone Hcl 50 Mg Tablet) 50 mg PO BEDTIME PRN PRN Reason: Insomnia Last Admin: 05/03/22 20:08 Dose: 50 mg Allergies Allergies Allergy/AdvReac Type Severity Reaction Status Date / Time No Known Allergies Allergy Unverified 01/15/20 16:15 [No Known Allergies*] Assessment & Plan Assessment & Plan (1) Hypertension: Status: Acute Code(s): I10 - Essential (primary) hypertension (2) Acute psychosis: Status: Acute Code(s): F23 - Brief psychotic disorder Assessment and Plan: The patient is an elderly male from verbal does, with a long history of psychotic and mood symptoms, [facility] case managed and resident of [facility] with her prior admissions into the hospital for psychotic decompensation with steve in the context of noncompliance.? Historically had several admissions for the same reason.? He has a guardian and the role years order.? Plan 1. Gather collateral information.? We will try to contact the staff of the [facility] to get his medication reconciliation form.? Apparently he has last Haldol deck was on February but it is unclear we will try to get a more detailed information.? 2. Continue with the same medications that we have as per medication reconciliation.? 3. Regular blood work as per protocol.? 4. Regular observation. 5.? Invega Sustenna and Haldol Decanoate IM on April 28. 6. Increased p.r.n. Zyprexa from 5-10 mg on May 03. Plan Patient is a 66-year-old male with a PMH significant for HTN and long history of psychotic and mood symptoms who had an episode of hypertensive urgency last night when his blood pressure spiked as high as 222/105. 10 mg of IM hydralazine was ordered but patient refused injection. Blood pressure spontaneously came down to 162/70 by 23:00. Patient seen and evaluated for hypertension. Blood pressure in the morning was 140/70. HPI difficult to obtain due to the patient's mentation, but patient does not have any acute complaints at the moment. No headache, changes to vision or hearing. Denies chest pain/pressure, palpitations. No shortness of breath. Of note patient also has chronic lower leg edema on compression stockings. We will increase his lisinopril to 40 mg daily, but hold off on adding another agent at this time. # HTN -- pt's moring BP 14/70 -- chart review shows chronically elevated SBP >150 -- increase lisinopril to 40mg qd -- monitor BP and consider adding HCTZ 25 mg daily # left-leg edema -- continue wearing compression stockings Thank you for allowing me to participate in the care of this patient. Sign off at this time. Please consult again if there are any questions or additional concerns. Reason for contiued inpatient stay Substantial Risk for: inability to function, rapid decompensation and med/psych decompensation Time Spent With Patient Time: Total time managing care of this patient today ____ minutes.
[2022-05-04 18:00] VITALS: BP 210/94; PULSE 88; RESP 18; TEMP 36.7; O2SAT 100
[2022-05-04] MEDS: Divalproex Sodium 500 MG TABLET.DR 1000 MG PO (20:05)
[2022-05-04] MEDS: OLANZapine 7.5 MG TABLET 15 MG PO (20:06)
[2022-05-04] MEDS: Tamsulosin HCL 0.4 MG CAPSULE PO (20:07)
[2022-05-04] MEDS: Acetaminophen 325 MG TABLET 650 MG PO (23:58)
[2022-05-05 07:30] VITALS: BP 183/93; PULSE 84; RESP 15; TEMP 36.4; O2SAT 99
[2022-05-05] MEDS: hydroCHLOROthiazide 12.5 MG TABLET PO (10:22)
[2022-05-05] MEDS: Labetalol HCL 100 MG TABLET 300 MG PO ×2 (10:22→20:34)
[2022-05-05] MEDS: OLANZapine 5 MG TABLET PO (10:22)
[2022-05-05] MEDS: OLANZapine ODT 10 MG TAB.RAPDIS TRANSLINGU (15:57)
--- NOTE | 2022-05-05 16:04 | HO.PSYCHPN ---
Subjective Subjective Date of Service: 05/05/22 Reason For Visit: Psychosis Subjective Notes: Section 7 and Section 8 Interim History: The nursing staff reported the patient has been very manic and intrusive, yesterday he required p.r.n. Zyprexa p.o.. On interview the patient remains with disorganized thought process and racing thoughts but more redirectable than yesterday. We will continue with Invega Sustenna 234, Haldol Decanoate 300 mg and Zyprexa. P.r.n. Zyprexa will be increased to 10 mg p.o. b.i.d.. Mental Status Exam Mental Status Exam Patient Appearance: Unkempt Patient Orientation: Person and Situation Level of Consciousness: Awake Patient Behavior: Guarded Mood Description: Elated Affect Description: Labile Patient Cognition Impaired: Yes Ability to Follow Directions: Good Speech Pattern: Clear Hallucinations: None Delusions: Grandiose Thought Content: positive for [place], positive for Loose Associations and positive for Tangential Judgement: Fair Diagnostics Vital Signs (24Hr): Vital Signs - 24 hr 05/04/22 18:00 05/05/22 07:30 Temperature 98.1 F 97.6 F Pulse Rate 88 84 Respiratory Rate 18 15 Blood Pressure 210/94 H 183/93 H Pulse Oximetry 100 99 Oxygen Delivery Method Room Air Room Air BMI result Body Mass Index 23.3 Labs 04/24/22 20:41 04/30/22 22:40 Medications Medications Current Medications Acetaminophen (Acetaminophen 325 Mg Tablet) 650 mg PO Q6H PRN PRN Reason: Headache/Pain Mild Scale (1-3) Last Admin: 05/04/22 23:58 Dose: 650 mg Al Hydroxide/Mg Hydroxide (Magnesium Hydrox/Alum Hydrox 30 Ml Oral.Susp) 30 ml PO Q6H PRN PRN Reason: Heartburn/Nausea Divalproex Sodium (Divalproex Sodium 500 Mg Tablet.) 1,000 mg PO BEDTIME JOHN Last Admin: 05/04/22 20:05 Dose: 1,000 mg Hydrochlorothiazide (Hydrochlorothiazide 12.5 Mg Tablet) 12.5 mg PO DAILY JOHN; Protocol Last Admin: 05/05/22 10:22 Dose: 12.5 mg Hydroxyzine HCl (Hydroxyzine Hcl 25 Mg Tablet) 25 mg PO Q6H PRN PRN Reason: Anxiety Last Admin: 05/03/22 16:11 Dose: 25 mg Labetalol HCl (Labetalol Hcl 100 Mg Tablet) 300 mg PO BID JOHN Last Admin: 05/05/22 10:22 Dose: 300 mg Lisinopril (Lisinopril 40 Mg Tablet) 40 mg PO BEDTIME JOHN; Protocol Last Admin: 05/04/22 20:05 Dose: 40 mg Magnesium Hydroxide (Milk Of Magnesia 30 Ml Oral.Susp) 30 ml PO DAILY PRN PRN Reason: Constipation Olanzapine (Olanzapine 5 Mg Tablet) 5 mg PO DAILY JOHN Last Admin: 05/05/22 10:22 Dose: 5 mg Olanzapine (Olanzapine 7.5 Mg Tablet) 15 mg PO BEDTIME JOHN Last Admin: 05/04/22 20:06 Dose: 15 mg Olanzapine (Olanzapine Odt 10 Mg Tab.Rapdis) 10 mg TRANSLINGU BID PRN PRN Reason: Psychosis Last Admin: 05/05/22 15:57 Dose: 10 mg Tamsulosin HCl (Tamsulosin Hcl 0.4 Mg Capsule) 0.4 mg PO BEDTIME JOHN Last Admin: 05/04/22 20:07 Dose: 0.4 mg Trazodone HCl (Trazodone Hcl 50 Mg Tablet) 50 mg PO BEDTIME PRN PRN Reason: Insomnia Last Admin: 05/03/22 20:08 Dose: 50 mg Allergies Allergies Allergy/AdvReac Type Severity Reaction Status Date / Time No Known Allergies Allergy Unverified 01/15/20 16:15 [No Known Allergies*] Assessment & Plan Assessment & Plan (1) Hypertension: Status: Acute Code(s): I10 - Essential (primary) hypertension (2) Acute psychosis: Status: Acute Code(s): F23 - Brief psychotic disorder Assessment and Plan: The patient is an elderly male from [facility], with a long history of psychotic and mood symptoms, [facility] case managed and resident of [facility] with her prior admissions into the hospital for psychotic decompensation with steve in the context of noncompliance.? Historically had several admissions for the same reason.? He has a guardian and the role years order.? Plan 1. Gather collateral information.? [facility] to [facility].? Apparently he has last Haldol deck was on February but it is unclear we will try to get a more detailed information.? 2. Continue with the same medications that we have as per medication reconciliation.? 3. Regular blood work as per protocol.? 4. Regular observation. 5.? Invega Sustenna and Haldol Decanoate IM on April 28. 6. Increased p.r.n. Zyprexa from 5-10 mg on May 03. Plan Patient is a 66-year-old male with a PMH significant for HTN and long history of psychotic and mood symptoms who had an episode of hypertensive urgency last night when his blood pressure spiked as high as 222/105. 10 mg of IM hydralazine was ordered but patient refused injection. Blood pressure spontaneously came down to 162/70 by 23:00. Patient seen and evaluated for hypertension. Blood pressure in the morning was 140/70. HPI difficult to obtain due to the patient's mentation, but patient does not have any acute complaints at the moment. No headache, changes to vision or hearing. Denies chest pain/pressure, palpitations. No shortness of breath. Of note patient also has chronic lower leg edema on compression stockings. We will increase his lisinopril to 40 mg daily, but hold off on adding another agent at this time. # HTN -- pt's moring BP 14/70 -- chart review shows chronically elevated SBP >150 -- increase lisinopril to 40mg qd -- monitor BP and consider adding HCTZ 25 mg daily # left-leg edema -- continue wearing compression stockings Thank you for allowing me to participate in the care of this patient. Sign off at this time. Please consult again if there are any questions or additional concerns. Reason for contiued inpatient stay Substantial Risk for: inability to function, rapid decompensation and med/psych decompensation Time Spent With Patient Time: Total time managing care of this patient today _20___ minutes.
[2022-05-05 18:00] VITALS: BP 192/86; PULSE 89; RESP 18; O2SAT 98
[2022-05-05] MEDS: Divalproex Sodium 500 MG TABLET.DR 1000 MG PO (20:33)
[2022-05-05] MEDS: lisinopriL 40 MG TABLET PO (20:34)
[2022-05-05] MEDS: Tamsulosin HCL 0.4 MG CAPSULE PO (20:35)
[2022-05-05] MEDS: OLANZapine 7.5 MG TABLET 15 MG PO (20:35)
[2022-05-05] MEDS: traZODone HCL 50 MG TABLET PO (20:35)
[2022-05-06 06:00] VITALS: BP 170/82; PULSE 99; RESP 18; TEMP 36.7; O2SAT 99
[2022-05-06] MEDS: hydroCHLOROthiazide 12.5 MG TABLET PO (09:05)
[2022-05-06] MEDS: OLANZapine 5 MG TABLET PO (09:05)
[2022-05-06] MEDS: Labetalol HCL 100 MG TABLET 300 MG PO (09:05)
[2022-05-06] MEDS: Acetaminophen 325 MG TABLET 650 MG PO (11:26)
[2022-05-06] MEDS: hydrOXYzine HCL 25 MG TABLET PO (15:20)
[2022-05-06] MEDS: OLANZapine ODT 10 MG TAB.RAPDIS TRANSLINGU (15:20)
--- NOTE | 2022-05-06 17:37 | P.PNPSI_ITS ---
Subjective Subjective Date of Service: 05/06/22 Reason For Visit: Psychosis Interim History: Patient is disorganized, intermittently yelling loudly in the halls, skipping or dancing around, but pleasant on approach. Patient showed sports writer several pictures that he laxmi and colored, going through each 1 and naming them. Patient insisted sports writer repeat after him and say a prayer. Nursing reports patient refusing psychiatric medications. Mental Status Exam Mental Status Exam Narrative: Pt is alert and oriented; behavior is mostly cooperative, friendly, exuberant; patient is not in distress; disheveled, dressed in casual attire with unkempt hair and hair; mood is described as surviving and affect smiling; eye contact appropriate; Speech difficult to understand as he is edentulous; but otherwise, normal rate with loud volume and staccato for prosody; some psychomotor agitation present; thought process can be goal directed, but also tangential; Thought content is on various random things, difficult to discern; unclear regarding delusional content, paranoid ideations; patient is internally preoccupied. Patients insight and judgment impaired Diagnostics Vital Signs (24Hr): Vital Signs - 24 hr 05/05/22 18:00 05/06/22 06:00 Temperature 98.0 F Pulse Rate 89 99 Respiratory Rate 18 18 Blood Pressure 192/86 H 170/82 H Pulse Oximetry 98 99 Oxygen Delivery Method Room Air Room Air BMI result Body Mass Index 23.3 Labs 04/24/22 20:41 04/30/22 22:40 Medications Medications Current Medications Acetaminophen (Acetaminophen 325 Mg Tablet) 650 mg PO Q6H PRN PRN Reason: Headache/Pain Mild Scale (1-3) Last Admin: 05/06/22 11:26 Dose: 650 mg Al Hydroxide/Mg Hydroxide (Magnesium Hydrox/Alum Hydrox 30 Ml Oral.Susp) 30 ml PO Q6H PRN PRN Reason: Heartburn/Nausea Divalproex Sodium (Divalproex Sodium 500 Mg Tablet.) 1,000 mg PO BEDTIME JOHN Last Admin: 05/05/22 20:33 Dose: 1,000 mg Hydrochlorothiazide (Hydrochlorothiazide 12.5 Mg Tablet) 12.5 mg PO DAILY JOHN; Protocol Last Admin: 05/06/22 09:05 Dose: 12.5 mg Hydroxyzine HCl (Hydroxyzine Hcl 25 Mg Tablet) 25 mg PO Q6H PRN PRN Reason: Anxiety Last Admin: 05/06/22 15:20 Dose: 25 mg Labetalol HCl (Labetalol Hcl 100 Mg Tablet) 300 mg PO BID JOHN Last Admin: 05/06/22 09:05 Dose: 300 mg Lisinopril (Lisinopril 40 Mg Tablet) 40 mg PO BEDTIME JOHN; Protocol Last Admin: 05/05/22 20:34 Dose: 40 mg Magnesium Hydroxide (Milk Of Magnesia 30 Ml Oral.Susp) 30 ml PO DAILY PRN PRN Reason: Constipation Olanzapine (Olanzapine 5 Mg Tablet) 5 mg PO DAILY JOHN Last Admin: 05/06/22 09:05 Dose: 5 mg Olanzapine (Olanzapine 7.5 Mg Tablet) 15 mg PO BEDTIME JOHN Last Admin: 05/05/22 20:35 Dose: 15 mg Olanzapine (Olanzapine Odt 10 Mg Tab.Rapdis) 10 mg TRANSLINGU BID PRN PRN Reason: Psychosis Last Admin: 05/06/22 15:20 Dose: 10 mg Tamsulosin HCl (Tamsulosin Hcl 0.4 Mg Capsule) 0.4 mg PO BEDTIME JOHN Last Admin: 05/05/22 20:35 Dose: 0.4 mg Trazodone HCl (Trazodone Hcl 50 Mg Tablet) 50 mg PO BEDTIME PRN PRN Reason: Insomnia Last Admin: 05/05/22 20:35 Dose: 50 mg Allergies Allergies Allergy/AdvReac Type Severity Reaction Status Date / Time No Known Allergies Allergy Unverified 01/15/20 16:15 [No Known Allergies*] Assessment & Plan Assessment & Plan (1) Hypertension: Status: Acute Code(s): I10 - Essential (primary) hypertension (2) Acute psychosis: Status: Acute Code(s): F23 - Brief psychotic disorder Assessment and Plan: The patient is an elderly male from verbal does, with a long history of psychotic and mood symptoms, [facility] case managed and resident of group homes with her prior admissions into the hospital for psychotic decompensation with steve in the context of noncompliance.? Historically had several admissions for the same reason.? He has a guardian and the role years order.? 05/06/22 Patient disorganized, but mostly pleasant. Refusing psychiatric medication. Patient remains hypertensive despite recent medication change (reviewed hospitalist consult and seems recent increasing lisinopril and addition of h ydrochlorothiazide); will monitor Plan 1. Gather collateral information.? We will try to contact the staff of the retirement to get his medication reconciliation form.? Apparently he has last Haldol deck was on February but it is unclear we will try to get a more detailed information.? 2. Continue with the same medications that we have as per medication reconciliation.? 3. Regular blood work as per protocol.? 4. Regular observation. 5.? Invega Sustenna and Haldol Decanoate IM on April 28. 6. Increased p.r.n. Zyprexa from 5-10 mg on May 03. Plan Patient is a 66-year-old male with a PMH significant for HTN and long history of psychotic and mood symptoms who had an episode of hypertensive urgency last night when his blood pressure spiked as high as 222/105. 10 mg of IM hydralazine was ordered but patient refused injection. Blood pressure spontaneously came down to 162/70 by 23:00. Patient seen and evaluated for hypertension. Blood pressure in the morning was 140/70. HPI difficult to obtain due to the patient's mentation, but patient does not have any acute complaints at the moment. No headache, changes to vision or hearing. Denies chest pain/pressure, palpitations. No shortness of breath. Of note patient also has chronic lower leg edema on compression stockings. We will increase his lisinopril to 40 mg daily, but hold off on adding another agent at this time. # HTN -- pt's moring BP 14/70 -- chart review shows chronically elevated SBP >150 -- increase lisinopril to 40mg qd -- monitor BP and consider adding HCTZ 25 mg daily # left-leg edema -- continue wearing compression stockings Thank you for allowing me to participate in the care of this patient. Sign off at this time. Please consult again if there are any questions or additional concerns. Reason for contiued inpatient stay Substantial Risk for: inability to function Time Spent With Patient Time: Total time managing care of this patient today ____ minutes.
[2022-05-06 18:00] VITALS: BP 185/95; PULSE 93; RESP 18; TEMP 36.1; O2SAT 98
[2022-05-06] MEDS: lisinopriL 40 MG TABLET PO (22:46)
[2022-05-07 06:00] VITALS: BP 192/97; PULSE 89; RESP 18; TEMP 36.6; O2SAT 98
[2022-05-07] MEDS: Labetalol HCL 100 MG TABLET 300 MG PO ×2 (09:18→21:07)
[2022-05-07] MEDS: hydroCHLOROthiazide 12.5 MG TABLET PO (09:18)
--- NOTE | 2022-05-07 13:25 | PM.EVENT ---
Event Note Date of Service: 05/07/22 Event Note: Uncontrolled HTN. BP 192/97, just rechecked at 180/80 despite tx with labetolol 300mg, hctz 12.5mg, lisinopril 40mg. Added amlodipine 10mg daily. Recheck BP in one hour. Time Spent With Patient Time: Total time managing care of this patient today ____ minutes.
[2022-05-07 18:00] VITALS: BP 240/120; PULSE 101; RESP 20; TEMP 36.5; O2SAT 94
[2022-05-07] MEDS: Divalproex Sodium 500 MG TABLET.DR 1000 MG PO (21:07)
[2022-05-07] MEDS: lisinopriL 40 MG TABLET PO (21:07)
[2022-05-07] MEDS: OLANZapine 7.5 MG TABLET 15 MG PO (21:07)
[2022-05-07] MEDS: Tamsulosin HCL 0.4 MG CAPSULE PO (21:07)
[2022-05-08 07:30] VITALS: BP 178/84; PULSE 96; RESP 16; TEMP 36.2; O2SAT 100
[2022-05-08] MEDS: Labetalol HCL 100 MG TABLET 300 MG PO ×2 (09:53→20:03)
[2022-05-08] MEDS: OLANZapine 5 MG TABLET PO (09:53)
[2022-05-08] MEDS: hydroCHLOROthiazide 12.5 MG TABLET PO ×2 (09:54→12:31)
[2022-05-08] MEDS: amLODIPine Besylate 10 MG TABLET PO (09:54)
--- NOTE | 2022-05-08 11:53 | PM.EVENT ---
Event Note Date of Service: 05/08/22 Event Note: Reviewing chart this morning and noted BP 240/120 documented last night without repeat pressure or notification to hospitalist. Discussed with psychiatrist. Examined patient and discussed with nurse this am. BP improved to 178/78. Has been getting labetolol 300mg BID, hctz 12.5 qd, and lisinopril 40mg qd. He accepted the amlodipine 10mg as previously ordered this am. Recheck after 1 hr, bp 193/94, rechecked manually at 178/90. Additional 12.5mg hctz once ordered and daily dose hctz changed to 25mg. Will also evaluate renal u/s to look for any CHUY that could be contributing to resistant hypertension.
--- NOTE | 2022-05-08 13:24 | HO.PSYCHPN ---
Subjective Subjective Date of Service: 05/08/22 Reason For Visit: Psychosis Subjective Notes: Section 7 and Section 8 Interim History: The nursing staff reported the patient had been up most of the night, pacing the hallway, eating, very loud and hyperverbal but he has not receive any p.r.n. Zyprexa p.o. for the last 2 days. On interview the patient stated he wanted to live, explain that he has court today has change May 18 and he said only 10 days more . Still it grossly manic. Mental Status Exam Mental Status Exam Patient Appearance: Unkempt Patient Orientation: Person and Situation Level of Consciousness: Awake and Appropriate Patient Behavior: Guarded and Passive Mood Description: Euphoric Affect Description: Labile Patient Cognition Impaired: Yes Ability to Follow Directions: Fair Speech Pattern: Impoverished and Rambling Hallucinations: None Delusions: Paranoid Ideation and Grandiose Thought Process: Racing and Illogical Thought Content: positive for Loose Associations, positive for Tangential and positive for Disorganized Judgement: Poor Diagnostics Vital Signs (24Hr): Vital Signs - 24 hr 05/07/22 18:00 Temperature 97.7 F Pulse Rate 101 H Respiratory Rate 20 Blood Pressure 240/120 H Pulse Oximetry 94 Oxygen Delivery Method Room Air BMI result Body Mass Index 23.3 Labs 04/24/22 20:41 04/30/22 22:40 Medications Medications Current Medications Acetaminophen (Acetaminophen 325 Mg Tablet) 650 mg PO Q6H PRN PRN Reason: Headache/Pain Mild Scale (1-3) Last Admin: 05/06/22 11:26 Dose: 650 mg Al Hydroxide/Mg Hydroxide (Magnesium Hydrox/Alum Hydrox 30 Ml Oral.Susp) 30 ml PO Q6H PRN PRN Reason: Heartburn/Nausea Amlodipine Besylate (Amlodipine Besylate 10 Mg Tablet) 10 mg PO DAILY JOHN; Protocol Last Admin: 05/08/22 09:54 Dose: 10 mg Divalproex Sodium (Divalproex Sodium 500 Mg Tablet.) 1,000 mg PO BEDTIME JOHN Last Admin: 05/07/22 21:07 Dose: 1,000 mg Hydrochlorothiazide (Hydrochlorothiazide 25 Mg Tablet) 25 mg PO DAILY JOHN; Protocol Hydroxyzine HCl (Hydroxyzine Hcl 25 Mg Tablet) 25 mg PO Q6H PRN PRN Reason: Anxiety Last Admin: 01/07/23 15:20 Dose: 25 mg Labetalol HCl (Labetalol Hcl 100 Mg Tablet) 300 mg PO BID JOHN Last Admin: 05/08/22 09:53 Dose: 300 mg Lisinopril (Lisinopril 40 Mg Tablet) 40 mg PO BEDTIME JOHN; Protocol Last Admin: 05/07/22 21:07 Dose: 40 mg Magnesium Hydroxide (Milk Of Magnesia 30 Ml Oral.Susp) 30 ml PO DAILY PRN PRN Reason: Constipation Olanzapine (Olanzapine 5 Mg Tablet) 5 mg PO DAILY JOHN Last Admin: 05/08/22 09:53 Dose: 5 mg Olanzapine (Olanzapine 7.5 Mg Tablet) 15 mg PO BEDTIME JOHN Last Admin: 05/07/22 21:07 Dose: 15 mg Olanzapine (Olanzapine Odt 10 Mg Tab.Rapdis) 10 mg TRANSLINGU BID PRN PRN Reason: Psychosis Last Admin: 05/06/22 15:20 Dose: 10 mg Tamsulosin HCl (Tamsulosin Hcl 0.4 Mg Capsule) 0.4 mg PO BEDTIME JOHN Last Admin: 05/07/22 21:07 Dose: 0.4 mg Trazodone HCl (Trazodone Hcl 50 Mg Tablet) 50 mg PO BEDTIME PRN PRN Reason: Insomnia Last Admin: 05/05/22 20:35 Dose: 50 mg Allergies Allergies Allergy/AdvReac Type Severity Reaction Status Date / Time No Known Allergies Allergy Unverified 01/15/20 16:15 [No Known Allergies*] Assessment & Plan Assessment & Plan (1) Hypertension: Status: Acute Code(s): I10 - Essential (primary) hypertension (2) Acute psychosis: Status: Acute Code(s): F23 - Brief psychotic disorder Plan Elderly male with a long history of schizoaffective disorder bipolar type, case managed by [facility], with the community role years, referred from the community for steve and psychosis in the context of noncompliance. On admission, we found his court order for medications and we restarted him on his medications. So far he has been grossly manic still. Plan 1. Continue with Invega Sustenna, Haldol Decanoate and Zyprexa as prescribed. 2. Court for Section 7 and 8 scheduled for May 18. 3. Contact outpatient providers. Informed Consent: further education needed Reason for contiued inpatient stay Substantial Risk for: inability to function, rapid decompensation and med/psych decompensation Time Spent With Patient Time: Total time managing care of this patient today _20___ minutes.
--- NOTE | 2022-05-08 17:06 | HO.PSYCHPN ---
Subjective Subjective Date of Service: 05/07/22 Reason For Visit: Psychosis Interim History: Late entry note for patient seen 05/07/22 No change in presentation; religiously focused and says something to the effect that he hopes his spirit will go to heaven Patient refused addition of amlodipine saying he does not need it Refused morning Zyprexa dose Mental Status Exam Mental Status Exam Narrative: Pt is alert and oriented; behavior is mostly cooperative, friendly, exuberant, but also disorganized; patient is not in distress; disheveled, dressed in casual attire with unkempt hair and hair; mood is described as surviving and affect smiling; eye contact appropriate; Speech difficult to understand as he is edentulous; but otherwise, normal rate with loud volume and staccato for prosody; some psychomotor agitation present; thought process can be goal directed, but also tangential; Thought content is on various random things, difficult to discern; unclear regarding delusional content, paranoid ideations; patient is internally preoccupied. Patients insight and judgment impaired Diagnostics Vital Signs (24Hr): Vital Signs - 24 hr 05/07/22 18:00 Temperature 97.7 F Pulse Rate 101 H Respiratory Rate 20 Blood Pressure 240/120 H Pulse Oximetry 94 Oxygen Delivery Method Room Air BMI result Body Mass Index 23.3 Labs 04/24/22 20:41 04/30/22 22:40 Medications Medications Current Medications Acetaminophen (Acetaminophen 325 Mg Tablet) 650 mg PO Q6H PRN PRN Reason: Headache/Pain Mild Scale (1-3) Last Admin: 05/06/22 11:26 Dose: 650 mg Al Hydroxide/Mg Hydroxide (Magnesium Hydrox/Alum Hydrox 30 Ml Oral.Susp) 30 ml PO Q6H PRN PRN Reason: Heartburn/Nausea Amlodipine Besylate (Amlodipine Besylate 10 Mg Tablet) 10 mg PO DAILY JOHN; Protocol Last Admin: 05/07/22 15:52 Dose: Not Given Divalproex Sodium (Divalproex Sodium 500 Mg Tablet.) 1,000 mg PO BEDTIME JOHN Last Admin: 05/07/22 21:07 Dose: 1,000 mg Hydrochlorothiazide (Hydrochlorothiazide 12.5 Mg Tablet) 12.5 mg PO DAILY JOHN; Protocol Last Admin: 05/07/22 09:18 Dose: 12.5 mg Hydroxyzine HCl (Hydroxyzine Hcl 25 Mg Tablet) 25 mg PO Q6H PRN PRN Reason: Anxiety Last Admin: 05/06/22 15:20 Dose: 25 mg Labetalol HCl (Labetalol Hcl 100 Mg Tablet) 300 mg PO BID JOHN Last Admin: 05/07/22 21:07 Dose: 300 mg Lisinopril (Lisinopril 40 Mg Tablet) 40 mg PO BEDTIME JOHN; Protocol Last Admin: 05/07/22 21:07 Dose: 40 mg Magnesium Hydroxide (Milk Of Magnesia 30 Ml Oral.Susp) 30 ml PO DAILY PRN PRN Reason: Constipation Olanzapine (Olanzapine 5 Mg Tablet) 5 mg PO DAILY JOHN Last Admin: 05/07/22 09:19 Dose: Not Given Olanzapine (Olanzapine 7.5 Mg Tablet) 15 mg PO BEDTIME JOHN Last Admin: 05/07/22 21:07 Dose: 15 mg Olanzapine (Olanzapine Odt 10 Mg Tab.Rapdis) 10 mg TRANSLINGU BID PRN PRN Reason: Psychosis Last Admin: 05/06/22 15:20 Dose: 10 mg Tamsulosin HCl (Tamsulosin Hcl 0.4 Mg Capsule) 0.4 mg PO BEDTIME JOHN Last Admin: 05/07/22 21:07 Dose: 0.4 mg Trazodone HCl (Trazodone Hcl 50 Mg Tablet) 50 mg PO BEDTIME PRN PRN Reason: Insomnia Last Admin: 05/05/22 20:35 Dose: 50 mg Allergies Allergies Allergy/AdvReac Type Severity Reaction Status Date / Time No Known Allergies Allergy Unverified 01/15/20 16:15 [No Known Allergies*] Assessment & Plan Assessment & Plan (1) Hypertension: Status: Acute Code(s): I10 - Essential (primary) hypertension (2) Acute psychosis: Status: Acute Code(s): F23 - Brief psychotic disorder Plan The patient is an elderly male from verbal does, with a long history of psychotic and mood symptoms, [facility] case managed and resident of group homes with her prior admissions into the hospital for psychotic decompensation with steve in the context of noncompliance.? Historically had several admissions for the same reason.? He has a guardian and the role years order.? 05/06/22 Patient disorganized, but mostly pleasant.? Refusing psychiatric medication. Patient remains hypertensive despite recent medication change (reviewed hospitalist consult and seems recent increasing lisinopril and addition of hydrochlorothiazide) -placed hospitalist consult to review an manage antihypertensive medications for continued hypertension 05/07/2022 Patient refused addition of amlodipine saying he does not need it Refused a.m. Zyprexa Continue current treatment regimen pt seen in evening on 05/07, prior to when evening time BP taken; on 05/08, telegraphic typewriter mechanic reviewed vitals and saw that on previous evening patient had elevated BP's above baseline; by 05/08 BP's returned to baseline; telegraphic typewriter mechanic called PA hospitalist who evaluated; discussed with nursing and nursing cemetery workers supervisor Plan 1. Gather collateral information.? We will try to contact the staff of the [facility] to get his medication reconciliation form.? Apparently he has last Haldol deck was on February but it is unclear we will try to get a more detailed information.? 2. Continue with the same medications that we have as per medication reconciliation.? 3. Regular blood work as per protocol.? 4. Regular observation. 5.? Invega Sustenna and Haldol Decanoate IM on April 28.? 6. Increased p.r.n. Zyprexa from 5-10 mg on May 03. Reason for contiued inpatient stay Substantial Risk for: inability to function Time Spent With Patient Time: Total time managing care of this patient today ____ minutes.
--- NOTE | 2022-05-08 17:21 | PC.NURSE ---
Pt.'s BP was 178/84 at 0730. This was reported to hospitalist who came to assess. Hospitalist recommended that patient be given additional dose of lisinopril. BP was then repeated 1.5 hours later and it read 178/90. Pt was then given an additional dose of HCTZ and an ultrasound of kidneys was ordered. See report for additional information.
[2022-05-08 18:00] VITALS: BP 188/88; PULSE 96; RESP 20; TEMP 36.1; O2SAT 99
[2022-05-08] MEDS: OLANZapine ODT 10 MG TAB.RAPDIS TRANSLINGU (18:00)
[2022-05-08 20:00] VITALS: BP 188/88; PULSE 96; RESP 20; TEMP 36.1; O2SAT 99
[2022-05-08] MEDS: Divalproex Sodium 500 MG TABLET.DR 1000 MG PO (20:03)
[2022-05-08] MEDS: lisinopriL 40 MG TABLET PO (20:03)
[2022-05-08] MEDS: traZODone HCL 50 MG TABLET PO (20:03)
[2022-05-08] MEDS: OLANZapine 7.5 MG TABLET 15 MG PO (20:03)
[2022-05-08] MEDS: hydrOXYzine HCL 25 MG TABLET PO (20:04)
[2022-05-08] MEDS: Tamsulosin HCL 0.4 MG CAPSULE PO (20:04)
[2022-05-09] VITALS: BP 125/51; PULSE 73; RESP 18; TEMP 37.3; O2SAT 100
[2022-05-09 04:00] VITALS: BP 120/52; PULSE 69; RESP 20; O2SAT 100
[2022-05-09] MEDS: Acetaminophen 325 MG TABLET 650 MG PO (06:01)
[2022-05-09 08:00] VITALS: BP 133/60; PULSE 92; RESP 16; TEMP 36.6; O2SAT 100
--- NOTE | 2022-05-09 10:32 | PM.EVENT ---
Event Note Date of Service: 05/09/22 Event Note: Blood pressure improving. Please continue on amlodipine 10mg, labetolol 300mg BID, lisinopril 40mg, and hctz 25mg daily. Renal U/s results pending [facility] CHUY seems less likely now with improved BP. Please continue checking and documenting BP q4h for now. Once better, consistent control is achieved, will change to q8h. If SBP >180, DBP >100, recheck manually and notify MD. Please do not hesitate to reach out with questions. Will continue following.
[2022-05-09] MEDS: OLANZapine 10 MG VIAL IM (12:58)
--- NOTE | 2022-05-09 15:06 | P.PNPSI_ITS ---
Subjective Subjective Date of Service: 05/09/22 Reason For Visit: Psychosis Subjective Notes: Section 7 and Section 8 Interim History: The nursing staff reported the patient has been compliant with treatment, his blood pressure has been a slightly high. He remains intrusive, with flight of ideas and pressured speech. He wants to leave the unit. He has slept 7 hours last night. Today he was very agitated and needed IM medications, he was cooperative and ple asant with the IM he preferred over p.o.. I explained him that we will have court on May 18 but we will try to live female earlier. There is slight improvement of his steve in the last days. Mental Status Exam Mental Status Exam Patient Appearance: Unkempt Patient Orientation: Person, Place and Situation Level of Consciousness: Awake Patient Behavior: Guarded Mood Description: Withdrawn Affect Description: Labile Patient Cognition Impaired: Yes Ability to Follow Directions: Good Speech Pattern: Clear Hallucinations: None Delusions: Paranoid Ideation, Grandiose and Ideas of Reference Thought Process: Linear Thought Content: positive for Flight of Ideas and positive for Thought Blocking Judgement: Fair Diagnostics Vital Signs (24Hr): Vital Signs - 24 hr 05/08/22 18:00 05/08/22 20:00 05/09/22 00:00 Temperature 97.0 F 97.0 F 99.2 F Pulse Rate 96 96 73 Respiratory Rate 20 20 18 Blood Pressure 188/88 H 188/88 H 125/51 L Pulse Oximetry 99 99 100 Oxygen Delivery Method Room Air Room Air Room Air 05/09/22 04:00 05/09/22 08:00 Temperature 97.9 F Pulse Rate 69 92 Respiratory Rate 20 16 Blood Pressure 120/52 L 133/60 Pulse Oximetry 100 100 Oxygen Delivery Method Room Air Room Air BMI result Body Mass Index 23.3 Labs 04/24/22 20:41 04/30/22 22:40 Medications Medications Current Medications Acetaminophen (Acetaminophen 325 Mg Tablet) 650 mg PO Q6H PRN PRN Reason: Headache/Pain Mild Scale (1-3) Last Admin: 05/09/22 06:01 Dose: 650 mg Al Hydroxide/Mg Hydroxide (Magnesium Hydrox/Alum Hydrox 30 Ml Oral.Susp) 30 ml PO Q6H PRN PRN Reason: Heartburn/Nausea Amlodipine Besylate (Amlodipine Besylate 10 Mg Tablet) 10 mg PO DAILY JOHN; Protocol Last Admin: 05/09/22 11:22 Dose: Not Given Clonazepam (Clonazepam 0.5 Mg Tablet) 0.5 mg PO BID PRN PRN Reason: anxiety/restlessness Divalproex Sodium (Divalproex Sodium 500 Mg Tablet.Dr) 1,000 mg PO BEDTIME JOHN Last Admin: 05/08/22 20:03 Dose: 1,000 mg Hydrochlorothiazide (Hydrochlorothiazide 25 Mg Tablet) 25 mg PO DAILY JOHN; Protocol Last Admin: 05/09/22 11:22 Dose: Not Given Hydroxyzine HCl (Hydroxyzine Hcl 25 Mg Tablet) 25 mg PO Q6H PRN PRN Reason: Anxiety Last Admin: 05/08/22 20:04 Dose: 25 mg Labetalol HCl (Labetalol Hcl 100 Mg Tablet) 300 mg PO BID JOHN Last Admin: 05/09/22 11:22 Dose: Not Given Lisinopril (Lisinopril 40 Mg Tablet) 40 mg PO BEDTIME JOHN; Protocol Last Admin: 05/08/22 20:03 Dose: 40 mg Magnesium Hydroxide (Milk Of Magnesia 30 Ml Oral.Susp) 30 ml PO DAILY PRN PRN Reason: Constipation Olanzapine (Olanzapine 5 Mg Tablet) 5 mg PO DAILY JOHN Last Admin: 05/09/22 11:23 Dose: Not Given Olanzapine (Olanzapine 7.5 Mg Tablet) 15 mg PO BEDTIME JOHN Last Admin: 05/08/22 20:03 Dose: 15 mg Olanzapine (Olanzapine Odt 10 Mg Tab.Rapdis) 10 mg TRANSLINGU BID PRN PRN Reason: Psychosis Last Admin: 05/08/22 18:00 Dose: 10 mg Tamsulosin HCl (Tamsulosin Hcl 0.4 Mg Capsule) 0.4 mg PO BEDTIME JOHN Last Admin: 05/08/22 20:04 Dose: 0.4 mg Trazodone HCl (Trazodone Hcl 50 Mg Tablet) 50 mg PO BEDTIME PRN PRN Reason: Insomnia Last Admin: 05/08/22 20:03 Dose: 50 mg Allergies Allergies Allergy/AdvReac Type Severity Reaction Status Date / Time No Known Allergies Allergy Unverified 01/15/20 16:15 [No Known Allergies*] Assessment & Plan Assessment & Plan (1) Hypertension: Status: Acute Code(s): I10 - Essential (primary) hypertension (2) Acute psychosis: Status: Acute Code(s): F23 - Brief psychotic disorder Plan Elderly male with a long history of schizoaffective disorder bipolar type, case managed by [facility], with the community role years, referred from the community for steve and psychosis in the context of noncompliance. On admission, we found his court order for medications and we restarted him on his medications. So far he has been grossly manic still. Plan 1. Continue with Invega Sustenna, Haldol Decanoate and Zyprexa as prescribed. 2. Court for Section 7 and 8 scheduled for May 18. 3. Contact outpatient providers. Reason for contiued inpatient stay Substantial Risk for: inability to function, rapid decompensation and med/psych decompensation Time Spent With Patient Time: Total time managing care of this patient today __20__ minutes.
[2022-05-09 16:00] VITALS: BP 178/89; PULSE 100
[2022-05-09 20:00] VITALS: BP 140/79; PULSE 110; TEMP 36.3; O2SAT 99
[2022-05-09] MEDS: Divalproex Sodium 500 MG TABLET.DR 1000 MG PO (21:00)
[2022-05-09] MEDS: OLANZapine 7.5 MG TABLET 15 MG PO (21:00)
[2022-05-09] MEDS: lisinopriL 40 MG TABLET PO (21:01)
[2022-05-09] MEDS: traZODone HCL 50 MG TABLET PO (21:01)
[2022-05-09] MEDS: Tamsulosin HCL 0.4 MG CAPSULE PO (21:01)
[2022-05-09] MEDS: hydrOXYzine HCL 25 MG TABLET PO (21:01)
[2022-05-09] MEDS: Labetalol HCL 100 MG TABLET 300 MG PO (21:03)
[2022-05-10 03:19] VITALS: BP 145/73; PULSE 85; RESP 17; TEMP 36.4; O2SAT 99
[2022-05-10 08:04] VITALS: BP 176/75; PULSE 94; RESP 18; TEMP 36.6; O2SAT 99
[2022-05-10] MEDS: hydroCHLOROthiazide 25 MG TABLET PO (08:51)
[2022-05-10] MEDS: Labetalol HCL 100 MG TABLET 300 MG PO ×2 (08:51→20:15)
[2022-05-10] MEDS: amLODIPine Besylate 10 MG TABLET PO (08:52)
[2022-05-10] MEDS: OLANZapine 5 MG TABLET PO (08:52)
[2022-05-10 08:54] LABS: Anion Gap 13 (12-20); Blood Urea Nitrogen 17 mg/dL (9-16); Calcium 9.7 mg/dL (8.4-10.2); Carbon Dioxide 29 mmol/L (22-29); Chloride 103 mmol/L (96-108); Creatinine Clr Calc Pharmacy 63.2; Estimated Glomerular Filt Rate > 60; Glucose Fasting 138 mg/dL (60-99); Potassium 4.2 mmol/L (3.3-5.1); Sodium 141 mmol/L (135-145)
--- NOTE | 2022-05-10 10:01 | HE.PHANOTE ---
Reached out to [facility] about patients Olanzapine orders. Total recommended daily dose is usually 20 mg a day, patient has PRN orders, however if patient was to take all avaliable to them it would be 50 mg a day. Provider okay'd this as the patient is on a [place] order.
[2022-05-10 12:00] VITALS: BP 105/59; PULSE 72
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
[2022-05-10 20:00] VITALS: BP 170/81; PULSE 97; RESP 17; TEMP 36.6; O2SAT 94
[2022-05-10] MEDS: Divalproex Sodium 500 MG TABLET.DR 1000 MG PO (20:15)
[2022-05-10] MEDS: lisinopriL 40 MG TABLET PO (20:16)
[2022-05-10] MEDS: OLANZapine 7.5 MG TABLET 15 MG PO (20:17)
[2022-05-10] MEDS: Tamsulosin HCL 0.4 MG CAPSULE PO (20:17)
[2022-05-10 23:20] VITALS: BP 157/86; PULSE 85; RESP 17; TEMP 36.4; O2SAT 97
[2022-05-11 08:00] VITALS: BP 167/95; PULSE 99; RESP 98; TEMP 36.4; O2SAT 99
[2022-05-11] MEDS: Labetalol HCL 100 MG TABLET 300 MG PO (09:33)
[2022-05-11] MEDS: amLODIPine Besylate 10 MG TABLET PO (09:34)
[2022-05-11] MEDS: hydroCHLOROthiazide 25 MG TABLET PO (09:34)
[2022-05-11] MEDS: OLANZapine 7.5 MG TABLET PO (09:34)
[2022-05-11] MEDS: clonazePAM 1 MG TABLET PO (09:35)
[2022-05-11] MEDS: clonazePAM 0.5 MG TABLET PO ×2 (14:53→22:42)
--- NOTE | 2022-05-11 15:51 | P.PNPSI_ITS ---
Subjective Subjective Date of Service: 05/11/22 Reason For Visit: Psychosis Subjective Notes: Section 7 and Section 8 Interim History: The nursing staff reported the patient has been agitated and loud he was finally compliant with medications in the evening. He sleeps only 6 hours and his vital signs were stable. The occupational therapist interview him that it was very difficult to set boundaries on groups. Today we reviewed on team his behavior and we decided to start on Klonopin 1 mg p.o. t.i.d.. He received his 1st dose and he was over-sedated sleeping all morning. We decided to lowered to Klonopin 0.5 p.o. t.i.d. still grossly manic. Mental Status Exam Mental Status Exam Patient Appearance: Disheveled and Unkempt Patient Orientation: Person Level of Consciousness: Disoriented and Restless Patient Behavior: Guarded and Passive Mood Description: Withdrawn Affect Description: Labile Patient Cognition Impaired: Yes Ability to Follow Directions: Fair Speech Pattern: Impoverished Hallucinations: None Delusions: Paranoid Ideation and Grandiose Thought Process: Illogical and Distracted Thought Content: positive for Racing Judgement: Poor Diagnostics Vital Signs (24Hr): Vital Signs - 24 hr 05/10/22 20:00 05/10/22 23:20 05/11/22 08:00 Temperature 98 F 97.5 F 97.6 F Pulse Rate 97 85 99 Respiratory Rate 17 17 98 H Blood Pressure 170/81 H 157/86 H 167/95 H Pulse Oximetry 94 97 99 Oxygen Delivery Method Room Air Room Air Room Air BMI result Body Mass Index 23.3 Labs 04/24/22 20:41 05/10/22 08:02 Labs: Laboratory Results - last 48 hr 05/10/22 08:02 Sodium 141 Potassium 4.2 Chloride 103 Carbon Dioxide 29 Anion Gap 13 BUN 17 H Creatinine 1.00 Estim Creat Clear Calc 63.2 Estimated GFR > 60 Fasting Glucose 138 H Calcium 9.7 D Imaging Radiology Impressions: ITS Impressions Renal Ultrasound 05/08/22 16:00 IMPRESSION: 1. Bilateral renal cysts. No echogenic renal calculi. 2. There is no suggestion for renal artery stenosis in either kidney on renal Doppler exam. Renal Ultrasound 05/08/22 16:00 IMPRESSION: 1. Bilateral renal cysts. No echogenic renal calculi. 2. There is no suggestion for renal artery stenosis in either kidney on renal Doppler exam. Medications Medications Current Medications Acetaminophen (Acetaminophen 325 Mg Tablet) 650 mg PO Q6H PRN PRN Reason: Headache/Pain Mild Scale (1-3) Last Admin: 05/09/22 06:01 Dose: 650 mg Al Hydroxide/Mg Hydroxide (Magnesium Hydrox/Alum Hydrox 30 Ml Oral.Susp) 30 ml PO Q6H PRN PRN Reason: Heartburn/Nausea Amlodipine Besylate (Amlodipine Besylate 10 Mg Tablet) 10 mg PO DAILY JOHN; Protocol Last Admin: 05/11/22 09:34 Dose: 10 mg Clonazepam (Clonazepam 0.5 Mg Tablet) 0.5 mg PO BID PRN PRN Reason: anxiety/restlessness Clonazepam (Clonazepam 0.5 Mg Tablet) 0.5 mg PO TID JOHN Last Admin: 05/11/22 14:53 Dose: 0.5 mg Divalproex Sodium (Divalproex Sodium 500 Mg Tablet.Dr) 1,000 mg PO BEDTIME JOHN Last Admin: 05/10/22 20:15 Dose: 1,000 mg Hydrochlorothiazide (Hydrochlorothiazide 25 Mg Tablet) 25 mg PO DAILY JOHN; Protocol Last Admin: 05/11/22 09:34 Dose: 25 mg Hydroxyzine HCl (Hydroxyzine Hcl 25 Mg Tablet) 25 mg PO Q6H PRN PRN Reason: Anxiety Last Admin: 05/09/22 21:01 Dose: 25 mg Labetalol HCl (Labetalol Hcl 100 Mg Tablet) 300 mg PO BID JOHN Last Admin: 05/11/22 09:33 Dose: 300 mg Lisinopril (Lisinopril 40 Mg Tablet) 40 mg PO BEDTIME JOHN; Protocol Last Admin: 05/10/22 20:16 Dose: 40 mg Magnesium Hydroxide (Milk Of Magnesia 30 Ml Oral.Susp) 30 ml PO DAILY PRN PRN Reason: Constipation Olanzapine (Olanzapine 7.5 Mg Tablet) 15 mg PO BEDTIME JOHN Last Admin: 05/10/22 20:17 Dose: 15 mg Olanzapine (Olanzapine Odt 10 Mg Tab.Rapdis) 10 mg TRANSLINGU BID PRN PRN Reason: Psychosis Last Admin: 05/08/22 18:00 Dose: 10 mg Olanzapine (Olanzapine 10 Mg Vial) 10 mg IM BID PRN PRN Reason: psychosis Olanzapine (Olanzapine 7.5 Mg Tablet) 7.5 mg PO DAILY JOHN Last Admin: 05/11/22 09:34 Dose: 7.5 mg Tamsulosin HCl (Tamsulosin Hcl 0.4 Mg Capsule) 0.4 mg PO BEDTIME JOHN Last Admin: 05/10/22 20:17 Dose: 0.4 mg Trazodone HCl (Trazodone Hcl 50 Mg Tablet) 50 mg PO BEDTIME PRN PRN Reason: Insomnia Last Admin: 05/09/22 21:01 Dose: 50 mg Allergies Allergies Allergy/AdvReac Type Severity Reaction Status Date / Time No Known Allergies Allergy Unverified 01/15/20 16:15 [No Known Allergies*] Assessment & Plan Assessment & Plan (1) Hypertension: Status: Acute Code(s): I10 - Essential (primary) hypertension (2) Acute psychosis: Status: Acute Code(s): F23 - Brief psychotic disorder Plan The patient is an elderly male from [facility] does, with a long history of psychotic and mood symptoms, [facility] case managed and resident of [facility] with her prior admissions into the hospital for psychotic decompensation with steve in the context of noncompliance.? Historically had several admissions for the same reason.? He has a guardian and the role years order.? 05/06/22 Patient disorganized, but mostly pleasant.? Refusing psychiatric medication. Patient remains hypertensive despite recent medication change (reviewed hospitalist consult and seems recent increasing lisinopril and addition of hydrochlorothiazide) -placed hospitalist consult to review an manage antihypertensive medications for continued hypertension 05/07/2022 Patient refused addition of amlodipine saying he does not need it Refused a.m. Zyprexa Continue current treatment regimen pt seen in evening on 05/07, prior to when evening time BP taken; on 05/08, health underwriter reviewed vitals and saw that on previous evening patient had elevated BP's above baseline; by 05/08 BP's returned to baseline; health underwriter called PA hospitalist who evaluated; discussed with nursing and nursing supervisor bottle machines Plan 1. Gather collateral information.? We will try to contact the staff of the [facility] to get his medication reconciliation form.? Apparently he has last Haldol deck was on February but it is unclear we will try to get a more detailed information.? 2. Continue with the same medications that we have as per medication reconciliation.? 3. Regular blood work as per protocol.? 4. Regular observation. 5.? Invega Sustenna and Haldol Decanoate IM on April 28.? 6. Increased p.r.n. Zyprexa from 5-10 mg on May 03. 7. Zyprexa IM p.r.n. as per [facility] order ordered. 8. Change regular observation to 5 minutes check on May 10. 9. Start Klonopin 1 mg 0.5 mg p.o. t.i.d. Reason for contiued inpatient stay Substantial Risk for: harm to self, harm to others, inability to function, rapid decompensation and med/psych decompensation Time Spent With Patient Time: Total time managing care of this patient today __20__ minutes.
[2022-05-11 16:00] VITALS: BP 171/86; PULSE 88; O2SAT 98
[2022-05-11 20:00] VITALS: BP 148/77; PULSE 80; RESP 16; TEMP 36.4; O2SAT 94
[2022-05-11] MEDS: OLANZapine 7.5 MG TABLET 15 MG PO (22:42)
[2022-05-12 05:58] VITALS: BP 156/85; PULSE 89; RESP 18; TEMP 36.1; O2SAT 96
[2022-05-12 06:00] VITALS: BP 137/73; PULSE 95; RESP 20; TEMP 36; O2SAT 96
[2022-05-12 08:00] VITALS: BP 174/98; PULSE 102; RESP 16; TEMP 36.8; O2SAT 95
[2022-05-12] MEDS: hydroCHLOROthiazide 25 MG TABLET PO (10:29)
[2022-05-12] MEDS: Labetalol HCL 100 MG TABLET 300 MG PO ×2 (10:29→20:09)
[2022-05-12] MEDS: OLANZapine 10 MG TABLET PO (10:29)
[2022-05-12] MEDS: amLODIPine Besylate 10 MG TABLET PO (10:30)
[2022-05-12] MEDS: clonazePAM 0.5 MG TABLET PO ×3 (10:30→16:24)
[2022-05-12 12:00] VITALS: BP 142/64; PULSE 93; RESP 16; TEMP 36.7; O2SAT 98
--- NOTE | 2022-05-12 13:07 | HO.PSYCHPN ---
Subjective Subjective Date of Service: 05/12/22 Reason For Visit: Psychosis Subjective Notes: Pedersen Warning, Section 7 and Section 8 Interim History: The nursing staff reported that yesterday the patient was over-sedated with the addition of Klonopin 1 mg p.o. t.i.d. so we lowered to 0.5 p.o. t.i.d.. He slept 8 hours but in the evening he had very retake did and he was very inappropriate with staff, sexually disinhibited. Today in the morning he was loud and intrusive, demanding attention of peers and staff. We discussed with the team and with the patient treatment options and we will increase Zyprexa up to 10 mg in the morning keep 15 mg at night and change the Klonopin to 0.5 p.o. b.i.d. during the day and 1 mg at bedtime to avoid over-sedation during the day. Mental Status Exam Mental Status Exam Patient Appearance: Disheveled and Unkempt Patient Orientation: Person and Situation Level of Consciousness: Awake and Restless Patient Behavior: Restless and Wandering Mood Description: Elated Affect Description: Labile Patient Cognition Impaired: Yes Ability to Follow Directions: Fair Speech Pattern: Clear Hallucinations: None Delusions: Paranoid Ideation, Grandiose and Ideas of Reference Thought Process: Racing and Illogical Thought Content: positive for Poverty of Content, positive for Loose Associations, positive for Tangential and positive for Disorganized Judgement: Poor Diagnostics Vital Signs (24Hr): Vital Signs - 24 hr 05/11/22 16:00 05/11/22 20:00 05/12/22 05:58 Temperature 97.5 F 97 F Pulse Rate 88 80 89 Respiratory Rate 16 18 Blood Pressure 171/86 H 148/77 H 156/85 H Pulse Oximetry 98 94 96 Oxygen Delivery Method Room Air Room Air Room Air 05/12/22 08:00 Temperature 98.2 F Pulse Rate 102 H Respiratory Rate 16 Blood Pressure 174/98 H Pulse Oximetry 95 Oxygen Delivery Method Room Air BMI result Body Mass Index 23.3 Labs 04/24/22 20:41 05/10/22 08:02 Imaging Radiology Impressions: ITS Impressions Renal Ultrasound 05/08/22 16:00 IMPRESSION: 1. Bilateral renal cysts. No echogenic renal calculi. 2. There is no suggestion for renal artery stenosis in either kidney on renal Doppler exam. Renal Ultrasound 05/08/22 16:00 IMPRESSION: 1. Bilateral renal cysts. No echogenic renal calculi. 2. There is no suggestion for renal artery stenosis in either kidney on renal Doppler exam. Medications Medications Current Medications Acetaminophen (Acetaminophen 325 Mg Tablet) 650 mg PO Q6H PRN PRN Reason: Headache/Pain Mild Scale (1-3) Last Admin: 05/09/22 06:01 Dose: 650 mg Al Hydroxide/Mg Hydroxide (Magnesium Hydrox/Alum Hydrox 30 Ml Oral.Susp) 30 ml PO Q6H PRN PRN Reason: Heartburn/Nausea Amlodipine Besylate (Amlodipine Besylate 10 Mg Tablet) 10 mg PO DAILY JOHN; Protocol Last Admin: 05/12/22 10:30 Dose: 10 mg Clonazepam (Clonazepam 0.5 Mg Tablet) 0.5 mg PO BID PRN PRN Reason: anxiety/restlessness Divalproex Sodium (Divalproex Sodium 500 Mg Tablet.Dr) 1,000 mg PO BEDTIME JOHN Last Admin: 05/11/22 22:42 Dose: Not Given Hydrochlorothiazide (Hydrochlorothiazide 25 Mg Tablet) 25 mg PO DAILY JOHN; Protocol Last Admin: 05/12/22 10:29 Dose: 25 mg Hydroxyzine HCl (Hydroxyzine Hcl 25 Mg Tablet) 25 mg PO Q6H PRN PRN Reason: Anxiety Last Admin: 05/09/22 21:01 Dose: 25 mg Labetalol HCl (Labetalol Hcl 100 Mg Tablet) 300 mg PO BID JOHN Last Admin: 05/12/22 10:29 Dose: 300 mg Lisinopril (Lisinopril 40 Mg Tablet) 40 mg PO BEDTIME JOHN; Protocol Last Admin: 05/11/22 22:42 Dose: Not Given Magnesium Hydroxide (Milk Of Magnesia 30 Ml Oral.Susp) 30 ml PO DAILY PRN PRN Reason: Constipation Olanzapine (Olanzapine 7.5 Mg Tablet) 15 mg PO BEDTIME JOHN Last Admin: 05/11/22 22:42 Dose: 15 mg Olanzapine (Olanzapine Odt 10 Mg Tab.Rapdis) 10 mg TRANSLINGU BID PRN PRN Reason: Psychosis Last Admin: 05/08/22 18:00 Dose: 10 mg Olanzapine (Olanzapine 10 Mg Vial) 10 mg IM BID PRN PRN Reason: psychosis Olanzapine (Olanzapine 10 Mg Tablet) 10 mg PO DAILY JOHN Last Admin: 05/12/22 10:29 Dose: 10 mg Tamsulosin HCl (Tamsulosin Hcl 0.4 Mg Capsule) 0.4 mg PO BEDTIME JOHN Last Admin: 05/11/22 22:43 Dose: Not Given Trazodone HCl (Trazodone Hcl 50 Mg Tablet) 50 mg PO BEDTIME PRN PRN Reason: Insomnia Last Admin: 05/09/22 21:01 Dose: 50 mg Allergies Allergies Allergy/AdvReac Type Severity Reaction Status Date / Time No Known Allergies Allergy Unverified 01/15/20 16:15 [No Known Allergies*] Assessment & Plan Assessment & Plan (1) Acute psychosis: Status: Acute Code(s): F23 - Brief psychotic disorder (2) Schizoaffective disorder, bipolar type: Status: Acute Code(s): F25.0 - Schizoaffective disorder, bipolar type (3) Dementia: Status: Acute Code(s): F03.90 - Unspecified dementia, unspecified severity, without behavioral disturbance, psychotic disturbance, mood disturbance, and anxiety (4) Schizophrenia: Status: Acute Code(s): F20.9 - Schizophrenia, unspecified (5) Hypertension: Status: Acute Code(s): I10 - Essential (primary) hypertension Plan The patient is an elderly male from [facility] does, with a long history of psychotic and mood symptoms, [facility] case managed and resident of group homes with her prior admissions into the hospital for psychotic decompensation with steve in the context of noncompliance.? Historically had several admissions for the same reason.? He has a guardian and the role years order.? 05/06/22 Patient disorganized, but mostly pleasant.? Refusing psychiatric medication. Patient remains hypertensive despite recent medication change (reviewed hospitalist consult and seems recent increasing lisinopril and addition of hydrochlorothiazide) -placed hospitalist consult to review an manage antihypertensive medications for continued hypertension 05/07/2022 Patient refused addition of amlodipine saying he does not need it Refused a.m. Zyprexa Continue current treatment regimen pt seen in evening on 05/07, prior to when evening time BP taken; on 05/08, blurb writer reviewed vitals and saw that on previous evening patient had elevated BP's above baseline; by 05/08 BP's returned to baseline; blurb writer called PA hospitalist who evaluated; discussed with nursing and nursing last model department supervisor Plan 1. Gather collateral information.? We will try to contact the staff of the detention to get his medication reconciliation form.? Apparently he has last Haldol deck was on February but it is unclear we will try to get a more detailed information.? 2. Continue with the same medications that we have as per medication reconciliation.? 3. Regular blood work as per protocol.? 4. Regular observation. 5.? Invega Sustenna and Haldol Decanoate IM on April 28.? 6. Increased p.r.n. Zyprexa from 5-10 mg on May 03. 7. Zyprexa IM p.r.n. as per [facility] order ordered. 8. Change regular observation to 5 minutes check on May 10. 9. Start Klonopin 1 mg 0.5 mg p.o. t.i.d. later the Klonopin was lowered to 0.5 p.o. b.i.d. and 1 mg at bedtime due to over-sedation on May 11. 10. Increased Zyprexa to 10 mg in the morning on May 13. 11. Court today for May 18 for Section 7 and 8 . Reason for contiued inpatient stay Substantial Risk for: inability to function, rapid decompensation and med/psych decompensation Time Spent With Patient Time: Total time managing care of this patient today __20__ minutes.
[2022-05-12 16:00] VITALS: BP 154/80; PULSE 105; RESP 16; TEMP 36.6; O2SAT 98
[2022-05-12 20:00] VITALS: BP 140/72; PULSE 92; RESP 18; TEMP 36.6; O2SAT 97
[2022-05-12] MEDS: Tamsulosin HCL 0.4 MG CAPSULE PO (20:08)
[2022-05-12] MEDS: Divalproex Sodium 500 MG TABLET.DR 1000 MG PO (20:09)
[2022-05-12] MEDS: OLANZapine 7.5 MG TABLET 15 MG PO (20:09)
[2022-05-12] MEDS: lisinopriL 40 MG TABLET PO (20:09)
[2022-05-12] MEDS: clonazePAM 1 MG TABLET PO (20:09)
[2022-05-12] MEDS: traZODone HCL 50 MG TABLET PO (22:49)
[2022-05-13 06:00] VITALS: BP 137/73; PULSE 95; RESP 20; TEMP 36; O2SAT 96
[2022-05-13 08:38] VITALS: BP 137/73; PULSE 95; RESP 20; TEMP 36; O2SAT 96
[2022-05-13] MEDS: amLODIPine Besylate 10 MG TABLET PO (08:57)
[2022-05-13] MEDS: Labetalol HCL 100 MG TABLET 300 MG PO (08:57)
[2022-05-13] MEDS: OLANZapine 10 MG TABLET PO (08:57)
[2022-05-13] MEDS: clonazePAM 0.5 MG TABLET PO ×2 (08:58→16:36)
[2022-05-13] MEDS: hydroCHLOROthiazide 25 MG TABLET PO (08:58)
--- NOTE | 2022-05-13 17:15 | HO.PSYCHPN ---
Subjective Subjective Date of Service: 05/13/22 Reason For Visit: Psychosis Interim History: Patient standing in the hallway on approach. All he would said telegraphic typewriter repairer is that he wants his boots. [employer] Worker tried to inquire but could not get much more information. Case discussed with nursing staff who informed telegraphic typewriter repairer that he had been asking for his boots for while and they agreed to get the from storage and give him to patient. Otherwise he took his medications last night, but today refused some of them. Mental Status Exam Mental Status Exam Patient Appearance: Disheveled, Unkempt and Bizarre (winter jacket) Patient Orientation: Person, Place and Situation Level of Consciousness: Awake and Restless Patient Behavior: Hyperactive, Restless and Anxious Mood Description: Anxious and Nervous Affect Description: Anxious Patient Cognition Impaired: Yes Ability to Follow Directions: Fair Speech Pattern: Spontaneous Speech, Rapid (mildly) and Loud Hallucinations: Auditory (possibly ) Delusions: Paranoid Ideation and Grandiose Thought Process: Illogical, Distracted and Goal Oriented (can be ) Thought Content: positive for [place] and positive for Preoccupation (religiously) Judgement: Poor Judgement and Insight: impaired Diagnostics Vital Signs (24Hr): Vital Signs - 24 hr 05/12/22 20:00 05/13/22 08:38 05/13/22 06:00 Temperature 97.9 F 96.8 F 96.8 F Pulse Rate 92 95 95 Respiratory Rate 18 20 20 Blood Pressure 140/72 H 137/73 137/73 Pulse Oximetry 97 96 96 Oxygen Delivery Method Room Air Room Air Room Air BMI result Body Mass Index 23.3 Labs 04/24/22 20:41 05/10/22 08:02 Imaging Radiology Impressions: ITS Impressions Renal Ultrasound 05/08/22 16:00 IMPRESSION: 1. Bilateral renal cysts. No echogenic renal calculi. 2. There is no suggestion for renal artery stenosis in either kidney on renal Doppler exam. Renal Ultrasound 05/08/22 16:00 IMPRESSION: 1. Bilateral renal cysts. No echogenic renal calculi. 2. There is no suggestion for renal artery stenosis in either kidney on renal Doppler exam. Medications Medications Current Medications Acetaminophen (Acetaminophen 325 Mg Tablet) 650 mg PO Q6H PRN PRN Reason: Headache/Pain Mild Scale (1-3) Last Admin: 05/09/22 06:01 Dose: 650 mg Al Hydroxide/Mg Hydroxide (Magnesium Hydrox/Alum Hydrox 30 Ml Oral.Susp) 30 ml PO Q6H PRN PRN Reason: Heartburn/Nausea Amlodipine Besylate (Amlodipine Besylate 10 Mg Tablet) 10 mg PO DAILY JOHN; Protocol Last Admin: 05/13/22 08:57 Dose: 10 mg Clonazepam (Clonazepam 0.5 Mg Tablet) 0.5 mg PO BID PRN PRN Reason: anxiety/restlessness Last Admin: 05/12/22 13:10 Dose: 0.5 mg Clonazepam (Clonazepam 0.5 Mg Tablet) 0.5 mg PO BID@0800,1500 JOHN Last Admin: 05/13/22 16:36 Dose: 0.5 mg Clonazepam (Clonazepam 1 Mg Tablet) 1 mg PO BEDTIME JOHN Last Admin: 05/12/22 20:09 Dose: 1 mg Divalproex Sodium (Divalproex Sodium 500 Mg Tablet.Dr) 1,000 mg PO BEDTIME JOHN Last Admin: 05/12/22 20:09 Dose: 1,000 mg Hydrochlorothiazide (Hydrochlorothiazide 25 Mg Tablet) 25 mg PO DAILY [facility]; Protocol Last Admin: 05/13/22 08:58 Dose: 25 mg Hydroxyzine HCl (Hydroxyzine Hcl 25 Mg Tablet) 25 mg PO Q6H PRN PRN Reason: Anxiety Last Admin: 05/09/22 21:01 Dose: 25 mg Labetalol HCl (Labetalol Hcl 100 Mg Tablet) 300 mg PO BID JOHN Last Admin: 05/13/22 08:57 Dose: 300 mg Lisinopril (Lisinopril 40 Mg Tablet) 40 mg PO BEDTIME JOHN; Protocol Last Admin: 05/12/22 20:09 Dose: 40 mg Magnesium Hydroxide (Milk Of Magnesia 30 Ml Oral.Susp) 30 ml PO DAILY PRN PRN Reason: Constipation Olanzapine (Olanzapine 7.5 Mg Tablet) 15 mg PO BEDTIME JOHN Last Admin: 05/12/22 20:09 Dose: 15 mg Olanzapine (Olanzapine Odt 10 Mg Tab.Rapdis) 10 mg TRANSLINGU BID PRN PRN Reason: Psychosis Last Admin: 05/08/22 18:00 Dose: 10 mg Olanzapine (Olanzapine 10 Mg Vial) 10 mg IM BID PRN PRN Reason: psychosis Olanzapine (Olanzapine 10 Mg Tablet) 10 mg PO DAILY JOHN Last Admin: 05/13/22 08:57 Dose: 10 mg Tamsulosin HCl (Tamsulosin Hcl 0.4 Mg Capsule) 0.4 mg PO BEDTIME JOHN Last Admin: 05/12/22 20:08 Dose: 0.4 mg Trazodone HCl (Trazodone Hcl 50 Mg Tablet) 50 mg PO BEDTIME PRN PRN Reason: Insomnia Last Admin: 05/12/22 22:49 Dose: 50 mg Allergies Allergies Allergy/AdvReac Type Severity Reaction Status Date / Time No Known Allergies Allergy Unverified 01/15/20 16:15 [No Known Allergies*] Assessment & Plan Assessment & Plan (1) Acute psychosis: Status: Acute Code(s): F23 - Brief psychotic disorder (2) Schizoaffective disorder, bipolar type: Status: Acute Code(s): F25.0 - Schizoaffective disorder, bipolar type (3) Dementia: Status: Acute Code(s): F03.90 - Unspecified dementia, unspecified severity, without behavioral disturbance, psychotic disturbance, mood disturbance, and anxiety (4) Schizophrenia: Status: Acute Code(s): F20.9 - Schizophrenia, unspecified (5) Hypertension: Status: Acute Code(s): I10 - Essential (primary) hypertension Plan The patient is an elderly male from [facility] does, with a long history of psychotic and mood symptoms, [facility] case managed and resident of group homes with her prior admissions into the hospital for psychotic decompensation with steve in the context of noncompliance.? Historically had several admissions for the same reason.? He has a guardian and the role years order.? 05/06/22 Patient disorganized, but mostly pleasant.? Refusing psychiatric medication. Patient remains hypertensive despite recent medication change (reviewed hospitalist consult and seems recent increasing lisinopril and addition of hydrochlorothiazide) -placed hospitalist consult to review an manage antihypertensive medications for continued hypertension 05/07/2022 Patient refused addition of amlodipine saying he does not need it Refused a.m. Zyprexa Continue current treatment regimen pt seen in evening on 05/07, prior to when evening time BP taken; on 05/08, telegraphic typewriter repairer reviewed vitals and saw that on previous evening patient had elevated BP's above baseline; by 05/08 BP's returned to baseline; telegraphic typewriter repairer called PA hospitalist who evaluated; discussed with nursing and nursing personnel supervisor 05/13/22 No change to current treatment plan Plan 1. Gather collateral information.? We will try to contact the staff of the [facility] to get his medication reconciliation form.? Apparently he has last Haldol deck was on February but it is unclear we will try to get a more detailed information.? 2. Continue with the same medications that we have as per medication reconciliation.? 3. Regular blood work as per protocol.? 4. Regular observation. 5.? Invega Sustenna and Haldol Decanoate IM on April 28.? 6. Increased p.r.n. Zyprexa from 5-10 mg on May 03. 7. Zyprexa IM p.r.n. as per [facility] order ordered. 8. Change regular observation to 5 minutes check on May 10. 9. Start Klonopin 1 mg 0.5 mg p.o. t.i.d. later the Klonopin was lowered to 0.5 p.o. b.i.d. and 1 mg at bedtime due to over-sedation on May 11. 10. Increased Zyprexa to 10 mg in the morning on May 13. 11. Court today for May 18 for Section 7 and 8 . Reason for contiued inpatient stay Substantial Risk for: inability to function Time Spent With Patient Time: Total time managing care of this patient today ____ minutes.
[2022-05-13 18:00] VITALS: BP 170/84; PULSE 98; RESP 20; TEMP 36.1; O2SAT 98
[2022-05-13] MEDS: OLANZapine 10 MG VIAL IM (20:33)
--- NOTE | 2022-05-13 20:47 | PC.NURSE ---
Patient is angry wanting to get his belt. Patient given his boots but cannot have his belt BP is 170/84 and patient is refusing all medications. Lengthy time spent trying to get Winfiels to take his medications and he continues to refuse. IM Zyprexa given per giselle order Right Deltoid. Pt will not take BP meds. Dr. Green notified and I will attempt later.
[2022-05-13 22:09] VITALS: BP 140/72; PULSE 90; RESP 20; O2SAT 98
[2022-05-14 06:00] VITALS: BP 191/78; PULSE 112; RESP 18; TEMP 36.8; O2SAT 97
--- NOTE | 2022-05-14 06:19 | PC.NURSE ---
Patient got up at 0530 agitated with manic speech threatening this RN stating I am going home to get my professor of kinesiology knife to kill you because you got the websphere portal developer last night and gave me a injection in my arm of drugs I didn't want You will pay . Explained to patient I was following doctors orders and that he refused all his other medications. Patient began singing and pacing up and down [place] mumbling knife . I removed myself from this conversation as I felt threatened and requested Patient return to his room.
[2022-05-14] MEDS: Labetalol HCL 100 MG TABLET 300 MG PO ×2 (09:50→20:22)
[2022-05-14] MEDS: OLANZapine 10 MG TABLET PO (09:50)
[2022-05-14] MEDS: amLODIPine Besylate 10 MG TABLET PO (09:50)
[2022-05-14] MEDS: clonazePAM 0.5 MG TABLET PO ×2 (09:50→15:44)
[2022-05-14] MEDS: hydroCHLOROthiazide 25 MG TABLET PO (09:51)
--- NOTE | 2022-05-14 15:47 | HO.PSYCHPN ---
Subjective Subjective Date of Service: 05/14/22 Reason For Visit: Psychosis Interim History: Patient very happy on approach and showed lead technical writer his boots. Patient told lead technical writer that he want to be a doctor. Patient asked lead technical writer to go through all the organs in the human body and discuss them, which we did and patient revealed his knowledge. Tire Service Supervisor discussed case with nursing who says patient took all of his medications today. He has also been much more calm today since getting his boots. He still tries to get very is patient's depressed with him or look at his art work but is overall much calmer. Mental Status Exam Mental Status Exam Patient Appearance: Disheveled, Perspiring, Unkempt and Bizarre Patient Orientation: Person, Place and Situation Level of Consciousness: Awake and Restless Patient Behavior: Guarded, Restless and Belligerent Mood Description: Labile and Nervous Affect Description: Labile Patient Cognition Impaired: Yes Ability to Follow Directions: Fair Speech Pattern: Rapid and Loud Hallucinations: None Delusions: Paranoid Ideation and Grandiose Thought Process: Incoherent, Racing and Illogical Thought Content: positive for [place] Abnormal Motor Activity Signs and Symptoms: Tremors (left hand; lip quiver) Judgement: Poor Judgement and Insight: Impaired Diagnostics Vital Signs (24Hr): Vital Signs - 24 hr 05/13/22 18:00 05/13/22 22:09 05/14/22 06:00 Temperature 97 F 98.2 F Pulse Rate 98 90 112 H Respiratory Rate 20 20 18 Blood Pressure 170/84 H 140/72 H 191/78 H Pulse Oximetry 98 98 97 Oxygen Delivery Method Room Air Room Air Room Air BMI result Body Mass Index 23.3 Labs 04/24/22 20:41 05/10/22 08:02 Imaging Radiology Impressions: ITS Impressions Renal Ultrasound 05/08/22 16:00 IMPRESSION: 1. Bilateral renal cysts. No echogenic renal calculi. 2. There is no suggestion for renal artery stenosis in either kidney on renal Doppler exam. Renal Ultrasound 05/08/22 16:00 IMPRESSION: 1. Bilateral renal cysts. No echogenic renal calculi. 2. There is no suggestion for renal artery stenosis in either kidney on renal Doppler exam. Medications Medications Current Medications Acetaminophen (Acetaminophen 325 Mg Tablet) 650 mg PO Q6H PRN PRN Reason: Headache/Pain Mild Scale (1-3) Last Admin: 05/09/22 06:01 Dose: 650 mg Al Hydroxide/Mg Hydroxide (Magnesium Hydrox/Alum Hydrox 30 Ml Oral.Susp) 30 ml PO Q6H PRN PRN Reason: Heartburn/Nausea Amlodipine Besylate (Amlodipine Besylate 10 Mg Tablet) 10 mg PO DAILY JOHN; Protocol Last Admin: 05/14/22 09:50 Dose: 10 mg Clonazepam (Clonazepam 0.5 Mg Tablet) 0.5 mg PO BID@0800,1500 JOHN Last Admin: 05/14/22 15:44 Dose: 0.5 mg Clonazepam (Clonazepam 1 Mg Tablet) 1 mg PO BEDTIME JOHN Last Admin: 05/13/22 22:10 Dose: Not Given Divalproex Sodium (Divalproex Sodium 500 Mg Tablet.Dr) 1,000 mg PO BEDTIME JOHN Last Admin: 05/13/22 22:11 Dose: Not Given Hydrochlorothiazide (Hydrochlorothiazide 25 Mg Tablet) 25 mg PO DAILY JOHN; Protocol Last Admin: 05/14/22 09:51 Dose: 25 mg Hydroxyzine HCl (Hydroxyzine Hcl 25 Mg Tablet) 25 mg PO Q6H PRN PRN Reason: Anxiety Last Admin: 05/09/22 21:01 Dose: 25 mg Labetalol HCl (Labetalol Hcl 100 Mg Tablet) 300 mg PO BID JOHN Last Admin: 05/14/22 09:50 Dose: 300 mg Lisinopril (Lisinopril 40 Mg Tablet) 40 mg PO BEDTIME JOHN; Protocol Last Admin: 05/13/22 22:11 Dose: Not Given Magnesium Hydroxide (Milk Of Magnesia 30 Ml Oral.Susp) 30 ml PO DAILY PRN PRN Reason: Constipation Olanzapine (Olanzapine 7.5 Mg Tablet) 15 mg PO BEDTIME JOHN Last Admin: 05/13/22 22:11 Dose: Not Given Olanzapine (Olanzapine Odt 10 Mg Tab.Rapdis) 10 mg TRANSLINGU BID PRN PRN Reason: Psychosis Last Admin: 05/08/22 18:00 Dose: 10 mg Olanzapine (Olanzapine 10 Mg Vial) 10 mg IM BID PRN PRN Reason: psychosis Last Admin: 05/13/22 20:33 Dose: 10 mg Olanzapine (Olanzapine 10 Mg Tablet) 10 mg PO DAILY JOHN Last Admin: 05/14/22 09:50 Dose: 10 mg Tamsulosin HCl (Tamsulosin Hcl 0.4 Mg Capsule) 0.4 mg PO BEDTIME JOHN Last Admin: 05/13/22 22:11 Dose: Not Given Trazodone HCl (Trazodone Hcl 50 Mg Tablet) 50 mg PO BEDTIME PRN PRN Reason: Insomnia Last Admin: 05/12/22 22:49 Dose: 50 mg Allergies Allergies Allergy/AdvReac Type Severity Reaction Status Date / Time No Known Allergies Allergy Unverified 01/15/20 16:15 [No Known Allergies*] Assessment & Plan Assessment & Plan (1) Acute psychosis: Status: Acute Code(s): F23 - Brief psychotic disorder (2) Schizoaffective disorder, bipolar type: Status: Acute Code(s): F25.0 - Schizoaffective disorder, bipolar type (3) Dementia: Status: Acute Code(s): F03.90 - Unspecified dementia, unspecified severity, without behavioral disturbance, psychotic disturbance, mood disturbance, and anxiety (4) Schizophrenia: Status: Acute Code(s): F20.9 - Schizophrenia, unspecified (5) Hypertension: Status: Acute Code(s): I10 - Essential (primary) hypertension Plan The patient is an elderly male from [facility] does, with a long history of psychotic and mood symptoms, [facility] case managed and resident of group homes with her prior admissions into the hospital for psychotic decompensation with steve in the context of noncompliance.? Historically had several admissions for the same reason.? He has a guardian and the role years order.? 05/06/22 Patient disorganized, but mostly pleasant.? Refusing psychiatric medication. Patient remains hypertensive despite recent medication change (reviewed hospitalist consult and seems recent increasing lisinopril and addition of hydrochlorothiazide) -placed hospitalist consult to review an manage antihypertensive medications for continued hypertension 05/07/2022 Patient refused addition of amlodipine saying he does not need it Refused a.m. Zyprexa Continue current treatment regimen 05/13/22 continue current treatment plan 05/14 continue current treatment plan pt seen in evening on 05/07, prior to when evening time BP taken; on 05/08, lead technical writer reviewed vitals and saw that on previous evening patient had elevated BP's above baseline; by 05/08 BP's returned to baseline; lead technical writer called PA hospitalist who evaluated; discussed with nursing and nursing utilization supervisor Plan 1. Gather collateral information.? We will try to contact the staff of the longterm to get his medication reconciliation form.? Apparently he has last Haldol deck was on February but it is unclear we will try to get a more detailed information.? 2. Continue with the same medications that we have as per medication reconciliation.? 3. Regular blood work as per protocol.? 4. Regular observation. 5.? Invega Sustenna and Haldol Decanoate IM on April 28.? 6. Increased p.r.n. Zyprexa from 5-10 mg on May 03. 7. Zyprexa IM p.r.n. as per [facility] order ordered. 8. Change regular observation to 5 minutes check on May 10. 9. Start Klonopin 1 mg 0.5 mg p.o. t.i.d. later the Klonopin was lowered to 0.5 p.o. b.i.d. and 1 mg at bedtime due to over-sedation on May 11. 10. Increased Zyprexa to 10 mg in the morning on May 13. 11. Court today for May 18 for Section 7 and 8 . Reason for contiued inpatient stay Substantial Risk for: inability to function Time Spent With Patient Time: Total time managing care of this patient today ____ minutes.
[2022-05-14] MEDS: OLANZapine ODT 10 MG TAB.RAPDIS TRANSLINGU (16:28)
[2022-05-14 18:00] VITALS: BP 179/82; PULSE 94; RESP 16; TEMP 36.3; O2SAT 99
[2022-05-14] MEDS: lisinopriL 40 MG TABLET PO (20:21)
[2022-05-14] MEDS: clonazePAM 1 MG TABLET PO (20:21)
[2022-05-14] MEDS: Tamsulosin HCL 0.4 MG CAPSULE PO (20:22)
[2022-05-14] MEDS: Divalproex Sodium 500 MG TABLET.DR 1000 MG PO (20:22)
[2022-05-14] MEDS: OLANZapine 7.5 MG TABLET 15 MG PO (20:22)
[2022-05-15 10:20] VITALS: BP 153/84; PULSE 98; RESP 18; TEMP 36.6; O2SAT 98
[2022-05-15] MEDS: clonazePAM 0.5 MG TABLET PO (10:28)
[2022-05-15] MEDS: amLODIPine Besylate 10 MG TABLET PO (10:28)
[2022-05-15] MEDS: Labetalol HCL 100 MG TABLET 300 MG PO ×2 (10:28→19:51)
[2022-05-15] MEDS: OLANZapine 10 MG TABLET PO (10:28)
[2022-05-15] MEDS: hydroCHLOROthiazide 25 MG TABLET PO (10:29)
[2022-05-15] MEDS: OLANZapine ODT 10 MG TAB.RAPDIS TRANSLINGU (12:51)
--- NOTE | 2022-05-15 13:56 | P.PNPSI_ITS ---
Subjective Subjective Date of Service: 05/15/22 Reason For Visit: Psychosis Subjective Notes: Conditional Voluntary Interim History: The nursing staff reported the patient had been manic, intrusive with peers. He was angry demanding his boots and he wanted to get out. He received Zyprexa IM backup as per [facility] orders over the weekend. Last night he was fully compliant with treatment. His last IM was on May 13. On interview the patient was intrusive, with fast speech speech, still manic. He stated that he owns the hospital and he will defend himself on court. Mental Status Exam Mental Status Exam Patient Appearance: Disheveled, Perspiring, Unkempt and Bizarre Patient Orientation: Person, Place and Situation Level of Consciousness: Awake and Restless Patient Behavior: Guarded, Restless and Belligerent Mood Description: Labile and Nervous Affect Description: Labile Patient Cognition Impaired: Yes Ability to Follow Directions: Fair Speech Pattern: Rapid and Loud Hallucinations: None Delusions: Paranoid Ideation and Grandiose Thought Process: Incoherent, Racing and Illogical Thought Content: positive for [place] Judgement: Poor Diagnostics Vital Signs (24Hr): Vital Signs - 24 hr 05/14/22 18:00 05/15/22 10:20 Temperature 97.4 F 97.9 F Pulse Rate 94 98 Respiratory Rate 16 18 Blood Pressure 179/82 H 153/84 H Pulse Oximetry 99 98 Oxygen Delivery Method Room Air Room Air BMI result Body Mass Index 23.3 Labs 04/24/22 20:41 05/10/22 08:02 Imaging Radiology Impressions: ITS Impressions Renal Ultrasound 05/08/22 16:00 IMPRESSION: 1. Bilateral renal cysts. No echogenic renal calculi. 2. There is no suggestion for renal artery stenosis in either kidney on renal Doppler exam. Renal Ultrasound 05/08/22 16:00 IMPRESSION: 1. Bilateral renal cysts. No echogenic renal calculi. 2. There is no suggestion for renal artery stenosis in either kidney on renal Doppler exam. Medications Medications Current Medications Acetaminophen (Acetaminophen 325 Mg Tablet) 650 mg PO Q6H PRN PRN Reason: Headache/Pain Mild Scale (1-3) Last Admin: 05/09/22 06:01 Dose: 650 mg Al Hydroxide/Mg Hydroxide (Magnesium Hydrox/Alum Hydrox 30 Ml Oral.Susp) 30 ml PO Q6H PRN PRN Reason: Heartburn/Nausea Amlodipine Besylate (Amlodipine Besylate 10 Mg Tablet) 10 mg PO DAILY JOHN; Protocol Last Admin: 05/15/22 10:28 Dose: 10 mg Clonazepam (Clonazepam 0.5 Mg Tablet) 0.5 mg PO BID@0800,1500 JOHN Last Admin: 05/15/22 10:28 Dose: 0.5 mg Clonazepam (Clonazepam 1 Mg Tablet) 1 mg PO BEDTIME JOHN Last Admin: 05/14/22 20:21 Dose: 1 mg Divalproex Sodium (Divalproex Sodium 500 Mg Tablet.Dr) 1,000 mg PO BEDTIME JOHN Last Admin: 05/14/22 20:22 Dose: 1,000 mg Hydrochlorothiazide (Hydrochlorothiazide 25 Mg Tablet) 25 mg PO DAILY JOHN; Protocol Last Admin: 05/15/22 10:29 Dose: 25 mg Hydroxyzine HCl (Hydroxyzine Hcl 25 Mg Tablet) 25 mg PO Q6H PRN PRN Reason: Anxiety Last Admin: 05/09/22 21:01 Dose: 25 mg Labetalol HCl (Labetalol Hcl 100 Mg Tablet) 300 mg PO BID JOHN Last Admin: 05/15/22 10:28 Dose: 300 mg Lisinopril (Lisinopril 40 Mg Tablet) 40 mg PO BEDTIME JOHN; Protocol Last Admin: 05/14/22 20:21 Dose: 40 mg Magnesium Hydroxide (Milk Of Magnesia 30 Ml Oral.Susp) 30 ml PO DAILY PRN PRN Reason: Constipation Olanzapine (Olanzapine 7.5 Mg Tablet) 15 mg PO BEDTIME JOHN Last Admin: 05/14/22 20:22 Dose: 15 mg Olanzapine (Olanzapine Odt 10 Mg Tab.Rapdis) 10 mg TRANSLINGU BID PRN PRN Reason: Psychosis Last Admin: 05/15/22 12:51 Dose: 10 mg Olanzapine (Olanzapine 10 Mg Vial) 10 mg IM BID PRN PRN Reason: psychosis Last Admin: 05/13/22 20:33 Dose: 10 mg Olanzapine (Olanzapine 10 Mg Tablet) 10 mg PO DAILY JOHN Last Admin: 05/15/22 10:28 Dose: 10 mg Tamsulosin HCl (Tamsulosin Hcl 0.4 Mg Capsule) 0.4 mg PO BEDTIME JOHN Last Admin: 05/14/22 20:22 Dose: 0.4 mg Trazodone HCl (Trazodone Hcl 50 Mg Tablet) 50 mg PO BEDTIME PRN PRN Reason: Insomnia Last Admin: 05/12/22 22:49 Dose: 50 mg Allergies Allergies Allergy/AdvReac Type Severity Reaction Status Date / Time No Known Allergies Allergy Unverified 01/15/20 16:15 [No Known Allergies*] Assessment & Plan Assessment & Plan (1) Acute psychosis: Status: Acute Code(s): F23 - Brief psychotic disorder (2) Schizoaffective disorder, bipolar type: Status: Acute Code(s): F25.0 - Schizoaffective disorder, bipolar type (3) Dementia: Status: Acute Code(s): F03.90 - Unspecified dementia, unspecified severity, without behavioral disturbance, psychotic disturbance, mood disturbance, and anxiety (4) Schizophrenia: Status: Acute Code(s): F20.9 - Schizophrenia, unspecified (5) Hypertension: Status: Acute Code(s): I10 - Essential (primary) hypertension Plan The patient is an elderly male from [facility], with a long history of psychotic and mood symptoms, [facility] case managed and resident of [facility] with her prior admissions into the hospital for psychotic decompensation with steve in the context of noncompliance.? Historically had several admissions for the same reason.? He has a guardian and the role years order.? 05/06/22 Patient disorganized, but mostly pleasant.? Refusing psychiatric medication. Patient remains hypertensive despite recent medication change (reviewed hospitalist consult and seems recent increasing lisinopril and addition of hydrochlorothiazide) -placed hospitalist consult to review an manage antihypertensive medications for continued hypertension 05/07/2022 Patient refused addition of amlodipine saying he does not need it Refused a.m. Zyprexa Continue current treatment regimen pt seen in evening on 05/07, prior to when evening time BP taken; on 05/08, junior underwriter reviewed vitals and saw that on previous evening patient had elevated BP's above baseline; by 05/08 BP's returned to baseline; junior underwriter called PA hospitalist who evaluated; discussed with nursing and nursing supervisor machine setter Plan 1. Gather collateral information.? We will try to contact the staff of the custodial to get his medication reconciliation form.? Apparently he has last Haldol deck was on February but it is unclear we will try to get a more detailed information.? 2. Continue with the same medications that we have as per medication reconc iliation.? 3. Regular blood work as per protocol.? 4. Regular observation. 5.? Invega Sustenna and Haldol Decanoate IM on April 28.? 6. Increased p.r.n. Zyprexa from 5-10 mg on May 03. 7. Zyprexa IM p.r.n. as per [facility] order ordered. 8. Change regular observation to 5 minutes check on May 10. 9. Start Klonopin 1 mg 0.5 mg p.o. t.i.d. later the Klonopin was lowered to 0.5 p.o. b.i.d. and 1 mg at bedtime due to over-sedation on May 11. 10. Increased Zyprexa to 10 mg in the morning on May 13. 11. Court today for May 18 for Section 7 and 8 . Reason for contiued inpatient stay Substantial Risk for: inability to function, rapid decompensation and med/psych decompensation Time Spent With Patient Time: Total time managing care of this patient today __20__ minutes.
[2022-05-15 18:00] VITALS: BP 181/69; PULSE 96; RESP 16; TEMP 36.6; O2SAT 98
[2022-05-15] MEDS: clonazePAM 1 MG TABLET PO (19:51)
[2022-05-15] MEDS: OLANZapine 7.5 MG TABLET 15 MG PO (19:51)
[2022-05-15] MEDS: Divalproex Sodium 500 MG TABLET.DR 1000 MG PO (19:52)
[2022-05-15] MEDS: lisinopriL 40 MG TABLET PO (19:53)
[2022-05-15] MEDS: Tamsulosin HCL 0.4 MG CAPSULE PO (19:53)
[2022-05-15 20:30] VITALS: BP 150/81; PULSE 92; RESP 16; O2SAT 98
[2022-05-16 07:30] VITALS: BP 155/72; PULSE 94; RESP 16; TEMP 36.4; O2SAT 98
[2022-05-16] MEDS: Labetalol HCL 100 MG TABLET 300 MG PO ×2 (10:07→22:19)
[2022-05-16] MEDS: hydroCHLOROthiazide 25 MG TABLET PO (10:07)
[2022-05-16] MEDS: amLODIPine Besylate 10 MG TABLET PO (10:08)
[2022-05-16] MEDS: OLANZapine 10 MG TABLET PO (10:08)
[2022-05-16] MEDS: clonazePAM 1 MG TABLET PO ×3 (12:37→22:18)
--- NOTE | 2022-05-16 13:39 | HO.PSYCHPN ---
Subjective Subjective Date of Service: 05/16/22 Reason For Visit: Psychosis Subjective Notes: Section 7 and Section 8 Interim History: The nursing staff reported the patient had been intrusive, stating grandiose delusions it such as only in the hospital, sexually disinhibited with female staff. The staff reported that he has not been over-sedated and all, so we will increase Klonopin up to 1 mg p.o. b.i.d.. On interview the patient remains delusive, grandiose very intrusive and difficult to redirect at times. Mental Status Exam Mental Status Exam Patient Appearance: Disheveled and Unkempt Patient Orientation: Person and Situation Level of Consciousness: Restless Patient Behavior: Guarded, Restless and Belligerent Mood Description: Elated Affect Description: Labile Patient Cognition Impaired: Yes Ability to Follow Directions: Good Speech Pattern: Rapid and Loud Hallucinations: None Delusions: Paranoid Ideation and Ideas of Reference Thought Process: Racing and Evasive Thought Content: positive for Flight of Ideas and positive for Poverty of Content Judgement: Poor Diagnostics Vital Signs (24Hr): Vital Signs - 24 hr 05/15/22 18:00 05/15/22 20:30 05/16/22 07:30 Temperature 97.9 F 97.5 F Pulse Rate 96 92 94 Respiratory Rate 16 16 16 Blood Pressure 181/69 H 150/81 H 155/72 H Pulse Oximetry 98 98 98 Oxygen Delivery Method Room Air Room Air Room Air BMI result Body Mass Index 23.3 Labs 04/24/22 20:41 05/10/22 08:02 Imaging Radiology Impressions: ITS Impressions Renal Ultrasound 05/08/22 16:00 IMPRESSION: 1. Bilateral renal cysts. No echogenic renal calculi. 2. There is no suggestion for renal artery stenosis in either kidney on renal Doppler exam. Renal Ultrasound 05/08/22 16:00 IMPRESSION: 1. Bilateral renal cysts. No echogenic renal calculi. 2. There is no suggestion for renal artery stenosis in either kidney on renal Doppler exam. Medications Medications Current Medications Acetaminophen (Acetaminophen 325 Mg Tablet) 650 mg PO Q6H PRN PRN Reason: Headache/Pain Mild Scale (1-3) Last Admin: 05/09/22 06:01 Dose: 650 mg Al Hydroxide/Mg Hydroxide (Magnesium Hydrox/Alum Hydrox 30 Ml Oral.Susp) 30 ml PO Q6H PRN PRN Reason: Heartburn/Nausea Amlodipine Besylate (Amlodipine Besylate 10 Mg Tablet) 10 mg PO DAILY JOHN; Protocol Last Admin: 05/16/22 10:08 Dose: 10 mg Clonazepam (Clonazepam 1 Mg Tablet) 1 mg PO BEDTIME JOHN Last Admin: 05/15/22 19:51 Dose: 1 mg Clonazepam (Clonazepam 1 Mg Tablet) 1 mg PO BID@0800,1500 JOHN Last Admin: 05/16/22 12:37 Dose: 1 mg Divalproex Sodium (Divalproex Sodium 500 Mg Tablet.Dr) 1,000 mg PO BEDTIME JOHN Last Admin: 05/15/22 19:52 Dose: 1,000 mg Hydrochlorothiazide (Hydrochlorothiazide 25 Mg Tablet) 25 mg PO DAILY JOHN; Protocol Last Admin: 05/16/22 10:07 Dose: 25 mg Hydroxyzine HCl (Hydroxyzine Hcl 25 Mg Tablet) 25 mg PO Q6H PRN PRN Reason: Anxiety Last Admin: 05/09/22 21:01 Dose: 25 mg Labetalol HCl (Labetalol Hcl 100 Mg Tablet) 300 mg PO BID JOHN Last Admin: 05/16/22 10:07 Dose: 300 mg Lisinopril (Lisinopril 40 Mg Tablet) 40 mg PO BEDTIME JOHN; Protocol Last Admin: 05/15/22 19:53 Dose: 40 mg Magnesium Hydroxide (Milk Of Magnesia 30 Ml Oral.Susp) 30 ml PO DAILY PRN PRN Reason: Constipation Olanzapine (Olanzapine 7.5 Mg Tablet) 15 mg PO BEDTIME JOHN Last Admin: 05/15/22 19:51 Dose: 15 mg Olanzapine (Olanzapine Odt 10 Mg Tab.Rapdis) 10 mg TRANSLINGU BID PRN PRN Reason: Psychosis Last Admin: 05/15/22 12:51 Dose: 10 mg Olanzapine (Olanzapine 10 Mg Vial) 10 mg IM BID PRN PRN Reason: psychosis Last Admin: 05/13/22 20:33 Dose: 10 mg Olanzapine (Olanzapine 10 Mg Tablet) 10 mg PO DAILY JOHN Last Admin: 05/16/22 10:08 Dose: 10 mg Tamsulosin HCl (Tamsulosin Hcl 0.4 Mg Capsule) 0.4 mg PO BEDTIME JOHN Last Admin: 05/15/22 19:53 Dose: 0.4 mg Trazodone HCl (Trazodone Hcl 50 Mg Tablet) 50 mg PO BEDTIME PRN PRN Reason: Insomnia Last Admin: 05/12/22 22:49 Dose: 50 mg Allergies Allergies Allergy/AdvReac Type Severity Reaction Status Date / Time No Known Allergies Allergy Unverified 01/15/20 16:15 [No Known Allergies*] Assessment & Plan Assessment & Plan (1) Acute psychosis: Status: Acute Code(s): F23 - Brief psychotic disorder (2) Schizoaffective disorder, bipolar type: Status: Acute Code(s): F25.0 - Schizoaffective disorder, bipolar type (3) Dementia: Status: Acute Code(s): F03.90 - Unspecified dementia, unspecified severity, without behavioral disturbance, psychotic disturbance, mood disturbance, and anxiety (4) Schizophrenia: Status: Acute Code(s): F20.9 - Schizophrenia, unspecified (5) Hypertension: Status: Acute Code(s): I10 - Essential (primary) hypertension Plan The patient is an elderly male from [facility] does, with a long history of psychotic and mood symptoms, [facility] case managed and resident of [facility] with her prior admissions into the hospital for psychotic decompensation with steve in the context of noncompliance.? Historically had several admissions for the same reason.? He has a guardian and the role years order.? 05/06/22 Patient disorganized, but mostly pleasant.? Refusing psychiatric medication. Patient remains hypertensive despite recent medication change (reviewed hospitalist consult and seems recent increasing lisinopril and addition of hydrochlorothiazide) -placed hospitalist consult to review an manage antihypertensive medications for continued hypertension 05/07/2022 Patient refused addition of amlodipine saying he does not need it Refused a.m. Zyprexa Continue current treatment regimen 05/13/22 continue current treatment plan 05/14 continue current treatment plan pt seen in evening on 05/07, prior to when evening time BP taken; on 05/08, movie writer reviewed vitals and saw that on previous evening patient had elevated BP's above baseline; by 05/08 BP's returned to baseline; movie writer called PA hospitalist who evaluated; discussed with nursing and nursing tree fruit and nut farming supervisor Plan 1. Gather collateral information.? We will try to contact the staff of the jail to get his medication reconciliation form.? Apparently he has last Haldol deck was on February but it is unclear we will try to get a more detailed information.? 2. Continue with the same medications that we have as per medication reconciliation.? 3. Regular blood work as per protocol.? 4. Regular observation. 5.? Invega Sustenna and Haldol Decanoate IM on April 28.? 6. Increased p.r.n. Zyprexa from 5-10 mg on May 03. 7. Zyprexa IM p.r.n. as per [facility] order ordered. 8. Change regular observation to 5 minutes check on May 10. 9. Start Klonopin 1 mg 0.5 mg p.o. t.i.d. later the Klonopin was lowered to 0.5 p.o. b.i.d. and 1 mg at bedtime due to over-sedation on May 11. Later, May 16 Klonopin was increased up to 1 mg p.o. t.i.d. 10. Increased Zyprexa to 10 mg in the morning on May 13. 11. Court today for May 18 for Section 7 and 8 . Reason for contiued inpatient stay Substantial Risk for: harm to self, harm to others, inability to function, rapid decompensation and med/psych decompensation Time Spent With Patient Time: Total time managing care of this patient today __20__ minutes.
[2022-05-16 18:00] VITALS: BP 164/81; PULSE 95; RESP 18; TEMP 36.8; O2SAT 97
[2022-05-16] MEDS: OLANZapine 7.5 MG TABLET 15 MG PO (22:18)
[2022-05-16] MEDS: lisinopriL 40 MG TABLET PO (22:18)
[2022-05-16] MEDS: Divalproex Sodium 500 MG TABLET.DR 1000 MG PO (22:18)
[2022-05-16] MEDS: Tamsulosin HCL 0.4 MG CAPSULE PO (22:19)
[2022-05-17 07:30] VITALS: BP 151/75; PULSE 90; RESP 17; TEMP 36.2; O2SAT 99
--- NOTE | 2022-05-17 07:59 | HO.PSYCHPN ---
Subjective Subjective Date of Service: 05/17/22 Reason For Visit: Psychosis Subjective Notes: Pedersen Warning, Section 7 and Section 8 Interim History: The nursing staff reported the patient slept from midnight until morning. There was no over-sedation with increase of Klonopin to 1 mg p.o. t.i.d.. He had been very demanding with peers and staff but eventually redirected. On interview the patient remains grandiose and delusive, very Mental Status Exam Mental Status Exam Patient Appearance: Disheveled and Unkempt Patient Orientation: Person and Situation Level of Consciousness: Restless Patient Behavior: Wandering, Anxious and Impulsive Mood Description: Elated Affect Description: Labile Patient Cognition Impaired: Yes Ability to Follow Directions: Fair Speech Pattern: Impoverished, Rapid and Poor Articulation Hallucinations: None Delusions: Paranoid Ideation, Grandiose and Ideas of Reference Thought Process: Racing and Illogical Thought Content: positive for Perseveration, positive for Poverty of Content, positive for Loose Associations and positive for Thought Blocking Judgement: Poor Diagnostics Vital Signs (24Hr): Vital Signs - 24 hr 05/16/22 18:00 Temperature 98.2 F Pulse Rate 95 Respiratory Rate 18 Blood Pressure 164/81 H Pulse Oximetry 97 Oxygen Delivery Method Room Air BMI result Body Mass Index 23.3 Labs 04/24/22 20:41 05/10/22 08:02 Imaging Radiology Impressions: ITS Impressions Renal Ultrasound 05/08/22 16:00 IMPRESSION: 1. Bilateral renal cysts. No echogenic renal calculi. 2. There is no suggestion for renal artery stenosis in either kidney on renal Doppler exam. Renal Ultrasound 05/08/22 16:00 IMPRESSION: 1. Bilateral renal cysts. No echogenic renal calculi. 2. There is no suggestion for renal artery stenosis in either kidney on renal Doppler exam. Medications Medications Current Medications Acetaminophen (Acetaminophen 325 Mg Tablet) 650 mg PO Q6H PRN PRN Reason: Headache/Pain Mild Scale (1-3) Last Admin: 05/09/22 06:01 Dose: 650 mg Al Hydroxide/Mg Hydroxide (Magnesium Hydrox/Alum Hydrox 30 Ml Oral.Susp) 30 ml PO Q6H PRN PRN Reason: Heartburn/Nausea Amlodipine Besylate (Amlodipine Besylate 10 Mg Tablet) 10 mg PO DAILY JOHN; Protocol Last Admin: 05/16/22 10:08 Dose: 10 mg Clonazepam (Clonazepam 1 Mg Tablet) 1 mg PO BEDTIME JOHN Last Admin: 05/16/22 22:18 Dose: 1 mg Clonazepam (Clonazepam 1 Mg Tablet) 1 mg PO BID@0800,1500 JOHN Last Admin: 05/16/22 15:29 Dose: Not Given Divalproex Sodium (Divalproex Sodium 500 Mg Tablet.Dr) 1,000 mg PO BEDTIME JOHN Last Admin: 05/16/22 22:18 Dose: 1,000 mg Hydrochlorothiazide (Hydrochlorothiazide 25 Mg Tablet) 25 mg PO DAILY JOHN; Protocol Last Admin: 05/16/22 10:07 Dose: 25 mg Hydroxyzine HCl (Hydroxyzine Hcl 25 Mg Tablet) 25 mg PO Q6H PRN PRN Reason: Anxiety Last Admin: 05/09/22 21:01 Dose: 25 mg Labetalol HCl (Labetalol Hcl 100 Mg Tablet) 300 mg PO BID JOHN Last Admin: 05/16/22 22:19 Dose: 300 mg Lisinopril (Lisinopril 40 Mg Tablet) 40 mg PO BEDTIME JOHN; Protocol Last Admin: 05/16/22 22:18 Dose: 40 mg Magnesium Hydroxide (Milk Of Magnesia 30 Ml Oral.Susp) 30 ml PO DAILY PRN PRN Reason: Constipation Olanzapine (Olanzapine 7.5 Mg Tablet) 15 mg PO BEDTIME JOHN Last Admin: 05/16/22 22:18 Dose: 15 mg Olanzapine (Olanzapine Odt 10 Mg Tab.Rapdis) 10 mg TRANSLINGU BID PRN PRN Reason: Psychosis Last Admin: 05/15/22 12:51 Dose: 10 mg Olanzapine (Olanzapine 10 Mg Vial) 10 mg IM BID PRN PRN Reason: psychosis Last Admin: 05/13/22 20:33 Dose: 10 mg Olanzapine (Olanzapine 10 Mg Tablet) 10 mg PO DAILY JOHN Last Admin: 05/16/22 10:08 Dose: 10 mg Tamsulosin HCl (Tamsulosin Hcl 0.4 Mg Capsule) 0.4 mg PO BEDTIME JOHN Last Admin: 05/16/22 22:19 Dose: 0.4 mg Trazodone HCl (Trazodone Hcl 50 Mg Tablet) 50 mg PO BEDTIME PRN PRN Reason: Insomnia Last Admin: 05/12/22 22:49 Dose: 50 mg Allergies Allergies Allergy/AdvReac Type Severity Reaction Status Date / Time No Known Allergies Allergy Unverified 01/15/20 16:15 [No Known Allergies*] Assessment & Plan Assessment & Plan (1) Acute psychosis: Status: Acute Code(s): F23 - Brief psychotic disorder (2) Schizoaffective disorder, bipolar type: Status: Acute Code(s): F25.0 - Schizoaffective disorder, bipolar type (3) Dementia: Status: Acute Code(s): F03.90 - Unspecified dementia, unspecified severity, without behavioral disturbance, psychotic disturbance, mood disturbance, and anxiety (4) Schizophrenia: Status: Acute Code(s): F20.9 - Schizophrenia, unspecified (5) Hypertension: Status: Acute Code(s): I10 - Essential (primary) hypertension Plan The patient is an elderly male from verbal does, with a long history of psychotic and mood symptoms, [facility] case managed and resident of [facility] with her prior admissions into the hospital for psychotic decompensation with steve in the context of noncompliance.? Historically had several admissions for the same reason.? He has a guardian and the role years order.? 05/06/22 Patient disorganized, but mostly pleasant.? Refusing psychiatric medication. Patient remains hypertensive despite recent medication change (reviewed hospitalist consult and seems recent increasing lisinopril and addition of hydrochlorothiazide) -placed hospitalist consult to review an manage antihypertensive medications for continued hypertension 05/07/2022 Patient refused addition of amlodipine saying he does not need it Refused a.m. Zyprexa Continue current treatment regimen 05/13/22 continue current treatment plan 05/14 continue current treatment plan pt seen in evening on 05/07, prior to when evening time BP taken; on 05/08, advertising copywriter reviewed vitals and saw that on previous evening patient had elevated BP's above baseline; by 05/08 BP's returned to baseline; advertising copywriter called PA hospitalist who evaluated; discussed with nursing and nursing permanent mold supervisor Plan 1. Gather collateral information.? We will try to contact the staff of the [facility] to get his medication reconciliation form.? Apparently he has last Haldol deck was on February but it is unclear we will try to get a more detailed information.? 2. Continue with the same medications that we have as per medication reconciliation.? 3. Regular blood work as per protocol.? 4. Regular observation. 5.? Invega Sustenna and Haldol Decanoate IM on April 28.? 6. Increased p.r.n. Zyprexa from 5-10 mg on May 03. 7. Zyprexa IM p.r.n. as per [facility] order ordered. 8. Change regular observation to 5 minutes check on May 10. 9. Start Klonopin 1 mg 0.5 mg p.o. t.i.d. later the Klonopin was lowered to 0.5 p.o. b.i.d. and 1 mg at bedtime due to over-sedation on May 11. Later, May 16 Klonopin was increased up to 1 mg p.o. t.i.d. 10. Increased Zyprexa to 10 mg in the morning on May 13. 11. Court today for May 18 for Section 7 and 8 . 12. Blood work for tomorrow May 19 Reason for contiued inpatient stay Substantial Risk for: inability to function, rapid decompensation and med/psych decompensation Time Spent With Patient Time: Total time managing care of this patient today __20__ minutes.
[2022-05-17] MEDS: OLANZapine 10 MG TABLET PO (09:49)
[2022-05-17] MEDS: Labetalol HCL 100 MG TABLET 300 MG PO ×2 (09:49→20:52)
[2022-05-17] MEDS: clonazePAM 1 MG TABLET PO ×3 (09:50→20:51)
[2022-05-17] MEDS: hydroCHLOROthiazide 25 MG TABLET PO (09:50)
[2022-05-17] MEDS: amLODIPine Besylate 10 MG TABLET PO (09:50)
[2022-05-17] MEDS: OLANZapine ODT 10 MG TAB.RAPDIS TRANSLINGU (15:20)
[2022-05-17 18:00] VITALS: BP 177/83; PULSE 89; RESP 18; TEMP 36.2; O2SAT 98
[2022-05-17] MEDS: Divalproex Sodium 500 MG TABLET.DR 1000 MG PO (20:51)
[2022-05-17] MEDS: OLANZapine 7.5 MG TABLET 15 MG PO (20:52)
[2022-05-17] MEDS: lisinopriL 40 MG TABLET PO (20:52)
[2022-05-17] MEDS: Tamsulosin HCL 0.4 MG CAPSULE PO (20:52)
[2022-05-18 08:28] LABS: MANUAL DIFF FLAG NO
[2022-05-18 08:35] LABS: Basophils Percent Auto 0.7 % (0-2); Eosinophils Absolute Auto 0.2 X10*3/uL (0.0-0.4); Eosinophils Percent Auto 3.4 % (0-4); Hematocrit 36.4 % (42.0-52.0); Hemoglobin 11.7 g/dl (14.0-18.0); Imm Gran Abs Auto 0.08 X10*3/uL (0.00-0.03); Imm Gran Pct Auto 1.4 % (0.0-0.4); Lymphocytes Absolute Auto 1.9 X10*3/uL (1.2-4.9); Mean Corpuscular HGB Conc 32.1 g/dl (31.0-36.0); Mean Corpuscular Hemoglobin 28.5 pg (27.0-33.0); Mean Corpuscular Volume 88.6 fL (80.0-98.0); Mean Platelet Volume 8.7 fL (9.4-12.4); Monocytes Absolute Auto 0.6 X10*3/uL (0.1-1.2); Monocytes Percent Auto 10.6 % (2-11); Neutrophils Percent Auto 50.9 % (45-73); Platelet Count 246 X10*3/uL (160-400); Red Blood Count 4.11 X10*6/uL (4.60-5.80); Red Cell Distribution Width 13.3 % (11.0-16.0); White Blood Count 5.8 X10*3/uL (4.8-10.8)
[2022-05-18 08:59] LABS: Valproate 15.7 mcg/mL (50.0-100.0)
[2022-05-18 09:03] LABS: Alanine Aminotransferase 23 U/L (0-40); Albumin Level 4.1 g/dL (3.5-5.0); Alkaline Phosphatase 68 U/L (39-117); Anion Gap 16 (12-20); Aspartate Amino Transferase 14 U/L (5-37); Bilirubin Direct < 0.2 mg/dL (0.0-0.5); Bilirubin Total 0.4 mg/dL (0.0-1.0); Blood Urea Nitrogen 13 mg/dL (9-16); Calcium 9.5 mg/dL (8.4-10.2); Carbon Dioxide 29 mmol/L (22-29); Chloride 102 mmol/L (96-108); Cholesterol 203 mg/dL; Creatinine Clr Calc Pharmacy 73.4; Estimated Glomerular Filt Rate > 60; Glucose Random 172 mg/dL (60-115); HDL Cholesterol 39 mg/dL; Sodium 143 mmol/L (135-145); Total Protein 7.6 g/dL (6.5-8.0); Triglycerides 426 mg/dL
[2022-05-18 09:05] LABS: Estimated Average Glucose 111 mg/dL; Hemoglobin A1c % 5.5 %
[2022-05-18] MEDS: clonazePAM 1 MG TABLET PO (09:53)
[2022-05-18] MEDS: OLANZapine 10 MG TABLET PO (09:53)
[2022-05-18] MEDS: Labetalol HCL 100 MG TABLET 300 MG PO (09:53)
[2022-05-18] MEDS: hydroCHLOROthiazide 25 MG TABLET PO (09:53)
[2022-05-18] MEDS: amLODIPine Besylate 10 MG TABLET PO (09:53)
--- NOTE | 2022-05-18 13:22 | HO.PSYCHPN ---
Subjective Subjective Date of Service: 05/18/22 Reason For Visit: Psychosis Subjective Notes: Section 7 and Section 8 Interim History: The nursing staff reported the patient slept only 5 hours he has been intrusive and loud. The social worker clinical reported that yesterday was visited by the pipelines supervisor of the [facility] and he was not at his baseline. On interview the patient remains delusional grandiose and redirectable at times. Still grossly manic. Today we did blood work and his Depakote level was very low probably his cheeking medication. Mental Status Exam Mental Status Exam Patient Appearance: Disheveled and Unkempt Patient Orientation: Person and Situation Level of Consciousness: Awake and Restless Patient Behavior: Restless, Uncooperative and Impulsive Mood Description: Elated and Expansive Affect Description: Labile Patient Cognition Impaired: Yes Ability to Follow Directions: Poor Speech Pattern: Rapid and Loud Hallucinations: None Delusions: Paranoid Ideation and Grandiose Thought Process: Racing, Illogical and Distracted Thought Content: positive for Girdler, positive for Loose Associations and positive for Thought Blocking Judgement: Poor Diagnostics Vital Signs (24Hr): Vital Signs - 24 hr 05/17/22 18:00 Temperature 97.2 F Pulse Rate 89 Respiratory Rate 18 Blood Pressure 177/83 H Pulse Oximetry 98 Oxygen Delivery Method Room Air BMI result Body Mass Index 23.3 Labs 05/18/22 08:14 05/18/22 08:14 Labs: Laboratory Results - last 48 hr 05/18/22 05/18/22 05/18/22 08:14 08:14 08:14 WBC 5.8 RBC 4.11 L Hgb 11.7 L Hct 36.4 L MCV 88.6 MCH 28.5 MCHC 32.1 RDW 13.3 Plt Count 246 MPV 8.7 L Immature Gran % (Auto) 1.4 H Neut % (Auto) 50.9 Lymph % (Auto) 33.0 [place] % (Auto) 10.6 Eos % (Auto) 3.4 Baso % (Auto) 0.7 Lymph # (Auto) 1.9 [place] # (Auto) 0.6 Eos # (Auto) 0.2 Baso # (Auto) 0.0 Abs Immat Gran (auto) 0.08 H Absolute Neuts (auto) 3.0 Absolute Nucleated RBC 0.000 Nucleated RBC % (auto) 0.0 Sodium 143 Potassium 4.0 Chloride 102 Carbon Dioxide 29 Anion Gap 16 BUN 13 Creatinine 0.86 Estim Creat Clear Calc 73.4 Estimated GFR > 60 Random Glucose 172 H Estimat Average Glucose 111 Hemoglobin A1c % 5.5 Calcium 9.5 Total Bilirubin 0.4 Direct Bilirubin < 0.2 AST 14 ALT 23 Alkaline Phosphatase 68 Total Protein 7.6 Albumin 4.1 Triglycerides 426 Cholesterol 203 LDL Cholesterol, Calc TNP HDL Cholesterol 39 Valproic Acid 05/18/22 08:14 WBC RBC Hgb Hct MCV MCH MCHC RDW Plt Count MPV Immature Gran % (Auto) Neut % (Auto) Lymph % (Auto) [place] % (Auto) Eos % (Auto) Baso % (Auto) Lymph # (Auto) [place] # (Auto) Eos # (Auto) Baso # (Auto) Abs Immat Gran (auto) Absolute Neuts (auto) Absolute Nucleated RBC Nucleated RBC % (auto) Sodium Potassium Chloride Carbon Dioxide Anion Gap BUN Creatinine Estim Creat Clear Calc Estimated GFR Random Glucose Estimat Average Glucose Hemoglobin A1c % Calcium Total Bilirubin Direct Bilirubin AST ALT Alkaline Phosphatase Total Protein Albumin Triglycerides Cholesterol LDL Cholesterol, Calc HDL Cholesterol Valproic Acid 15.7 L Imaging Radiology Impressions: ITS Impressions Renal Ultrasound 05/08/22 16:00 IMPRESSION: 1. Bilateral renal cysts. No echogenic renal calculi. 2. There is no suggestion for renal artery stenosis in either kidney on renal Doppler exam. Renal Ultrasound 05/08/22 16:00 IMPRESSION: 1. Bilateral renal cysts. No echogenic renal calculi. 2. There is no suggestion for renal artery stenosis in either kidney on renal Doppler exam. Medications Medications Current Medications Acetaminophen (Acetaminophen 325 Mg Tablet) 650 mg PO Q6H PRN PRN Reason: Headache/Pain Mild Scale (1-3) Last Admin: 05/09/22 06:01 Dose: 650 mg Al Hydroxide/Mg Hydroxide (Magnesium Hydrox/Alum Hydrox 30 Ml Oral.Susp) 30 ml PO Q6H PRN PRN Reason: Heartburn/Nausea Amlodipine Besylate (Amlodipine Besylate 10 Mg Tablet) 10 mg PO DAILY [facility]; Protocol Last Admin: 05/18/22 09:53 Dose: 10 mg Clonazepam (Clonazepam 1 Mg Tablet) 1 mg PO BID@0800,1500 JOHN Last Admin: 05/18/22 09:53 Dose: 1 mg Divalproex Sodium (Divalproex Sodium 500 Mg Tablet.) 1,000 mg PO BEDTIME JOHN Last Admin: 05/17/22 20:51 Dose: 1,000 mg Hydrochlorothiazide (Hydrochlorothiazide 25 Mg Tablet) 25 mg PO DAILY JOHN; Protocol Last Admin: 05/18/22 09:53 Dose: 25 mg Hydroxyzine HCl (Hydroxyzine Hcl 25 Mg Tablet) 25 mg PO Q6H PRN PRN Reason: Anxiety Last Admin: 05/09/22 21:01 Dose: 25 mg Labetalol HCl (Labetalol Hcl 100 Mg Tablet) 300 mg PO BID JOHN Last Admin: 05/18/22 09:53 Dose: 300 mg Lisinopril (Lisinopril 40 Mg Tablet) 40 mg PO BEDTIME JOHN; Protocol Last Admin: 05/17/22 20:52 Dose: 40 mg Magnesium Hydroxide (Milk Of Magnesia 30 Ml Oral.Susp) 30 ml PO DAILY PRN PRN Reason: Constipation Olanzapine (Olanzapine 7.5 Mg Tablet) 15 mg PO BEDTIME JOHN Last Admin: 05/17/22 20:52 Dose: 15 mg Olanzapine (Olanzapine Odt 10 Mg Tab.Rapdis) 10 mg TRANSLINGU BID PRN PRN Reason: Psychosis Last Admin: 05/17/22 15:20 Dose: 10 mg Olanzapine (Olanzapine 10 Mg Vial) 10 mg IM BID PRN PRN Reason: psychosis Last Admin: 05/13/22 20:33 Dose: 10 mg Olanzapine (Olanzapine 10 Mg Tablet) 10 mg PO DAILY JOHN Last Admin: 05/18/22 09:53 Dose: 10 mg Tamsulosin HCl (Tamsulosin Hcl 0.4 Mg Capsule) 0.4 mg PO BEDTIME JOHN Last Admin: 05/17/22 20:52 Dose: 0.4 mg Trazodone HCl (Trazodone Hcl 50 Mg Tablet) 50 mg PO BEDTIME PRN PRN Reason: Insomnia Last Admin: 05/12/22 22:49 Dose: 50 mg Allergies Allergies Allergy/AdvReac Type Severity Reaction Status Date / Time No Known Allergies Allergy Unverified 01/15/20 16:15 [No Known Allergies*] Assessment & Plan Assessment & Plan (1) Acute psychosis: Status: Acute Code(s): F23 - Brief psychotic disorder (2) Schizoaffective disorder, bipolar type: Status: Acute Code(s): F25.0 - Schizoaffective disorder, bipolar type (3) Dementia: Status: Acute Code(s): F03.90 - Unspecified dementia, unspecified severity, without behavioral disturbance, psychotic disturbance, mood disturbance, and anxiety (4) Schizophrenia: Status: Acute Code(s): F20.9 - Schizophrenia, unspecified (5) Hypertension: Status: Acute Code(s): I10 - Essential (primary) hypertension Plan The patient is an elderly male from verbal does, with a long history of psychotic and mood symptoms, [facility] case managed and resident of [facility] with her prior admissions into the hospital for psychotic decompensation with steve in the context of noncompliance.? Historically had several admissions for the same reason.? He has a guardian and the role years order.? 05/06/22 Patient disorganized, but mostly pleasant.? Refusing psychiatric medication. Patient remains hypertensive despite recent medication change (reviewed hospitalist consult and seems recent increasing lisinopril and addition of hydrochlorothiazide) -placed hospitalist consult to review an manage antihypertensive medications for continued hypertension 05/07/2022 Patient refused addition of amlodipine saying he does not need it Refused a.m. Zyprexa Continue current treatment regimen 05/13/22 continue current treatment plan 05/14 continue current treatment plan pt seen in evening on 05/07, prior to when evening time BP taken; on 05/08, underwriter mortgage loan reviewed vitals and saw that on previous evening patient had elevated BP's above baseline; by 05/08 BP's returned to baseline; underwriter mortgage loan called PA hospitalist who evaluated; discussed with nursing and nursing pipelines supervisor Plan 1. Gather collateral information.? We will try to contact the staff of the [facility] to get his medication reconciliation form.? Apparently he has last Haldol deck was on February but it is unclear we will try to get a more detailed information.? 2. Continue with the same medications that we have as per medication reconciliation.? 3. Regular blood work as per protocol.? 4. Regular observation. 5.? Invega Sustenna and Haldol Decanoate IM on April 28.? 6. Increased p.r.n. Zyprexa from 5-10 mg on May 03. 7. Zyprexa IM p.r.n. as per [facility] order ordered. 8. Change regular observation to 5 minutes check on Reshma 11. 9. Start Klonopin 1 mg 0.5 mg p.o. t.i.d. later the Klonopin was lowered to 0.5 p.o. b.i.d. and 1 mg at bedtime due to over-sedation on May 11. Later, May 16 Klonopin was increased up to 1 mg p.o. t.i.d. 10. Increased Zyprexa to 10 mg in the morning on May 13. 11. Court today for May 18 for Section 7 and 8 . 12. Blood work for t came back with a very low Depakote level probably most likely cheeking his medication Reason for contiued inpatient stay Substantial Risk for: inability to function, rapid decompensation and med/psych decompensation Time Spent With Patient Time: Total time managing care of this patient today __20__ minutes.
[2022-05-18] MEDS: OLANZapine 7.5 MG TABLET 15 MG PO (20:31)
[2022-05-18 20:49] VITALS: BP 164/80; PULSE 100; TEMP 36.7
[2022-05-19] MEDS: clonazePAM 1 MG TABLET PO (12:13)
[2022-05-19] MEDS: hydroCHLOROthiazide 25 MG TABLET PO (12:13)
[2022-05-19] MEDS: amLODIPine Besylate 10 MG TABLET PO (12:13)
[2022-05-19] MEDS: Labetalol HCL 100 MG TABLET 300 MG PO ×2 (12:14→19:58)
[2022-05-19] MEDS: OLANZapine 10 MG TABLET PO (12:14)
--- NOTE | 2022-05-19 13:29 | HO.PSYCHPN ---
Subjective Subjective Date of Service: 05/19/22 Reason For Visit: Psychosis Subjective Notes: Conditional Voluntary Interim History: The nursing staff reported the patient had been extremely loud and confrontational since yesterday he a have a hearing for his court for Section 7 and 8. The nahum has been moved for June 15. The bilingual social worker reported that the intermediate stated that he was not doing well in they will come next week to reassess. His Depakote level has been low even though that there was for refused else in the last days, there is a suspicion that the patient's cheeking medications. Later, after lunch he was extremely agitated and refused p.o. p.r.n. so I have to call for a code and he was medicated IM. Still grossly manic Mental Status Exam Mental Status Exam Patient Appearance: Disheveled and Unkempt Patient Orientation: Person and Situation Level of Consciousness: Awake, Restless and Inappropriate Patient Behavior: Hypersexual and Wandering Mood Description: Elated Affect Description: Labile Patient Cognition Impaired: Yes Ability to Follow Directions: Poor Speech Pattern: Rapid and Loud Hallucinations: None Delusions: Paranoid Ideation and Grandiose Thought Process: Racing and Illogical Thought Content: positive for [place], positive for Loose Associations, positive for Thought Blocking and positive for Incoherent Judgement: Poor Diagnostics Vital Signs (24Hr): Vital Signs - 24 hr 05/18/22 20:49 Temperature 98.1 F Pulse Rate 100 Blood Pressure 164/80 H BMI result Body Mass Index 23.3 Labs 05/18/22 08:14 05/18/22 08:14 Labs: Laboratory Results - last 48 hr 05/18/22 05/18/22 05/18/22 08:14 08:14 08:14 WBC 5.8 RBC 4.11 L Hgb 11.7 L Hct 36.4 L MCV 88.6 MCH 28.5 MCHC 32.1 RDW 13.3 Plt Count 246 MPV 8.7 L Immature Gran % (Auto) 1.4 H Neut % (Auto) 50.9 Lymph % (Auto) 33.0 [place] % (Auto) 10.6 Eos % (Auto) 3.4 Baso % (Auto) 0.7 Lymph # (Auto) 1.9 [place] # (Auto) 0.6 Eos # (Auto) 0.2 Baso # (Auto) 0.0 Abs Immat Gran (auto) 0.08 H Absolute Neuts (auto) 3.0 Absolute Nucleated RBC 0.000 Nucleated RBC % (auto) 0.0 Sodium 143 Potassium 4.0 Chloride 102 Carbon Dioxide 29 Anion Gap 16 BUN 13 Creatinine 0.86 Estim Creat Clear Calc 73.4 Estimated GFR > 60 Random Glucose 172 H Estimat Average Glucose 111 Hemoglobin A1c % 5.5 Calcium 9.5 Total Bilirubin 0.4 Direct Bilirubin < 0.2 AST 14 ALT 23 Alkaline Phosphatase 68 Total Protein 7.6 Albumin 4.1 Triglycerides 426 Cholesterol 203 LDL Cholesterol, Calc TNP HDL Cholesterol 39 Valproic Acid 05/18/22 08:14 WBC RBC Hgb Hct MCV MCH MCHC RDW Plt Count MPV Immature Gran % (Auto) Neut % (Auto) Lymph % (Auto) [place] % (Auto) Eos % (Auto) Baso % (Auto) Lymph # (Auto) [place] # (Auto) Eos # (Auto) Baso # (Auto) Abs Immat Gran (auto) Absolute Neuts (auto) Absolute Nucleated RBC Nucleated RBC % (auto) Sodium Potassium Chloride Carbon Dioxide Anion Gap BUN Creatinine Estim Creat Clear Calc Estimated GFR Random Glucose Estimat Average Glucose Hemoglobin A1c % Calcium Total Bilirubin Direct Bilirubin AST ALT Alkaline Phosphatase Total Protein Albumin Triglycerides Cholesterol LDL Cholesterol, Calc HDL Cholesterol Valproic Acid 15.7 L Imaging Radiology Impressions: ITS Impressions Renal Ultrasound 05/08/22 16:00 IMPRESSION: 1. Bilateral renal cysts. No echogenic renal calculi. 2. There is no suggestion for renal artery stenosis in either kidney on renal Doppler exam. Renal Ultrasound 05/08/22 16:00 IMPRESSION: 1. Bilateral renal cysts. No echogenic renal calculi. 2. There is no suggestion for renal artery stenosis in either kidney on renal Doppler exam. Medications Medications Current Medications Acetaminophen (Acetaminophen 325 Mg Tablet) 650 mg PO Q6H PRN PRN Reason: Headache/Pain Mild Scale (1-3) Last Admin: 05/09/22 06:01 Dose: 650 mg Al Hydroxide/Mg Hydroxide (Magnesium Hydrox/Alum Hydrox 30 Ml Oral.Susp) 30 ml PO Q6H PRN PRN Reason: Heartburn/Nausea Amlodipine Besylate (Amlodipine Besylate 10 Mg Tablet) 10 mg PO DAILY JOHN; Protocol Last Admin: 05/19/22 12:13 Dose: 10 mg Clonazepam (Clonazepam 1 Mg Tablet) 1 mg PO BID@0800,1500 JOHN Last Admin: 05/19/22 12:13 Dose: 1 mg Diphenhydramine HCl (Diphenhydramine Hcl 50 Mg/Ml Vial) 50 mg IM ONCE ONE; Protocol Stop: 05/19/22 13:25 Divalproex Sodium (Divalproex Sodium Sprinkles 125 Mg Cap.) 1,000 mg PO BEDTIME JOHN Hydrochlorothiazide (Hydrochlorothiazide 25 Mg Tablet) 25 mg PO DAILY JOHN; Protocol Last Admin: 05/19/22 12:13 Dose: 25 mg Hydroxyzine HCl (Hydroxyzine Hcl 25 Mg Tablet) 25 mg PO Q6H PRN PRN Reason: Anxiety Last Admin: 05/09/22 21:01 Dose: 25 mg Labetalol HCl (Labetalol Hcl 100 Mg Tablet) 300 mg PO BID JOHN Last Admin: 05/19/22 12:14 Dose: 300 mg Lisinopril (Lisinopril 40 Mg Tablet) 40 mg PO BEDTIME JOHN; Protocol Last Admin: 05/18/22 20:33 Dose: Not Given Lorazepam (Lorazepam 2 Mg/Ml Vial) 2 mg IM STAT STA; Protocol Stop: 05/19/22 13:25 Magnesium Hydroxide (Milk Of Magnesia 30 Ml Oral.Susp) 30 ml PO DAILY PRN PRN Reason: Constipation Olanzapine (Olanzapine 7.5 Mg Tablet) 15 mg PO BEDTIME JOHN Last Admin: 05/18/22 20:31 Dose: 15 mg Olanzapine (Olanzapine Odt 10 Mg Tab.Rapdis) 10 mg TRANSLINGU BID PRN PRN Reason: Psychosis Last Admin: 05/17/22 15:20 Dose: 10 mg Olanzapine (Olanzapine 10 Mg Vial) 10 mg IM BID PRN PRN Reason: psychosis Last Admin: 05/13/22 20:33 Dose: 10 mg Olanzapine (Olanzapine 10 Mg Tablet) 10 mg PO DAILY JOHN Last Admin: 05/19/22 12:14 Dose: 10 mg Olanzapine (Olanzapine 10 Mg Vial) 10 mg IM STAT STA; Protocol Stop: 05/19/22 13:25 Tamsulosin HCl (Tamsulosin Hcl 0.4 Mg Capsule) 0.4 mg PO BEDTIME JOHN Last Admin: 05/18/22 20:33 Dose: Not Given Trazodone HCl (Trazodone Hcl 50 Mg Tablet) 50 mg PO BEDTIME PRN PRN Reason: Insomnia Last Admin: 05/12/22 22:49 Dose: 50 mg Allergies Allergies Allergy/AdvReac Type Severity Reaction Status Date / Time No Known Allergies Allergy Unverified 01/15/20 16:15 [No Known Allergies*] Assessment & Plan Assessment & Plan (1) Acute psychosis: Status: Acute Code(s): F23 - Brief psychotic disorder (2) Schizoaffective disorder, bipolar type: Status: Acute Code(s): F25.0 - Schizoaffective disorder, bipolar type (3) Dementia: Status: Acute Code(s): F03.90 - Unspecified dementia, unspecified severity, without behavioral disturbance, psychotic disturbance, mood disturbance, and anxiety (4) Schizophrenia: Status: Acute Code(s): F20.9 - Schizophrenia, unspecified (5) Hypertension: Status: Acute Code(s): I10 - Essential (primary) hypertension Plan The patient is an elderly male from [facility] does, with a long history of psychotic and mood symptoms, [facility] case managed and resident of [facility] with her prior admissions into the hospital for psychotic decompensation with steve in the context of noncompliance.? Historically had several admissions for the same reason.? He has a guardian and the role years order.? 05/06/22 Patient disorganized, but mostly pleasant.? Refusing psychiatric medication. Patient remains hypertensive despite recent medication change (reviewed hospitalist consult and seems recent increasing lisinopril and addition of hydrochlorothiazide) -placed hospitalist consult to review an manage antihypertensive medications for continued hypertension 05/07/2022 Patient refused addition of amlodipine saying he does not need it Refused a.m. Zyprexa Continue current treatment regimen 05/13/22 continue current treatment plan 05/14 continue current treatment plan pt seen in evening on 05/07, prior to when evening time BP taken; on 05/08, policy writer reviewed vitals and saw that on previous evening patient had elevated BP's above baseline; by 05/08 BP's returned to baseline; policy writer called PA hospitalist who evaluated; discussed with nursing and nursing supervisor sewing room Plan 1. Gather collateral information.? We will try to contact the staff of the intermediate to get his medication reconciliation form.? Apparently he has last Haldol deck was on February but it is unclear we will try to get a more detailed information.? 2. Continue with the same medications that we have as per medication reconciliation.? 3. Regular blood work as per protocol.? 4. Regular observation. 5.? Invega Sustenna and Haldol Decanoate IM on April 28.? 6. Increased p.r.n. Zyprexa from 5-10 mg on May 03. 7. Zyprexa IM p.r.n. as per [facility] order ordered. 8. Change regular observation to 5 minutes check on May 10. 9. Start Klonopin 1 mg 0.5 mg p.o. t.i.d. later the Klonopin was lowered to 0.5 p.o. b.i.d. and 1 mg at bedtime due to over-sedation on May 11. Later, May 16 Klonopin was increased up to 1 mg p.o. t.i.d. 10. Increased Zyprexa to 10 mg in the morning on May 13. 11. Court today for May 18 for Section 7 and 8 . 12. Blood work for May 18 came back with a very low Depakote level probably most likely cheeking his medication. 13. Chemically restrain today on Zyprexa 10 mg at even 2 mg and Benadryl 50 IM Reason for contiued inpatient stay Substantial Risk for: inability to function, rapid decompensation and med/psych decompensation Time Spent With Patient Time: Total time managing care of this patient today __20__ minutes.
[2022-05-19] MEDS: OLANZapine 10 MG VIAL IM (13:53)
[2022-05-19] MEDS: diphenhydrAMINE HCL 50 MG/ML VIAL IM (13:53)
[2022-05-19] MEDS: LORazepam 2 MG/ML VIAL IM (13:53)
--- NOTE | 2022-05-19 16:35 | PC.NURSE ---
Patient exhibiting agitation throughout the morning evidenced by patient yelling out continuously r/t not being allowed to leave. Patient disrupted the unit and was offered PO meds. Patient refused. MD then ordered medication restraint of Ativan, Benadryl and Zyprexa. Security was called to assist. Following arrival of security patient was compliant with administration of IM meds. Following administration patient refused vitals. Medication was minimally effective.
[2022-05-19 18:00] VITALS: BP 144/76; PULSE 105; RESP 18; TEMP 36.6; O2SAT 96
[2022-05-19] MEDS: OLANZapine 7.5 MG TABLET 15 MG PO (19:57)
[2022-05-19] MEDS: lisinopriL 40 MG TABLET PO (19:58)
[2022-05-20 07:30] VITALS: BP 204/95; PULSE 89; RESP 15; TEMP 36.8; O2SAT 94
[2022-05-20 08:30] VITALS: BP 198/98
[2022-05-20] MEDS: amLODIPine Besylate 10 MG TABLET PO (08:46)
[2022-05-20] MEDS: Labetalol HCL 100 MG TABLET 300 MG PO (08:46)
[2022-05-20] MEDS: hydroCHLOROthiazide 25 MG TABLET PO (08:47)
[2022-05-20] MEDS: clonazePAM 1 MG TABLET PO ×2 (08:47→14:57)
[2022-05-20] MEDS: OLANZapine 10 MG TABLET PO (08:47)
[2022-05-20] MEDS: OLANZapine ODT 10 MG TAB.RAPDIS TRANSLINGU (11:05)
[2022-05-20] MEDS: traZODone HCL 50 MG TABLET PO (11:05)
[2022-05-20 20:00] VITALS: BP 144/59; PULSE 95; TEMP 36.5
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
[2022-05-20] MEDS: OLANZapine 7.5 MG TABLET 15 MG PO (20:18)
[2022-05-20] MEDS: lisinopriL 40 MG TABLET PO (20:19)
[2022-05-21 07:30] VITALS: BP 147/74; PULSE 106; RESP 18; TEMP 36.2; O2SAT 94
[2022-05-21] MEDS: OLANZapine 10 MG TABLET PO (09:03)
[2022-05-21] MEDS: Labetalol HCL 100 MG TABLET 300 MG PO ×2 (09:03→19:38)
[2022-05-21] MEDS: amLODIPine Besylate 10 MG TABLET PO (09:03)
[2022-05-21] MEDS: hydroCHLOROthiazide 25 MG TABLET PO (09:03)
[2022-05-21] MEDS: clonazePAM 1 MG TABLET PO ×2 (09:03→14:16)
--- NOTE | 2022-05-21 12:00 | HO.PSYCHPN ---
Subjective Subjective Date of Service: 05/21/22 Reason For Visit: Psychosis Interim History: Active, visable in milieu-well engaged. Participating in art work-laxmi a pink vase for tw, playing tic tac toe Medication Compliance: Yes (team needing to give much encouragement) Side effects from medications: No Attending Groups: Yes Review of Systems Acute medical concerns: No Medical Review of Systems: unchanged Mental Status Exam Mental Status Exam Patient Appearance: Appropriate Patient Orientation: Person, Place and Situation Level of Consciousness: Alert Patient Behavior: Talkative, Cooperative, Wandering, Distractible and Good Eye Contact Mood Description: Constricted Affect Description: Constricted Patient Cognition Impaired: Yes Ability to Follow Directions: Fair Speech Pattern: Spontaneous Speech, Soft-Spoken (at times), Loud (at times) and Pressured (at times) Memory Description: Remote Impaired and Episodic Impaired Hallucinations: Auditory Delusions: Present (self-refers as [place]) Perceptual Disturbances: Hallucinations Thought Process: Distracted Thought Content: positive for Flight of Ideas, positive for Racing, positive for Circumstantial, positive for Loose Associations, positive for Tangential, positive for Disorganized, positive for Suicidal Ideation (denies) and positive for Homicidal Ideation (denies) Depressive Symptoms: Insomnia, Increased Irritability (variable) and Difficulty Sleeping Abnormal Motor Activity Signs and Symptoms: Restlessness Judgement: Poor Diagnostics Vital Signs (24Hr): Vital Signs - 24 hr 05/20/22 20:00 05/21/22 07:30 Temperature 97.7 F 97.2 F Pulse Rate 95 106 H Respiratory Rate 18 Blood Pressure 144/59 H 147/74 H Pulse Oximetry 94 Oxygen Delivery Method Room Air BMI result Body Mass Index 23.3 Labs 05/18/22 08:14 05/18/22 08:14 Imaging Radiology Impressions: ITS Impressions Renal Ultrasound 05/08/22 16:00 IMPRESSION: 1. Bilateral renal cysts. No echogenic renal calculi. 2. There is no suggestion for renal artery stenosis in either kidney on renal Doppler exam. Renal Ultrasound 05/08/22 16:00 IMPRESSION: 1. Bilateral renal cysts. No echogenic renal calculi. 2. There is no suggestion for renal artery stenosis in either kidney on renal Doppler exam. Medications Medications Current Medications Acetaminophen (Acetaminophen 325 Mg Tablet) 650 mg PO Q6H PRN PRN Reason: Headache/Pain Mild Scale (1-3) Last Admin: 05/09/22 06:01 Dose: 650 mg Al Hydroxide/Mg Hydroxide (Magnesium Hydrox/Alum Hydrox 30 Ml Oral.Susp) 30 ml PO Q6H PRN PRN Reason: Heartburn/Nausea Amlodipine Besylate (Amlodipine Besylate 10 Mg Tablet) 10 mg PO DAILY [facility]; Protocol Last Admin: 05/21/22 09:03 Dose: 10 mg Clonazepam (Clonazepam 1 Mg Tablet) 1 mg PO BID@0800,1500 [facility] Last Admin: 05/21/22 09:03 Dose: 1 mg Divalproex Sodium (Divalproex Sodium Sprinkles 125 Mg Cap.) 1,000 mg PO BEDTIME [facility] Last Admin: 05/20/22 20:19 Dose: Not Given Hydrochlorothiazide (Hydrochlorothiazide 25 Mg Tablet) 25 mg PO DAILY [facility]; Protocol Last Admin: 05/21/22 09:03 Dose: 25 mg Hydroxyzine HCl (Hydroxyzine Hcl 25 Mg Tablet) 25 mg PO Q6H PRN PRN Reason: Anxiety Last Admin: 05/09/22 21:01 Dose: 25 mg Labetalol HCl (Labetalol Hcl 100 Mg Tablet) 300 mg PO BID [facility] Last Admin: 05/21/22 09:03 Dose: 300 mg Lisinopril (Lisinopril 40 Mg Tablet) 40 mg PO BEDTIME [facility]; Protocol Last Admin: 05/20/22 20:19 Dose: 40 mg Magnesium Hydroxide (Milk Of Magnesia 30 Ml Oral.Susp) 30 ml PO DAILY PRN PRN Reason: Constipation Olanzapine (Olanzapine 7.5 Mg Tablet) 15 mg PO BEDTIME [facility] Last Admin: 05/20/22 20:18 Dose: 15 mg Olanzapine (Olanzapine Odt 10 Mg Tab.Rapdis) 10 mg TRANSLINGU BID PRN PRN Reason: Psychosis Last Admin: 05/20/22 11:05 Dose: 10 mg Olanzapine (Olanzapine 10 Mg Vial) 10 mg IM BID PRN PRN Reason: psychosis Last Admin: 05/13/22 20:33 Dose: 10 mg Olanzapine (Olanzapine 10 Mg Tablet) 10 mg PO DAILY [facility] Last Admin: 05/21/22 09:03 Dose: 10 mg Tamsulosin HCl (Tamsulosin Hcl 0.4 Mg Capsule) 0.4 mg PO BEDTIME [facility] Last Admin: 05/20/22 20:19 Dose: Not Given Trazodone HCl (Trazodone Hcl 50 Mg Tablet) 50 mg PO BEDTIME PRN PRN Reason: Insomnia Last Admin: 05/20/22 11:05 Dose: 50 mg Trazodone HCl (Trazodone Hcl 25 Mg Halftab) 25 mg PO 1200 [facility] Allergies Allergies Allergy/AdvReac Type Severity Reaction Status Date / Time No Known Allergies Allergy Unverified 01/15/20 16:15 [No Known Allergies*] Assessment & Plan Assessment & Plan (1) Acute psychosis: Status: Acute Code(s): F23 - Brief psychotic disorder (2) Schizoaffective disorder, bipolar type: Status: Acute Code(s): F25.0 - Schizoaffective disorder, bipolar type (3) Dementia: Status: Acute Code(s): F03.90 - Unspecified dementia, unspecified severity, without behavioral disturbance, psychotic disturbance, mood disturbance, and anxiety (4) Schizophrenia: Status: Acute Code(s): F20.9 - Schizophrenia, unspecified (5) Hypertension: Status: Acute Code(s): I10 - Essential (primary) hypertension Plan The patient is an elderly male from [facility], with a long history of psychotic and mood symptoms, [facility] case managed and resident of [facility] with her prior admissions into the hospital for psychotic decompensation with steve in the context of noncompliance.? Historically had several admissions for the same reason.? He has a guardian and the role years order.? 05/06/22 Patient disorganized, but mostly pleasant.? Refusing psychiatric medication. Patient remains hypertensive despite recent medication change (reviewed hospitalist consult and seems recent increasing lisinopril and addition of hydrochlorothiazide) -placed hospitalist consult to review an manage antihypertensive medications for continued hypertension 05/07/2022 Patient refused addition of amlodipine saying he does not need it Refused a.m. Zyprexa Continue current treatment regimen 05/13/22 continue current treatment plan 05/14 continue current treatment plan pt seen in evening on 05/07, prior to when evening time BP taken; on 05/08, sba underwriter reviewed vitals and saw that on previous evening patient had elevated BP's above baseline; by 05/08 BP's returned to baseline; sba underwriter called PA hospitalist who evaluated; discussed with nursing and nursing body shop supervisor Plan 1. Gather collateral information.? We will try to contact the staff of [facility] to get his medication reconciliation form.? Apparently he has last Haldol deck was on February but it is unclear we will try to get a more detailed information.? 2. Continue with the same medications that we have as per medication reconciliation.? 3. Regular blood work as per protocol.? 4. Regular observation. 5.? Invega Sustenna and Haldol Decanoate IM on April 28.? 6. Increased p.r.n. Zyprexa from 5-10 mg on May 03. 7. Zyprexa IM p.r.n. as per [place] order ordered. 8. Change regular observation to 5 minutes check on May 10. 9. Start Klonopin 1 mg 0.5 mg p.o. t.i.d. later the Klonopin was lowered to 0.5 p.o. b.i.d. and 1 mg at bedtime due to over-sedation on May 11. Later, May 16 Klonopin was increased up to 1 mg p.o. t.i.d. 10. Increased Zyprexa to 10 mg in the morning on May 13. 11. Court today for May 18 for Section 7 and 8 . 12. Blood work for May 18 came back with a very low Depakote level probably most likely cheeking his medication. 13. Chemically restrain today on Zyprexa 10 mg at even 2 mg and Benadryl 50 IM 15. 05/21/22: Continue current regime Informed Consent: does not understand Reason for contiued inpatient stay Substantial Risk for: rapid decompensation Time Spent With Patient Time: Total time managing care of this patient today _15___ minutes.
[2022-05-21] MEDS: traZODone HCL 25 MG HALFTAB PO (12:13)
[2022-05-21 19:11] VITALS: BP 105/55; PULSE 86; TEMP 36.5
[2022-05-21] MEDS: OLANZapine 7.5 MG TABLET 15 MG PO (19:38)
[2022-05-21] MEDS: lisinopriL 40 MG TABLET PO (19:39)
[2022-05-22 09:25] VITALS: BP 152/88; PULSE 87; TEMP 36.6; O2SAT 95
[2022-05-22] MEDS: hydroCHLOROthiazide 25 MG TABLET PO (10:44)
[2022-05-22] MEDS: clonazePAM 1 MG TABLET PO ×3 (10:44→20:39)
[2022-05-22] MEDS: amLODIPine Besylate 10 MG TABLET PO (10:44)
[2022-05-22] MEDS: Labetalol HCL 100 MG TABLET 300 MG PO ×2 (10:44→20:41)
[2022-05-22] MEDS: OLANZapine 10 MG TABLET PO (10:45)
[2022-05-22] MEDS: traZODone HCL 25 MG HALFTAB PO (13:18)
--- NOTE | 2022-05-22 13:41 | HO.PSYCHPN ---
Subjective Subjective Date of Service: 05/22/22 Reason For Visit: Psychosis Subjective Notes: Section 7 and Section 8 Interim History: The nursing staff reported that the patient had been very intrusive loud easily agitated. The staff has noticed that his behavior has changed slightly since he got his IM last Sunday. On interview the patient was loud disinhibited, sexually inappropriate at times but redirectable. He wants to be discharged as soon as possible he was very upset that he did have a court hearing last . He remains psychotic, grandiose, manic. Mental Status Exam Mental Status Exam Patient Appearance: Disheveled and Unkempt Patient Orientation: Person, Place and Situation Patient Behavior: Restless Mood Description: Hostile and Elated Affect Description: Labile Patient Cognition Impaired: Yes Ability to Follow Directions: Fair Speech Pattern: Rapid and Loud Hallucinations: None Delusions: Paranoid Ideation, Grandiose and Ideas of Reference Thought Process: Incoherent and Illogical Thought Content: positive for [place], positive for Loose Associations and positive for Thought Blocking Judgement: Poor Diagnostics Vital Signs (24Hr): Vital Signs - 24 hr 05/21/22 19:11 Temperature 97.7 F Pulse Rate 86 Blood Pressure 105/55 L BMI result Body Mass Index 23.3 Labs 05/18/22 08:14 05/18/22 08:14 Imaging Radiology Impressions: ITS Impressions Renal Ultrasound 05/08/22 16:00 IMPRESSION: 1. Bilateral renal cysts. No echogenic renal calculi. 2. There is no suggestion for renal artery stenosis in either kidney on renal Doppler exam. Renal Ultrasound 05/08/22 16:00 IMPRESSION: 1. Bilateral renal cysts. No echogenic renal calculi. 2. There is no suggestion for renal artery stenosis in either kidney on renal Doppler exam. Medications Medications Current Medications Acetaminophen (Acetaminophen 325 Mg Tablet) 650 mg PO Q6H PRN PRN Reason: Headache/Pain Mild Scale (1-3) Last Admin: 05/09/22 06:01 Dose: 650 mg Al Hydroxide/Mg Hydroxide (Magnesium Hydrox/Alum Hydrox 30 Ml Oral.Susp) 30 ml PO Q6H PRN PRN Reason: Heartburn/Nausea Amlodipine Besylate (Amlodipine Besylate 10 Mg Tablet) 10 mg PO DAILY [facility]; Protocol Last Admin: 05/22/22 10:44 Dose: 10 mg Clonazepam (Clonazepam 1 Mg Tablet) 1 mg PO TID [facility] Last Admin: 05/22/22 13:18 Dose: 1 mg Divalproex Sodium (Divalproex Sodium Sprinkles 125 Mg ) 1,000 mg PO BEDTIME [facility] Last Admin: 05/21/22 19:45 Dose: Not Given Hydrochlorothiazide (Hydrochlorothiazide 25 Mg Tablet) 25 mg PO DAILY [facility]; Protocol Last Admin: 05/22/22 10:44 Dose: 25 mg Hydroxyzine HCl (Hydroxyzine Hcl 25 Mg Tablet) 25 mg PO Q6H PRN PRN Reason: Anxiety Last Admin: 05/09/22 21:01 Dose: 25 mg Labetalol HCl (Labetalol Hcl 100 Mg Tablet) 300 mg PO BID [facility] Last Admin: 05/22/22 10:44 Dose: 300 mg Lisinopril (Lisinopril 40 Mg Tablet) 40 mg PO BEDTIME [facility]; Protocol Last Admin: 05/21/22 19:39 Dose: 40 mg Magnesium Hydroxide (Milk Of Magnesia 30 Ml Oral.Susp) 30 ml PO DAILY PRN PRN Reason: Constipation Olanzapine (Olanzapine 7.5 Mg Tablet) 15 mg PO BEDTIME [facility] Last Admin: 05/21/22 19:38 Dose: 15 mg Olanzapine (Olanzapine Odt 10 Mg Tab.Rapdis) 10 mg TRANSLINGU BID PRN PRN Reason: Psychosis Last Admin: 05/20/22 11:05 Dose: 10 mg Olanzapine (Olanzapine 10 Mg Vial) 10 mg IM BID PRN PRN Reason: psychosis Last Admin: 05/13/22 20:33 Dose: 10 mg Olanzapine (Olanzapine 10 Mg Tablet) 10 mg PO DAILY [facility] Last Admin: 05/22/22 10:45 Dose: 10 mg Tamsulosin HCl (Tamsulosin Hcl 0.4 Mg Capsule) 0.4 mg PO BEDTIME [facility] Last Admin: 05/21/22 19:46 Dose: Not Given Trazodone HCl (Trazodone Hcl 50 Mg Tablet) 50 mg PO BEDTIME PRN PRN Reason: Insomnia Last Admin: 05/20/22 11:05 Dose: 50 mg Trazodone HCl (Trazodone Hcl 25 Mg Halftab) 25 mg PO 1200 [facility] Last Admin: 05/22/22 13:18 Dose: 25 mg Allergies Allergies Allergy/AdvReac Type Severity Reaction Status Date / Time No Known Allergies Allergy Unverified 01/15/20 16:15 [No Known Allergies*] Assessment & Plan Assessment & Plan (1) Acute psychosis: Status: Acute Code(s): F23 - Brief psychotic disorder (2) Schizoaffective disorder, bipolar type: Status: Acute Code(s): F25.0 - Schizoaffective disorder, bipolar type (3) Dementia: Status: Acute Code(s): F03.90 - Unspecified dementia, unspecified severity, without behavioral disturbance, psychotic disturbance, mood disturbance, and anxiety (4) Schizophrenia: Status: Acute Code(s): F20.9 - Schizophrenia, unspecified (5) Hypertension: Status: Acute Code(s): I10 - Essential (primary) hypertension Plan The patient is an elderly male from [facility], with a long history of psychotic and mood symptoms, [facility] case managed and resident of [facility] with her prior admissions into the hospital for psychotic decompensation with steve in the context of noncompliance.? Historically had several admissions for the same reason.? He has a guardian and the role years order.? 05/06/22 Patient disorganized, but mostly pleasant.? Refusing psychiatric medication. Patient remains hypertensive despite recent medication change (reviewed hospitalist consult and seems recent increasing lisinopril and addition of hydrochlorothiazide) -placed hospitalist consult to review an manage antihypertensive medications for continued hypertension 05/07/2022 Patient refused addition of amlodipine saying he does not need it Refused a.m. Zyprexa Continue current treatment regimen 05/13/22 continue current treatment plan 05/14 continue current treatment plan pt seen in evening on 05/07, prior to when evening time BP taken; on 05/08, field underwriter reviewed vitals and saw that on previous evening patient had elevated BP's above baseline; by 05/08 BP's returned to baseline; field underwriter called PA hospitalist who evaluated; discussed with nursing and nursing paint line production supervisor Plan 1. Gather collateral information.? We will try to contact the staff of the [facility] to get his medication reconciliation form.? Apparently he has last Haldol deck was on February but it is unclear we will try to get a more detailed information.? 2. Continue with the same medications that we have as per medication reconciliation.? 3. Regular blood work as per protocol.? 4. Regular observation. 5.? Invega Sustenna and Haldol Decanoate IM on April 28.? 6. Increased p.r.n. Zyprexa from 5-10 mg on May 03. 7. Zyprexa IM p.r.n. as per [place] order ordered. 8. Change regular observation to 5 minutes check on May 10. 9. Start Klonopin 1 mg 0.5 mg p.o. t.i.d. later the Klonopin was lowered to 0.5 p.o. b.i.d. and 1 mg at bedtime due to over-sedation on May 11. Later, May 16 Klonopin was increased up to 1 mg p.o. t.i.d. 10. Increased Zyprexa to 10 mg in the morning on May 13. 11. Court today for May 18 for Section 7 and 8 . 12. Blood work for May 18 came back with a very low Depakote level probably most likely cheeking his medication. 13. Chemically restrain today on May 19 Zyprexa 10 mg at even 2 mg and Benadryl 50 IM Reason for contiued inpatient stay Substantial Risk for: inability to function, rapid decompensation and med/psych decompensation Time Spent With Patient Time: Total time managing care of this patient today __20__ minutes.
[2022-05-22 18:00] VITALS: BP 139/62; PULSE 61; RESP 17; TEMP 37; O2SAT 94
[2022-05-22] MEDS: lisinopriL 40 MG TABLET PO (20:39)
[2022-05-22] MEDS: OLANZapine 7.5 MG TABLET 15 MG PO (20:40)
[2022-05-22] MEDS: Acetaminophen 325 MG TABLET 650 MG PO (20:48)
[2022-05-23 08:00] VITALS: BP 150/73; PULSE 93; RESP 18; TEMP 36.4; O2SAT 98
[2022-05-23] MEDS: clonazePAM 1 MG TABLET PO ×3 (08:21→19:55)
[2022-05-23] MEDS: OLANZapine 10 MG TABLET PO (08:21)
[2022-05-23] MEDS: amLODIPine Besylate 10 MG TABLET PO (08:22)
[2022-05-23] MEDS: Labetalol HCL 100 MG TABLET 300 MG PO ×2 (08:22→19:55)
[2022-05-23] MEDS: hydroCHLOROthiazide 25 MG TABLET PO (08:22)
--- NOTE | 2022-05-23 12:20 | P.PNPSI_ITS ---
Subjective Subjective Date of Service: 05/23/22 Reason For Visit: Psychosis Subjective Notes: Section 7 and Section 8 Guardianship: Yes Interim History: The nursing staff reported the patient took all his medications last night including his medical treatment. The patient has been angry and irritable stating that the medications are killing his erection even though that he is less angry he still very irritable. The social worker aide reported that the [facility] staff will come tomorrow to assess him. On interview the patient remains manic with increased energy and delusional but less impulsive. Still on 5 minute checks observation Mental Status Exam Mental Status Exam Patient Appearance: Disheveled and Unkempt Patient Orientation: Person, Place and Situation Level of Consciousness: Awake Patient Behavior: Restless and Belligerent Mood Description: Elated Affect Description: Labile Patient Cognition Impaired: Yes Ability to Follow Directions: Good Speech Pattern: Rapid and Poor Articulation Hallucinations: None Delusions: Paranoid Ideation and Grandiose Thought Process: Racing and Distracted Thought Content: positive for [place] and positive for Poverty of Content Judgement: Poor Diagnostics Vital Signs (24Hr): Vital Signs - 24 hr 05/22/22 18:00 05/23/22 08:00 Temperature 98.6 F 97.5 F Pulse Rate 61 93 Respiratory Rate 17 18 Blood Pressure 139/62 150/73 H Pulse Oximetry 94 98 Oxygen Delivery Method Room Air Room Air BMI result Body Mass Index 23.3 Labs 05/18/22 08:14 05/18/22 08:14 Imaging Radiology Impressions: ITS Impressions Renal Ultrasound 05/08/22 16:00 IMPRESSION: 1. Bilateral renal cysts. No echogenic renal calculi. 2. There is no suggestion for renal artery stenosis in either kidney on renal Doppler exam. Renal Ultrasound 05/08/22 16:00 IMPRESSION: 1. Bilateral renal cysts. No echogenic renal calculi. 2. There is no suggestion for renal artery stenosis in either kidney on renal Doppler exam. Medications Medications Current Medications Acetaminophen (Acetaminophen 325 Mg Tablet) 650 mg PO Q6H PRN PRN Reason: Headache/Pain Mild Scale (1-3) Last Admin: 05/22/22 20:48 Dose: 650 mg Al Hydroxide/Mg Hydroxide (Magnesium Hydrox/Alum Hydrox 30 Ml Oral.Susp) 30 ml PO Q6H PRN PRN Reason: Heartburn/Nausea Amlodipine Besylate (Amlodipine Besylate 10 Mg Tablet) 10 mg PO DAILY [facility]; Protocol Last Admin: 05/23/22 08:22 Dose: 10 mg Clonazepam (Clonazepam 1 Mg Tablet) 1 mg PO TID [facility] Last Admin: 05/23/22 08:21 Dose: 1 mg Divalproex Sodium (Divalproex Sodium Sprinkles 125 Mg ) 1,000 mg PO BEDTIME [facility] Last Admin: 05/22/22 20:45 Dose: Not Given Hydrochlorothiazide (Hydrochlorothiazide 25 Mg Tablet) 25 mg PO DAILY [facility]; Protocol Last Admin: 05/23/22 08:22 Dose: 25 mg Hydroxyzine HCl (Hydroxyzine Hcl 25 Mg Tablet) 25 mg PO Q6H PRN PRN Reason: Anxiety Last Admin: 05/09/22 21:01 Dose: 25 mg Labetalol HCl (Labetalol Hcl 100 Mg Tablet) 300 mg PO BID [facility] Last Admin: 05/23/22 08:22 Dose: 300 mg Lisinopril (Lisinopril 40 Mg Tablet) 40 mg PO BEDTIME [facility]; Protocol Last Admin: 05/22/22 20:39 Dose: 40 mg Magnesium Hydroxide (Milk Of Magnesia 30 Ml Oral.Susp) 30 ml PO DAILY PRN PRN Reason: Constipation Olanzapine (Olanzapine 7.5 Mg Tablet) 15 mg PO BEDTIME [facility] Last Admin: 05/22/22 20:40 Dose: 15 mg Olanzapine (Olanzapine Odt 10 Mg Tab.Rapdis) 10 mg TRANSLINGU BID PRN PRN Reason: Psychosis Last Admin: 05/20/22 11:05 Dose: 10 mg Olanzapine (Olanzapine 10 Mg Vial) 10 mg IM BID PRN PRN Reason: psychosis Last Admin: 05/13/22 20:33 Dose: 10 mg Olanzapine (Olanzapine 10 Mg Tablet) 10 mg PO DAILY [facility] Last Admin: 05/23/22 08:21 Dose: 10 mg Tamsulosin HCl (Tamsulosin Hcl 0.4 Mg Capsule) 0.4 mg PO BEDTIME [facility] Last Admin: 05/22/22 20:45 Dose: Not Given Trazodone HCl (Trazodone Hcl 50 Mg Tablet) 50 mg PO BEDTIME PRN PRN Reason: Insomnia Last Admin: 05/20/22 11:05 Dose: 50 mg Trazodone HCl (Trazodone Hcl 25 Mg Halftab) 25 mg PO 1200 [facility] Last Admin: 05/22/22 13:18 Dose: 25 mg Allergies Allergies Allergy/AdvReac Type Severity Reaction Status Date / Time No Known Allergies Allergy Unverified 01/15/20 16:15 [No Known Allergies*] Assessment & Plan Assessment & Plan (1) Acute psychosis: Status: Acute Code(s): F23 - Brief psychotic disorder (2) Schizoaffective disorder, bipolar type: Status: Acute Code(s): F25.0 - Schizoaffective disorder, bipolar type (3) Dementia: Status: Acute Code(s): F03.90 - Unspecified dementia, unspecified severity, without behavioral disturbance, psychotic disturbance, mood disturbance, and anxiety (4) Schizophrenia: Status: Acute Code(s): F20.9 - Schizophrenia, unspecified (5) Hypertension: Status: Acute Code(s): I10 - Essential (primary) hypertension Plan The patient is an elderly male from [facility] does, with a long history of psychotic and mood symptoms, [facility] case managed and resident of [facility] with her prior admissions into the hospital for psychotic decompensation with steve in the context of noncompliance.? Historically had several admissions for the same reason.? He has a guardian and the role years order.? 05/06/22 Patient disorganized, but mostly pleasant.? Refusing psychiatric medication. Patient remains hypertensive despite recent medication change (reviewed hospitalist consult and seems recent increasing lisinopril and addition of hydrochlorothiazide) -placed hospitalist consult to review an manage antihypertensive medications for continued hypertension 05/07/2022 Patient refused addition of amlodipine saying he does not need it Refused a.m. Zyprexa Continue current treatment regimen 05/13/22 continue current treatment plan 05/14 continue current treatment plan pt seen in evening on 05/07, prior to when evening time BP taken; on 05/08, com writer reviewed vitals and saw that on previous evening patient had elevated BP's above baseline; by 05/08 BP's returned to baseline; com writer called PA hospitalist who evaluated; discussed with nursing and nursing table games dual rate supervisor Plan 1. Gather collateral information.? We will try to contact the staff of the [facility] to get his medication reconciliation form.? Apparently he has last Haldol deck was on February but it is unclear we will try to get a more detailed information.? 2. Continue with the same medications that we have as per medication reconciliation.? 3. Regular blood work as per protocol.? 4. Regular observation. 5.? Invega Sustenna and Haldol Decanoate IM on April 28.? 6. Increased p.r.n. Zyprexa from 5-10 mg on May 03. 7. Zyprexa IM p.r.n. as per [place] order ordered. 8. Change regular observation to 5 minutes check on May 10. 9. Start Klonopin 1 mg 0.5 mg p.o. t.i.d. later the Klonopin was lowered to 0.5 p.o. b.i.d. and 1 mg at bedtime due to over-sedation on May 11. Later, May 16 Klonopin was increased up to 1 mg p.o. t.i.d. 10. Increased Zyprexa to 10 mg in the morning on May 13. 11. Court today for May 18 for Section 7 and 8 . 12. Blood work for May 18 came back with a very low Depakote level probably most likely cheeking his medication. 13. Chemically restrain today on May 19 Zyprexa 10 mg at even 2 mg and Benadryl 50 IM Reason for contiued inpatient stay Substantial Risk for: inability to function, rapid decompensation and med/psych decompensation Time Spent With Patient Time: Total time managing care of this patient today __20__ minutes.
[2022-05-23 18:00] VITALS: BP 131/69; PULSE 96; RESP 16; TEMP 36.2; O2SAT 95
[2022-05-23] MEDS: traZODone HCL 25 MG HALFTAB PO (18:14)
[2022-05-23] MEDS: Divalproex Sodium Sprinkles 125 MG CAP.DR.SPR 1000 MG PO (19:55)
[2022-05-23] MEDS: OLANZapine 7.5 MG TABLET 15 MG PO (19:55)
[2022-05-23] MEDS: lisinopriL 40 MG TABLET PO (19:55)
[2022-05-23] MEDS: Tamsulosin HCL 0.4 MG CAPSULE PO (19:56)
[2022-05-24] MEDS: clonazePAM 1 MG TABLET PO ×3 (09:17→20:05)
[2022-05-24] MEDS: OLANZapine 10 MG TABLET PO (09:17)
[2022-05-24 10:20] VITALS: RESP 17
--- NOTE | 2022-05-24 12:35 | HO.PSYCHPN ---
Subjective Subjective Date of Service: 05/24/22 Reason For Visit: Psychosis Subjective Notes: Section 7 and Section 8 Interim History: The nursing staff reported that even though the patient had been manic and disorganized his quieter. He took his medications in the evening and today in the morning him initially refused but took it with a lot of encouragement. He slept 6 hours. The staff of the [facility] will come today to visit him. Yesterday he was upset when I told him that he needs to take his IM medications monthly. We will get injections next week. On interview he denies new symptoms he wants to get discharged. He still disorganized and manic but improving slowly Mental Status Exam Mental Status Exam Patient Appearance: Disheveled, Unkempt and Bizarre Patient Orientation: Person, Place and Situation Level of Consciousness: Awake and Appropriate Patient Behavior: Guarded and Suspicious Mood Description: Withdrawn Affect Description: Labile Patient Cognition Impaired: Yes Ability to Follow Directions: Good Speech Pattern: Clear Hallucinations: None Delusions: Paranoid Ideation, Grandiose and Ideas of Reference Thought Process: Racing and Distracted Thought Content: positive for [place], positive for Poverty of Content, positive for Loose Associations and positive for Thought Blocking Judgement: Poor Diagnostics Vital Signs (24Hr): Vital Signs - 24 hr 05/23/22 18:00 05/24/22 10:20 Temperature 97.1 F Pulse Rate 96 Respiratory Rate 16 17 Blood Pressure 131/69 Pulse Oximetry 95 Oxygen Delivery Method Room Air BMI result Body Mass Index 23.3 Labs 05/18/22 08:14 05/18/22 08:14 Imaging Radiology Impressions: ITS Impressions Renal Ultrasound 05/08/22 16:00 IMPRESSION: 1. Bilateral renal cysts. No echogenic renal calculi. 2. There is no suggestion for renal artery stenosis in either kidney on renal Doppler exam. Renal Ultrasound 05/08/22 16:00 IMPRESSION: 1. Bilateral renal cysts. No echogenic renal calculi. 2. There is no suggestion for renal artery stenosis in either kidney on renal Doppler exam. Medications Medications Current Medications Acetaminophen (Acetaminophen 325 Mg Tablet) 650 mg PO Q6H PRN PRN Reason: Headache/Pain Mild Scale (1-3) Last Admin: 05/22/22 20:48 Dose: 650 mg Al Hydroxide/Mg Hydroxide (Magnesium Hydrox/Alum Hydrox 30 Ml Oral.Susp) 30 ml PO Q6H PRN PRN Reason: Heartburn/Nausea Amlodipine Besylate (Amlodipine Besylate 10 Mg Tablet) 10 mg PO DAILY JOHN; Protocol Last Admin: 05/24/22 09:18 Dose: Not Given Clonazepam (Clonazepam 1 Mg Tablet) 1 mg PO TID JOHN Last Admin: 05/24/22 09:17 Dose: 1 mg Divalproex Sodium (Divalproex Sodium Sprinkles 125 Mg Minh.) 1,000 mg PO BEDTIME JOHN Last Admin: 05/23/22 19:55 Dose: 1,000 mg Hydrochlorothiazide (Hydrochlorothiazide 25 Mg Tablet) 25 mg PO DAILY JOHN; Protocol Last Admin: 05/24/22 09:18 Dose: Not Given Hydroxyzine HCl (Hydroxyzine Hcl 25 Mg Tablet) 25 mg PO Q6H PRN PRN Reason: Anxiety Last Admin: 05/09/22 21:01 Dose: 25 mg Labetalol HCl (Labetalol Hcl 100 Mg Tablet) 300 mg PO BID JOHN Last Admin: 05/24/22 09:19 Dose: Not Given Lisinopril (Lisinopril 40 Mg Tablet) 40 mg PO BEDTIME JOHN; Protocol Last Admin: 05/23/22 19:55 Dose: 40 mg Magnesium Hydroxide (Milk Of Magnesia 30 Ml Oral.Susp) 30 ml PO DAILY PRN PRN Reason: Constipation Olanzapine (Olanzapine 7.5 Mg Tablet) 15 mg PO BEDTIME JOHN Last Admin: 05/23/22 19:55 Dose: 15 mg Olanzapine (Olanzapine Odt 10 Mg Tab.Rapdis) 10 mg TRANSLINGU BID PRN PRN Reason: Psychosis Last Admin: 05/20/22 11:05 Dose: 10 mg Olanzapine (Olanzapine 10 Mg Vial) 10 mg IM BID PRN PRN Reason: psychosis Last Admin: 05/13/22 20:33 Dose: 10 mg Olanzapine (Olanzapine 10 Mg Tablet) 10 mg PO DAILY JOHN Last Admin: 05/24/22 09:17 Dose: 10 mg Tamsulosin HCl (Tamsulosin Hcl 0.4 Mg Capsule) 0.4 mg PO BEDTIME JOHN Last Admin: 05/23/22 19:56 Dose: 0.4 mg Trazodone HCl (Trazodone Hcl 50 Mg Tablet) 50 mg PO BEDTIME PRN PRN Reason: Insomnia Last Admin: 05/20/22 11:05 Dose: 50 mg Trazodone HCl (Trazodone Hcl 25 Mg Halftab) 25 mg PO 1200 JOHN Last Admin: 05/23/22 18:14 Dose: 25 mg Allergies Allergies Allergy/AdvReac Type Severity Reaction Status Date / Time No Known Allergies Allergy Unverified 01/15/20 16:15 [No Known Allergies*] Assessment & Plan Assessment & Plan (1) Acute psychosis: Status: Acute Code(s): F23 - Brief psychotic disorder (2) Schizoaffective disorder, bipolar type: Status: Acute Code(s): F25.0 - Schizoaffective disorder, bipolar type (3) Dementia: Status: Acute Code(s): F03.90 - Unspecified dementia, unspecified severity, without behavioral disturbance, psychotic disturbance, mood disturbance, and anxiety (4) Schizophrenia: Status: Acute Code(s): F20.9 - Schizophrenia, unspecified (5) Hypertension: Status: Acute Code(s): I10 - Essential (primary) hypertension Plan The patient is an elderly male from [facility] does, with a long history of psychotic and mood symptoms, [facility] case managed and resident of [facility] with her prior admissions into the hospital for psychotic decompensation with steve in the context of noncompliance.? Historically had several admissions for the same reason.? He has a guardian and the role years order.? 05/06/22 Patient disorganized, but mostly pleasant.? Refusing psychiatric medication. Patient remains hypertensive despite recent medication change (reviewed hospitalist consult and seems recent increasing lisinopril and addition of hydrochlorothiazide) -placed hospitalist consult to review an manage antihypertensive medications for continued hypertension 05/07/2022 Patient refused addition of amlodipine saying he does not need it Refused a.m. Zyprexa Continue current treatment regimen 05/13/22 continue current treatment plan 05/14 continue current treatment plan pt seen in evening on 05/07, prior to when evening time BP taken; on 05/08, caption writer reviewed vitals and saw that on previous evening patient had elevated BP's above baseline; by 05/08 BP's returned to baseline; caption writer called PA hospitalist who evaluated; discussed with nursing and nursing supervisor dairy sanitation Plan 1. Gather collateral information.? We will try to contact the staff of the [facility] to get his medication reconciliation form.? Apparently he has last Haldol deck was on February but it is unclear we will try to get a more detailed information.? 2. Continue with the same medications that we have as per medication reconciliation.? 3. Regular blood work as per protocol.? 4. Regular observation. 5.? Invega Sustenna and Haldol Decanoate IM on April 28.? 6. Increased p.r.n. Zyprexa from 5-10 mg on May 03. 7. Zyprexa IM p.r.n. as per [facility] order ordered. 8. Change regular observation to 5 minutes check on May 10. 9. Start Klonopin 1 mg 0.5 mg p.o. t.i.d. later the Klonopin was lowered to 0.5 p.o. b.i.d. and 1 mg at bedtime due to over-sedation on May 11. Later, May 16 Klonopin was increased up to 1 mg p.o. t.i.d. 10. Increased Zyprexa to 10 mg in the morning on May 13. 11. Court today for May 18 for Section 7 and 8 . 12. Blood work for May 18 came back with a very low Depakote level probably most likely cheeking his medication. 13. Chemically restrain today on May 19 Zyprexa 10 mg Ativan 2 mg and Benadryl 50 IM Reason for contiued inpatient stay Substantial Risk for: inability to function, rapid decompensation and med/psych decompensation Time Spent With Patient Time: Total time managing care of this patient today __20__ minutes.
[2022-05-24] MEDS: traZODone HCL 25 MG HALFTAB PO (15:56)
[2022-05-24 18:00] VITALS: BP 158/79; PULSE 89; RESP 18; TEMP 36.6; O2SAT 97
[2022-05-24] MEDS: Tamsulosin HCL 0.4 MG CAPSULE PO (20:05)
[2022-05-24] MEDS: OLANZapine 7.5 MG TABLET 15 MG PO (20:05)
[2022-05-24] MEDS: lisinopriL 40 MG TABLET PO (20:05)
[2022-05-24] MEDS: Labetalol HCL 100 MG TABLET 300 MG PO (20:06)
[2022-05-25] MEDS: Acetaminophen 325 MG TABLET 650 MG PO (04:15)
[2022-05-25] MEDS: hydroCHLOROthiazide 25 MG TABLET PO (08:33)
[2022-05-25] MEDS: amLODIPine Besylate 10 MG TABLET PO (08:33)
[2022-05-25] MEDS: OLANZapine 10 MG TABLET PO (08:34)
[2022-05-25] MEDS: clonazePAM 1 MG TABLET PO ×3 (08:34→20:20)
[2022-05-25] MEDS: Labetalol HCL 100 MG TABLET 300 MG PO ×2 (08:34→20:22)
[2022-05-25 08:38] VITALS: BP 147/69; PULSE 93; RESP 16; TEMP 36.6; O2SAT 97
--- NOTE | 2022-05-25 12:04 | HO.PSYCHPN ---
Subjective Subjective Date of Service: 05/25/22 Reason For Visit: Psychosis Subjective Notes: Conditional Voluntary Interim History: The nursing staff reported the patient slept only 4 hours. He has been compliant with medication but he remains with grandiose delusions, religiously preoccupied, sexually inappropriate at times. The social media executive reported the [facility] staff never showed up yesterday they were coming today. On interview the patient remains manic, disorganized but is slightly less loud than before. Mental Status Exam Mental Status Exam Patient Appearance: Disheveled and Unkempt Patient Orientation: Person, Place and Situation Level of Consciousness: Awake and Appropriate Patient Behavior: Guarded, Aggressive and Belligerent Mood Description: Suspicious Affect Description: Labile Patient Cognition Impaired: Yes Ability to Follow Directions: Fair Speech Pattern: Mumbled, Rapid and Loud Hallucinations: None Delusions: Paranoid Ideation and Grandiose Thought Process: Incoherent, Racing and Distracted Thought Content: positive for [place], positive for Poverty of Content, positive for Loose Associations and positive for Thought Blocking Judgement: Poor Diagnostics Vital Signs (24Hr): Vital Signs - 24 hr 05/24/22 18:00 05/25/22 08:38 Temperature 97.8 F 97.9 F Pulse Rate 89 93 Respiratory Rate 18 16 Blood Pressure 158/79 H 147/69 H Pulse Oximetry 97 97 Oxygen Delivery Method Room Air Room Air BMI result Body Mass Index 23.3 Labs 05/18/22 08:14 05/18/22 08:14 Imaging Radiology Impressions: ITS Impressions Renal Ultrasound 05/08/22 16:00 IMPRESSION: 1. Bilateral renal cysts. No echogenic renal calculi. 2. There is no suggestion for renal artery stenosis in either kidney on renal Doppler exam. Renal Ultrasound 05/08/22 16:00 IMPRESSION: 1. Bilateral renal cysts. No echogenic renal calculi. 2. There is no suggestion for renal artery stenosis in either kidney on renal Doppler exam. Medications Medications Current Medications Acetaminophen (Acetaminophen 325 Mg Tablet) 650 mg PO Q6H PRN PRN Reason: Headache/Pain Mild Scale (1-3) Last Admin: 05/25/22 04:15 Dose: 650 mg Al Hydroxide/Mg Hydroxide (Magnesium Hydrox/Alum Hydrox 30 Ml Oral.Susp) 30 ml PO Q6H PRN PRN Reason: Heartburn/Nausea Amlodipine Besylate (Amlodipine Besylate 10 Mg Tablet) 10 mg PO DAILY JOHN; Protocol Last Admin: 05/25/22 08:33 Dose: 10 mg Clonazepam (Clonazepam 1 Mg Tablet) 1 mg PO TID [facility] Last Admin: 05/25/22 08:34 Dose: 1 mg Divalproex Sodium (Divalproex Sodium Sprinkles 125 Mg ) 1,000 mg PO BEDTIME JOHN Last Admin: 05/25/22 01:21 Dose: Not Given Hydrochlorothiazide (Hydrochlorothiazide 25 Mg Tablet) 25 mg PO DAILY [facility]; Protocol Last Admin: 05/25/22 08:33 Dose: 25 mg Hydroxyzine HCl (Hydroxyzine Hcl 25 Mg Tablet) 25 mg PO Q6H PRN PRN Reason: Anxiety Last Admin: 05/09/22 21:01 Dose: 25 mg Labetalol HCl (Labetalol Hcl 100 Mg Tablet) 300 mg PO BID [facility] Last Admin: 05/25/22 08:34 Dose: 300 mg Lisinopril (Lisinopril 40 Mg Tablet) 40 mg PO BEDTIME [facility]; Protocol Last Admin: 05/24/22 20:05 Dose: 40 mg Magnesium Hydroxide (Milk Of Magnesia 30 Ml Oral.Susp) 30 ml PO DAILY PRN PRN Reason: Constipation Olanzapine (Olanzapine 7.5 Mg Tablet) 15 mg PO BEDTIME [facility] Last Admin: 05/24/22 20:05 Dose: 15 mg Olanzapine (Olanzapine Odt 10 Mg Tab.Rapdis) 10 mg TRANSLINGU BID PRN PRN Reason: Psychosis Last Admin: 05/20/22 11:05 Dose: 10 mg Olanzapine (Olanzapine 10 Mg Vial) 10 mg IM BID PRN PRN Reason: psychosis Last Admin: 05/13/22 20:33 Dose: 10 mg Olanzapine (Olanzapine 10 Mg Tablet) 10 mg PO DAILY [facility] Last Admin: 05/25/22 08:34 Dose: 10 mg Tamsulosin HCl (Tamsulosin Hcl 0.4 Mg Capsule) 0.4 mg PO BEDTIME JOHN Last Admin: 05/24/22 20:05 Dose: 0.4 mg Trazodone HCl (Trazodone Hcl 50 Mg Tablet) 50 mg PO BEDTIME PRN PRN Reason: Insomnia Last Admin: 05/20/22 11:05 Dose: 50 mg Trazodone HCl (Trazodone Hcl 25 Mg Halftab) 25 mg PO 1200 [facility] Last Admin: 05/24/22 15:56 Dose: 25 mg Allergies Allergies Allergy/AdvReac Type Severity Reaction Status Date / Time No Known Allergies Allergy Unverified 01/15/20 16:15 [No Known Allergies*] Assessment & Plan Assessment & Plan (1) Acute psychosis: Status: Acute Code(s): F23 - Brief psychotic disorder (2) Schizoaffective disorder, bipolar type: Status: Acute Code(s): F25.0 - Schizoaffective disorder, bipolar type (3) Dementia: Status: Acute Code(s): F03.90 - Unspecified dementia, unspecified severity, without behavioral disturbance, psychotic disturbance, mood disturbance, and anxiety (4) Schizophrenia: Status: Acute Code(s): F20.9 - Schizophrenia, unspecified (5) Hypertension: Status: Acute Code(s): I10 - Essential (primary) hypertension Plan The patient is an elderly male from [facility] does, with a long history of psychotic and mood symptoms, [facility] case managed and resident of [facility] with her prior admissions into the hospital for psychotic decompensation with steve in the context of noncompliance.? Historically had several admissions for the same reason.? He has a guardian and the role years order.? 05/06/22 Patient disorganized, but mostly pleasant.? Refusing psychiatric medication. Patient remains hypertensive despite recent medication change (reviewed hospitalist consult and seems recent increasing lisinopril and addition of hydrochlorothiazide) -placed hospitalist consult to review an manage antihypertensive medications for continued hypertension 05/07/2022 Patient refused addition of amlodipine saying he does not need it Refused a.m. Zyprexa Continue current treatment regimen 05/13/22 continue current treatment plan 05/14 continue current treatment plan pt seen in evening on 05/07, prior to when evening time BP taken; on 05/08, insurance writer reviewed vitals and saw that on previous evening patient had elevated BP's above baseline; by 05/08 BP's returned to baseline; insurance writer called PA hospitalist who evaluated; discussed with nursing and nursing field pipe lines supervisor Plan 1. Gather collateral information.? We will try to contact the staff of the [facility] to get his medication reconciliation form.? Apparently he has last Haldol deck was on February but it is unclear we will try to get a more detailed information.? 2. Continue with the same medications that we have as per medication reconciliation.? 3. Regular blood work as per protocol.? 4. Regular observation. 5.? Invega Sustenna and Haldol Decanoate IM on April 28.? 6. Increased p.r.n. Zyprexa from 5-10 mg on May 03. 7. Zyprexa IM p.r.n. as per [facility] order ordered. 8. Change regular observation to 5 minutes check on May 10. 9. Start Klonopin 1 mg 0.5 mg p.o. t.i.d. later the Klonopin was lowered to 0.5 p.o. b.i.d. and 1 mg at bedtime due to over-sedation on May 11. Later, May 16 Klonopin was increased up to 1 mg p.o. t.i.d. 10. Increased Zyprexa to 10 mg in the morning on May 13. 11. Court today for May 18 for Section 7 and 8 . 12. Blood work for May 18 came back with a very low Depakote level probably most likely cheeking his medication. 13. Chemically restrain today on May 19 Zyprexa 10 mg Ativan 2 mg and Benadryl 50 IM. 14. [facility] staff will visit him today Reason for contiued inpatient stay Substantial Risk for: inability to function, rapid decompensation and med/psych decompensation Time Spent With Patient Time: Total time managing care of this patient today __20__ minutes.
[2022-05-25 18:00] VITALS: BP 135/67; PULSE 84; RESP 17; TEMP 36.5; O2SAT 97
[2022-05-25] MEDS: OLANZapine 7.5 MG TABLET 15 MG PO (20:20)
[2022-05-25] MEDS: lisinopriL 40 MG TABLET PO (20:21)
[2022-05-26 08:20] VITALS: BP 154/64; PULSE 100; RESP 18; O2SAT 97
[2022-05-26] MEDS: amLODIPine Besylate 10 MG TABLET PO (08:23)
[2022-05-26] MEDS: Labetalol HCL 100 MG TABLET 300 MG PO (08:23)
[2022-05-26] MEDS: OLANZapine 10 MG TABLET PO (08:24)
[2022-05-26] MEDS: hydroCHLOROthiazide 25 MG TABLET PO (08:24)
[2022-05-26] MEDS: clonazePAM 1 MG TABLET PO ×2 (08:24→14:00)
--- NOTE | 2022-05-26 11:59 | P.PNPSI_ITS ---
Subjective Subjective Date of Service: 05/26/22 Reason For Visit: Psychosis Subjective Notes: Section 7 and Section 8 Interim History: The nursing staff reported that he had some episodes of yelling. He refused Depakote and Flomax in the morning. He slept well. The social welfare clerk reported that the [facility] staff will probably come today. The main problem is that the patient does not have enough money during the month. On interview the patient has being disorganized and delusional but less loud than before. Mental Status Exam Mental Status Exam Patient Appearance: Disheveled and Unkempt Patient Orientation: Person, Place and Situation Level of Consciousness: Awake and Restless Patient Behavior: Guarded and Passive Mood Description: Withdrawn Affect Description: Labile Patient Cognition Impaired: Yes Ability to Follow Directions: Good Speech Pattern: Clear Hallucinations: None Delusions: Paranoid Ideation, Grandiose and Ideas of Reference Thought Process: Racing, Illogical and Distracted Thought Content: positive for [place], positive for Circumstantial and positive for Poverty of Content Judgement: Poor Diagnostics Vital Signs (24Hr): Vital Signs - 24 hr 05/25/22 18:00 05/26/22 08:20 Temperature 97.7 F Pulse Rate 84 100 Respiratory Rate 17 18 Blood Pressure 135/67 154/64 H Pulse Oximetry 97 97 Oxygen Delivery Method Room Air Room Air BMI result Body Mass Index 23.3 Labs 05/18/22 08:14 05/18/22 08:14 Imaging Radiology Impressions: ITS Impressions Renal Ultrasound 05/08/22 16:00 IMPRESSION: 1. Bilateral renal cysts. No echogenic renal calculi. 2. There is no suggestion for renal artery stenosis in either kidney on renal Doppler exam. Renal Ultrasound 05/08/22 16:00 IMPRESSION: 1. Bilateral renal cysts. No echogenic renal calculi. 2. There is no suggestion for renal artery stenosis in either kidney on renal Doppler exam. Medications Medications Current Medications Acetaminophen (Acetaminophen 325 Mg Tablet) 650 mg PO Q6H PRN PRN Reason: Headache/Pain Mild Scale (1-3) Last Admin: 05/25/22 04:15 Dose: 650 mg Al Hydroxide/Mg Hydroxide (Magnesium Hydrox/Alum Hydrox 30 Ml Oral.Susp) 30 ml PO Q6H PRN PRN Reason: Heartburn/Nausea Amlodipine Besylate (Amlodipine Besylate 10 Mg Tablet) 10 mg PO DAILY JOHN; Protocol Last Admin: 05/26/22 08:23 Dose: 10 mg Clonazepam (Clonazepam 1 Mg Tablet) 1 mg PO TID JOHN Last Admin: 05/26/22 08:24 Dose: 1 mg Divalproex Sodium (Divalproex Sodium Sprinkles 125 Mg Cap.) 1,000 mg PO BEDTIME JOHN Last Admin: 05/25/22 20:21 Dose: Not Given Hydrochlorothiazide (Hydrochlorothiazide 25 Mg Tablet) 25 mg PO DAILY [facility]; Protocol Last Admin: 05/26/22 08:24 Dose: 25 mg Hydroxyzine HCl (Hydroxyzine Hcl 25 Mg Tablet) 25 mg PO Q6H PRN PRN Reason: Anxiety Last Admin: 05/09/22 21:01 Dose: 25 mg Labetalol HCl (Labetalol Hcl 100 Mg Tablet) 300 mg PO BID [facility] Last Admin: 05/26/22 08:23 Dose: 300 mg Lisinopril (Lisinopril 40 Mg Tablet) 40 mg PO BEDTIME JOHN; Protocol Last Admin: 05/25/22 20:21 Dose: 40 mg Magnesium Hydroxide (Milk Of Magnesia 30 Ml Oral.Susp) 30 ml PO DAILY PRN PRN Reason: Constipation Olanzapine (Olanzapine 7.5 Mg Tablet) 15 mg PO BEDTIME JOHN Last Admin: 05/25/22 20:20 Dose: 15 mg Olanzapine (Olanzapine Odt 10 Mg Tab.Rapdis) 10 mg TRANSLINGU BID PRN PRN Reason: Psychosis Last Admin: 05/20/22 11:05 Dose: 10 mg Olanzapine (Olanzapine 10 Mg Vial) 10 mg IM BID PRN PRN Reason: psychosis Last Admin: 05/13/22 20:33 Dose: 10 mg Olanzapine (Olanzapine 10 Mg Tablet) 10 mg PO DAILY JOHN Last Admin: 05/26/22 08:24 Dose: 10 mg Tamsulosin HCl (Tamsulosin Hcl 0.4 Mg Capsule) 0.4 mg PO BEDTIME JOHN Last Admin: 05/25/22 20:29 Dose: Not Given Trazodone HCl (Trazodone Hcl 50 Mg Tablet) 50 mg PO BEDTIME PRN PRN Reason: Insomnia Last Admin: 05/20/22 11:05 Dose: 50 mg Trazodone HCl (Trazodone Hcl 25 Mg Halftab) 25 mg PO 1200 JOHN Last Admin: 05/25/22 12:19 Dose: Not Given Allergies Allergies Allergy/AdvReac Type Severity Reaction Status Date / Time No Known Allergies Allergy Unverified 01/15/20 16:15 [No Known Allergies*] Assessment & Plan Assessment & Plan (1) Acute psychosis: Status: Acute Code(s): F23 - Brief psychotic disorder (2) Schizoaffective disorder, bipolar type: Status: Acute Code(s): F25.0 - Schizoaffective disorder, bipolar type (3) Dementia: Status: Acute Code(s): F03.90 - Unspecified dementia, unspecified severity, without behavioral disturbance, psychotic disturbance, mood disturbance, and anxiety (4) Schizophrenia: Status: Acute Code(s): F20.9 - Schizophrenia, unspecified (5) Hypertension: Status: Acute Code(s): I10 - Essential (primary) hypertension Plan The patient is an elderly male from [facility] does, with a long history of psychotic and mood symptoms, [facility] case managed and resident of [facility] with her prior admissions into the hospital for psychotic decompensation with steve in the context of noncompliance.? Historically had several admissions for the same reason.? He has a guardian and the role years order.? 05/06/22 Patient disorganized, but mostly pleasant.? Refusing psychiatric medication. Patient remains hypertensive despite recent medication change (reviewed hospitalist consult and seems recent increasing lisinopril and addition of hydrochlorothiazide) -placed hospitalist consult to review an manage antihypertensive medications for continued hypertension 05/07/2022 Patient refused addition of amlodipine saying he does not need it Refused a.m. Zyprexa Continue current treatment regimen 05/13/22 continue current treatment plan 05/14 continue current treatment plan pt seen in evening on 05/07, prior to when evening time BP taken; on 05/08, food writer reviewed vitals and saw that on previous evening patient had elevated BP's above baseline; by 05/08 BP's returned to baseline; food writer called PA hospitalist who evaluated; discussed with nursing and nursing open hearth stockyard supervisor Plan 1. Gather collateral information.? We will try to contact the staff of the [facility] to get his medication reconciliation form.? Apparently he has last Haldol deck was on February but it is unclear we will try to get a more detailed information.? 2. Continue with the same medications that we have as per medication reconciliation.? 3. Regular blood work as per protocol.? 4. Regular observation. 5.? Invega Sustenna and Haldol Decanoate IM on April 28.? 6. Increased p.r.n. Zyprexa from 5-10 mg on May 03. 7. Zyprexa IM p.r.n. as per [facility] order ordered. 8. Change regular observation to 5 minutes check on May 10. 9. Start Klonopin 1 mg 0.5 mg p.o. t.i.d. later the Klonopin was lowered to 0.5 p.o. b.i.d. and 1 mg at bedtime due to over-sedation on May 11. Later, May 16 Klonopin was increased up to 1 mg p.o. t.i.d. 10. Increased Zyprexa to 10 mg in the morning on May 13. 11. Court today for May 18 for Section 7 and 8 . 12. Blood work for May 18 came back with a very low Depakote level probably most likely cheeking his medication. 13. Chemically restrain today on May 19 Zyprexa 10 mg Ativan 2 mg and Benadryl 50 IM. 14. [facility] staff will visit him soon. Most likely discharge for next Sunday. Reason for contiued inpatient stay Substantial Risk for: inability to function, rapid decompensation and med/psych decompensation Time Spent With Patient Time: Total time managing care of this patient today __20__ minutes.
[2022-05-26] MEDS: OLANZapine ODT 10 MG TAB.RAPDIS TRANSLINGU (14:00)
[2022-05-26 18:00] VITALS: BP 155/78; PULSE 96; RESP 20; TEMP 36.2; O2SAT 98
[2022-05-26] MEDS: OLANZapine 7.5 MG TABLET 15 MG PO (20:28)
[2022-05-27 06:00] VITALS: BP 151/79; PULSE 101; RESP 101; TEMP 36.4; O2SAT 95
--- NOTE | 2022-05-27 08:40 | HO.PSYCHPN ---
Subjective Subjective Date of Service: 05/27/22 Reason For Visit: Psychosis Subjective Notes: Conditional Voluntary Interim History: The nursing staff reported the patient has been agitated, unable to sleep. Last night he slept only 3 hours and he took only the Zyprexa since he knows that there is an IM backup as per court order. He refused trazodone. He has been intrusive and unable to be redirected at times. So far no need of IM. On interview the patient is disorganized, grossly psychotic and manic but slightly less loud than the last week. Able to be redirected at times Mental Status Exam Mental Status Exam Patient Appearance: Disheveled, Unkempt and Bizarre Patient Orientation: Person, Place and Situation Level of Consciousness: Awake and Appropriate Patient Behavior: Guarded, Posturing and Impulsive Mood Description: Hostile and Elated Affect Description: Blunted Patient Cognition Impaired: Yes Ability to Follow Directions: Fair Speech Pattern: Impoverished, Rambling and Mumbled Hallucinations: None Delusions: Paranoid Ideation, Grandiose and Ideas of Reference Thought Process: Racing and Illogical Thought Content: positive for [place] and positive for [place]overty of Content Judgement: Poor Diagnostics Vital Signs (24Hr): Vital Signs - 24 hr 05/26/22 18:00 Temperature 97.1 F Pulse Rate 96 Respiratory Rate 20 Blood Pressure 155/78 H Pulse Oximetry 98 Oxygen Delivery Method Room Air BMI result Body Mass Index 23.3 Labs 05/18/22 08:14 05/18/22 08:14 Imaging Radiology Impressions: ITS Impressions Renal Ultrasound 05/08/22 16:00 IMPRESSION: 1. Bilateral renal cysts. No echogenic renal calculi. 2. There is no suggestion for renal artery stenosis in either kidney on renal Doppler exam. Renal Ultrasound 05/08/22 16:00 IMPRESSION: 1. Bilateral renal cysts. No echogenic renal calculi. 2. There is no suggestion for renal artery stenosis in either kidney on renal Doppler exam. Medications Medications Current Medications Acetaminophen (Acetaminophen 325 Mg Tablet) 650 mg PO Q6H PRN PRN Reason: Headache/Pain Mild Scale (1-3) Last Admin: 05/25/22 04:15 Dose: 650 mg Al Hydroxide/Mg Hydroxide (Magnesium Hydrox/Alum Hydrox 30 Ml Oral.Susp) 30 ml PO Q6H PRN PRN Reason: Heartburn/Nausea Amlodipine Besylate (Amlodipine Besylate 10 Mg Tablet) 10 mg PO DAILY JOHN; Protocol Last Admin: 05/26/22 08:23 Dose: 10 mg Clonazepam (Clonazepam 1 Mg Tablet) 1 mg PO TID JOHN Last Admin: 05/26/22 20:31 Dose: Not Given Divalproex Sodium (Divalproex Sodium Sprinkles 125 Mg Minh.) 1,000 mg PO BEDTIME JOHN Last Admin: 05/26/22 20:31 Dose: Not Given Hydrochlorothiazide (Hydrochlorothiazide 25 Mg Tablet) 25 mg PO DAILY JOHN; Protocol Last Admin: 05/26/22 08:24 Dose: 25 mg Hydroxyzine HCl (Hydroxyzine Hcl 25 Mg Tablet) 25 mg PO Q6H PRN PRN Reason: Anxiety Last Admin: 05/09/22 21:01 Dose: 25 mg Labetalol HCl (Labetalol Hcl 100 Mg Tablet) 300 mg PO BID JOHN Last Admin: 05/26/22 20:31 Dose: Not Given Lisinopril (Lisinopril 40 Mg Tablet) 40 mg PO BEDTIME JOHN; Protocol Last Admin: 05/26/22 20:31 Dose: Not Given Magnesium Hydroxide (Milk Of Magnesia 30 Ml Oral.Susp) 30 ml PO DAILY PRN PRN Reason: Constipation Olanzapine (Olanzapine 7.5 Mg Tablet) 15 mg PO BEDTIME JOHN Last Admin: 05/26/22 20:28 Dose: 15 mg Olanzapine (Olanzapine Odt 10 Mg Tab.Rapdis) 10 mg TRANSLINGU BID PRN PRN Reason: Psychosis Last Admin: 05/26/22 14:00 Dose: 10 mg Olanzapine (Olanzapine 10 Mg Vial) 10 mg IM BID PRN PRN Reason: psychosis Last Admin: 05/13/22 20:33 Dose: 10 mg Olanzapine (Olanzapine 10 Mg Tablet) 10 mg PO DAILY JOHN Last Admin: 05/26/22 08:24 Dose: 10 mg Tamsulosin HCl (Tamsulosin Hcl 0.4 Mg Capsule) 0.4 mg PO BEDTIME JOHN Last Admin: 05/26/22 20:31 Dose: Not Given Trazodone HCl (Trazodone Hcl 50 Mg Tablet) 50 mg PO BEDTIME PRN PRN Reason: Insomnia Last Admin: 05/20/22 11:05 Dose: 50 mg Trazodone HCl (Trazodone Hcl 25 Mg Halftab) 25 mg PO 1200 JOHN Last Admin: 05/26/22 12:56 Dose: Not Given Allergies Allergies Allergy/AdvReac Type Severity Reaction Status Date / Time No Known Allergies Allergy Unverified 01/15/20 16:15 [No Known Allergies*] Assessment & Plan Assessment & Plan (1) Acute psychosis: Status: Acute Code(s): F23 - Brief psychotic disorder (2) Schizoaffective disorder, bipolar type: Status: Acute Code(s): F25.0 - Schizoaffective disorder, bipolar type (3) Dementia: Status: Acute Code(s): F03.90 - Unspecified dementia, unspecified severity, without behavioral disturbance, psychotic disturbance, mood disturbance, and anxiety (4) Schizophrenia: Status: Acute Code(s): F20.9 - Schizophrenia, unspecified (5) Hypertension: Status: Acute Code(s): I10 - Essential (primary) hypertension Plan The patient is an elderly male from [facility] does, with a long history of psychotic and mood symptoms, [facility] case managed and resident of [facility] with her prior admissions into the hospital for psychotic decompensation with steve in the context of noncompliance.? Historically had several admissions for the same reason.? He has a guardian and the role years order.? 05/06/22 Patient disorganized, but mostly pleasant.? Refusing psychiatric medication. Patient remains hypertensive despite recent medication change (reviewed hospitalist consult and seems recent increasing lisinopril and addition of hydrochlorothiazide) -placed hospitalist consult to review an manage antihypertensive medications for continued hypertension 05/07/2022 Patient refused addition of amlodipine saying he does not need it Refused a.m. Zyprexa Continue current treatment regimen 05/13/22 continue current treatment plan 05/14 continue current treatment plan pt seen in evening on 05/07, prior to when evening time BP taken; on 05/08, assembly instructions writer reviewed vitals and saw that on previous evening patient had elevated BP's above baseline; by 05/08 BP's returned to baseline; assembly instructions writer called PA hospitalist who evaluated; discussed with nursing and nursing fabrication department supervisor Plan 1. Gather collateral information.? We will [facility] to [facility] of the [facility] to get his medication reconciliation form.? Apparently he has last Haldol deck was on February but it is unclear we will try to get a more detailed information.? 2. Continue with the same medications that we have as per medication reconciliation.? 3. Regular blood work as per protocol.? 4. Regular observation. 5.? Invega Sustenna and Haldol Decanoate IM on April 28.? 6. Increased p.r.n. Zyprexa from 5-10 mg on May 03. 7. Zyprexa IM p.r.n. as per [facility] order ordered. 8. Change regular observation to 5 minutes check on May 10. 9. Start Klonopin 1 mg 0.5 mg p.o. t.i.d. later the Klonopin was lowered to 0.5 p.o. b.i.d. and 1 mg at bedtime due to over-sedation on May 11. Later, May 16 Klonopin was increased up to 1 mg p.o. t.i.d. 10. Increased Zyprexa to 10 mg in the morning on May 13. 11. Court today for May 18 for Section 7 and 8 . 12. Blood work for May 18 came back with a very low Depakote level probably most likely cheeking his medication. 13. Chemically restrain today on May 19 Zyprexa 10 mg Ativan 2 mg and Benadryl 50 IM. 14. [facility] staff will visit him soon. Most likely discharge for next Sunday. Reason for contiued inpatient stay Substantial Risk for: inability to function, rapid decompensation and med/psych decompensation Time Spent With Patient Time: Total time managing care of this patient today _20___ minutes.
[2022-05-27] MEDS: clonazePAM 1 MG TABLET PO ×2 (09:16→15:51)
[2022-05-27] MEDS: OLANZapine 10 MG TABLET PO (09:16)
[2022-05-27] MEDS: Labetalol HCL 100 MG TABLET 300 MG PO (09:17)
[2022-05-27] MEDS: hydroCHLOROthiazide 25 MG TABLET PO (09:17)
[2022-05-27] MEDS: amLODIPine Besylate 10 MG TABLET PO (09:17)
[2022-05-27 18:00] VITALS: BP 154/87; PULSE 95; RESP 16; TEMP 36.6; O2SAT 99
[2022-05-27] MEDS: OLANZapine 7.5 MG TABLET 15 MG PO (20:06)
[2022-05-28] MEDS: Acetaminophen 325 MG TABLET 650 MG PO (01:06)
[2022-05-28 06:00] VITALS: BP 176/81; PULSE 105; RESP 18; TEMP 36.8; O2SAT 94
--- NOTE | 2022-05-28 08:30 | P.PNPSI_ITS ---
Subjective Subjective Date of Service: 05/28/22 Reason For Visit: Psychosis Subjective Notes: Section 7 and Section 8 Interim History: The nursing staff reported the patient was argumentative with the nurse regarding his medications, eventually he took only Zyprexa at night but refused all his medical treatments. He slept at 01:30, he slept only 4 hours. On interview the patient is disheveled, covered it and she had, stating that he wants to be discharged tomorrow. No new symptoms, still manic and disorganized but less irritable than last week. Mental Status Exam Mental Status Exam Patient Appearance: Disheveled and Unkempt Patient Orientation: Person and Situation Level of Consciousness: Awake and Restless Patient Behavior: Guarded and Suspicious Mood Description: Hostile Affect Description: Labile Patient Cognition Impaired: Yes Ability to Follow Directions: Fair Speech Pattern: Rapid and Loud Hallucinations: None Delusions: Paranoid Ideation, Grandiose and Ideas of Reference Thought Process: Slowed Thinking and Word Salad Thought Content: positive for [place] and positive for Circumstantial Judgement: Poor Diagnostics Vital Signs (24Hr): Vital Signs - 24 hr 05/27/22 18:00 Temperature 98 F Pulse Rate 95 Respiratory Rate 16 Blood Pressure 154/87 H Pulse Oximetry 99 Oxygen Delivery Method Room Air BMI result Body Mass Index 23.3 Labs 05/18/22 08:14 05/18/22 08:14 Imaging Radiology Impressions: ITS Impressions Renal Ultrasound 05/08/22 16:00 IMPRESSION: 1. Bilateral renal cysts. No echogenic renal calculi. 2. There is no suggestion for renal artery stenosis in either kidney on renal Doppler exam. Renal Ultrasound 05/08/22 16:00 IMPRESSION: 1. Bilateral renal cysts. No echogenic renal calculi. 2. There is no suggestion for renal artery stenosis in either kidney on renal Doppler exam. Medications Medications Current Medications Acetaminophen (Acetaminophen 325 Mg Tablet) 650 mg PO Q6H PRN PRN Reason: Headache/Pain Mild Scale (1-3) Last Admin: 05/28/22 01:06 Dose: 650 mg Al Hydroxide/Mg Hydroxide (Magnesium Hydrox/Alum Hydrox 30 Ml Oral.Susp) 30 ml PO Q6H PRN PRN Reason: Heartburn/Nausea Amlodipine Besylate (Amlodipine Besylate 10 Mg Tablet) 10 mg PO DAILY JOHN; Protocol Last Admin: 05/27/22 09:17 Dose: 10 mg Clonazepam (Clonazepam 1 Mg Tablet) 1 mg PO TID [facility] Last Admin: 05/28/22 05:46 Dose: Not Given Divalproex Sodium (Divalproex Sodium Sprinkles 125 Mg ) 1,000 mg PO BEDTIME JOHN Last Admin: 05/28/22 05:46 Dose: Not Given Hydrochlorothiazide (Hydrochlorothiazide 25 Mg Tablet) 25 mg PO DAILY [facility]; Protocol Last Admin: 05/27/22 09:17 Dose: 25 mg Hydroxyzine HCl (Hydroxyzine Hcl 25 Mg Tablet) 25 mg PO Q6H PRN PRN Reason: Anxiety Last Admin: 05/09/22 21:01 Dose: 25 mg Labetalol HCl (Labetalol Hcl 100 Mg Tablet) 300 mg PO BID [facility] Last Admin: 05/28/22 05:46 Dose: Not Given Lisinopril (Lisinopril 40 Mg Tablet) 40 mg PO BEDTIME [facility]; Protocol Last Admin: 05/28/22 05:46 Dose: Not Given Magnesium Hydroxide (Milk Of Magnesia 30 Ml Oral.Susp) 30 ml PO DAILY PRN PRN Reason: Constipation Olanzapine (Olanzapine 7.5 Mg Tablet) 15 mg PO BEDTIME JOHN Last Admin: 05/27/22 20:06 Dose: 15 mg Olanzapine (Olanzapine Odt 10 Mg Tab.Rapdis) 10 mg TRANSLINGU BID PRN PRN Reason: Psychosis Last Admin: 05/26/22 14:00 Dose: 10 mg Olanzapine (Olanzapine 10 Mg Vial) 10 mg IM BID PRN PRN Reason: psychosis Last Admin: 05/13/22 20:33 Dose: 10 mg Olanzapine (Olanzapine 10 Mg Tablet) 10 mg PO DAILY [facility] Last Admin: 05/27/22 09:16 Dose: 10 mg Tamsulosin HCl (Tamsulosin Hcl 0.4 Mg Capsule) 0.4 mg PO BEDTIME JOHN Last Admin: 05/28/22 05:59 Dose: Not Given Trazodone HCl (Trazodone Hcl 50 Mg Tablet) 50 mg PO BEDTIME PRN PRN Reason: Insomnia Last Admin: 05/20/22 11:05 Dose: 50 mg Trazodone HCl (Trazodone Hcl 25 Mg Halftab) 25 mg PO 1200 [facility] Last Admin: 05/27/22 15:26 Dose: Not Given Allergies Allergies Allergy/AdvReac Type Severity Reaction Status Date / Time No Known Allergies Allergy Unverified 01/15/20 16:15 [No Known Allergies*] Assessment & Plan Assessment & Plan (1) Acute psychosis: Status: Acute Code(s): F23 - Brief psychotic disorder (2) Schizoaffective disorder, bipolar type: Status: Acute Code(s): F25.0 - Schizoaffective disorder, bipolar type (3) Dementia: Status: Acute Code(s): F03.90 - Unspecified dementia, unspecified severity, without behavioral disturbance, psychotic disturbance, mood disturbance, and anxiety (4) Schizophrenia: Status: Acute Code(s): F20.9 - Schizophrenia, unspecified (5) Hypertension: Status: Acute Code(s): I10 - Essential (primary) hypertension Plan The patient is an elderly male from [facility], with a long history of psychotic and mood symptoms, [facility] case managed and resident of formerly [facility] with her prior admissions into the hospital for psychotic decompensation with steve in the context of noncompliance.? Historically had several admissions for the same reason.? He has a guardian and the role years order.? 05/06/22 Patient disorganized, but mostly pleasant.? Refusing psychiatric medication. Patient remains hypertensive despite recent medication change (reviewed hospitalist consult and seems recent increasing lisinopril and addition of hydrochlorothiazide) -placed hospitalist consult to review an manage antihypertensive medications for continued hypertension 05/07/2022 Patient refused addition of amlodipine saying he does not need it Refused a.m. Zyprexa Continue current treatment regimen 05/13/22 continue current treatment plan 05/14 continue current treatment plan pt seen in evening on 05/07, prior to when evening time BP taken; on 05/08, com writer reviewed vitals and saw that on previous evening patient had elevated BP's above baseline; by 05/08 BP's returned to baseline; com writer called PA hospitalist who evaluated; discussed with nursing and nursing supervisor hardboard Plan 1. Gather collateral information.? We will try to contact the staff of the [facility] to get his medication reconciliation form.? Apparently he has last Haldol deck was on February but it is unclear we will try to get a more detailed information.? 2. Continue with the same medications that we have as per medication reconciliation.? 3. Regular blood work as per protocol.? 4. Regular observation. 5.? Invega Sustenna and Haldol Decanoate IM on April 28.? 6. Increased p.r.n. Zyprexa from 5-10 mg on May 03. 7. Zyprexa IM p.r.n. as per [facility] order ordered. 8. Change regular observation to 5 minutes check on May 10. 9. Start Klonopin 1 mg 0.5 mg p.o. t.i.d. later the Klonopin was lowered to 0.5 p.o. b.i.d. and 1 mg at bedtime due to over-sedation on May 11. Later, May 16 Klonopin was increased up to 1 mg p.o. t.i.d. 10. Increased Zyprexa to 10 mg in the morning on May 13. 11. Court today for May 18 for Section 7 and 8 . 12. Blood work for May 18 came back with a very low Depakote level probably most likely cheeking his medication. 13. Chemically restrain today on May 19 Zyprexa 10 mg Ativan 2 mg and Benadryl 50 IM. 14. shelter staff will visit him soon. Most likely discharge for next Sunday. Reason for contiued inpatient stay Substantial Risk for: inability to function, rapid decompensation and med/psych decompensation Time Spent With Patient Time: Total time managing care of this patient today _20___ minutes.
[2022-05-28] MEDS: Labetalol HCL 100 MG TABLET 300 MG PO (09:52)
[2022-05-28] MEDS: hydroCHLOROthiazide 25 MG TABLET PO (09:52)
[2022-05-28] MEDS: clonazePAM 1 MG TABLET PO ×3 (09:52→20:47)
[2022-05-28] MEDS: OLANZapine 10 MG TABLET PO (09:52)
[2022-05-28] MEDS: amLODIPine Besylate 10 MG TABLET PO (09:52)
[2022-05-28] MEDS: traZODone HCL 25 MG HALFTAB PO (14:57)
[2022-05-28 18:00] VITALS: BP 147/70; PULSE 87; RESP 18; TEMP 36.8; O2SAT 98
[2022-05-28] MEDS: OLANZapine 7.5 MG TABLET 15 MG PO (20:25)
[2022-05-28] MEDS: lisinopriL 40 MG TABLET PO (20:48)
--- NOTE | 2022-05-29 06:44 | P.PNPSI_ITS ---
Subjective Subjective Date of Service: 05/29/22 Reason For Visit: Psychosis Subjective Notes: Section 7 and Section 8 Interim History: The nursing staff reported the patient took his medication with a lot of encouragement. He has not taking his medical trucks but only antipsychotics since he is fully aware that we can use IM as a backup as per court order. On interview the patient remains elusive, grandiose, intrusive at times but redirectable. He looks less manic than last week. Mental Status Exam Mental Status Exam Patient Appearance: Disheveled and Unkempt Patient Orientation: Person and Situation Level of Consciousness: Restless Patient Behavior: Guarded and Passive Mood Description: Withdrawn Affect Description: Labile Patient Cognition Impaired: Yes Ability to Follow Directions: Good Speech Pattern: Clear Hallucinations: None Delusions: Paranoid Ideation, Grandiose and Ideas of Reference Thought Process: Racing and Illogical Thought Content: positive for [place], positive for Circumstantial and positive for Loose Associations Judgement: Poor Diagnostics Vital Signs (24Hr): Vital Signs - 24 hr 05/28/22 18:00 Temperature 98.2 F Pulse Rate 87 Respiratory Rate 18 Blood Pressure 147/70 H Pulse Oximetry 98 Oxygen Delivery Method Room Air BMI result Body Mass Index 23.3 Labs 05/18/22 08:14 05/18/22 08:14 Imaging Radiology Impressions: ITS Impressions Renal Ultrasound 05/08/22 16:00 IMPRESSION: 1. Bilateral renal cysts. No echogenic renal calculi. 2. There is no suggestion for renal artery stenosis in either kidney on renal Doppler exam. Renal Ultrasound 05/08/22 16:00 IMPRESSION: 1. Bilateral renal cysts. No echogenic renal calculi. 2. There is no suggestion for renal artery stenosis in either kidney on renal Doppler exam. Medications Medications Current Medications Acetaminophen (Acetaminophen 325 Mg Tablet) 650 mg PO Q6H PRN PRN Reason: Headache/Pain Mild Scale (1-3) Last Admin: 05/28/22 01:06 Dose: 650 mg Al Hydroxide/Mg Hydroxide (Magnesium Hydrox/Alum Hydrox 30 Ml Oral.Susp) 30 ml PO Q6H PRN PRN Reason: Heartburn/Nausea Amlodipine Besylate (Amlodipine Besylate 10 Mg Tablet) 10 mg PO DAILY [facility]; Protocol Last Admin: 05/28/22 09:52 Dose: 10 mg Clonazepam (Clonazepam 1 Mg Tablet) 1 mg PO TID [facility] Last Admin: 05/28/22 20:47 Dose: 1 mg Divalproex Sodium (Divalproex Sodium Sprinkles 125 Mg ) 1,000 mg PO BEDTIME [facility] Last Admin: 05/28/22 21:34 Dose: Not Given Hydrochlorothiazide (Hydrochlorothiazide 25 Mg Tablet) 25 mg PO DAILY [facility]; Protocol Last Admin: 05/28/22 09:52 Dose: 25 mg Hydroxyzine HCl (Hydroxyzine Hcl 25 Mg Tablet) 25 mg PO Q6H PRN PRN Reason: Anxiety Last Admin: 05/09/22 21:01 Dose: 25 mg Labetalol HCl (Labetalol Hcl 100 Mg Tablet) 300 mg PO BID [facility] Last Admin: 05/28/22 21:34 Dose: Not Given Lisinopril (Lisinopril 40 Mg Tablet) 40 mg PO BEDTIME [facility]; Protocol Last Admin: 05/28/22 20:48 Dose: 40 mg Magnesium Hydroxide (Milk Of Magnesia 30 Ml Oral.Susp) 30 ml PO DAILY PRN PRN Reason: Constipation Olanzapine (Olanzapine 7.5 Mg Tablet) 15 mg PO BEDTIME [facility] Last Admin: 05/28/22 20:25 Dose: 15 mg Olanzapine (Olanzapine Odt 10 Mg Tab.Rapdis) 10 mg TRANSLINGU BID PRN PRN Reason: Psychosis Last Admin: 05/26/22 14:00 Dose: 10 mg Olanzapine (Olanzapine 10 Mg Vial) 10 mg IM BID PRN PRN Reason: psychosis Last Admin: 05/13/22 20:33 Dose: 10 mg Olanzapine (Olanzapine 10 Mg Tablet) 10 mg PO DAILY [facility] Last Admin: 05/28/22 09:52 Dose: 10 mg Tamsulosin HCl (Tamsulosin Hcl 0.4 Mg Capsule) 0.4 mg PO BEDTIME [facility] Last Admin: 05/28/22 21:35 Dose: Not Given Trazodone HCl (Trazodone Hcl 50 Mg Tablet) 50 mg PO BEDTIME PRN PRN Reason: Insomnia Last Admin: 05/20/22 11:05 Dose: 50 mg Trazodone HCl (Trazodone Hcl 25 Mg Halftab) 25 mg PO 1200 [facility] Last Admin: 05/28/22 14:57 Dose: 25 mg Allergies Allergies Allergy/AdvReac Type Severity Reaction Status Date / Time No Known Allergies Allergy Unverified 01/15/20 16:15 [No Known Allergies*] Assessment & Plan Assessment & Plan (1) Acute psychosis: Status: Acute Code(s): F23 - Brief psychotic disorder (2) Schizoaffective disorder, bipolar type: Status: Acute Code(s): F25.0 - Schizoaffective disorder, bipolar type (3) Dementia: Status: Acute Code(s): F03.90 - Unspecified dementia, unspecified severity, without behavioral disturbance, psychotic disturbance, mood disturbance, and anxiety (4) Schizophrenia: Status: Acute Code(s): F20.9 - Schizophrenia, unspecified (5) Hypertension: Status: Acute Code(s): I10 - Essential (primary) hypertension Plan The patient is an elderly male from [facility], with a long history of psychotic and mood symptoms, [facility] case managed and resident of [facility] with her prior admissions into the hospital for psychotic decompensation with steve in the context of noncompliance.? Historically had several admissions for the same reason.? He has a guardian and the role years order.? 05/06/22 Patient disorganized, but mostly pleasant.? Refusing psychiatric medication. Patient remains hypertensive despite recent medication change (reviewed hospitalist consult and seems recent increasing lisinopril and addition of hydrochlorothiazide) -placed hospitalist consult to review an manage antihypertensive medications for continued hypertension 05/07/2022 Patient refused addition of amlodipine saying he does not need it Refused a.m. Zyprexa Continue current treatment regimen 05/13/22 continue current treatment plan 05/14 continue current treatment plan pt seen in evening on 05/07, prior to when evening time BP taken; on 05/08, typewriter ribbon winder reviewed vitals and saw that on previous evening patient had elevated BP's above baseline; by 05/08 BP's returned to baseline; typewriter ribbon winder called PA hospitalist who evaluated; discussed with nursing and nursing film processing shift supervisor Plan 1. Gather collateral information.? We will try to contact the staff of the [facility] to get his medication reconciliation form.? Apparently he has last Haldol deck was on February but it is unclear we will try to get a more detailed information.? 2. Continue with the same medications that we have as per medication reconciliation.? 3. Regular blood work as per protocol.? 4. Regular observation. 5.? Invega Sustenna and Haldol Decanoate IM on April 28.? 6. Increased p.r.n. Zyprexa from 5-10 mg on May 03. 7. Zyprexa IM p.r.n. as per [facility] order ordered. 8. Change regular observation to 5 minutes check on May 10. 9. Start Klonopin 1 mg 0.5 mg p.o. t.i.d. later the Klonopin was lowered to 0.5 p.o. b.i.d. and 1 mg at bedtime due to over-sedation on May 11. Later, May 16 Klonopin was increased up to 1 mg p.o. t.i.d. 10. Increased Zyprexa to 10 mg in the morning on May 13. 11. Court today for May 18 for Section 7 and 8 . 12. Blood work for May 18 came back with a very low Depakote level probably most likely cheeking his medication. 13. Chemically restrain today on May 19 Zyprexa 10 mg Ativan 2 mg and Benadryl 50 IM. 14. detention staff will visit him soon. Most likely discharge for next Sunday. Reason for contiued inpatient stay Substantial Risk for: inability to function, rapid decompensation and med/psych decompensation Time Spent With Patient Time: Total time managing care of this patient today ____ minutes.
[2022-05-29] MEDS: clonazePAM 1 MG TABLET PO ×3 (08:32→20:45)
[2022-05-29] MEDS: OLANZapine 10 MG TABLET PO (08:32)
[2022-05-29] MEDS: traZODone HCL 25 MG HALFTAB PO (11:59)
[2022-05-29 18:00] VITALS: BP 158/72; PULSE 90; RESP 18; TEMP 36.8; O2SAT 98
[2022-05-29] MEDS: lisinopriL 40 MG TABLET PO (20:44)
[2022-05-29] MEDS: Labetalol HCL 100 MG TABLET 300 MG PO (20:45)
[2022-05-29] MEDS: OLANZapine 7.5 MG TABLET 15 MG PO (20:45)
[2022-05-30 07:30] VITALS: BP 139/65; PULSE 88; RESP 16; TEMP 36.3; O2SAT 98
--- NOTE | 2022-05-30 07:34 | P.PNPSI_ITS ---
Subjective Subjective Date of Service: 05/30/22 Reason For Visit: Psychosis Subjective Notes: Conditional Voluntary Interim History: The nursing staff reported the patient had been intrusive with peers and staff, loud at times but easily redirectable. The staff has noticed that the patient is less irritable than before even though his chronically psychotic. He spent most of the AM sleeping. On interview the patient asked to be discharged. I explained him that I will discharge her tomorrow but he has to take his Invega Sustenna and Haldol Decanoate as per court order. Mental Status Exam Mental Status Exam Patient Appearance: Disheveled, Unkempt and Bizarre Patient Orientation: Person and Situation Level of Consciousness: Awake Patient Behavior: Guarded and Suspicious Mood Description: Suspicious and Nervous Affect Description: Labile Patient Cognition Impaired: Yes Ability to Follow Directions: Fair Speech Pattern: Impoverished and Monotone Hallucinations: None Delusions: Paranoid Ideation and Grandiose Thought Process: Illogical, Evasive and Slowed Thinking Thought Content: positive for Terry, positive for Perseveration, positive for Poverty of Content and positive for Thought Blocking Judgement: Poor Diagnostics Vital Signs (24Hr): Vital Signs - 24 hr 05/29/22 18:00 Temperature 98.2 F Pulse Rate 90 Respiratory Rate 18 Blood Pressure 158/72 H Pulse Oximetry 98 Oxygen Delivery Method Room Air BMI result Body Mass Index 23.3 Labs 05/18/22 08:14 05/18/22 08:14 Imaging Radiology Impressions: ITS Impressions Renal Ultrasound 05/08/22 16:00 IMPRESSION: 1. Bilateral renal cysts. No echogenic renal calculi. 2. There is no suggestion for renal artery stenosis in either kidney on renal Doppler exam. Renal Ultrasound 05/08/22 16:00 IMPRESSION: 1. Bilateral renal cysts. No echogenic renal calculi. 2. There is no suggestion for renal artery stenosis in either kidney on renal Doppler exam. Medications Medications Current Medications Acetaminophen (Acetaminophen 325 Mg Tablet) 650 mg PO Q6H PRN PRN Reason: Headache/Pain Mild Scale (1-3) Last Admin: 05/28/22 01:06 Dose: 650 mg Al Hydroxide/Mg Hydroxide (Magnesium Hydrox/Alum Hydrox 30 Ml Oral.Susp) 30 ml PO Q6H PRN PRN Reason: Heartburn/Nausea Amlodipine Besylate (Amlodipine Besylate 10 Mg Tablet) 10 mg PO DAILY JOHN; Protocol Last Admin: 05/29/22 09:43 Dose: Not Given Clonazepam (Clonazepam 1 Mg Tablet) 1 mg PO TID [facility] Last Admin: 05/29/22 20:45 Dose: 1 mg Divalproex Sodium (Divalproex Sodium Sprinkles 125 Mg Minh.) 1,000 mg PO BEDTIME JOHN Last Admin: 05/29/22 20:47 Dose: Not Given Hydrochlorothiazide (Hydrochlorothiazide 25 Mg Tablet) 25 mg PO DAILY JOHN; Protocol Last Admin: 05/29/22 09:43 Dose: Not Given Hydroxyzine HCl (Hydroxyzine Hcl 25 Mg Tablet) 25 mg PO Q6H PRN PRN Reason: Anxiety Last Admin: 05/09/22 21:01 Dose: 25 mg Labetalol HCl (Labetalol Hcl 100 Mg Tablet) 300 mg PO BID [facility] Last Admin: 05/29/22 20:45 Dose: 300 mg Lisinopril (Lisinopril 40 Mg Tablet) 40 mg PO BEDTIME JOHN; Protocol Last Admin: 05/29/22 20:44 Dose: 40 mg Magnesium Hydroxide (Milk Of Magnesia 30 Ml Oral.Susp) 30 ml PO DAILY PRN PRN Reason: Constipation Olanzapine (Olanzapine 7.5 Mg Tablet) 15 mg PO BEDTIME JOHN Last Admin: 05/29/22 20:45 Dose: 15 mg Olanzapine (Olanzapine Odt 10 Mg Tab.Rapdis) 10 mg TRANSLINGU BID PRN PRN Reason: Psychosis Last Admin: 05/26/22 14:00 Dose: 10 mg Olanzapine (Olanzapine 10 Mg Vial) 10 mg IM BID PRN PRN Reason: psychosis Last Admin: 05/13/22 20:33 Dose: 10 mg Olanzapine (Olanzapine 10 Mg Tablet) 10 mg PO DAILY JOHN Last Admin: 05/29/22 08:32 Dose: 10 mg Tamsulosin HCl (Tamsulosin Hcl 0.4 Mg Capsule) 0.4 mg PO BEDTIME JOHN Last Admin: 05/29/22 20:47 Dose: Not Given Trazodone HCl (Trazodone Hcl 50 Mg Tablet) 50 mg PO BEDTIME PRN PRN Reason: Insomnia Last Admin: 05/20/22 11:05 Dose: 50 mg Trazodone HCl (Trazodone Hcl 25 Mg Halftab) 25 mg PO 1200 JOHN Last Admin: 05/29/22 11:59 Dose: 25 mg Allergies Allergies Allergy/AdvReac Type Severity Reaction Status Date / Time No Known Allergies Allergy Unverified 01/15/20 16:15 [No Known Allergies*] Assessment & Plan Assessment & Plan (1) Acute psychosis: Status: Acute Code(s): F23 - Brief psychotic disorder (2) Schizoaffective disorder, bipolar type: Status: Acute Code(s): F25.0 - Schizoaffective disorder, bipolar type (3) Dementia: Status: Acute Code(s): F03.90 - Unspecified dementia, unspecified severity, without behavioral di sturbance, psychotic disturbance, mood disturbance, and anxiety (4) Schizophrenia: Status: Acute Code(s): F20.9 - Schizophrenia, unspecified (5) Hypertension: Status: Acute Code(s): I10 - Essential (primary) hypertension Plan The patient is an elderly male from verbal does, with a long history of psychotic and mood symptoms, [facility] case managed and resident of [facility] with her prior admissions into the hospital for psychotic decompensation with steve in the context of noncompliance.? Historically had several admissions for the same reason.? He has a guardian and the role years order.? 05/06/22 Patient disorganized, but mostly pleasant.? Refusing psychiatric medication. Patient remains hypertensive despite recent medication change (reviewed hospitalist consult and seems recent increasing lisinopril and addition of hydrochlorothiazide) -placed hospitalist consult to review an manage antihypertensive medications for continued hypertension 05/07/2022 Patient refused addition of amlodipine saying he does not need it Refused a.m. Zyprexa Continue current treatment regimen 05/13/22 continue current treatment plan 05/14 continue current treatment plan pt seen in evening on 05/07, prior to when evening time BP taken; on 05/08, automobile service writer reviewed vitals and saw that on previous evening patient had elevated BP's above baseline; by 05/08 BP's returned to baseline; automobile service writer called PA hospitalist who evaluated; discussed with nursing and nursing supervisor cereal Plan 1. Gather collateral information.? We will try to contact the staff of the [facility] to get his medication reconciliation form.? Apparently he has last Haldol deck was on February but it is unclear we will try to get a more detailed information.? 2. Continue with the same medications that we have as per medication reconciliation.? 3. Regular blood work as per protocol.? 4. Regular observation. 5.? Invega Sustenna and Haldol Decanoate IM on April 28.? 6. Increased p.r.n. Zyprexa from 5-10 mg on May 03. 7. Zyprexa IM p.r.n. as per [place] order ordered. 8. Change regular observation to 5 minutes check on May 10. 9. Start Klonopin 1 mg 0.5 mg p.o. t.i.d. later the Klonopin was lowered to 0.5 p.o. b.i.d. and 1 mg at bedtime due to over-sedation on May 11. Later, May 16 Klonopin was increased up to 1 mg p.o. t.i.d. 10. Increased Zyprexa to 10 mg in the morning on May 13. 11. Court today for May 18 for Section 7 and 8 . 12. Blood work for May 18 came back with a very low Depakote level probably most likely cheeking his medication. 13. Chemically restrain today on May 19 Zyprexa 10 mg Ativan 2 mg and Benadryl 50 IM. 14. prison staff will visit him soon. Most likely discharge for next Sunday. 15. Invega Sustenna 234 IM monthly today and Haldol Decanoate 300 mg IM monthly today Reason for contiued inpatient stay Substantial Risk for: inability to function, rapid decompensation and med/psych decompensation Time Spent With Patient Time: Total time managing care of this patient today _20___ minutes.
[2022-05-30] MEDS: Labetalol HCL 100 MG TABLET 300 MG PO (09:52)
[2022-05-30] MEDS: OLANZapine 10 MG TABLET PO (09:52)
[2022-05-30] MEDS: hydroCHLOROthiazide 25 MG TABLET PO (09:52)
[2022-05-30] MEDS: amLODIPine Besylate 10 MG TABLET PO (09:52)
[2022-05-30] MEDS: clonazePAM 1 MG TABLET PO ×3 (09:52→22:06)
[2022-05-30] MEDS: Paliperidone Palmitate 234 MG/1.5 ML SYRINGE IM (14:13)
[2022-05-30] MEDS: traZODone HCL 25 MG HALFTAB PO (14:14)
[2022-05-30 18:00] VITALS: BP 123/58; PULSE 81; RESP 16; TEMP 36.5; O2SAT 94
[2022-05-30] MEDS: OLANZapine 7.5 MG TABLET 15 MG PO (22:06)
[2022-05-30] MEDS: lisinopriL 40 MG TABLET PO (22:06)
[2022-05-31 06:00] VITALS: BP 137/61; PULSE 90; RESP 14; TEMP 36.3; O2SAT 95
--- NOTE | 2022-05-31 06:45 | PM.PSYDC ---
DS: Providers Provider Date of Service: 05/31/22 Date of admission: 04/25/22 16:04 Date of discharge: 05/31/22 Primary care physician: Unknown Physician Consults: 04/30/22 23:09 Consult to Hospitalist Routine Consulting Provider: Hospitalist Reason For Exam: HTN 05/06/22 17:40 Consult to Hospitalist Routine Consulting Provider: Hospitalist Reason For Exam: continued HTN Attending physician on discharge: Scooter Dennis DS: Diagnosis Discharge Diagnosis (1) Acute psychosis: Status: Acute (2) Schizoaffective disorder, bipolar type: Status: Acute (3) Dementia: Status: Acute (4) Schizophrenia: Status: Acute (5) Hypertension: Status: Acute DS: Medications Discharge Medications Home Medications: Previous Rx's Medication Instructions Recorded divalproex 500 mg tablet,delayed 1,000 mg PO BEDTIME #60 tabs 02/24/22 release (Depakote) haloperidol decanoate 50 mg/mL 300 mg (6 mL) IM Q21D #0 mL 02/24/22 intramuscular solution labetalol 300 mg tablet 300 mg PO BID #60 tabs 02/24/22 lisinopril 20 mg tablet 20 mg PO BEDTIME #30 tabs 02/24/22 olanzapine 15 mg tablet 15 mg PO QPM #30 tabs 02/24/22 olanzapine 5 mg tablet 5 mg PO QAM #30 tabs 02/24/22 paliperidone palmitate 234 mg/1.5 234 mg (1.5 mL) IM Q30D #0 mL 02/24/22 mL intramuscular syringe (Invega Sustenna) tamsulosin 0.4 mg capsule 0.4 mg PO BEDTIME #30 caps 02/24/22 Mental Status Exam Mental Status Exam Patient Appearance: Inappropriate and Bizarre Patient Orientation: Person, Place and Situation Level of Consciousness: Awake Patient Behavior: Guarded and Passive Mood Description: Labile and Nervous Affect Description: Labile Patient Cognition Impaired: Yes Ability to Follow Directions: Fair Speech Pattern: Spontaneous Speech and Animated Hallucinations: None Delusions: Paranoid Ideation and Grandiose Thought Process: Distracted and Slowed Thinking Thought Content: positive for Lotus, positive for Perseveration, positive for Poverty of Content and positive for Thought Blocking Judgement: Poor Data Imaging Diagnostic Imaging Impressions Renal Ultrasound 05/08/22 16:00 IMPRESSION: 1. Bilateral renal cysts. No echogenic renal calculi. 2. There is no suggestion for renal artery stenosis in either kidney on renal Doppler exam. Renal Ultrasound 05/08/22 16:00 IMPRESSION: 1. Bilateral renal cysts. No echogenic renal calculi. 2. There is no suggestion for renal artery stenosis in either kidney on renal Doppler exam. DS: Summary Hospital Course Hospital Course: The patient was brought from the emergency room since his senior living reported that he had been noncompliant with medications and he decompensated with steve and psychosis. The patient is a very well-known patient releases I treated before in another clinic, he carries a diagnosis of schizoaffective disorder bipolar type. Please see the HPI for further details on the admission. On interview we gather collateral information and we got the court order for treatment over objection. We restarted on his medications, the patient initially refused his Invega Sustenna Haldol take injectable but eventually he guarded. She as per his caregivers, the patient takes a long time to go back to his baseline with treatment. We start titrating the Zyprexa slowly since the patient was grossly manic and psychotic, sexually disinhibited and loud. A certain point, he kissed in a violent way to a female staff. He needed to be on one-to-one and he was chemically restrain several times. Also we needed to call for a code to get his medications against his will as per court order. The patient wanted to be discharged so we needed to file a Section [address] hearing was changed several times. Eventually the patient improved, he was slightly sedated that we needed to add also Klonopin. The senior living staff came to visit him several times and since he was nearly to baseline discharge planning was discussed. Time spent discussing smoking cessation with patient: 3 to 10 minutes Status at Discharge Cognitive/behavioral status at discharge: Impaired at baseline Functional status at discharge: independent ambulation Overall status at discharge: patient is progressing back to baseline Time Spent with Patient Time attestation: Total time managing care of this patient today _30___ minutes. Time spent: Less than 30 minutes Discharge Plan Discharge Anticipated Discharge Date/Time: 05/31/22 13:00 Patient Disposition: Xfer Other Discharge Diagnosis: Schizoaffective disorder bipolar type Referrals: Physician,Unknown J [Primary Care Provider] - 1 Week Discharge Medications: New clonazepam 1 mg Tablet 1 mg PO TID 30 Days Qty: 90 0RF olanzapine 10 mg Tablet 10 mg PO DAILY 30 Days Qty: 30 0RF amlodipine 10 mg Tablet 10 mg PO DAILY 30 Days Qty: 30 0RF Protocol: Hold for SBP< HOLD for SBP < : 90 lisinopril 40 mg Tablet 40 mg PO BEDTIME 30 Days Qty: 30 0RF Protocol: Hold for SBP< HOLD for SBP < : 90 trazodone 50 mg tablet 25 mg PO DAILY Qty: 30 0RF Rx Instructions: at noon Continued divalproex [Depakote] 500 mg Tablet,Delayed Release (Dr/Ec) 1,000 mg PO BEDTIME Qty: 60 0RF tamsulosin 0.4 mg Capsule 0.4 mg PO BEDTIME Qty: 30 0RF haloperidol decanoate 50 mg/mL Solution 300 mg IM Q21D 30 Days Qty: 6 0RF olanzapine 15 mg Tablet 15 mg PO QPM Qty: 30 0RF labetalol 300 mg Tablet 300 mg PO BID Qty: 60 0RF Invega Sustenna 234 mg/1.5 mL Syringe 234 mg IM Q30D 30 Days Qty: 1.5 0RF Discontinued lisinopril 20 mg Tablet 20 mg PO BEDTIME Qty: 30 0RF olanzapine 5 mg Tablet 5 mg PO QAM Qty: 30 0RF Discharge Orders: Discharge Order (Routine); Ordered 05/31/22 Ordered By: Scooter Dennis Diet: Advance to usual diet Activity on Discharge: As tolerated Stand Alone Forms: Patient Portal Discharge page Care Plan Goals: Care plan goals achieved in this admission Health Concerns: Continue treatment by primary care physician as an outpatient Plan of Treatment: Continue medication management and case managing by [facility] Assessment: Elderly male with a long history of schizoaffective disorder bipolar type, with several ancillary services such as [facility] case investigatorlabor training manager, admitted for decompensation due to noncompliance with long-acting injectables. At this moment safe to be in the community ready for discharge
[2022-05-31] MEDS: OLANZapine 10 MG TABLET PO (09:41)
[2022-05-31] MEDS: Labetalol HCL 100 MG TABLET 300 MG PO (09:41)
[2022-05-31] MEDS: amLODIPine Besylate 10 MG TABLET PO (09:41)
[2022-05-31] MEDS: clonazePAM 1 MG TABLET PO (09:41)
[2022-05-31] MEDS: hydroCHLOROthiazide 25 MG TABLET PO (09:42)
--- NOTE | 2022-05-31 17:05 | PC.NURSE ---
Patient verbalized readiness for discharge. Alert and oriented. Dressed in street clothes. Slightly disheveled. All belongings accounted for and reviewed with patient. Discharge instructions and medications reviewed with skilled nursing employee. Follow up appointment instructions given to skilled nursing for HHC. Patient escorted to front of hospital with assisted aid and [facility] employee.
== END 2022-05-31 17:02 | disposition other institution (70) | DRG 885 ==
LOC: HO.ED 04-25 15:09 → HO.PGERI 04-25 16:14
PROVIDERS: Internal Medicine; Nurse Practitioner Family; Admitting Provider Psychiatry & Neurology Psychiatry; Emergency Provider Internal Medicine; Visit Provider Psychiatry & Neurology Psychiatry
DX: F25.0 Schizoaffective disorder, bipolar type (principal); I10 Essential (primary) hypertension; F03.90 Unspecified dementia, unspecified severity, without behavioral disturbance, psychotic disturbance, mood disturbance, and anxiety; Z20.822 Contact with and (suspected) exposure to COVID-19; Z87.891 Personal history of nicotine dependence; Z79.899 Other long term (current) drug therapy
CPT/HCPCS: 36415; 76775; 80048; 80053; 80061; 80076; 80164; 80307; 81001; 83036; 84443; 84484; 85025; 87635; 93005; 93975; 99282; 99285; J1200; J2060; J2426